=== PATIENT | female | born 1985 | race Caucasian/White ===

== ENCOUNTER 2019-12-05 00:21 | Emergency (ER) | payer SELFPAY ==
[2019-12-05 00:24] VITALS: BP 130/86; PULSE 96; RESP 20; TEMP 36.8; O2SAT 100
--- NOTE | 2019-12-05 00:35 | ED.DENTAL ---
HPI - Dental/Oral General Chief complaint: Dental/Oral Stated complaint: TOOTHACHE Time Seen by Provider: 12/05/19 00:36 Source: patient Mode of arrival: ambulatory Limitations: no limitations History of Present Illness HPI Narrative: The pt is a 34 y/o female who presents to the ED with c/o rt dental pain that began over 5 days ago. The pt was here in the ED 5 days ago for dental pain and was prescribed Augmentin, which she has been taking since, and referred to a dentist. Last night, she noticed rt facial swelling, which worsened to be almost twice in size by morning. The pt was seen at [facility], where providers found that the was septic. The pt left [facility] because she wanted to be admitted somewhere closer to home so she came to [place]. She had a CT done at [facility], which showed that there was no abscess. The pt reports 101F fever, chills, rt facial swelling, and sweats. The pt has a PMHx of pseudotumor cerebri with a SHx of a TAILER OFF shunt placement. MD Complaint: tooth pain (rt) Onset (ago): day(s) (over 5 days ago) Associated symptoms: fever and other (chills, rt facial swelling, sweats. ) Treatment prior to arrival: other (Augmentin, ED visit x2) Related Data Allergies Allergy/AdvReac Type Severity Reaction Status Date / Time cefaclor [From Ceclor] Allergy Swelling Verified 12/05/19 00:23 prochlorperazine Allergy Swelling Verified 12/05/19 00:23 [From Compazine] Sulfa (Sulfonamide Allergy Swelling Verified 12/05/19 00:23 Antibiotics) sulfamethoxazole Allergy Swelling Verified 12/05/19 00:23 [From Bactrim] trimethoprim [From Bactrim] Allergy Swelling Verified 12/05/19 00:23 Review of Systems Review of Systems: All systems reviewed & are unremarkable except as noted in HPI and below Constitutional: Constitutional: Reports chills, Reports fever(s) and Reports other (sweats) ENT: Reports other (rt dental pain) Integumentary/Breasts: Skin/Breast: Reports other (rt facial swelling) PMFSH Past Medical History Medical History (Updated 12/05/19 @ 04:14 by Sin Fairchild MD) History of idiopathic intracranial hypertension Pseudotumor cerebri Surgical History Surgical History (Updated 12/05/19 @ 01:12 by Nieves Soto) Hx of ventricular shunt TAILER OFF shunt Social History Social History Smoking status: Current every day smoker Gender identity (if verbalized by the patient): Female Exam Const: General: healthy appearing and no acute distress Nutritional Appearance: well nourished HENMT: Mouth: Yes lip normal and Yes moist mucous membranes Other: significant tooth decay and gum disease, mild swelling over rt mandible Eyes: Conjunctivae: conjunctivae normal Pupils: Equal, round and reactive pupils present Resp: Effort & Inspection: normal respiratory effort Auscultation: clear to auscultation bilaterally Cardio: Rate: regular rate Rhythm: regular rhythm GI: GI Palp: No abdominal tenderness and Yes Soft to palpation Auscultation: normal bowel sounds Back/Spine/Pelvis: Back: other (full ROM) Skin: General skin exam: normal color, dry skin and other (warm) Neuro: General: patient oriented x3 Speech: normal speech Extrem: General: full ROM Psych: Mental Status: mental status grossly normal Affect: normal affect Course Course Emergency Course: I was called to the room because the patient was requesting pain medication. I ordered toradol and she was upset because she said that she already knew that it would not work. I explained that before giving her a narcotic I would like to give it a chance. She then got upset and stated that I was insulting her intelligence by repeating the same tests that she had done at the other facility before she signed out AMA. I explained that I don't have access to those results, so I needed to repeat the tests. She then began insulting me and saying that I did not know what I was
[2019-12-05 01:49] LABS: Basophils Absolute Auto 0.1 K/mm3 (0.0-0.1); Basophils Percent Auto 0.5 % (0.2-1.2); Eosinophils Absolute Auto 0.8 K/mm3 (0-0.3); Hematocrit 44.8 % (37.0-47.0); Hemoglobin 14.3 g/dL (12.0-15.0); Immature Granulocyte Absolute 0.09 K/mm3 (0.00-0.031); Immature Granulocyte Percent A 0.6 % (0-0.5); Lymphocytes Absolute Auto 2.35 K/mm3 (0.9-3.2); Lymphocytes Percent Auto 15.5 % (18.3-44.2); Mean Corpuscular HGB Conc 31.9 g/dl (32-36); Mean Corpuscular Volume 87.7 fl (80-100); Mean Platelet Volume 10.4 fl (7.4-10.4); Monocytes Absolute Auto 0.9 K/mm3 (0.1-0.6); Monocytes Percent Auto 6.1 % (2.6-8.5); Neutrophils Absolute Auto 10.9 K/mm3 (1.3-6.7); Neutrophils Percent Auto 72.3 % (45.5-73.1); Platelet Count Result 314 k/mm3 (150-375); Red Blood Count 5.11 M/mm3 (4.2-5.4); Red Cell Distribution Width 13.2 % (11.5-14.5); White Blood Count 15.1 K/mm3 (4.5-10.0)
[2019-12-05] MEDS: CLINDAMYCIN 600 MG/NS 50 ML 600 MG/50 ML PIGGYBACK 100 MG IVPB (01:49)
[2019-12-05 02:00] LABS: INR 0.9; Partial Thromboplastin Time 26.1 SECONDS (22.3-36.8); Prothrombin Time 11.9 Seconds (11.1-14.7)
[2019-12-05 02:06] LABS: Alanine Aminotransferase 16 U/L (4-35); Albumin Level 4.5 g/dL (3.5-5.1); Alkaline Phosphatase 72 U/L (38-126); Aspartate Amino Transferase 18 U/L (14-36); Bilirubin,Total 0.5 mg/dL (0.2-1.3); Blood Urea Nitrogen 15 mg/dL (7-17); CRP 2.8 mg/dL (<1.0); Carbon Dioxide 23 mmol/L (22-30); Chloride 102 mmol/L (98-107); Estimated Glomerular Filt Rate > 60; Glucose 85 mg/dL (65-105); Potassium 4.1 mmol/L (3.4-5.0); Sodium 136 mmol/L (137-145)
--- NOTE | 2019-12-05 02:20 | PC.NURSE ---
Patient very tearful, requesting pain medication. States, I should have stayed at that other hospital, at least they gave me pain meds. Dr Fairchild aware, verbal order for Toradol 30mg IVP. Patient also requesting to speak with physician, Dr Fairchild aware.
[2019-12-05] MEDS: KETOROLAC 30 MG/ML VIAL (*BKC) IV PUSH (02:23)
--- NOTE | 2019-12-05 02:44 | PC.NURSE ---
Dr Fairchild in to speak with patient. Patient became tearful and angry with physician. Patient verbalized that she would like to sign out AMA. IV removed, AMA forms signed.
== END 2019-12-05 02:45 | disposition left against medical advice (07) ==
LOC: ANHED 01:05
PROVIDERS: Emergency Provider Emergency Medicine
DX: K04.7 Periapical abscess without sinus (principal); F17.200 Nicotine dependence, unspecified, uncomplicated; G93.2 Benign intracranial hypertension; Z98.2 Presence of cerebrospinal fluid drainage device
CPT/HCPCS: 36415; 80053; 85025; 85610; 85730; 86140; 87040; 96365; 96375; 99284; J1885

== ENCOUNTER 2021-02-13 10:58 | Emergency (ER) | payer OTHER, SELFPAY ==
[2021-02-13] VITALS (26 sets, daily range): BP systolic 112–129; BP diastolic 66–90; PULSE 75–105; RESP 9–23; TEMP 36.3; O2SAT 97–100
--- NOTE | ~2021-02-13 | CT_ITS ---
EXAMINATION: CT brain wo con EXAM DATE: 02/13/2021 13:28 INDICATION: Seizure, posterior head injury. Ventriculoperitoneal shunt revision. Headache. TECHNIQUE: Spiral CT of the head was performed without contrast. Axial, coronal and sagittal images were reviewed. The dose-length product (DLP) for this examination was 605.33 mGy-cm. The exposure w as tailored according to patient size, and iterative reconstruction (ASIR) was used as additional dos e reduction technique. There is no prior study for comparison. FINDINGS: There is no acute intraparenchymal hemorrhage. No evidence of intraparenchymal brain mass lesion. No evidence of acute infarction. There is no mass effect or midline shift. Imaged portion of patient's left-sided ventriculoperitoneal shunt is intact. There is an old tip from a prior shunt which was in the contralateral side with small region of right frontal encephalomalaci a. The ventricles are nearly completely collapsed. There are no extra-axial collections. There are no acute calvarial fractures. The orbits are unremar kable. Soft tissue is unremarkable. The visualized sinuses and mastoid air cells are well aerated. IMPRESSION: 1. Left ventricular peritoneal shunt in position. Lateral ventricles nearly completely collapsed. 2. No acute intracranial findings. Reviewed, dictated and finalized at location A. IMPRESSION: 1. Left ventricular peritoneal shunt in position. Lateral ventricles nearly co mpletely collapsed. 2. No acute intracranial findings.
--- NOTE | ~2021-02-13 | XR_ITS ---
EXAMINATION: XR shunt series EXAM DATE: 02/13/2021 12:21 INDICATION: Seizure, h/o pseudotumor-recent shunt revision. TECHNIQUE: Frontal and lateral projections left head and neck, frontal projection chest, frontal pro jection abdomen and pelvis. There is no prior study for comparison. FINDINGS: There is tip of an old shunt identified probably within a lateral ventricle, may have been in the contralateral side. The current ventriculoperitoneal shunt is entering on the left, tubing steffany ears contiguous and intact to the pelvis. Slightly abrupt alteration of course, slight bending at the mid aspect over the upper abdominal level, but this could also be projectional coming into or out of the plane of the x-ray beam. IMPRESSION: 1. Intact shunt tubing. 2. Slightly abrupt alteration of course, slight bending at shunt mid aspect over the upper abdominal level, but this could also be projectional, coming into or out of the plane of the x-ray beam. No fra nk kinking. Reviewed, dictated and finalized at location A. IMPRESSION: 1. Intact shunt tubing. 2. Slightly abrupt alteration of course, slight bending at shunt mid aspect ove r the upper abdominal level, but this could also be projectional, coming into o r out of the plane of the x-ray beam. No karely kinking.
[2021-02-13] MEDS: ONDANSETRON INJ 4 MG/2 ML VIAL IV PUSH (11:52)
[2021-02-13] MEDS: KETOROLAC 30 MG/ML VIAL (*BKC) IV PUSH (11:53)
[2021-02-13 12:15] LABS: Basophils Absolute Auto 0.1 K/mm3 (0.0-0.1); Basophils Percent Auto 0.7 % (0.2-1.2); Eosinophils Absolute Auto 0.5 K/mm3 (0-0.3); Eosinophils Percent Auto 3.9 % (0-4.4); Hematocrit 47.7 % (37.0-47.0); Hemoglobin 15.4 g/dL (12.0-15.0); Immature Granulocyte Absolute 0.05 K/mm3 (0.00-0.031); Immature Granulocyte Percent A 0.4 % (0-0.5); Lymphocytes Absolute Auto 2.53 K/mm3 (0.9-3.2); Lymphocytes Percent Auto 21.3 % (18.3-44.2); Mean Corpuscular HGB Conc 32.3 g/dl (32-36); Mean Corpuscular Hemoglobin 28.2 pg (26-34); Mean Corpuscular Volume 87.4 fl (80-100); Monocytes Absolute Auto 0.7 K/mm3 (0.1-0.6); Neutrophils Absolute Auto 8.1 K/mm3 (1.3-6.7); Neutrophils Percent Auto 67.7 % (45.5-73.1); Platelet Count Result 257 k/mm3 (150-375); Red Blood Count 5.46 M/mm3 (4.2-5.4); Red Cell Distribution Width 13.3 % (11.5-14.5); White Blood Count 11.9 K/mm3 (4.5-10.0)
[2021-02-13 12:47] LABS: Anion Gap 6 mmol/L (8-16); Blood Urea Nitrogen 11 mg/dL (7-17); Calcium 9.1 mg/dL (8.4-10.2); Carbon Dioxide 23 mmol/L (22-30); Chloride 110 mmol/L (98-107); Estimated CRCL calculation 113 ml/min; Estimated Glomerular Filt Rate > 60; Glucose 93 mg/dL (65-105); Potassium 4.3 mmol/L (3.4-5.0); Sodium 139 mmol/L (137-145)
--- NOTE | 2021-02-13 12:48 | ED.SEIZURE ---
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 Patient reports she had a grand mal seizure last night and then had 3 petit mall seizures today. She moved here from [place] 2 years ago. She has not establish care with a neurologist. Her last shunt revision was over 2 years ago in [place]. She does not take any antiepileptics. Reports increased stress recently due to having to move to another apartment. She denies fevers or chills or sweats. Reports last night she had an aura before her seizure was able to move to the ground before she seized. She reports she has been having some mild headache. She has history of pseudotumor which is why she has the shunt. She has some mild nausea but no vomiting. No numbness or weakness in arm or leg. Patient reports she is having no visual changes which is typically the indicator that she needs a therapeutic tap but she has not required 1 since having her shunt. Seizure History: Yes Related Data Allergies Allergy/AdvReac Type Severity Reaction Status Date / Time cefaclor [From Ceclor] Allergy Swelling Verified 02/13/21 11:28 prochlorperazine Allergy Swelling Verified 02/13/21 11:28 [From Compazine] Sulfa (Sulfonamide Allergy Swelling Verified 02/13/21 11:28 Antibiotics) sulfamethoxazole Allergy Swelling Verified 02/13/21 11:28 [From Bactrim] trimethoprim [From Bactrim] Allergy Swelling Verified 02/13/21 11:28 Review of Systems Review of Systems: All systems reviewed & are unremarkable except as noted in HPI and below Constitutional: Constitutional: Denies chills, Denies fever(s) and Denies weakness Eyes: Eyes: Denies change in vision and Reports photophobia ENT: Denies nasal congestion and Denies sore throat Gastrointestinal: Gastrointestinal: Denies abdominal pain, Reports nausea and Denies vomiting Neurologic: Reports headache(s), Denies focal weakness and Denies numbness Comments: Seizure PMFSH Past Medical History Medical History (Updated 02/13/21 @ 14:47 by Jak Olmstead MD) History of idiopathic intracranial hypertension Pseudotumor cerebri Seizure disorder Surgical History Surgical History (Updated 12/05/19 @ 01:12 by Nieves Soto) Hx of ventricular shunt 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 HEAD: Normocephalic, atraumatic. EYES: PERRL and EOMI. CHEST: Clear to auscultation. No respiratory distress. HEART: Regular rate and rhythm. Normal peripheral pulses. ABDOMEN: Soft, nontender, nondistended. EXTREMITIES: Normal range of motion. No edema. SKIN: Warm, dry, no rash. NEURO: Clear speech. No facial droop. Moves all extremities well. Alert and oriented x3. Course Course Emergency Course: Discussed case with Dr. Ignacio who recommends CT of the brain and for patient be on Keppra 750 mg twice daily and to have an outpatient EEG. CT showed possible over shunting due to collapse of lateral ventricles. Discussed case with Dr. Ramirez with neurosurgery at [facility]. She was able to compare the CT from today with CT imaging that they have been there system which shows unremarkable change. They feel patient can follow-up in 1 to 2 weeks outpatient in the neurosurgical clinic. They will contact the patient as they have her information however we will also give patient clinic phone number. Patient is received Toradol/Tylenol/morphine for pain. She received IV fluid because she appears dry when evaluating her blood work. She is verbalized understanding of the treat
[2021-02-13] MEDS: SODIUM CHLORIDE 0.9% IV 1,000 ML 999 ML IV CONT (13:52)
[2021-02-13] MEDS: levETIRAcetam 1000MG/NACL100ML 1,000 MG/100 ML BAG 400 MG IVPB (14:00)
--- NOTE | 2021-02-13 14:05 | PC.NURSE ---
[id number] Dr. Olmstead aware of pt's continued c/o headache, no further orders received. No seizure activity in ED. Reports GUTIERREZ 8 a little better after Tylenol
[2021-02-13] MEDS: MORPHINE SULFATE (*CRX) 4 MG/ML INJ IV PUSH (14:38)
--- NOTE | 2021-02-13 14:39 | PC.NURSE ---
Dr. Olmstead at bedside for reassessment and update on POC, pt verbalizes to f/u with neurosurg and restart seizure meds No further seizures in ED. Medicated for pain
== END 2021-02-13 15:00 | disposition home or self-care (01) ==
PROVIDERS: Emergency Provider Emergency Medicine; PCP Family Medicine
DX: G40.909 Epilepsy, unspecified, not intractable, without status epilepticus (principal); F17.210 Nicotine dependence, cigarettes, uncomplicated
CPT/HCPCS: 36415; 70250; 70450; 71045; 74018; 80048; 85025; 96361; 96365; 96375; 99284; J0131; J1885; J1953; J2270; J2405; J7030

== ENCOUNTER 2021-05-15 14:56 | Outpatient (CLI) | payer OTHER, SELFPAY ==
--- NOTE | ~2021-05-15 | XR_ITS ---
EXAMINATION: XR lumbar spine min 4V EXAM DATE: 05/15/2021 15:48 INDICATION: Chronic benign low back pain, left-sided sciatica. TECHNIQUE: Lumber spine frontal, lateral, bilateral oblique projections. Coned down frontal and lat eral L5-S1 lumbar projections for interpretation. There is no prior study for comparison. FINDINGS: Mild disc disease L5-S1. Mild mid and lower lumbar facet arthropathy. The vertebral bodies are aligned in the AP dimension. Paraspinal soft tissue is unremarkable. Sacrum, sacroiliac joints, s acral arcuate lines are intact. There is a catheter overlying the abdomen probably a ventriculoperito naga shunt. IMPRESSION: Mild lumbar spondylosis. Reviewed, dictated and finalized at location A. IMPRESSION: Mild lumbar spondylosis.
== END 2021-05-15 14:57 | disposition home or self-care (01) ==
PROVIDERS: PCP Family Medicine
DX: M54.42 Lumbago with sciatica, left side (principal); G89.29 Other chronic pain; M47.816 Spondylosis without myelopathy or radiculopathy, lumbar region
CPT/HCPCS: 72110

== ENCOUNTER 2021-12-31 01:54 | Emergency (ER) | payer OTHER, SELFPAY ==
[2021-12-31] VITALS (9 sets, daily range): BP systolic 123–138; BP diastolic 60–89; PULSE 2–105; RESP 15–21; TEMP 36.8; O2SAT 97–100
--- NOTE | ~2021-12-31 | XR_ITS ---
XR shunt series 12/31/2021 02:36 Indication: Seizure. Evaluate ventriculoperitoneal shunt. Procedure: 6 views of the ventriculoperitoneal shunt Comparison: 02/13/2021 Findings: There is tip from an old shunt identified. The current shunt enters on the left with contig uous tubing extending into the pelvis. No focal kinks are identified. No acute cardiopulmonary diseas e. Nonobstructive bowel gas pattern. Impression: 1: Intact ventriculoperitoneal shunt. Reviewed, dictated and finalized at location A. OYMENT DIRECTOR Impression: 1: Intact ventriculoperitoneal shunt.
--- NOTE | ~2021-12-31 | CT_ITS ---
EXAMINATION: CT BRAIN W/O DATE: 12/31/2021 02:28 INDICATION: Head injury. Seizure. TECHNIQUE: Computed tomography (CT) of the head was performed without intravenous contrast. The dose- length product was 681.00 mGy-cm. COMPARISON: No prior studies for comparison. FINDINGS: Normal brain parenchymal volume for age. Normal huerta-white differentiation. No acute intrac ranial hemorrhage, infarction, mass or mass effect. There is a shunt catheter in the ventricles. The ventricles are decompressed. There is residual tip of a previous right-sided shunt catheter. There is encephalomalacia in the frontal lobes. No ventriculomegaly or midline shift. Midline sagittal images demonstrate a normal corpus callosum, c raniovertebral junction and sella turcica. Basilar cisterns are patent. Paranasal sinuses and mastoids are pneumatized. No depressed skull fractures. IMPRESSION: 1. No acute intracranial abnormality. Reviewed, dictated and finalized at location A. L CHIPPER
--- NOTE | 2021-12-31 02:07 | ECG_ITS ---
Measurements Intervals [place] Rate: 80 P: 38 VA: 139 QRS: 20 QRSD: 84 T: -1 QT: 345 QTc: 398 Interpretive Statements SINUS RHYTHM BORDERLINE ST-T WAVE ABNORMALITY- INFERIOR LEADS BORDERLINE ECG Electronically Signed On 12-31-2021 6:28:17 MULTIMEDIA SPECIALIST by Michael Alford D.O.
--- NOTE | 2021-12-31 02:42 | ED.SEIZURE ---
HPI - Seizure General Chief Complaint: Seizure Stated Complaint: Seizure, head injury Time Seen by Provider: 12/31/21 02:08 Source: patient Mode of arrival: ambulatory Limitations: no limitations History of Present Illness HPI Narrative: This is a 36 year old female with history of idiopathic intracranial hypertension and seizures who presents for evaluation seizures and head injury. Patient states she could tell she was going to have seizure and she hit her head on vanity. She reports she was aware of all events and she ended up on the floor. She states she had a seizures. She reports immediately having nausea and vomiting. She denies any symptoms prior to getting into the shower. She thinks her shunt is not working. She reports compliance with her seizure medication and she takes keppra 1000 mg BID. She reports shunt was first placed 15 years ago and her last shunt revision was 3 years ago in [place]. She does not have a neurologist or neurosurgeon in area. Seizure History: Yes (takes Keppra) Related Data Home Medications Medication Instructions Recorded Confirmed hydrocodone-acetaminophen tablet 12/31/21 Allergies Allergy/AdvReac Type Severity Reaction Status Date / Time cefaclor [From Ceclor] Allergy Swelling Verified 12/31/21 02:06 prochlorperazine Allergy Swelling Verified 12/31/21 02:06 [From Compazine] Sulfa (Sulfonamide Allergy Swelling Verified 12/31/21 02:06 Antibiotics) sulfamethoxazole Allergy Swelling Verified 12/31/21 02:06 [From Bactrim] trimethoprim [From Bactrim] Allergy Swelling Verified 12/31/21 02:06 Review of Systems Review of Systems: All systems reviewed & are unremarkable except as noted in HPI and below PMFSH Past Medical History Medical History (Updated 12/31/21 @ 05:07 by Glenny Salazar MD) History of idiopathic intracranial hypertension Pseudotumor cerebri Seizure disorder Surgical History Surgical History (Updated 12/31/21 @ 05:07 by Glenny Salazar MD) Hx of ventricular shunt 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 Social History Social History Smoking status: Current every day smoker Gender identity (if verbalized by the patient): Female Exam Const: General: alert Orientation/consciousness: patient oriented x3 HENMT: Head: normocephalic and atraumatic Face and sinus: normal facial exam and face symmetric Mouth: Yes Normal oral and palatal mucosa present, Yes lip normal, Yes oropharynx normal and Yes moist mucous membranes Teeth and gingiva: fair dentition Eyes: Pupils: Equal, round and reactive pupils present EOM: EOMs intact bilaterally Chest: Chest palpation & inspection: normal inspection of the chest Resp: Effort & Inspection: normal respiratory effort and no retractions Auscultation: clear to auscultation bilaterally Cardio: Rate: regular rate Rhythm: regular rhythm Heart sounds: no murmurs GI: GI Palp: Yes Soft to palpation, No Tenderness to palpation present (GI) and No Guarding due to palpation present (GI) Auscultation: normal bowel sounds Back/Spine/Pelvis: Cervical Spine: pain with cervical ROM, No Cervical spine tenderness and No step off deformity Skin: General skin exam: normal color Rashes: no rashes Neuro: General: patient oriented x3, moves all extremities and CN's II-XI intact bilaterally Psych: Mental Status: mental status grossly normal Affect: normal affect Course Reevaluation(s) Reevaluation #1: Patient is concerned about her shunt. I spoke with Dr. Casper with [facility] neurosurgery who would like to assess patient in ER. Dr. Hunt accepts patient to ER. Patient is now complaining of pain at base of neck. Will place in collar Date: 12/31/21 Time: 05:02 Reevaluation #2: Patient asked nurse to sign AMA so her can take her to [facility] ER. They discussed risk given concern for seizures, apnea. Date: 12/31/21 Time: 05:40 Vital Signs Vital signs: Vital
[2021-12-31] MEDS: ONDANSETRON INJ 4 MG/2 ML VIAL IV PUSH (02:43)
[2021-12-31] MEDS: SODIUM CHLORIDE 0.9% IV 1,000 ML 999 ML IV CONT ×2 (02:43→03:46)
[2021-12-31 02:48] LABS: Basophils Absolute Auto 0.1 K/mm3 (0.0-0.1); Basophils Percent Auto 0.4 % (0.2-1.2); Eosinophils Absolute Auto 0.5 K/mm3 (0-0.3); Eosinophils Percent Auto 3.7 % (0-4.4); Hematocrit 45.1 % (37.0-47.0); Hemoglobin 14.5 g/dL (12.0-15.0); Immature Granulocyte Absolute 0.06 K/mm3 (0.00-0.031); Immature Granulocyte Percent A 0.4 % (0-0.5); Lymphocytes Absolute Auto 4.13 K/mm3 (0.9-3.2); Lymphocytes Percent Auto 28.6 % (18.3-44.2); Mean Corpuscular HGB Conc 32.2 g/dl (32-36); Mean Corpuscular Hemoglobin 28.5 pg (26-34); Mean Corpuscular Volume 88.8 fl (80-100); Mean Platelet Volume 10.6 fl (7.4-10.4); Monocytes Absolute Auto 0.8 K/mm3 (0.1-0.6); Monocytes Percent Auto 5.8 % (2.6-8.5); Neutrophils Absolute Auto 8.8 K/mm3 (1.3-6.7); Neutrophils Percent Auto 61.1 % (45.5-73.1); Platelet Count Result 303 k/mm3 (150-375); Red Blood Count 5.08 M/mm3 (4.2-5.4); Red Cell Distribution Width 13.2 % (11.5-14.5); White Blood Count 14.5 K/mm3 (4.5-10.0)
[2021-12-31 03:10] LABS: Alanine Aminotransferase 16 U/L (4-35); Albumin Level 4.5 g/dL (3.5-5.1); Alkaline Phosphatase 53 U/L (38-126); Anion Gap 7 mmol/L (8-16); Aspartate Amino Transferase 25 U/L (14-36); Bilirubin,Total 0.5 mg/dL (0.2-1.3); Blood Urea Nitrogen 10 mg/dL (7-17); Carbon Dioxide 19 mmol/L (22-30); Chloride 109 mmol/L (98-107); Estimated Glomerular Filt Rate > 60; Glucose 96 mg/dL (65-110); Magnesium 1.9 mg/dL (1.6-2.3); Potassium 4.6 mmol/L (3.4-5.0); Sodium 135 mmol/L (137-145)
[2021-12-31 03:32] LABS: Add Urine Microscopic? NO; Appearance Urine Clear (Clear); Bilirubin Urine Negative (Negative); Blood Urine Negative (Negative); Color Urine Yellow (Yellow); Glucose Urine UA Negative (Negative); Ketones Urine Negative (Negative); Leukocyte Esterase Ur Negative LEU/UL (Negative); Nitrate Urine Negative (Negative); Protein Urine Negative (Negative); Specific Grav Ur 1.009 (1.001-1.035); Urobilinogen Urine Negative mg/dL (<2.0)
[2021-12-31] MEDS: KETOROLAC 30 MG/ML VIAL (*BKC) IV PUSH (03:45)
[2021-12-31 03:49] LABS: Amphetamine Screen Urine Negative (Negative); Barbiturate Screen Urine Negative (Negative); Benzodiazepines Screen Urine Negative (Negative); Cannabinoid Screen Urine Negative (Negative); Cocaine Screen Urine Negative (Negative); Methadone Screen Urine Negative (Negative); Opiate Screen Urine Positive (Negative); Phencyclidine Screen Urine Negative (Negative)
--- NOTE | 2021-12-31 05:10 | PC.NURSE ---
Pt tearful on stretcher and states she would like to go to [facility] ER via POV w/ . is not at bedside at this time. Pt informed she has IV access and is going ALS for eval. Report given to Megan at [facility]. Pt states she will sign out AMA if she has to, but not wanting to go via EMS. EDP informed. States to let pt know pain meds are ordered and plan is to go via EMS. Pt declines, states It is ridiculous that I cannot get pain medicine if I refuse an ambulance ride. Pt discussing w/ automatic packer operator at this time.
--- NOTE | 2021-12-31 05:23 | PC.NURSE ---
Pt advised by EDP Dr Salazar of risk of sz or further injury by signing out AMA and refusing transport via EMS to [facility] ER. Pt signed AMA paper work and declined EMS transport to [facility] per EDP recommendations. Given packet to take to ER and discussed going directly to ER and to remain NPO. IV removed, transfer packet w/ disc given to pt. Pt ambulated out in no distress w/ steady gait.
== END 2021-12-31 05:28 | disposition left against medical advice (07) ==
PROVIDERS: Emergency Provider General Practice
DX: G40.909 Epilepsy, unspecified, not intractable, without status epilepticus (principal); R51.9 Headache, unspecified; Z98.2 Presence of cerebrospinal fluid drainage device; F17.200 Nicotine dependence, unspecified, uncomplicated
CPT/HCPCS: 36415; 70250; 70450; 71045; 74018; 80053; 80307; 81003; 81025; 83735; 85025; 93005; 96361; 96365; 96375; 99284; J0131; J1885; J2405; J7030

== ENCOUNTER 2023-06-07 11:55 | Emergency (ER) | payer OTHER, SELFPAY ==
[2023-06-07 11:58] VITALS: BP 114/64; PULSE 83; RESP 16; TEMP 36.4; O2SAT 100
--- NOTE | 2023-06-07 12:37 | ED.DENTAL ---
HPI - Dental/Oral General Chief complaint: Dental/Oral Stated complaint: tooth pain Time Seen by Provider: 06/07/23 12:13 Source: patient Mode of arrival: ambulatory Limitations: no limitations History of Present Illness HPI Narrative: Right upper dental pain for the last few days, she denies any fever, chills, headache, difficulty swallowing or breathing. Does not have a dentist. Related Data Home Medications Medication Instructions Recorded Confirmed hydrocodone 10 mg-acetaminophen tablet 12/31/21 325 mg tablet Allergies Allergy/AdvReac Type Severity Reaction Status Date / Time cefaclor [From Ceclor] Allergy Swelling Verified 06/07/23 12:08 prochlorperazine Allergy Swelling Verified 06/07/23 12:08 [From Compazine] Sulfa (Sulfonamide Allergy Swelling Verified 06/07/23 12:08 Antibiotics) sulfamethoxazole Allergy Swelling Verified 06/07/23 12:08 [From Bactrim] trimethoprim [From Bactrim] Allergy Swelling Verified 06/07/23 12:08 Review of Systems Review of Systems: All systems reviewed & are unremarkable except as noted in HPI and below PMFSH Past Medical History Medical History History of idiopathic intracranial hypertension Pseudotumor cerebri Seizure disorder Surgical History Surgical History 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 ventricular shunt 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 Social History Social History Smoking status: Current every day smoker Gender identity (if verbalized by the patient): Female Exam Narrative: General appearance: Well-developed, well-nourished Skin: Normal color Head: Normocephalic, nontraumatic Eyes: Clear conjunctiva ENT: Severe dental decay and fracture of the teeth on the right upper gum with swelling gum, no abscess formation Neck: Supple, nontender Chest and respiratory: Airway patent, no respiratory distress, no accessory muscle use Heart: Regular rate/rhythm Neurologic: Alert and oriented ?3, CUSTOM DECORATING CONSULTANT is normal as tested, no gross motor deficit Course Reevaluation(s) Reevaluation #1: Feeling a little better after ibuprofen and [place] orally. Date: 06/07/23 Time: 12:46 Vital Signs Vital signs: Vital Signs Temperature 36.4 C L 06/07/23 11:58 Pulse Rate 83 06/07/23 11:58 Respiratory Rate 16 06/07/23 11:58 Blood Pressure 114/64 06/07/23 11:58 Pulse Oximetry 100 06/07/23 11:58 Oxygen Delivery Room Air 06/07/23 11:58 Temperature 36.4 C L 06/07/23 11:58 Pulse Rate 83 06/07/23 11:58 Respiratory Rate 16 06/07/23 11:58 Blood Pressure 114/64 06/07/23 11:58 Pulse Oximetry 100 06/07/23 11:58 Oxygen Delivery Room Air 06/07/23 11:58 MDM - Dental/Oral MDM Narrative Medical decision making narrative: Patient presents with dental pain, no abscess formation at this time, Patient received ibuprofen, [place], clindamycin and Flagyl in the ED prior to discharge. Patient was discharged on Flagyl, clindamycin and IV. Differential Diagnosis Differential diagnosis: Likely dental caries, toothache and fracture of tooth Medical Records Attestation: I reviewed the patient's medical records. Critical Care Time Critical Care Time Critical Care Time: Yes Total Critical Care Time: 10 Discharge Plan Discharge Clinical Impression: Dental caries Patient Disposition: Home, Self-Care Condition: Stable Instructions: Antibiotic Form, Toothache (ED) Additional Instructions: Follow-up with a dentist in 5 days. Prescriptions: New clindamycin HCl [Cleocin HCl] 300 mg capsule 300 mg PO Q6H Qty: 40 0RF metr
[2023-06-07] MEDS: metroNIDAZOLE 250 MG TABLET 500 MG PO (12:53)
[2023-06-07] MEDS: HYDROcodone/acetaminophen (*CRX) 5-325 MG TABLET 1 TAB PO (12:54)
[2023-06-07] MEDS: IBUPROFEN SUSPENSION 200 MG/10 ML UDC 800 MG PO (12:55)
[2023-06-07] MEDS: CLINDAMYCIN HCL 150 MG CAP 300 MG PO (13:04)
== END 2023-06-07 13:05 | disposition home or self-care (01) ==
PROVIDERS: Emergency Provider Emergency Medicine
DX: K02.9 Dental caries, unspecified (principal); G40.909 Epilepsy, unspecified, not intractable, without status epilepticus; F17.200 Nicotine dependence, unspecified, uncomplicated; Z98.2 Presence of cerebrospinal fluid drainage device
CPT/HCPCS: 99283; A9270

== ENCOUNTER 2024-05-16 07:40 | Inpatient (IN) | payer SELFPAY ==
[2024-05-16] VITALS (19 sets, daily range): BP systolic 99–132; BP diastolic 53–88; PULSE 51–81; RESP 14–20; TEMP 35.9–36.8; O2SAT 94–100
--- NOTE | ~2024-05-16 | XR_ITS ---
EXAMINATION: XR chest 1V portable DATE: 05/16/2024 09:46 INDICATION: Headache with ventriculoperitoneal shunt. TECHNIQUE: frontal view of the chest was obtained. COMPARISON: Shunt series dated 12/31/2021 FINDINGS: Unchanged mild elevation the left hemidiaphragm. No focal airspace opacities, pulmonary edema, pleura l effusion or pneumothorax. The cardiomediastinal silhouette is normal. Left ventricular peritoneal s noeil catheter can be seen extending from the cephalad and caudal margin of the erspe-xw-auth projecti ng across the left side of the neck, chest and upper abdomen. IMPRESSION: 1. Chronic mild elevation the left hemidiaphragm. No acute cardiopulmonary disease. Reviewed, dictated and finalized at location A. IMPRESSION: 1. Chronic mild elevation the left hemidiaphragm. No acute cardiopulmonary dise ase.
--- NOTE | ~2024-05-16 | CT_ITS ---
EXAMINATION: CT brain wo con DATE: 05/16/2024 09:55 INDICATION: Headache. Shunt disorder. TECHNIQUE: Computed tomography (CT) of the head was performed without intravenous contrast. Sagittal and coronal reconstructions were performed. The mA was adjusted according to patient size. Iterative reconstruction technique was employed. The dose-length product was 681.00 mGy-cm. COMPARISON: head CT dated 12/31/2021 and 02/13/2021 FINDINGS: Again seen is a left frontal ventricular shunt catheter with distal tip extending to the anterior hor n of the left lateral ventricle and with distal tip near the region of the foramen of Monro there is an unchanged shunt fragment which appears to extend from right to left into the anterior horn of the left lateral ventricle. There is small region of decreased attenuation likely related to an gliosis a long the catheter tract in the right frontal lobe immediately underlying an old jerry hole. No acute i ntracranial hemorrhage, acute infarction or abnormal extra axial fluid collection. The ventricles rem ain slitlike which is unchanged since the prior studies. Basal cisterns are patent. No mass/mass effe ct. Mild mucosal thickening the anterior right sphenoid sinus. The orbits and mastoid air cells are n ormal. IMPRESSION: 1. Unchanged position of a left ventriculoperitoneal shunt with no change in nearly completely collap sed slit like lateral and third ventricles. No acute intracranial process. Reviewed, dictated and finalized at location A. IMPRESSION: 1. Unchanged position of a left ventriculoperitoneal shunt with no change in ne darian completely collapsed slit like lateral and third ventricles. No acute intr acranial process.
--- NOTE | ~2024-05-16 | XR_ITS ---
EXAMINATION: XR lumbar puncture therapeutic DATE: 05/18/2024 12:33 INDICATION: Headache and shunt disorder. TECHNIQUE: The procedure including the risks and benefits was discussed with the patient. Risks discu ssed included spinal headache, cerebrospinal fluid leak, bleeding, and infection. The patient underst ood the risks and agreed to proceed. A timeout was performed to verify the patient's name, date of , and procedure to be performed. The skin overlying the L4-L5 level was prepped and draped in usual sterile fashion. Subcutaneous 1% lidocaine was used for local anesthesia. A 22 gauge spinal n eedle was advanced under fluoroscopic guidance. The needle was removed and the entry site was cleaned and dressed. There were no immediate complications. Fluoroscopy exposure time was 0.2 minutes. Tota l DAP was 8.477 Gycm^2 FINDINGS: Real-time fluoroscopy demonstrates the needle at the L4-L5 level. Opening pressure was 40 c m water (Normal range is variably defined as 6-20 cm water and up to 25 cm water in obese patients. P ressure >25 cm water is one of the modified Dandy criteria for idiopathic intracranial hypertension). 13 mL of clear, colorless fluid was collected in 4 tubes. IMPRESSION: 1. Successful fluoro-guided lumbar puncture with elevated opening pressure of 39 cm water. Reviewed, dictated and finalized at location A. IMPRESSION: 1. Successful fluoro-guided lumbar puncture with elevated opening pressure of 3 9 cm water.
--- NOTE | 2024-05-16 08:48 | ED.GENADULT ---
HPI - General Adult General Chief complaint: Unspecified Stated complaint: visual changes, GUTIERREZ, shunt issues? Time Seen by Provider: 05/16/24 08:48 Source: patient Mode of arrival: ambulatory Limitations: no limitations History of Present Illness HPI narrative: 38 years old white female came to the ED by private car complaining of headache, right flank pain, nausea vomiting, left eye blurry vision, double symptoms started 2 days ago, the blurry vision started last night resolved this morning. She denies any fever or chills. 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 Related Data Home Medications Medication Instructions Recorded Confirmed hydrocodone 10 mg-acetaminophen tablet 12/31/21 325 mg tablet Allergies Allergy/AdvReac Type Severity Reaction Status Date / Time cefaclor [From Ceclor] Allergy Swelling Verified 06/07/23 12:08 prochlorperazine Allergy Swelling Verified 06/07/23 12:08 [From Compazine] Sulfa (Sulfonamide Allergy Swelling Verified 06/07/23 12:08 Antibiotics) sulfamethoxazole Allergy Swelling Verified 06/07/23 12:08 [From Bactrim] trimethoprim [From Bactrim] Allergy Swelling Verified 06/07/23 12:08 Review of Systems Review of Systems: All systems reviewed & are unremarkable except as noted in HPI and below PMFSH Past Medical History Medical History History of idiopathic intracranial hypertension Pseudotumor cerebri Seizure disorder Surgical History Surgical History Hx of ventricular shunt FLAME CHANNELER shunt Social History Social History Smoking status: Current every day smoker Gender identity (if verbalized by the patient): Female Exam Narrative: General appearance: Well-developed, well-nourished Skin: Normal color Head: Normocephalic, nontraumatic Eyes: Clear conjunctiva ENT: Oropharynx normal, ears normal, nose normal Neck: Supple, nontender Chest and respiratory: Airway patent, no respiratory distress, no accessory muscle use Heart: Regular rate/rhythm Abdomen: Soft, mild tenderness right flank, no organomegaly, quiet bowel sounds Vascular: Normal peripheral pulses, normal capillary refill. Musculoskeletal: Normal range of motion, nontender back Neurologic: Alert and oriented ?3, IRON BENDER is normal as tested, no gross motor deficit Course Vital Signs Vital signs: Vital Signs Temperature 36.8 C 05/16/24 07:51 Pulse Rate 81 05/16/24 07:51 Respiratory Rate 20 05/16/24 07:51 Blood Pressure 132/88 05/16/24 07:51 Pulse Oximetry 99 05/16/24 07:51 Temperature 36.8 C 05/16/24 07:51 Pulse Rate 81 05/16/24 07:51 Respiratory Rate 20 05/16/24 07:51 Blood Pressure 101/61 05/16/24 10:31 Pulse Oximetry 96 05/16/24 10:50 Medical Decision Making [facility] Narrative Medical decision making narrative: Differential diagnosis include shunt abnormality, migraine headache, anxiety stress related symptoms, urinary tract infection, dehydration, electrolyte imbalance Blood workup today showed insignificant abnormality, urinalysis showed evidence of urinary tract infection, chest x-ray showed no acute abnormalities, CT head without contrast showed no acute abnormalities. Patient is allergic to a lot of antibiotics, started on the back 0.7 50 IV prior to admission. Admit to hospitalist because of vomiting. Differential Diagnosis Differential Diagnosis: As above
--- NOTE | 2024-05-16 08:49 | ECG_ITS ---
Test Date: 2024-05-16 09:05:57 Measurements Intervals Swan Rate: 69 P: 37 PA: 156 QRS: 19 QRSD: 88 T: 12 QT: 397 QTc: 426 Interpretive Statements SINUS RHYTHM LOW QRS VOLTAGE IN PRECORDIAL LEADS BASELINE ARTIFACT- I, III, AVR, AVL BORDERLINE ECG No previous ECG available for comparison Electronically Signed On 05-16-2024 09:15:24 CDT by Michael Alford D.O.
[2024-05-16] MEDS: ONDANSETRON INJ 4 MG/2 ML VIAL IV PUSH ×3 (09:03→19:33)
[2024-05-16] MEDS: HYDROmorphone HCL INJ (*CRX) 1 MG/ML SYR 0.5 MG IV PUSH ×2 (09:06→10:08)
[2024-05-16 09:10] LABS: Appearance Urine Cloudy (Clear); Bacteria Urine 1+ /hpf; Bilirubin Urine Negative (Negative); Blood Urine 3+ (Negative); Color Urine Yellow (Yellow); Glucose Urine UA Negative (Negative); Ketones Urine Negative (Negative); Leukocyte Esterase Ur 2+ LEU/UL (Negative); Nitrate Urine Positive (Negative); Non Pathogenic Casts 0-2; Protein Urine Trace mg/dL (Negative); RBC Urine >100 /hpf (0-2); Specific Grav Ur 1.023 (1.001-1.035); Squamous Epithelial Cell Urine Occasional /hpf (Few); WBC Urine >100 /hpf (0-3)
[2024-05-16 09:11] LABS: Basophils Absolute Auto 0.1 K/mm3 (0.0-0.1); Basophils Percent Auto 0.5 % (0.2-1.2); Eosinophils Absolute Auto 0.7 K/mm3 (0-0.3); Eosinophils Percent Auto 6.7 % (0-4.4); Hematocrit 42.9 % (37.0-47.0); Hemoglobin 13.9 g/dL (12.0-15.0); Immature Granulocyte Absolute 0.04 K/mm3 (0.00-0.031); Immature Granulocyte Percent A 0.4 % (0-0.5); Lymphocytes Absolute Auto 2.41 K/mm3 (0.9-3.2); Lymphocytes Percent Auto 24.8 % (18.3-44.2); Mean Corpuscular HGB Conc 32.4 g/dl (32-36); Mean Corpuscular Hemoglobin 28.4 pg (26-34); Mean Corpuscular Volume 87.6 fl (80-100); Mean Platelet Volume 10.5 fl (7.4-10.4); Monocytes Absolute Auto 0.8 K/mm3 (0.1-0.6); Monocytes Percent Auto 7.8 % (2.6-8.5); Neutrophils Absolute Auto 5.8 K/mm3 (1.3-6.7); Neutrophils Percent Auto 59.8 % (45.5-73.1); Platelet Count Result 258 k/mm3 (150-375); Red Cell Distribution Width 13.2 % (11.5-14.5); White Blood Count 9.7 K/mm3 (4.5-10.0)
[2024-05-16 09:13] LABS: Glucose Point of Care 102 mg/dl (65-105)
[2024-05-16 09:17] LABS: Alanine Aminotransferase 16 U/L (6-35); Albumin Level 4.3 g/dL (3.5-5.1); Alkaline Phosphatase 61 U/L (38-126); Anion Gap 8 mmol/L (4-12); Aspartate Amino Transferase 19 U/L (14-36); Bilirubin,Total 0.3 mg/dL (0.2-1.3); Blood Urea Nitrogen 17 mg/dL (7-17); Calcium 8.4 mg/dL (8.4-10.2); Carbon Dioxide 25 mmol/L (22-30); Chloride 106 mmol/L (98-107); Estimated Glomerular Filt Rate > 60; Glucose 96 mg/dL (65-110); Potassium 4.2 mmol/L (3.4-5.0); Prothrombin Time 13.2 Seconds (11.1-14.7); Sodium 139 mmol/L (137-145)
[2024-05-16 09:18] LABS: Partial Thromboplastin Time 25.8 Seconds (22.3-36.8)
[2024-05-16 09:20] LABS: Add Urine Microscopic? YES
[2024-05-16] MEDS: levoFLOXacin 750 MG/D5W 150 ML 750 MG/150 ML BAG 100 MG IVPB (11:50)
[2024-05-16] MEDS: SODIUM CHLORIDE 0.9% IV 1,000 ML 125 ML IV CONT ×2 (11:50→19:33)
[2024-05-16] MEDS: KETOROLAC 30 MG/ML VIAL (*BKC) IV PUSH (12:12)
--- NOTE | 2024-05-16 12:31 | PM.IMHP ---
H&P: HPI History of Present Illness Date/Time: 05/16/24 12:31 Chief Complaint: Headache nausea vomiting and frequent urination Narrative: 38-year-old female with a history of pseudotumor cerebri was in her usual state of health until 2 days ago. She began having left temporoparietal headache that radiated to the posterior neck. It is worse with movement. Not light sensitive. Associated with some nausea. Increased with bending over. Last evening she began have some blurring of her vision. She did notice increasing urinary frequency over the last couple of days but without burning or change in the urine itself. Also over the last 2 days she noted some gradually increasing [id number] pain in the right CVA region. Because of the worsening symptoms she presented to the emergency department today. There she was found to have an abnormal urinalysis. CT of the head was unremarkable with MOTION PICTURE EQUIPMENT SUPERVISOR shunt in place and 3rd ventricles without distension. White count was normal. Chemistries were unremarkable. Urine was cloudy and showed 2+ leukocytes greater than 100 leukocytes and erythrocytes per high-power field and 1+ bacteria per high-power field. Review of Systems Review of Systems: All systems reviewed & are unremarkable except as noted in HPI and below PMFSH Past Medical History Medical History (Updated 05/16/24 @ 12:50 by Alen Eng MD) History of idiopathic intracranial hypertension Seizure disorder Surgical History Surgical History (Updated 05/16/24 @ 12:46 by Alen Eng MD) History of appendectomy 2009 Hx of ventricular shunt MOTION PICTURE EQUIPMENT SUPERVISOR shunt placed 2001, revised multiple times, last in 2019 Family History Family History (Updated 05/16/24 @ 12:54 by Alen Eng MD) Mother No problems noted. 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 Surrogate decision maker: . Code Status: Full. Smoking status: Current every day smoker Alcohol intake: never Substance use: never Do You Feel Safe in your Home?: Yes Lack of Transportation: No Lack of Food: Never True Current Housing: I Have Housing Education: Bachelor's Degree Difficulty w/ Childcare or Family Care: No Living arrangements: with family Occupation/Education: occupation Gender identity (if verbalized by the patient): Female Meds Home Medications and Allergies Home Medications Medication Instructions Recorded Confirmed Type levetiracetam 750 mg tablet 750 mg PO BID #60 tabs 02/13/21 Rx (Keppra) ondansetron 4 mg disintegrating 4 mg PO Q6H PRN nausea and 02/13/21 Rx tablet vomiting #10 tabs hydrocodone 10 mg-acetaminophen tablet 12/31/21 History 325 mg tablet clindamycin HCl 300 mg capsule 300 mg PO Q6H #40 caps 06/07/23 Rx (Cleocin HCl) ibuprofen 800 mg tablet 800 mg PO TID PRN pain #20 tabs 06/07/23 Rx metronidazole 500 mg tablet 500 mg PO Q6H #40 tabs 06/07/23 Rx Allergies Allergy/AdvReac Type Severity Reaction Status Date / Time cefaclor [From Ceclor] Allergy Swelling Verified 06/07/23 12:08 prochlorperazine Allergy Swelling Verified 06/07/23 12:08 [From Compazine] Sulfa (Sulfonamide Allergy Swelling Verified 06/07/23 12:08 Antibiotics) sulfamethoxazole Allergy Swelling Verified 06/07/23 12:08 [From Bactrim] trimethoprim [From Bactrim] Allergy Swelling Verified 06/07/23 12:08 Vital Signs Vital Signs - 24 hr 05/16/24 07:51 05/16/24 08:16 05/16/24 08:17 Temperature 98.3 F Pulse Rate 81 Respiratory Rate 20 Blood Pressure 132/88 104/61 Pulse Oximetry 99 97 97 05/16/24 08:36 05/16/24 08:58 05/16/24 09:00 Temperature Pulse Rate Respiratory Rate Blood Pressure Pulse Oximetry 98 99 100 05/16/24
--- NOTE | 2024-05-16 13:10 | ADMGEN ---
This patient, Prema Smith, was admitted to 3 [facility] Surg Room 305-01. Patient/family oriented to hospital policies and general routines including ID bracelet, bed and alarms, visiting hours, pain management, procedures, bathroom and other care routines, personal items, smoking policy, room service/diet, and visiting hours. Information on how to activate the Rapid Response Team has been discussed. Patient/Family are encouraged to report perceived risks to care and to ask questions if they do not understand what they are told or what they should do.
[2024-05-16] MEDS: HYDROmorphone HCL INJ (*CRX) 1 MG/ML SYR IV PUSH ×4 (13:38→22:35)
[2024-05-16] MEDS: diphenhydrAMINE HCl INJ 50 MG/ML VIAL 25 MG IV PUSH (18:00)
--- NOTE | 2024-05-16 18:30 | P.PNCROSS_ITS ---
Event Note Event Note Event Note: Patient developed a pruritic rash after her levofloxacin. No Shortness of teresita th. She has multiple allergies. She stated she has taken ciprofloxacin without problem in the past. Will switch levofloxacin to ciprofloxacin she did receive complete levofloxacin dose for her current treatment. Will start ciprofloxacin a.m..
[2024-05-17] MEDS: HYDROmorphone HCL INJ (*CRX) 1 MG/ML SYR IV PUSH ×6 (01:56→19:38)
[2024-05-17] MEDS: ONDANSETRON INJ 4 MG/2 ML VIAL IV PUSH ×6 (01:57→19:36)
[2024-05-17] MEDS: SODIUM CHLORIDE 0.9% IV 1,000 ML 125 ML IV CONT ×2 (02:14→11:30)
[2024-05-17 06:00] VITALS: BP 124/75; PULSE 73; RESP 19; TEMP 36.4; O2SAT 99
[2024-05-17 06:26] LABS: Hematocrit 38.7 % (37.0-47.0); Hemoglobin 12.2 g/dL (12.0-15.0); Mean Corpuscular HGB Conc 31.5 g/dl (32-36); Mean Corpuscular Hemoglobin 28.6 pg (26-34); Mean Corpuscular Volume 90.6 fl (80-100); Mean Platelet Volume 11.1 fl (7.4-10.4); Platelet Count Result 223 k/mm3 (150-375); Red Blood Count 4.27 M/mm3 (4.2-5.4); Red Cell Distribution Width 13.5 % (11.5-14.5); White Blood Count 8.8 K/mm3 (4.5-10.0)
[2024-05-17 06:40] LABS: Anion Gap 9 mmol/L (4-12); Blood Urea Nitrogen 14 mg/dL (7-17); Calcium 7.8 mg/dL (8.4-10.2); Carbon Dioxide 21 mmol/L (22-30); Chloride 110 mmol/L (98-107); Estimated Glomerular Filt Rate > 60; Glucose 92 mg/dL (65-110); Potassium 4.1 mmol/L (3.4-5.0); Sodium 140 mmol/L (137-145)
[2024-05-17 07:57] VITALS: O2SAT 96
[2024-05-17 08:00] VITALS: PULSE 61; RESP 20; O2SAT 97
[2024-05-17] MEDS: CIPROFLOXACIN 400 MG/D5W 200ML 200 ML 200 MG IVPB (12:24)
[2024-05-17 14:00] VITALS: BP 111/65; PULSE 61; RESP 20; TEMP 36.1; O2SAT 97
--- NOTE | 2024-05-17 16:59 | PM.IMPN ---
Progress Note: A&P Assessment and Plan (1) S/P ventriculoperitoneal shunt: Code(s): Z98.2 - Presence of cerebrospinal fluid drainage device Status: Acute (2) Seizure disorder: Code(s): G40.909 - Epilepsy, unspecified, not intractable, without status epilepticus Status: Acute Plan continue dilaudid, pending LP, neurology consultation appreciated. Subjective Date/time seen: 05/17/24 16:59 Interval history: pending LP. pt complains of 8/10 headache Review of Systems Review of Systems: All systems reviewed & are unremarkable except as noted in HPI and below (subjective) Exam Const: General: comfortable and in distress Eyes: Pupils: Equal, round and reactive pupils present Neck: Neck: supple Resp: Effort & Inspection: normal respiratory effort Auscultation: clear to auscultation bilaterally Cardio: Rate: regular rate Rhythm: regular rhythm GI: GI Palp: Yes Soft to palpation and No Tenderness to palpation present (GI) Extrem: General: no edema Objective Data Vital Signs Vital Signs: Vital Signs - 24 hr 05/16/24 18:34 05/16/24 20:04 05/16/24 20:00 Temperature 97.9 F Pulse Rate 51 L Respiratory Rate 16 Blood Pressure 99/58 L Pulse Oximetry 98 Oxygen Delivery Room Air Room Air Fraction of Inspired Oxygen 05/17/24 06:00 05/17/24 07:57 05/17/24 14:00 Temperature 97.6 F 97.0 F L Pulse Rate 73 61 Respiratory Rate 19 20 Blood Pressure 124/75 111/65 Pulse Oximetry 99 96 97 Oxygen Delivery Room Air Fraction of Inspired Oxygen 21 Intake/Output Intake/Output: Intake & Output 05/14/24 05/15/24 05/16/24 05/17/24 23:59 23:59 23:59 23:59 Intake Total 1186.6 2657.4 Output Total 200 400 Balance 986.6 2257.4 Meds/Results Medications: Active Medications Generic Name Dose Route Start Last Admin Trade Name Freq PRN Reason Stop Dose Admin Acetaminophen 650 mg 05/16/24 11:30 Acetaminophen 325 Mg Tablet PO Q4H PRN Mild Pain (1-3) or Fever Hydromorphone HCl 1 mg 05/16/24 12:55 05/17/24 15:45 Hydromorphone Hcl Inj (*Crx) 1 Mg/Ml Syr IV PUSH 1 mg Q3H PRN Administration Pain Rated 7-10 Hydromorphone HCl 0.5 mg 05/16/24 12:56 Hydromorphone Hcl Inj (*Crx) 1 Mg/Ml Syr IV PUSH Q3H PRN Pain Rated 4-6 Sodium Chloride 1,000 mls @ 125 mls/hr 05/16/24 11:30 05/17/24 11:30 Normal Saline Iv IV CONT 125 mls/hr .Q8H LEVI Administration Ciprofloxacin/Dextrose 200 mls @ 200 mls/hr 05/17/24 12:00 05/17/24 12:24 Cipro 400 Mg/D5w 200 Ml IVPB 200 mls/hr Q12H LEVI Administration Ondansetron HCl 4 mg 05/16/24 11:30 05/17/24 16:16 Ondansetron Inj 4 Mg/2 Ml Vial IV PUSH 4 mg Q4H PRN Administration Nausea Radiology Results: ITS Impressions Head CT 05/16/24 09:59 IMPRESSION: 1. Unchanged position of a left ventriculoperitoneal shunt with no change in nearly completely collapsed slit like lateral and third ventricles. No acute intracranial process. Chest X-Ray 05/16/24 10:07 IMPRESSION: 1. Chronic mild elevation the left hemidiaphragm. No acute cardiopulmonary disease. Labs Labs: Laboratory Results - last 24 hr 05/17/24 05:39 WBC 8.8 RBC 4.27 Hgb 12.2 Hct 38.7 MCV 90.6 MCH 28.6 MCHC 31.5 L RDW 13.5 Plt Count 223 MPV 11.1 H Sodium 140 Potassium 4.1 Chloride 110 H Carbon Dioxide 21 L Anion Gap 9 BUN 14 Creatinine 0.80 Estim Creat Clear Calc Not Reportable Estimated GFR > 60 Glucose 92 Calcium 7.8 L
--- NOTE | 2024-05-17 18:18 | WPDNEURCNPN ---
Assessment and Plan Assessment and plan (1) Headache: Code(s): R51.9 - Headache, unspecified Status: Acute (2) S/P ventriculoperitoneal shunt: Code(s): Z98.2 - Presence of cerebrospinal fluid drainage device Status: Acute Plan The patient states that she has had the revision of the shunt which has initial patient the right side. Prior to that she has had a lumbar peritoneal shunt. It appears that today she has not been following with anyone regarding the pseudotumor cerebri for some time. CT scan of brain shows collapsed ventricles and a shunt in place on the left side. Out suggest a spinal tap to check in for the pressure which may also be therapeutic if the pressure is high. In the meanwhile can start on Diamox 250 mg 3 times a day and Periactin 4 mg 3 times a day continue the other and has a 6. Thank you very much for allowing me sees patient patient did indicate that she does not want a bedside spinal tap since he has had multiple spinal taps in the past and that could be fibrosis and hence she would prefer to have something under this guidance. We shall have radiologist to the under the x-ray guidance. Consult date: 05/17/24 HPI: Prema Smith is a 38 year old female with history of pseudotumor cerebri status post shunting about 5 years ago in [place] presents to the hospital with the has significant worsening of the headache. She also has been found to have urinary tract infection for which she is being treated. The headaches are severe and all around the head. She is crying and difficult to even communicate with her due to this. According to the nursing staff he has been on Dilaudid nearly every 3 hours. No nausea vomiting or diplopia or any other symptoms. No history of recent head trauma or febrile illness. Review of Systems Review of Systems: All systems reviewed & are unremarkable except as noted in HPI and below PMFSH Past Medical History Medical History (Updated 05/17/24 @ 18:25 by Sergio Sanchez MD) History of idiopathic intracranial hypertension Pseudotumor cerebri Seizure disorder Surgical History Surgical History (Updated 05/17/24 @ 18:25 by Sergio Sanchez MD) History of appendectomy 2009 Hx of ventricular shunt EDGE BEADER shunt placed 2001, revised multiple times, last in 2019 S/P ventriculoperitoneal shunt S/P EDGE BEADER shunt Family History Family History Mother No problems noted. 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 Surrogate decision maker: . Code Status: Full. Smoking status: Current every day smoker Tobacco type: cigarettes Alcohol intake: never Substance use: never Substance use type: does not use Do You Feel Safe in your Home?: Yes Lack of Transportation: No Lack of Food: Never True Current Housing: I Have Housing Concerned About Future Housing: No Difficulty Paying Gas/Electric Bills: No Difficulty Paying for Meds: No Currently Unemployed: No Education: Don't Know Difficulty w/ Childcare or Family Care: No Living arrangements: with family Occupation/Education: occupation Gender identity (if verbalized by the patient): Female Spiritual care concerns: No Meds Home Medications and Allergies Allergies Allergy/AdvReac Type Severity Reaction Status Date / Time levofloxacin Allergy Intermediate Hives Verified 05/16/24 17:42 cefaclor [From Ceclor] Allergy Swelling Verified 05/16/24 13:11 prochlorperazine Allergy Swelling Verified 05/16/24 13:11 [From Compazine] Sulfa (Sulfonamide Allergy Swelling Verified 05/16/24 13:11 Antibiotics) sulfamethoxazole Allergy Swelling Verified 05/16/24 13:11 [From Bactrim]
[2024-05-17 20:27] VITALS: BP 118/71; PULSE 67; RESP 18; TEMP 36.3; O2SAT 100
[2024-05-17] MEDS: CYPROHEPTADINE HCL 4 MG TABLET PO (20:50)
[2024-05-18] MEDS: ONDANSETRON INJ 4 MG/2 ML VIAL IV PUSH ×4 (00:08→20:37)
[2024-05-18] MEDS: CIPROFLOXACIN 400 MG/D5W 200ML 200 ML 200 MG IVPB ×3 (00:08→23:04)
[2024-05-18] MEDS: HYDROmorphone HCL INJ (*CRX) 1 MG/ML SYR IV PUSH ×9 (00:08→23:05)
[2024-05-18] MEDS: CYPROHEPTADINE HCL 4 MG TABLET PO (04:55)
[2024-05-18 05:48] VITALS: BP 106/65; PULSE 52; RESP 17; TEMP 36.2; O2SAT 99
[2024-05-18 05:58] LABS: Hematocrit 38.1 % (37.0-47.0); Hemoglobin 11.7 g/dL (12.0-15.0); Mean Corpuscular HGB Conc 30.7 g/dl (32-36); Mean Corpuscular Hemoglobin 28.1 pg (26-34); Mean Corpuscular Volume 91.4 fl (80-100); Platelet Count Result 226 k/mm3 (150-375); Red Blood Count 4.17 M/mm3 (4.2-5.4); Red Cell Distribution Width 13.2 % (11.5-14.5); White Blood Count 9.3 K/mm3 (4.5-10.0)
[2024-05-18 06:27] LABS: Anion Gap 7 mmol/L (4-12); Blood Urea Nitrogen 14 mg/dL (7-17); Calcium 7.9 mg/dL (8.4-10.2); Carbon Dioxide 21 mmol/L (22-30); Chloride 107 mmol/L (98-107); Estimated Glomerular Filt Rate > 60; Glucose 105 mg/dL (65-110); Potassium 4.2 mmol/L (3.4-5.0); Sodium 135 mmol/L (137-145)
[2024-05-18 12:28] VITALS: BP 117/79; PULSE 52; O2SAT 100
[2024-05-18 13:03] LABS: Appearance CSF Clear (Clear); CSF source CSF; Color CSF Colorless (Colorless); Red Blood Cell CSF 0 (0-2)
[2024-05-18 13:09] LABS: Glucose CSF 54 mg/dL (40-70); Total Protein CSF 100 mg/dL (12-60)
[2024-05-18 13:11] LABS: Nucleated Cell CSF 1 /uL (0-5)
[2024-05-18 13:17] LABS: Lymphocytes CSF 99 % (40-80); Neutrophils CSF 1 % (0-6)
[2024-05-18 14:00] VITALS: BP 124/67; PULSE 51; RESP 18; TEMP 36.1; O2SAT 97
--- NOTE | 2024-05-18 18:31 | PM.IMPN ---
Progress Note: A&P Assessment and Plan (1) S/P ventriculoperitoneal shunt: Code(s): Z98.2 - Presence of cerebrospinal fluid drainage device Status: Acute (2) Seizure disorder: Code(s): G40.909 - Epilepsy, unspecified, not intractable, without status epilepticus Status: Acute (3) Pyelonephritis: Code(s): N12 - Tubulo-interstitial nephritis, not specified as acute or chronic Status: Acute (4) Vomiting: Code(s): R11.10 - Vomiting, unspecified Status: Acute (5) Headache: Code(s): R51.9 - Headache, unspecified Status: Acute Plan Patient still has persistent headache requiring Dilaudid. LP opening pressure 39 cm. Unable to reach Neurology on multiple attempts. Will continue to attempt. SCDs. Regular diet. Pending LP studies. Continue ciprofloxacin for pyelonephritis. Diamox and Periactin per Neurology. Subjective Date/time seen: 05/18/24 18:31 Interval history: s/p LP, complaining of 6/10 headache Review of Systems Review of Systems: All systems reviewed & are unremarkable except as noted in HPI and below (Subjective) Exam Const: General: comfortable and in distress (Due to headache) Other: A&O x3 Neck: Neck: supple Resp: Effort & Inspection: normal respiratory effort Auscultation: clear to auscultation bilaterally Cardio: Rate: regular rate Rhythm: regular rhythm GI: GI Palp: Yes Soft to palpation Extrem: General: no edema Objective Data Vital Signs Vital Signs: Vital Signs - 24 hr 05/17/24 20:27 05/18/24 05:48 05/18/24 12:28 Temperature 97.3 F L 97.1 F L Pulse Rate 67 52 L 52 L Respiratory Rate 18 17 Blood Pressure 118/71 106/65 117/79 Pulse Oximetry 100 99 100 05/18/24 14:00 Temperature 96.9 F L Pulse Rate 51 L Respiratory Rate 18 Blood Pressure 124/67 Pulse Oximetry 97 Intake/Output Intake/Output: Intake & Output 05/15/24 05/16/24 05/17/24 05/18/24 23:59 23:59 23:59 23:59 Intake Total 1186.6 3412.4 640 Output Total 200 1400 2150 Balance 986.6 2011.2 -1510 Meds/Results Medications: Active Medications Generic Name Dose Route Start Last Admin Trade Name Freq PRN Reason Stop Dose Admin Acetaminophen 650 mg 05/16/24 11:30 Acetaminophen 325 Mg Tablet PO Q4H PRN Mild Pain (1-3) or Fever Acetazolamide 125 mg 05/18/24 09:00 05/18/24 08:00 Acetazolamide Tab 125 Mg Tablet PO 125 mg QAM LEVI Administration Cyproheptadine HCl 4 mg 05/17/24 22:00 05/18/24 13:58 Cyproheptadine Hcl 4 Mg Tablet PO Not Given Q8HR LEVI Hydromorphone HCl 1 mg 05/16/24 12:55 05/18/24 17:00 Hydromorphone Hcl Inj (*Crx) 1 Mg/Ml Syr IV PUSH 1 mg Q3H PRN Administration Pain Rated 7-10 Hydromorphone HCl 0.5 mg 05/16/24 12:56 Hydromorphone Hcl Inj (*Crx) 1 Mg/Ml Syr IV PUSH Q3H PRN Pain Rated 4-6 Ciprofloxacin/Dextrose 200 mls @ 200 mls/hr 05/17/24 12:00 05/18/24 12:00 Cipro 400 Mg/D5w 200 Ml IVPB Infused Q12H LEVI Infusion Ondansetron HCl 4 mg 05/16/24 11:30 05/18/24 08:28 Ondansetron Inj 4 Mg/2 Ml Vial IV PUSH 4 mg Q4H PRN Administration Nausea Radiology Results: ITS Impressions Head CT 05/16/24 09:59 IMPRESSION: 1. Unchanged position of a left ventriculoperitoneal shunt with no change in nearly completely collapsed slit like lateral and third ventricles. No acute intracranial process. Chest X-Ray 05/16/24 10:07 IMPRESSION: 1. Chronic mild elevation the left hemidiaphragm. No acute cardiopulmonary disease. Lumbar Puncture 05/18/24 13:28 IMPRESSION: 1. Successful fluoro-guided lumbar puncture with elevated opening pressure of 39 cm water. Labs Labs: Laboratory Results - last 24 hr 05/18/24 05/18/24 05:20 12:13 WBC 9.3 RBC 4.17 L Hgb 11.7 L Hct 38.1 MCV 91.4 MCH 28.1 MCHC 30.7 L RDW 13.2 Plt Count 226 MPV 11.0 H Sodium 135 L Potassium 4.2 Chloride
[2024-05-18 22:00] VITALS: BP 126/67; PULSE 58; RESP 16; TEMP 36.1; O2SAT 98
[2024-05-19] MEDS: ONDANSETRON INJ 4 MG/2 ML VIAL IV PUSH ×2 (00:37→08:44)
[2024-05-19] MEDS: HYDROmorphone HCL INJ (*CRX) 1 MG/ML SYR IV PUSH ×6 (02:12→22:06)
[2024-05-19] MEDS: HYDROcodone/acetaminophen (*CRX) 5-325 MG TABLET 1 TAB PO (02:13)
[2024-05-19 05:39] LABS: Hematocrit 43.7 % (37.0-47.0); Hemoglobin 13.2 g/dL (12.0-15.0); Mean Corpuscular HGB Conc 30.2 g/dl (32-36); Mean Corpuscular Hemoglobin 28.7 pg (26-34); Mean Platelet Volume 10.8 fl (7.4-10.4); Platelet Count Result 196 k/mm3 (150-375); Red Cell Distribution Width 13.1 % (11.5-14.5); White Blood Count 7.4 K/mm3 (4.5-10.0)
[2024-05-19 05:49] LABS: Anion Gap 10 mmol/L (4-12); Blood Urea Nitrogen 13 mg/dL (7-17); Calcium 8.4 mg/dL (8.4-10.2); Carbon Dioxide 21 mmol/L (22-30); Chloride 108 mmol/L (98-107); Estimated Glomerular Filt Rate > 60; Glucose 92 mg/dL (65-110); Potassium 4.7 mmol/L (3.4-5.0); Sodium 139 mmol/L (137-145)
[2024-05-19 06:00] VITALS: BP 109/60; PULSE 65; RESP 18; TEMP 36.8; O2SAT 100
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
--- NOTE | 2024-05-19 09:03 | PM.DS ---
DS: Admitting Diagnosis Discharge Date May 19, 2024 Admitting Diagnosis Headache DS: Discharge Diagnosis Discharge Diagnosis (1) S/P ventriculoperitoneal shunt: Code(s): Z98.2 - Presence of cerebrospinal fluid drainage device Status: Acute (2) Pseudotumor cerebri: Code(s): G93.2 - Benign intracranial hypertension Status: Acute (3) Seizure disorder: Code(s): G40.909 - Epilepsy, unspecified, not intractable, without status epilepticus Status: Acute (4) Pyelonephritis: Code(s): N12 - Tubulo-interstitial nephritis, not specified as acute or chronic Status: Acute (5) Vomiting: Code(s): R11.10 - Vomiting, unspecified Status: Acute (6) Headache: Code(s): R51.9 - Headache, unspecified Status: Acute DS: Summary Hospital Course Hospital Course: 38-year-old female with a PMH pseudotumor cerebri, seizure disorder, 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 Patient was in her usual state of health until 2 days [employer]GAN T[employer] she developed a severe headache along with nausea and vomiting. The symptoms were worse with movement and bending over. She also complained of blurring of her vision. Notice increasing urinary frequency as well and tenderness in the right flank. Patient reports she had an LP shunt placed 20 years ago when pseudotumor cerebri was diagnosed, stop working so a VIDEOTAPE EDITOR shunt was placed/revised 5 years prior. This was all done in [place] she has not had follow-up while here in [place]. She had a PCP but they retired so she is looking for a new one. CT head without contrast on 05/16/2024 demonstrated unchanged position of left VIDEOTAPE EDITOR shunt with no change nearly completely collapsed slit-like lateral and 3rd ventricles, no acute intracranial process. The patient was admitted on 05/16 for pyelonephritis/UTI and refractory headache. The patient required consistent intervals of Dilaudid. Neurology consultation was completed. Lumbar puncture revealed an opening pressure of 39 cm of water. She was started on acetazolamide and Periactin on 05/18/2024. These therapies mildly improved her headache. Blurry vision did improve as well. She no longer had nausea or vomiting. Dr. Hung neurosurgery resident at [facility] was contacted and transfer not deemed necessary after discussion with his attending neurosurgeon. They report her condition is not time sensitive as she does not have papilledema or change in vision. As well, the patient's headache improved and she was amenable to returning home with 7 pills of tramadol for pain p.r.n.. Stable for discharge on 05/19/2024. She will also be described another 3 doses of ciprofloxacin. Urine culture did not grow specific organism. She will be discharged on acetazolamide 125 mg p.o. q.day. she has been given a list of PCPs to call to establish new care. Neurosurgery clinic with [facility] will reach out to the patient to schedule a visit as well. Patient advised to seek out referral to the online marketing specialist with neurosurgery clinic or new PCP. Adverse effects, risk and benefits of medication discussed to which the patient understood and agreed as well as to the plan above. Patient was full code. Smoking cessation advised. Time Spent with Patient Time attestation: Total time spent providing and/or coordinating discharge services: Exam Const: General: comfortable and no acute distress Eyes: Pupils: Equal, round and reactive pupils present Neck: Neck: supple Resp: Effort & Inspection: normal respiratory effort Auscultation: clear to auscultation bilaterally Cardio: Rate: regular rate Rhythm: regular rhythm GI: GI Palp: Yes Soft to palpation and No Tenderness to palpation present (GI) Neuro: Motor exam (neuro): 5/5 motor strength present throughout Other: No focal deficits. Visual mccann intact Extrem: General: no edema DS: Jordan
[2024-05-19 14:00] VITALS: BP 110/61; PULSE 57; RESP 16; TEMP 36.1; O2SAT 99
[2024-05-19] MEDS: CYPROHEPTADINE HCL 4 MG TABLET PO ×2 (15:39→21:59)
[2024-05-19] MEDS: acetaZOLAMIDE TAB 250 MG TABLET PO (17:48)
[2024-05-19 20:00] VITALS: PULSE 54; RESP 16; O2SAT 98
[2024-05-19 21:06] VITALS: BP 109/60; PULSE 54; RESP 16; TEMP 36.4; O2SAT 98
[2024-05-19] MEDS: CIPROFLOXACIN 500 MG TAB PO (21:59)
[2024-05-19 22:14] LABS: Amphetamine Screen Urine Negative (Negative); Barbiturate Screen Urine Negative (Negative); Benzodiazepines Screen Urine Negative (Negative); Cannabinoid Screen Urine Negative (Negative); Cocaine Screen Urine Negative (Negative); Methadone Screen Urine Negative (Negative); Opiate Screen Urine Positive (Negative); Phencyclidine Screen Urine Negative (Negative)
[2024-05-19] MEDS: polyethylene glycoL 3350 17 GM POWD.PACK PO (22:26)
[2024-05-19] MEDS: DOCUSATE SODIUM 100 MG CAPSULE PO (22:26)
[2024-05-20] MEDS: HYDROmorphone HCL INJ (*CRX) 1 MG/ML SYR IV PUSH ×3 (00:47→06:28)
[2024-05-20 05:45] VITALS: BP 104/55; PULSE 56; RESP 16; TEMP 36.5; O2SAT 99
[2024-05-20] MEDS: CYPROHEPTADINE HCL 4 MG TABLET PO ×2 (06:27→14:10)
[2024-05-20 06:37] LABS: Hematocrit 42.4 % (37.0-47.0); Hemoglobin 13.4 g/dL (12.0-15.0); Mean Corpuscular HGB Conc 31.6 g/dl (32-36); Mean Corpuscular Hemoglobin 28.4 pg (26-34); Mean Corpuscular Volume 89.8 fl (80-100); Mean Platelet Volume 10.9 fl (7.4-10.4); Platelet Count Result 243 k/mm3 (150-375); Red Blood Count 4.72 M/mm3 (4.2-5.4); Red Cell Distribution Width 12.8 % (11.5-14.5); White Blood Count 6.6 K/mm3 (4.5-10.0)
[2024-05-20 06:46] LABS: Anion Gap 8 mmol/L (4-12); Blood Urea Nitrogen 13 mg/dL (7-17); Calcium 8.7 mg/dL (8.4-10.2); Carbon Dioxide 22 mmol/L (22-30); Chloride 106 mmol/L (98-107); Estimated Glomerular Filt Rate > 60; Glucose 104 mg/dL (65-110); Potassium 4.2 mmol/L (3.4-5.0); Sodium 136 mmol/L (137-145)
[2024-05-20] MEDS: CIPROFLOXACIN 500 MG TAB PO (09:30)
[2024-05-20] MEDS: acetaZOLAMIDE TAB 250 MG TABLET PO (09:30)
[2024-05-20] MEDS: HYDROcodone/acetaminophen (*CRX) 5-325 MG TABLET 1 TAB PO ×2 (09:32→14:10)
[2024-05-20] MEDS: SODIUM CHLORIDE 0.9% IV 1,000 ML 500 ML IV CONT (11:40)
[2024-05-20] MEDS: SENNA/DOCUSATE SODIUM TABLET 1 TAB PO (11:41)
[2024-05-20] MEDS: polyethylene glycoL 3350 17 GM POWD.PACK PO (11:41)
--- NOTE | 2024-05-20 11:45 | WPDNEUROPN ---
Progress Note: A&P Assessment and Plan (1) Pseudotumor cerebri: Code(s): G93.2 - Benign intracranial hypertension Status: Acute (2) S/P ventriculoperitoneal shunt: Code(s): Z98.2 - Presence of cerebrospinal fluid drainage device Status: Acute (3) Headache: Code(s): R51.9 - Headache, unspecified Status: Acute Assessment and Plan: possible post lumbar puncture headache Plan the way the patient describes that the pain is significantly worse when she stands up 2 days after she had a spinal tap. Although she has pseudotumor cerebri and her opening pressure was 39 cm sometimes after spinal tap this can happen and hence I would suggest to give her IV fluids and a possible abdominal binder and discontinue Diamox. We can resume Diamox if the pain does not show a greater than 50% difference the symptoms from supine to standing position. We can keep her on the symptomatic treatment along with Periactin 4 mg 3 times a day. Subjective Date/time seen: 05/20/24 11:45 Interval history: Patient continues to complain of headache which is significantly worse when she stands up and better when she lies down. She still wants some pain medications since the IV pain medications have been discontinued in preparation for the discharge. Spinal tap was done the findings of these were noted. The number white cells were normal however the protein was high. It was noted the patient had a ventriculoperitoneal shunt. I discussed this with the hospitalist Dr. Anderson. The possibility of viral meningitis was considered however she has a long history of pseudotumor cerebri and she responded better to after having a spinal tap. Review of Systems Review of Systems: All systems reviewed & are unremarkable except as noted in HPI and below Exam Narrative: Alert and oriented. No aphasia or dysarthria. neurological observation did not reveal any additional findings. No involuntary movements seen. Objective Data Vital Signs Vital Signs: Vital Signs - 24 hr 05/19/24 14:00 05/19/24 21:06 05/19/24 20:00 Temperature 36.1 C L 36.4 C L Pulse Rate 57 L 54 L 54 L Respiratory Rate 16 16 16 Blood Pressure 110/61 109/60 Pulse Oximetry 99 98 98 Oxygen Delivery Room Air Fraction of Inspired Oxygen 05/20/24 05:45 05/20/24 09:32 Temperature 36.5 C Pulse Rate 56 L Respiratory Rate 16 Blood Pressure 104/55 L Pulse Oximetry 99 Oxygen Delivery Room Air Fraction of Inspired Oxygen Intake/Output Intake/Output: Intake & Output 05/17/24 05/18/24 05/19/24 05/20/24 23:59 23:59 23:59 23:59 Intake Total 3412.4 640 1580 770 Output Total 1400 2150 Balance 2012.4 -1510 1580 770 Meds/Results Medications: Active Medications Generic Name Dose Route Start Last Admin Trade Name Freq PRN Reason Stop Dose Admin Acetaminophen 650 mg 05/16/24 11:30 Acetaminophen 325 Mg Tablet PO Q4H PRN Mild Pain (1-3) or Fever Hydrocodone Bitart/Acetaminophen 1 tab 05/19/24 01:57 05/20/24 09:32 Hydrocodone/Acetaminophen (*Crx) 5-325 Mg Tablet PO 1 tab Q6H PRN Administration Pain Rated 4-6 Ciprofloxacin 500 mg 05/19/24 21:00 05/20/24 09:30 Ciprofloxacin 500 Mg Tab PO 05/20/24 21:01 500 mg Q12HR LEVI Administration Cyproheptadine HCl 4 mg 05/17/24 22:00 05/20/24 06:27 Cyproheptadine Hcl 4 Mg Tablet PO 4 mg Q8HR LEVI Administration Docusate Sodium 100 mg 05/19/24 22:18 05/19/24 22:26 Docusate Sodium 100 Mg Capsule PO 100 mg Q12H PRN Administration Constipation Hydromorphone HCl 1 mg 05/16/24 12:55 05/20/24 06:28 Hydromorphone Hcl Inj (*Crx) 1 Mg/Ml Syr IV PUSH 1 mg Q3H PRN Administration Pain Rated 7-10 Sodium Chloride 1,000 mls @ 500 mls/hr 05/20/24 11:03 05/20/24 11:40 Normal Saline Iv IV CONT 05/20/24 13:02 500 mls/hr .Q2H ONE Administration Ondansetron HCl 4 mg 05/16/24 11:30 05/19/24 08:44 Ond
[2024-05-20 14:00] VITALS: BP 105/71; PULSE 52; RESP 16; TEMP 36.3; O2SAT 99
--- NOTE | 2024-05-20 14:24 | PM.IMPN ---
Subjective Date/time seen: 05/20/24 14:24 Interval history: asdasd Objective Data Vital Signs Vital Signs: Vital Signs - 24 hr 05/19/24 21:06 05/19/24 20:00 05/20/24 05:45 Temperature 97.5 F L 97.7 F Pulse Rate 54 L 54 L 56 L Respiratory Rate 16 16 16 Blood Pressure 109/60 104/55 L Pulse Oximetry 98 98 99 Oxygen Delivery Room Air Fraction of Inspired Oxygen 21 05/20/24 09:32 05/20/24 14:00 Temperature 97.4 F L Pulse Rate 52 L Respiratory Rate 16 Blood Pressure 105/71 Pulse Oximetry 99 Oxygen Delivery Room Air Fraction of Inspired Oxygen Intake/Output Intake/Output: Intake & Output 05/17/24 05/18/24 05/19/24 05/20/24 23:59 23:59 23:59 23:59 Intake Total 3412.4 640 1580 770 Output Total 1400 2150 Balance 2012.4 -1510 1580 770 Meds/Results Medications: Active Medications Generic Name Dose Route Start Last Admin Trade Name Freq PRN Reason Stop Dose Admin Acetaminophen 650 mg 05/16/24 11:30 Acetaminophen 325 Mg Tablet PO Q4H PRN Mild Pain (1-3) or Fever Hydrocodone Bitart/Acetaminophen 1 tab 05/19/24 01:57 05/20/24 14:10 Hydrocodone/Acetaminophen (*Crx) 5-325 Mg Tablet PO 1 tab Q6H PRN Administration Pain Rated 4-6 Ciprofloxacin 500 mg 05/19/24 21:00 05/20/24 09:30 Ciprofloxacin 500 Mg Tab PO 05/20/24 21:01 500 mg Q12HR LEVI Administration Cyproheptadine HCl 4 mg 05/17/24 22:00 05/20/24 14:10 Cyproheptadine Hcl 4 Mg Tablet PO 4 mg Q8HR LEVI Administration Docusate Sodium 100 mg 05/19/24 22:18 05/19/24 22:26 Docusate Sodium 100 Mg Capsule PO 100 mg Q12H PRN Administration Constipation Ondansetron HCl 4 mg 05/16/24 11:30 05/19/24 08:44 Ondansetron Inj 4 Mg/2 Ml Vial IV PUSH 4 mg Q4H PRN Administration Nausea Polyethylene Glycol 17 gm 05/20/24 10:59 05/20/24 11:41 Polyethylene Glycol 3350 17 Gm Powd.Pack PO 17 gm QAM PRN Administration Constipation Radiology Results: ITS Impressions Head CT 05/16/24 09:59 IMPRESSION: 1. Unchanged position of a left ventriculoperitoneal shunt with no change in nearly completely collapsed slit like lateral and third ventricles. No acute intracranial process. Chest X-Ray 05/16/24 10:07 IMPRESSION: 1. Chronic mild elevation the left hemidiaphragm. No acute cardiopulmonary disease. Lumbar Puncture 05/18/24 13:28 IMPRESSION: 1. Successful fluoro-guided lumbar puncture with elevated opening pressure of 39 cm water. Labs Labs: Laboratory Results - last 24 hr 05/19/24 05/20/24 21:38 05:56 WBC 6.6 RBC 4.72 Hgb 13.4 Hct 42.4 MCV 89.8 D MCH 28.4 MCHC 31.6 L RDW 12.8 Plt Count 243 MPV 10.9 H Sodium 136 L Potassium 4.2 Chloride 106 Carbon Dioxide 22 Anion Gap 8 BUN 13 Creatinine 1.00 Estim Creat Clear Calc Not Reportable Estimated GFR > 60 Glucose 104 Calcium 8.7 Urine Opiates Screen Positive A Urine Methadone Screen Negative Ur Barbiturates Screen Negative Ur Phencyclidine Scrn Negative Ur Amphetamine Screen Negative U Benzodiazepines Scrn Negative Urine Cocaine Screen Negative U Cannabinoids Screen Negative
--- NOTE | 2024-05-20 16:25 | PC.NURSE ---
This RN contacted hospitalist regarding plan of care. Patient made aware that pain medication regimen has been adjusted. Patient is wanting to leave. Per hospitalist, he will re-assess patient once he has the opportunity to assess for discharge. If patient refuses to wait for reassessment, he is aware she may leave against medical advice. Floor RN made aware.
--- NOTE | 2024-05-20 16:26 | PC.NURSE ---
Pt is A&O 2 female who has participated and contributed in plan of care. Pt has had pain that is uncontrolled per pt report. Pt was seen today by hospitalist and neurologist. Both agreed that pt should be switched to oral pain medication. Pt asked to have one time dose of dilaudid to get pain under control. Provider contacted and denied pt request per neurology recommendation to switch to PO pain medication. Pt requested new provider, charge nurse notified. Charge nurse reached out to other provider who states they are in agreement with the decisions made to keep pt on PO pain medication and that they would take over pt case, but would not be able to see pt until tomorrow. Pt then asked what the new provider would do for her tomorrow to which this nurse replied, they would follow the recommendations of the neurologist and there would likely be no change in the course of action taken. Pt then asked if this nurse could speak to the charge to be able to go outside to make a phone call and smoke a cigarette. This nurse informed the pt she would not be able to go outside per policy. Pt then asked if she could be discharged since we are not doing anything for her to help her out. Provider was notified and asked patient to stay until they were able to come re-evaluate pt. Pt is agreeable to stay at this time.
--- NOTE | 2024-05-20 18:16 | PC.NURSE ---
Patient noted she wanted to go home. She does not feel confident with the plan of neurology or doctor and wants to go home . Hospitalist made aware. Hospitalist spoke with patient. Patient to leave AMA. Patient made aware to follow neurosurgery group with [facility]. Patient noted has a list of providers from care coordination. Work release given to patient to be cleared by Neurosurgery group before return to work per hospitalist.
[2024-05-22 22:48] LABS: Source CEREBROSPINAL FLUID
[2024-05-24 07:16] LABS: Epstein Barr Virus DNA PCR NOT DETECTED
[2024-05-24 13:03] LABS: Herpes Simplex Type 1 DNA PCR NOT DETECTED; Herpes Simplex Type 2 DNA PCR NOT DETECTED
--- NOTE | 2024-06-01 15:00 | PM.DS ---
DS: Admitting Diagnosis Discharge Date 05/20/24 Admitting Diagnosis Headache nausea and vomiting DS: Discharge Diagnosis Discharge Diagnosis (1) S/P ventriculoperitoneal shunt: Code(s): Z98.2 - Presence of cerebrospinal fluid drainage device Status: Acute (2) Seizure disorder: Code(s): G40.909 - Epilepsy, unspecified, not intractable, without status epilepticus Status: Acute (3) Pyelonephritis: Code(s): N12 - Tubulo-interstitial nephritis, not specified as acute or chronic Status: Acute (4) Vomiting: Code(s): R11.10 - Vomiting, unspecified Status: Acute (5) Headache: Code(s): R51.9 - Headache, unspecified Status: Acute (6) Pseudotumor cerebri: Code(s): G93.2 - Benign intracranial hypertension Status: Acute DS: Summary Hospital Course Hospital Course: 38-year-old female with a PMH pseudotumor cerebri, seizure disorder, 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 The symptoms were worse with movement and bending over. She also complained of blurring of her vision. Notice increasing urinary frequency as well and tenderness in the right flank. Patient reports she had an LP shunt placed 20 years ago when pseudotumor cerebri was diagnosed, stop working so a DELIVERY NURSE shunt was placed/revised 5 years prior. This was all done in [place] she has not had follow-up while here in [place]. She had a PCP but they retired so she is looking for a new one. CT head without contrast on 05/16/2024 demonstrated unchanged position of left DELIVERY NURSE shunt with no change nearly completely collapsed slit-like lateral and 3rd ventricles, no acute intracranial process. The patient was admitted on 05/16 for pyelonephritis/UTI and refractory headache. The patient required consistent intervals of Dilaudid. Neurology consultation was completed. Lumbar puncture revealed an opening pressure of 39 cm of water. She was started on acetazolamide and Periactin on 05/18/2024. These therapies mildly improved her headache. Blurry vision did improve as well. She no longer had nausea or vomiting. Dr. Hung neurosurgery resident at [facility] was contacted and transfer not deemed necessary after discussion with his attending neurosurgeon. They report her condition is not time sensitive as she does not have papilledema or change in vision. As well, the patient's headache improved and she was amenable to returning home with 7 pills of tramadol for pain p.r.n.. Stable for discharge on 05/19/2024. She will also be described another 3 doses of ciprofloxacin. Urine culture did not grow specific organism. She will be discharged on acetazolamide 125 mg p.o. q.day. she has been given a list of PCPs to call to establish new care. Neurosurgery clinic with [facility] will reach out to the patient to schedule a visit as well. Patient advised to seek out referral to the pipe racker with neurosurgery clinic or new PCP. Adverse effects, risk and benefits of medication discussed to which the patient understood and agreed as well as to the plan above. Later on 05/19 the patient reported she would not be able to leave without IV pain medications. The next day on 05/20 the patient reported postural headache. At that point neurology he waited the patient again and Diamox was discontinued. IV fluids were started. She then later decided to stop monitoring, further evaluations, treatment. She wanted to leave against medical advice. Multiple discussions were held concerning the risk of leaving and not completing her evaluation here. The patient understood including the risk of deterioration and . Time Spent with Patient Time attestation: Total time spent providing and/or coordinating discharge services: Time spen
[2024-06-08 19:23] LABS: Cryptococcus Antigen NOT DETECTED; Cryptococcus Specimen Source CEREBROSPINAL FLUID; Source Epstein Barr Virus SERUM
[2024-06-10 13:30] LABS: Cryptococcus Additional Testin Not Indicated
== END 2024-05-20 18:25 | disposition left against medical advice (07) | DRG 58 ==
LOC: ANHED 11:39 → ANH3MEDSUR 15:32
PROVIDERS: Psychiatry & Neurology Neurology; Admitting Provider Internal Medicine; Emergency Provider Emergency Medicine; Visit Provider General Practice
DX: G93.2 Benign intracranial hypertension (principal); N12 Tubulo-interstitial nephritis, not specified as acute or chronic; Z98.2 Presence of cerebrospinal fluid drainage device; G40.909 Epilepsy, unspecified, not intractable, without status epilepticus; H54.7 Unspecified visual loss; L27.1 Localized skin eruption due to drugs and medicaments taken internally; T36.8X5A Adverse effect of other systemic antibiotics, initial encounter; G97.1 Other reaction to spinal and lumbar puncture; F17.210 Nicotine dependence, cigarettes, uncomplicated; R51.9 Headache, unspecified; Z90.49 Acquired absence of other specified parts of digestive tract
CPT/HCPCS: 36415; 62329; 70450; 71045; 80048; 80053; 80307; 81001; 82945; 82948; 83605; 84157; 85025; 85027; 85610; 85730; 86403; 86617; 87015; 87070; 87086; 87102; 87116; 87205; 87206; 87529; 87798; 88108; 89051; 93005; 96361; 96365; 96374; 96375; 96376; 99285; A9270; G0378; J0744; J1170; J1200; J1885; J1956; J2405; J7030

== ENCOUNTER 2024-06-17 22:41 | Emergency (ER) | payer SELFPAY ==
[2024-06-17 22:45] VITALS: BP 129/65; PULSE 94; RESP 16; TEMP 36.4; O2SAT 100
--- NOTE | 2024-06-17 23:48 | ED.SKABFB ---
HPI - Skin/Abscess/Foreign Bdy General Chief complaint: Skin/Abscess/Foreign Body Stated complaint: bit by a brown recluse yesterday Time Seen by Provider: 06/17/24 23:33 Source: patient Mode of arrival: ambulatory Limitations: no limitations History of Present Illness HPI narrative: Pt is a 38-year-old female presents to the ER after reports of being bit by a spider that she thinks was a brown recluse. She noticed the bite yesterday, then today she found a spider in her bedsheets. Pt took a picture of the spider and showed it to healthcare provider. She reports she has been bitten by a brown recluse before. Pt endorses significant pain that radiates from the back of her knee down to the base of her calf. She also endorses nausea. Denies shortness of breath, numbness/tingling, or chest pain. Related Data Allergies Allergy/AdvReac Type Severity Reaction Status Date / Time levofloxacin Allergy Intermediate Hives Verified 06/18/24 00:07 cefaclor [From Ceclor] Allergy Swelling Verified 06/18/24 00:07 prochlorperazine Allergy Swelling Verified 06/18/24 00:07 [From Compazine] Sulfa (Sulfonamide Allergy Swelling Verified 06/18/24 00:07 Antibiotics) sulfamethoxazole Allergy Swelling Verified 06/18/24 00:07 [From Bactrim] trimethoprim [From Bactrim] Allergy Swelling Verified 06/18/24 00:07 Review of Systems Review of Systems: All systems reviewed & are unremarkable except as noted in HPI and below PMFSH Past Medical History Medical History History of idiopathic intracranial hypertension Pseudotumor cerebri Seizure disorder Surgical History Surgical History History of appendectomy 2009 Hx of ventricular shunt WEB DESIGNER shunt placed 2001, revised multiple times, last in 2019 S/P ventriculoperitoneal shunt S/P WEB DESIGNER shunt Family History Family History Mother No problems noted. 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 Surrogate decision maker: . Code Status: Full. Smoking status: Current every day smoker Tobacco type: cigarettes Alcohol intake: never Substance use: never Substance use type: does not use Do You Feel Safe in your Home?: Yes Lack of Transportation: No Lack of Food: Never True Current Housing: I Have Housing Concerned About Future Housing: No Difficulty Paying Gas/Electric Bills: No Difficulty Paying for Meds: No Currently Unemployed: No Education: Don't Know Difficulty w/ Childcare or Family Care: No Living arrangements: with family Occupation/Education: occupation Gender identity (if verbalized by the patient): Female Spiritual care concerns: No Exam Narrative: GENERAL: Well-appearing, well-nourished and in no acute distress. she CARDIAC: Regular rate and rhythm without murmurs, rubs or gallops. RESPIRATORY: Clear to auscultation bilaterally. No wheezes, rales or rhonchi. EXTREMITIES: Normal range of motion, no swelling, clubbing or other deformities. NEUROLOGICAL: Cranial nerves II through XII grossly intact, no focal deficits noted. Normal gait, normal speech. SKIN: Warm, dry, normal color. The bite is approximately 1/2 cm in length and brownish in color with no notable cellulitis around the area. There is no pus, warmth, or excessive redness around the bite Course Reevaluation(s) Reevaluation #1: Pt continues to complain of significant RLQ pain. Will prescribe one [place] prior to discharge. Date: 06/18/24 Time: 00:25 Vital Signs Vital signs: Vital Signs Temperature 36.4 C 06/17/24 22:45 Pulse Rate 94 06/17/24 22
[2024-06-18] MEDS: KETOROLAC (*BKC) 60 MG/2 ML VIAL IM (00:07)
[2024-06-18] MEDS: ONDANSETRON HCL ODT 4 MG TABLET PO (00:08)
[2024-06-18] MEDS: DOXYCYCLINE HYCLATE 100 MG TABLET PO (00:08)
[2024-06-18 00:15] VITALS: BP 144/81; PULSE 87; RESP 17; O2SAT 99
[2024-06-18] MEDS: HYDROcodone/acetaminophen (*CRX) 5-325 MG TABLET 1 TAB PO (00:37)
== END 2024-06-18 00:42 | disposition home or self-care (01) ==
PROVIDERS: Emergency Provider Registered Nurse
DX: T63.331A Toxic effect of venom of brown recluse spider, accidental (unintentional), initial encounter (principal); M79.662 Pain in left lower leg; F17.210 Nicotine dependence, cigarettes, uncomplicated; G40.909 Epilepsy, unspecified, not intractable, without status epilepticus
CPT/HCPCS: 96372; 99283; A9270; J1885

== ENCOUNTER 2024-08-03 16:38 | Emergency (ER) | payer SELFPAY ==
[2024-08-03] VITALS (8 sets, daily range): BP systolic 116–142; BP diastolic 61–81; PULSE 75–85; RESP 16; TEMP 36.1–36.7; O2SAT 98–100
[2024-08-03] MEDS: ACETAMINOPHEN 500 MG TABLET 1000 MG PO (23:53)
[2024-08-04 00:01] VITALS: BP 126/63
[2024-08-04] MEDS: LIDOCAINE HCL 1% LOCAL INJ 10 ML VIAL INFILTRATE (00:04)
--- NOTE | 2024-08-04 00:13 | ED.WOUNDLAC ---
HPI - Wound/Laceration General Chief Complaint: Wound/Laceration Stated Complaint: hand lac Time Seen by Provider: 08/03/24 23:25 History of Present Illness HPI narrative: 38-year-old female presents to the emergency department for laceration to her right 2nd digit that occurred earlier this morning. Patient states she accidentally cut her finger on a thin piece of metal. Bleeding controlled. Last Tdap unknown. Related Data Allergies Allergy/AdvReac Type Severity Reaction Status Date / Time levofloxacin Allergy Intermediate Hives Verified 06/18/24 00:07 cefaclor [From Ceclor] Allergy Swelling Verified 06/18/24 00:07 prochlorperazine Allergy Swelling Verified 06/18/24 00:07 [From Compazine] Sulfa (Sulfonamide Allergy Swelling Verified 06/18/24 00:07 Antibiotics) sulfamethoxazole Allergy Swelling Verified 06/18/24 00:07 [From Bactrim] trimethoprim [From Bactrim] Allergy Swelling Verified 06/18/24 00:07 Review of Systems Review of Systems: All systems reviewed & are unremarkable except as noted in HPI and below PMFSH Past Medical History Medical History History of idiopathic intracranial hypertension Pseudotumor cerebri Seizure disorder Surgical History Surgical History History of appendectomy 2009 Hx of ventricular shunt [employer] shunt placed 2001, revised multiple times, last in 2019 S/P ventriculoperitoneal shunt S/P [employer] shunt Family History Family History Mother No problems noted. 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 Surrogate decision maker: . Code Status: Full. Smoking status: Current every day smoker Tobacco type: cigarettes Alcohol intake: never Substance use: never Substance use type: does not use Do You Feel Safe in your Home?: Yes Lack of Transportation: No Lack of Food: Never True Current Housing: I Have Housing Concerned About Future Housing: No Difficulty Paying Gas/Electric Bills: No Difficulty Paying for Meds: No Currently Unemployed: No Education: Don't Know Difficulty w/ Childcare or Family Care: No Living arrangements: with family Occupation/Education: occupation Gender identity (if verbalized by the patient): Female Spiritual care concerns: No Exam Narrative: GENERAL: Well-appearing, well-nourished, and in no acute distress. HEAD: Normocephalic, atraumatic. ENT: Nares clear, no rhinorrhea or epistaxis. Mucous membranes moist. NECK: Supple. CHEST: Clear to auscultation. No respiratory distress. HEART: Regular rate and rhythm. No murmur heard. Normal peripheral pulses. EXTREMITIES: Normal range of motion. No edema. SKIN: Approximately 0.5 cm laceration over the lateral aspect of the right 2nd MCP. Bleeding controlled. No deep structures or foreign bodies visualized. Full active and passive range of motion of finger. Cap refill less than 2. Sensation intact. NEURO: No focal deficits. Alert and oriented x3 Course Vital Signs Vital signs: Vital Signs Temperature 98.0 F 08/03/24 16:44 Pulse Rate 75 08/03/24 16:44 Respiratory Rate 16 08/03/24 16:44 Blood Pressure 116/64 08/03/24 16:44 Pulse Oximetry 100 08/03/24 16:44 Temperature 97.0 F L 08/03/24 20:42 Pulse Rate 83 08/03/24 20:42 Respiratory Rate 16 08/03/24 20:42 Blood Pressure 123/69 08/03/24 20:42 Pulse Oximetry 100 08/03/24 20:42 MDM - Wound/Laceration MDM Narrative Medical decision making narrative: 38-year-old female presents to the emergency department for 0.5 cm laceration over the lateral aspect of t
[2024-08-04 00:17] VITALS: BP 72/60
[2024-08-04] MEDS: TETANUS,DIPHTHERIA,AC PERTUSSIS ADULT (0.5 ML) BOOSTRIX IM (00:50)
== END 2024-08-04 00:55 | disposition home or self-care (01) ==
PROVIDERS: Emergency Provider Physician Assistant
DX: S61.210A Laceration without foreign body of right index finger without damage to nail, initial encounter (principal); Z23 Encounter for immunization; G40.909 Epilepsy, unspecified, not intractable, without status epilepticus; F17.210 Nicotine dependence, cigarettes, uncomplicated; Z98.2 Presence of cerebrospinal fluid drainage device; W26.8XXA Contact with other sharp object(s), not elsewhere classified, initial encounter
CPT/HCPCS: 12001; 90471; 90715; 99282; A9270; J2003

== ENCOUNTER 2024-09-07 17:48 | Emergency (ER) | payer SELFPAY ==
[2024-09-07] VITALS (8 sets, daily range): BP systolic 126; BP diastolic 68–88; PULSE 75–93; RESP 14–20; TEMP 36.7–37.2; O2SAT 97–100
--- NOTE | ~2024-09-07 | XR_ITS ---
CHEST RADIOGRAPH CLINICAL HISTORY: seizure, SOB . COMPARISON: 05/16/2024 TECHNIQUE: Single portable view of the chest. FINDINGS Small bore catheter extends from the thoracic inlet, likely into the abdominal cavity representing a ventriculoperitoneal shunt. The remainder of the cardiomediastinal silhouette is otherwise unremarkable. The lungs are clear. Visualized osseous structures and soft tissues are unremarkable. IMPRESSION: No focal infiltrate or effusion. Reviewed, dictated and finalized at location A. STRIAL TRAINING SPECIALIST
--- NOTE | ~2024-09-07 | CT_ITS ---
History: Fall preceded by seizure PROCEDURE: CT cervical spine without intravenous contrast. COMPARISON: None TECHNIQUE: Multiple contiguous axial images of the cervical spine were performed without the administration of i ntravenous contrast. DLP: 423 mGy-cm FINDINGS: Straightening and slight reversal of the normal curvature of the cervical spine is identified, likely muscular in origin. No acute displaced fractures are present. The bilateral lung apices are unremarkable. No soft tissue abnormality is present. The airway is unremarkable. Impression: Straightening and slight reversal of the normal curvature of the cervical spine, likely muscular in o rigin. No acute fracture. Reviewed, dictated and finalized at location A. N WINDER Impression: Straightening and slight reversal of the normal curvature of the cervical spine , likely muscular in origin. No acute fracture.
--- NOTE | ~2024-09-07 | CT_ITS ---
History: Seizure and fall PROCEDURE: CT thoracic spine without intravenous contrast. COMPARISON: None TECHNIQUE: Multiple contiguous axial images of the thoracic spine were performed without the administration of i ntravenous contrast. DLP: 1169 mGy-cm FINDINGS: Preservation of the normal curvature of the thoracic spine is identified. No acute compression fractures are present. The visualized posterior lung mccann are unremarkable. No soft tissue abnormality is present. Impression: No acute compression fracture, detailed above. Reviewed, dictated and finalized at location A. ING CLEANER Impression: No acute compression fracture, detailed above.
--- NOTE | ~2024-09-07 | CT_ITS ---
History: Seizure with fall PROCEDURE: CT head without contrast. COMPARISON: 05/16/2024 TECHNIQUE: Axial imaging of the head performed from the skull base to the vertex without IV contrast. Sagittal a nd coronal reformations obtained. DLP: 685.3 mGy-cm FINDINGS: Left-sided ventriculoperitoneal shunt is intact along its visualized course. Residual tip from prior shunt remains. The ventricles are nearly completely collapsed, unchanged from prior. There is no mass, mass effect or midline shift. There is no abnormal extra-axial fluid collection or intracranial hemorrhage. Visualized paranasal sinuses are clear. The mastoid air cells are well aerated. There acute displaced fractures within the overlying cranium. Impression: No acute intracranial hemorrhage or suspicious mass effect. Redemonstration of a left-sided ventriculoperitoneal shunt with near complete collapse of the lateral ventricles. Reviewed, dictated and finalized at location A. R INSTALLER Impression: No acute intracranial hemorrhage or suspicious mass effect. Redemonstration of a left-sided ventriculoperitoneal shunt with near complete c ollapse of the lateral ventricles.
--- NOTE | 2024-09-07 17:53 | ECG_ITS ---
Test Date: 2024-09-07 17:58:41 Measurements Intervals Welsh Rate: 82 P: 37 OK: 151 QRS: 25 QRSD: 85 T: 18 QT: 336 QTc: 393 Interpretive Statements SINUS RHYTHM LOW QRS VOLTAGE IN PRECORDIAL LEADS BORDERLINE ST-T WAVE ABNORMALITY- ANT/INF LEADS BASELINE ARTIFACT- I, II, III, AVR, AVL BORDERLINE ECG Compared to ECG 05/16/2024 09:05:57 No significant changes Electronically Signed On 09-07-2024 18:47:22 GRAIN SACKER by Michael Alford D.O.
--- NOTE | 2024-09-07 18:04 | ED.SOB ---
HPI - SOB/Dyspnea General Chief Complaint: Shortness of Breath/Dyspnea Stated Complaint: asthma attack, seizure Time Seen by Provider: 09/07/24 17:53 History of Present Illness HPI Narrative: 38-year-old female with a history of a METALSMITH APPRENTICE shunt (placed 20 years ago, last revised 4 years ago), seizure disorder, pseudotumor cerebri, asthma presents emergency department for a seizure. Patient states she was lying in bed earlier today when she felt an aura, and had a seizure. States she woke up on the floor. She believe she hit her head and is having headache. She is not anticoagulated. She is also reporting neck and midback pain. She is taking Keppra 1000 mg b.i.d. and states she has not missed any doses. She is scheduled to establish with a neurosurgeon at [facility] at her appointment next month. States that she last had her METALSMITH APPRENTICE shunt modified approximately 4 years ago in [place] where she lived prior to moving here. 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 She denies vision changes. She also states that she has had several asthma attacks in the past few days. She has had a productive cough the past week which is increased from her baseline. She reports shortness of breath and tightness in her chest when she takes a deep breath and coughs. She has been using her albuterol inhaler with some improvement but states she has just ran out of her inhaler needs a refill. States he had a fever yesterday of 101. She has been smoking since she was a teenager. Denies prior diagnosis of COPD. Related Data Allergies Allergy/AdvReac Type Severity Reaction Status Date / Time levofloxacin Allergy Intermediate Hives Verified 09/07/24 18:02 cefaclor [From Ceclor] Allergy Swelling Verified 09/07/24 18:02 prochlorperazine Allergy Swelling Verified 09/07/24 18:02 [From Compazine] Sulfa (Sulfonamide Allergy Swelling Verified 09/07/24 18:02 Antibiotics) sulfamethoxazole Allergy Swelling Verified 09/07/24 18:02 [From Bactrim] trimethoprim [From Bactrim] Allergy Swelling Verified 09/07/24 18:02 Review of Systems Review of Systems: All systems reviewed & are unremarkable except as noted in HPI and below PMFSH Past Medical History Medical History History of idiopathic intracranial hypertension Pseudotumor cerebri Seizure disorder Surgical History Surgical History History of appendectomy 2010 Hx of ventricular shunt METALSMITH APPRENTICE shunt placed 2001, revised multiple times, last in 2019 S/P ventriculoperitoneal shunt S/P METALSMITH APPRENTICE shunt Family History Family History Mother No problems noted. 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 Surrogate decision maker: . Code Status: Full. Smoking status: Current every day smoker Tobacco type: cigarettes Alcohol intake: never Substance use: never Substance use type: does not use Do You Feel Safe in your Home?: Yes Lack of Transportation: No Lack of Food: Never True Current Housing: I Have Housing Concerned About Future Housing: No Difficulty Paying Gas/Electric Bills: No Difficulty Paying for Meds: No Currently Unemployed: No Education: Don't Know Difficulty w/ Childcare or Family Care: No Living arrangements: with family Occupation/Education: occupation Gender identity (if verbalized by the patient): Female Spiritual care concerns: No Exam Narrative: GENERAL: Well-appearing, well-nourished, and in no acute distress. HEAD: Normocephalic, atraumatic. EYES: PERRLA and EOMI. ENT: Nares clear, no rhinorrhea or epistaxis. Mucous membranes moist. NECK: Supple. CHEST: Mildly decreased breath sounds throughout all lung mccann with no wheezing, rales or rhonchi. No respiratory distress. Satting 100% on room air in no respiratory distress. Speaking in full sentences. HEART: Regular rate and rhythm. No murmur heard. Normal peripheral pulses. ABDOMEN: Soft, nontender, nondistended, normal active bowel sounds. EXTREMITIES: Normal range of motion. No edema. SKIN: Warm, dry, no rash. NEURO: No focal deficits. Alert and oriented x3. Cranial nerves 2-12 intact. Strength 5/5 in BUE and BLE. Sensation intact throughout. Normal [id number]. No pronator drift. Course Vital Signs Vital signs: Vital Signs Temperature 98.0 F 09/07/24 17:55 Pulse Rate 93 09/07/24 17:55 Respiratory Rate 20 09/07/24 17:55 Blood Pressure 126/88 09/07/24 17:55 Pulse Oximetry 100 09/07/24 17:55 Oxygen Delivery Room Air 09/07/24 17:55 Temperature 99.0 F 09/07/24 18:00 Pulse Rate 86 09/07/24 19:06 Respiratory Rate 15 09/07/24 19:06 Blood Pressure 126/88 09/07/24 18:00 Pulse Oximetry 99 09/07/24 19:06 Oxygen Delivery Room Air 09/07/24 19:05 MDM - SOB/Dyspnea MDM Narrative Medical decision making narrative: 38-year-old female with history of seizure disorders, METALSMITH APPRENTICE shunt, pseudotumor cerebri, asthma an extensive smoking history presents to the emergency department after a seizure earlier today. Also reporting increased work of breathing and productive cough the past few days and believes it is secondary to her asthma. Triage vitals are stable. Exam significant for the above. Patient is neurovascularly intact. No respiratory distress. Lung sounds are clear. CBC with mild leukocytosis of 10.7. Chemistries are unremarkable. Mag is normal. Urinalysis with 510-100 wbc's and 3+ leuk esterase. Patient is reporting dysuria, will start Macrobid. She has several antibiotic allergies. Urine cultures pending. CT brain shows no acute intracranial hemorrhage or suspicious mass effect. There is redemonstration of a left-sided METALSMITH APPRENTICE shunt with near complete collapse of the lateral ventricles. This is unchanged from prior. CT cervical and thoracic spines show no acute findings. EKG shows sinus rhythm, normal TX interval, normal QRS duration, normal QTC, inverted T-waves in the anterior leads in lead 3. No ST elevations or depressions. No changes from prior. Troponin is undetectable. Patient updated on workup. She received a DuoNeb and IV Solu-Medrol with improvement in breathing. Lung sounds are clear. Vitals are stable. Will treat asthma exacerbation/likely undiagnosed COPD with doxycycline, prednisone and refilled albuterol inhaler. I discussed the case with neurologist on-call, Dr. Ignacio, who advises to increase patient's Keppra dose to 1,250mg BID and have her follow-up closely with the neurosurgeon at [facility]. Patient states she has appointment in 2 weeks which I strongly encouraged her to attend. I discussed strict ED return precautions. She is agreeable with the plan verbalized understanding. Discharged in stable condition. Lab Data 09/07/24 18:05 09/07/24 18:05 Labs: Lab Results 09/07/24 09/07/24 09/07/24 Range/Units 18:05 18:05 18:05 WBC 10.7 H (4.5-10.0) K/mm3 RBC 4.86 (4.2-5.4) M/mm3 Hgb 13.8 (12.0-15.0) g/dL Hct 43.4 (37.0-47.0) % MCV 89.3 (80-100) fl MCH 28.4 (26-34) pg MCHC 31.8 L (32-36) g/dl RDW 13.2 (11.5-14.5) % Plt Count 268 (150-375) k/mm3 MPV 10.4 (7.4-10.4) fl Immature Gran % (Auto) 0.5 (0-0.5) % Neut % (Auto) 54.8 (45.5-73.1) % Lymph % (Auto) 32.7 (18.3-44.2) % [place] % (Auto) 4.8 (2.6-8.5) % Eos % (Auto) 6.9 H (0-4.4) % Baso % (Auto) 0.3 (0.2-1.2) % Lymph # (Auto) 3.48 H (0.9-3.2) K/mm3 [place] # (Auto) 0.5 (0.1-0.6) K/mm3 Eos # (Auto) 0.7 H (0-0.3) K/mm3 Baso # (Auto) 0.0 (0.0-0.1) K/mm3 Abs Immat Gran (auto) 0.05 H (0.00-0.031) K/mm3 Absolute Neuts (auto) 5.9 (1.3-6.7) K/mm3 Absolute Nucleated RBC 0.000 (0.0-0.012) K/mm3 Nucleated RBC % 0.0 (0.0-0.2) % PT 13.5 (11.1-14.7) Seconds INR 1.0 APTT 25.8 (22.3-36.8) Seconds Sodium Cancelled 140 Potassium Cancelled 3.9 Chloride Cancelled Carbon Dioxide Anion Gap BUN Creatinine Estim Creat Clear Calc Estimated GFR Glucose POC Capillary Glucose (65-105) mg/dl Calcium Magnesium (1.6-2.3) mg/dL Total Bilirubin AST ALT Alkaline Phosphatase Troponin I (0.000-0.034) ng/mL NT-Pro-B Natriuret Pep (19.9-100) pg/mL Total Protein Albumin Urine Color (Yellow) Urine Appearance (Clear) Urine pH (5.0-9.0) Ur Specific [employer] (1.001-1.035) Urine Protein (Negative) mg/dL Urine Glucose (UA) (Negative) mg/dL Urine Ketones (Negative) mg/dL Ur Blood (Man) (Negative) Urine Nitrate (Negative) Urine Bilirubin (Negative) Urine Urobilinogen (<2.0) mg/dL Leukocyte Esterase Rfl (Negative) JINA/UL Urine RBC (0-2) /hpf Urine WBC (0-3) /hpf Ur Squamous Epith Cells (Few) /hpf Urine Bacteria /hpf Urine Casts 09/07/24 09/07/24 09/07/24 Range/Units 18:05 18:05 18:05 WBC (4.5-10.0) K/mm3 RBC (4.2-5.4) M/mm3 Hgb (12.0-15.0) g/dL Hct (37.0-47.0) % MCV (80-100) fl MCH (26-34) pg MCHC (32-36) g/dl RDW (11.5-14.5) % Plt Count (150-375) k/mm3 MPV (7.4-10.4) fl Immature Gran % (Auto) (0-0.5) % Neut % (Auto) (45.5-73.1) % Lymph % (Auto) (18.3-44.2) % Hutchinson % (Auto) (2.6-8.5) % Eos % (Auto) (0-4.4) % Baso % (Auto) (0.2-1.2) % Lymph # (Auto) (0.9-3.2) K/mm3 [place] # (Auto) (0.1-0.6) K/mm3 Eos # (Auto) (0-0.3) K/mm3 Baso # (Auto) (0.0-0.1) K/mm3 Abs Immat Gran (auto) (0.00-0.031) K/mm3 Absolute Neuts (auto) (1.3-6.7) K/mm3 Absolute Nucleated RBC (0.0-0.012) K/mm3 Nucleated RBC % (0.0-0.2) % PT (11.1-14.7) Seconds INR APTT (22.3-36.8) Seconds Sodium Potassium Chloride 105 Carbon Dioxide Cancelled 25 Anion Gap Cancelled 10 BUN Cancelled Creatinine Estim Creat Clear Calc Estimated GFR Glucose POC Capillary Glucose (65-105) mg/dl Calcium Magnesium (1.6-2.3) mg/dL Total Bilirubin AST ALT Alkaline Phosphatase Troponin I (0.000-0.034) ng/mL NT-Pro-B Natriuret Pep (19.9-100) pg/mL Total Protein Albumin Urine Color (Yellow) Urine Appearance (Clear) Urine pH (5.0-9.0) Ur Specific [employer] (1.001-1.035) Urine Protein (Negative) mg/dL Urine Glucose (UA) (Negative) mg/dL Urine Ketones (Negative) mg/dL Ur Blood (Man) (Negative) Urine Nitrate (Negative) Urine Bilirubin (Negative) Urine Urobilinogen (<2.0) mg/dL Leukocyte Esterase Rfl (Negative) JINA/UL Urine RBC (0-2) /hpf Urine WBC (0-3) /hpf Ur Squamous Epith Cells (Few) /hpf Urine Bacteria /hpf Urine Casts 09/07/24 09/07/24 09/07/24 Range/Units 18:05 18:05 18:05 WBC (4.5-10.0) K/mm3 RBC (4.2-5.4) M/mm3 Hgb (12.0-15.0) g/dL Hct (37.0-47.0) % MCV (80-100) fl MCH (26-34) pg MCHC (32-36) g/dl RDW (11.5-14.5) % Plt Count (150-375) k/mm3 MPV (7.4-10.4) fl Immature Gran % (Auto) (0-0.5) % Neut % (Auto) (45.5-73.1) % Lymph % (Auto) (18.3-44.2) % Hutchinson % (Auto) (2.6-8.5) % Eos % (Auto) (0-4.4) % Baso % (Auto) (0.2-1.2) % Lymph # (Auto) (0.9-3.2) K/mm3 [place] # (Auto) (0.1-0.6) K/mm3 Eos # (Auto) (0-0.3) K/mm3 Baso # (Auto) (0.0-0.1) K/mm3 Abs Immat Gran (auto) (0.00-0.031) K/mm3 Absolute Neuts (auto) (1.3-6.7) K/mm3 Absolute Nucleated RBC (0.0-0.012) K/mm3 Nucleated RBC % (0.0-0.2) % PT (11.1-14.7) Seconds INR APTT (22.3-36.8) Seconds Sodium Potassium Chloride Carbon Dioxide Anion Gap BUN 13 Creatinine Cancelled 0.90 Estim Creat Clear Calc Cancelled 98 Estimated GFR Cancelled Glucose POC Capillary Glucose (65-105) mg/dl Calcium Magnesium (1.6-2.3) mg/dL Total Bilirubin AST ALT Alkaline Phosphatase Troponin I (0.000-0.034) ng/mL NT-Pro-B Natriuret Pep (19.9-100) pg/mL Total Protein Albumin Urine Color (Yellow) Urine Appearance (Clear) Urine pH (5.0-9.0) Ur Specific [employer] (1.001-1.035) Urine Protein (Negative) mg/dL Urine Glucose (UA) (Negative) mg/dL Urine Ketones (Negative) mg/dL Ur Blood (Man) (Negative) Urine Nitrate (Negative) Urine Bilirubin (Negative) Urine Urobilinogen (<2.0) mg/dL Leukocyte Esterase Rfl (Negative) JINA/UL Urine RBC (0-2) /hpf Urine WBC (0-3) /hpf Ur Squamous Epith Cells (Few) /hpf Urine Bacteria /hpf Urine Casts 09/07/24 09/07/24 09/07/24 Range/Units 18:05 18:05 18:05 WBC (4.5-10.0) K/mm3 RBC (4.2-5.4) M/mm3 Hgb (12.0-15.0) g/dL Hct (37.0-47.0) % MCV (80-100) fl MCH (26-34) pg MCHC (32-36) g/dl RDW (11.5-14.5) % Plt Count (150-375) k/mm3 MPV (7.4-10.4) fl Immature Gran % (Auto) (0-0.5) % Neut % (Auto) (45.5-73.1) % Lymph % (Auto) (18.3-44.2) % [place] % (Auto) (2.6-8.5) % Eos % (Auto) (0-4.4) % Baso % (Auto) (0.2-1.2) % Lymph # (Auto) (0.9-3.2) K/mm3 [place] # (Auto) (0.1-0.6) K/mm3 Eos # (Auto) (0-0.3) K/mm3 Baso # (Auto) (0.0-0.1) K/mm3 Abs Immat Gran (auto) (0.00-0.031) K/mm3 Absolute Neuts (auto) (1.3-6.7) K/mm3 Absolute Nucleated RBC (0.0-0.012) K/mm3 Nucleated RBC % (0.0-0.2) % PT (11.1-14.7) Seconds INR APTT (22.3-36.8) Seconds Sodium Potassium Chloride Carbon Dioxide Anion Gap BUN Creatinine Estim Creat Clear Calc Estimated GFR > 60 Glucose Cancelled 102 POC Capillary Glucose (65-105) mg/dl Calcium Cancelled 8.9 Magnesium 1.9 (1.6-2.3) mg/dL Total Bilirubin Cancelled AST ALT Alkaline Phosphatase Troponin I (0.000-0.034) ng/mL NT-Pro-B Natriuret Pep (19.9-100) pg/mL Total Protein Albumin Urine Color (Yellow) Urine Appearance (Clear) Urine pH (5.0-9.0) Ur Specific [employer] (1.001-1.035) Urine Protein (Negative) mg/dL Urine Glucose (UA) (Negative) mg/dL Urine Ketones (Negative) mg/dL Ur Blood (Man) (Negative) Urine Nitrate (Negative) Urine Bilirubin (Negative) Urine Urobilinogen (<2.0) mg/dL Leukocyte Esterase Rfl (Negative) JINA/UL Urine RBC (0-2) /hpf Urine WBC (0-3) /hpf Ur Squamous Epith Cells (Few) /hpf Urine Bacteria /hpf Urine Casts 09/07/24 09/07/24 09/07/24 Range/Units 18:05 18:05 18:05 WBC (4.5-10.0) K/mm3 RBC (4.2-5.4) M/mm3 Hgb (12.0-15.0) g/dL Hct (37.0-47.0) % MCV (80-100) fl MCH (26-34) pg MCHC (32-36) g/dl RDW (11.5-14.5) % Plt Count (150-375) k/mm3 MPV (7.4-10.4) fl Immature Gran % (Auto) (0-0.5) % Neut % (Auto) (45.5-73.1) % Lymph % (Auto) (18.3-44.2) % [place] % (Auto) (2.6-8.5) % Eos % (Auto) (0-4.4) % Baso % (Auto) (0.2-1.2) % Lymph # (Auto) (0.9-3.2) K/mm3 [place] # (Auto) (0.1-0.6) K/mm3 Eos # (Auto) (0-0.3) K/mm3 Baso # (Auto) (0.0-0.1) K/mm3 Abs Immat Gran (auto) (0.00-0.031) K/mm3 Absolute Neuts (auto) (1.3-6.7) K/mm3 Absolute Nucleated RBC (0.0-0.012) K/mm3 Nucleated RBC % (0.0-0.2) % PT (11.1-14.7) Seconds INR APTT (22.3-36.8) Seconds Sodium Potassium Chloride Carbon Dioxide Anion Gap BUN Creatinine Estim Creat Clear Calc Estimated GFR Glucose POC Capillary Glucose (65-105) mg/dl Calcium Magnesium (1.6-2.3) mg/dL Total Bilirubin 0.2 AST Cancelled 20 ALT Cancelled 20 Alkaline Phosphatase Cancelled Troponin I (0.000-0.034) ng/mL NT-Pro-B Natriuret Pep (19.9-100) pg/mL Total Protein Albumin Urine Color (Yellow) Urine Appearance (Clear) Urine pH (5.0-9.0) Ur Specific [employer] (1.001-1.035) Urine Protein (Negative) mg/dL Urine Glucose (UA) (Negative) mg/dL Urine Ketones (Negative) mg/dL Ur Blood (Man) (Negative) Urine Nitrate (Negative) Urine Bilirubin (Negative) Urine Urobilinogen (<2.0) mg/dL Leukocyte Esterase Rfl (Negative) JINA/UL Urine RBC (0-2) /hpf Urine WBC (0-3) /hpf Ur Squamous Epith Cells (Few) /hpf Urine Bacteria /hpf Urine Casts 09/07/24 09/07/24 09/07/24 Range/Units 18:05 18:05 18:05 WBC (4.5-10.0) K/mm3 RBC (4.2-5.4) M/mm3 Hgb (12.0-15.0) g/dL Hct (37.0-47.0) % MCV (80-100) fl MCH (26-34) pg MCHC (32-36) g/dl RDW (11.5-14.5) % Plt Count (150-375) k/mm3 MPV (7.4-10.4) fl Immature Gran % (Auto) (0-0.5) % Neut % (Auto) (45.5-73.1) % Lymph % (Auto) (18.3-44.2) % [place] % (Auto) (2.6-8.5) % Eos % (Auto) (0-4.4) % Baso % (Auto) (0.2-1.2) % Lymph # (Auto) (0.9-3.2) K/mm3 [place] # (Auto) (0.1-0.6) K/mm3 Eos # (Auto) (0-0.3) K/mm3 Baso # (Auto) (0.0-0.1) K/mm3 Abs Immat Gran (auto) (0.00-0.031) K/mm3 Absolute Neuts (auto) (1.3-6.7) K/mm3 Absolute Nucleated RBC (0.0-0.012) K/mm3 Nucleated RBC % (0.0-0.2) % PT (11.1-14.7) Seconds INR APTT (22.3-36.8) Seconds Sodium Potassium Chloride Carbon Dioxide Anion Gap BUN Creatinine Estim Creat Clear Calc Estimated GFR Glucose POC Capillary Glucose (65-105) mg/dl Calcium Magnesium (1.6-2.3) mg/dL Total Bilirubin AST ALT Alkaline Phosphatase 62 Troponin I < 0.012 (0.000-0.034) ng/mL NT-Pro-B Natriuret Pep 193 H (19.9-100) pg/mL Total Protein Cancelled 8.0 Albumin Cancelled 4.2 Urine Color (Yellow) Urine Appearance (Clear) Urine pH (5.0-9.0) Ur Specific [employer] (1.001-1.035) Urine Protein (Negative) mg/dL Urine Glucose (UA) (Negative) mg/dL Urine Ketones (Negative) mg/dL Ur Blood (Man) (Negative) Urine Nitrate (Negative) Urine Bilirubin (Negative) Urine Urobilinogen (<2.0) mg/dL Leukocyte Esterase Rfl (Negative) JINA/UL Urine RBC (0-2) /hpf Urine WBC (0-3) /hpf Ur Squamous Epith Cells (Few) /hpf Urine Bacteria /hpf Urine Casts 09/07/24 09/07/24 Range/Units 18:06 18:54 WBC (4.5-10.0) K/mm3 RBC (4.2-5.4) M/mm3 Hgb (12.0-15.0) g/dL Hct (37.0-47.0) % MCV (80-100) fl MCH (26-34) pg MCHC (32-36) g/dl RDW (11.5-14.5) % Plt Count (150-375) k/mm3 MPV (7.4-10.4) fl Immature Gran % (Auto) (0-0.5) % Neut % (Auto) (45.5-73.1) % Lymph % (Auto) (18.3-44.2) % [place] % (Auto) (2.6-8.5) % Eos % (Auto) (0-4.4) % Baso % (Auto) (0.2-1.2) % Lymph # (Auto) (0.9-3.2) K/mm3 [place] # (Auto) (0.1-0.6) K/mm3 Eos # (Auto) (0-0.3) K/mm3 Baso # (Auto) (0.0-0.1) K/mm3 Abs Immat Gran (auto) (0.00-0.031) K/mm3 Absolute Neuts (auto) (1.3-6.7) K/mm3 Absolute Nucleated RBC (0.0-0.012) K/mm3 Nucleated RBC % (0.0-0.2) % PT (11.1-14.7) Seconds INR APTT (22.3-36.8) Seconds Sodium Potassium Chloride Carbon Dioxide Anion Gap BUN Creatinine Estim Creat Clear Calc Estimated GFR Glucose POC Capillary Glucose 138 H (65-105) mg/dl Calcium Magnesium (1.6-2.3) mg/dL Total Bilirubin AST ALT Alkaline Phosphatase Troponin I (0.000-0.034) ng/mL NT-Pro-B Natriuret Pep (19.9-100) pg/mL Total Protein Albumin Urine Color Yellow (Yellow) Urine Appearance Clear (Clear) Urine pH 5.5 (5.0-9.0) Ur Specific [employer] 1.018 (1.001-1.035) Urine Protein Negative (Negative) mg/dL Urine Glucose (UA) Negative (Negative) mg/dL Urine Ketones Negative (Negative) mg/dL Ur Blood (Man) Negative (Negative) Urine Nitrate Negative (Negative) Urine Bilirubin Negative (Negative) Urine Urobilinogen 0.2 (<2.0) mg/dL Leukocyte Esterase Rfl 3+ H (Negative) JINA/UL Urine RBC 0-2 (0-2) /hpf Urine WBC 51-100 H (0-3) /hpf Ur Squamous Epith Cells Few (Few) /hpf Urine Bacteria None seen /hpf Urine Casts 0-2 Discharge Plan Discharge Clinical Impression: Breakthrough seizure UTI (urinary tract infection) Qualifiers: Urinary tract infection type: acute cystitis Hematuria presence: without hematuria Qualified Code(s): N30.00 - Acute cystitis without hematuria Asthma exacerbation Qualifiers: Asthma severity: unspecified severity Asthma persistence: unspecified Qualified Code(s): J45.901 - Unspecified asthma with (acute) exacerbation Patient Disposition: Home, Self-Care Condition: Stable Instructions: Antibiotic Form, Asthma (DC), Urinary Tract Infection in Women (DC), Epilepsy (DC) Additional Instructions: You were evaluated in the emergency department after a seizure and for asthma. Your workup here shows no acute findings. I prescribed antibiotics for UTI, please take these as directed. I prescribed you antibiotics, steroids and an albuterol inhaler for her asthma, please take these as directed. Please make sure to follow-up closely with the neurosurgeon at your appointment in 2 weeks with [facility]. Return to the emergency department if you develop altered mental status, your unable to tolerate food or fluids, worsening seizure activity, head injury, difficulty breathing or other concerning symptoms. Prescriptions: New doxycycline monohydrate 100 mg capsule 100 mg PO BID Qty: 14 0RF albuterol sulfate 90 mcg/actuation HFA aerosol inhaler 1 inh inhalation QID PRN (Reason: shortness of breath or wheezing) Qty: 6.7 0RF prednisone 20 mg tablet 40 mg PO BID Qty: 10 0RF levetiracetam 250 mg tablet 250 mg PO BID Qty: 30 0RF levetiracetam 1,000 mg tablet 1,000 mg PO BID Qty: 30 0RF nitrofurantoin monohyd/m-cryst 100 mg capsule 100 mg PO Q12H 5 Days Qty: 10 0RF Rx Instructions: must administer with a meal/food No Action acetazolamide 125 mg Tablet 125 mg PO QAM Qty: 30 0RF ciprofloxacin HCl 500 mg tablet 500 mg PO Q12H Qty: 3 0RF doxycycline monohydrate 100 mg capsule 100 mg PO BID 7 Days Qty: 14 0RF Follow-up/Referrals: PHYSICIAN,PROCUREMENT INTERN [Non-Staff] -
[2024-09-07 18:10] LABS: Glucose Point of Care 138 mg/dl (65-105)
[2024-09-07] MEDS: methylPREDNISolone SOD SUCC 125 MG VIAL IV PUSH (18:12)
[2024-09-07] MEDS: ACETAMINOPHEN 500 MG TABLET 1000 MG PO (18:12)
[2024-09-07 18:13] LABS: Basophils Percent Auto 0.3 % (0.2-1.2); Eosinophils Absolute Auto 0.7 K/mm3 (0-0.3); Eosinophils Percent Auto 6.9 % (0-4.4); Hematocrit 43.4 % (37.0-47.0); Hemoglobin 13.8 g/dL (12.0-15.0); Immature Granulocyte Absolute 0.05 K/mm3 (0.00-0.031); Immature Granulocyte Percent A 0.5 % (0-0.5); Lymphocytes Absolute Auto 3.48 K/mm3 (0.9-3.2); Lymphocytes Percent Auto 32.7 % (18.3-44.2); Mean Corpuscular HGB Conc 31.8 g/dl (32-36); Mean Corpuscular Hemoglobin 28.4 pg (26-34); Mean Corpuscular Volume 89.3 fl (80-100); Mean Platelet Volume 10.4 fl (7.4-10.4); Monocytes Absolute Auto 0.5 K/mm3 (0.1-0.6); Monocytes Percent Auto 4.8 % (2.6-8.5); Neutrophils Absolute Auto 5.9 K/mm3 (1.3-6.7); Neutrophils Percent Auto 54.8 % (45.5-73.1); Platelet Count Result 268 k/mm3 (150-375); Red Blood Count 4.86 M/mm3 (4.2-5.4); Red Cell Distribution Width 13.2 % (11.5-14.5); White Blood Count 10.7 K/mm3 (4.5-10.0)
[2024-09-07] MEDS: IPRATROPIUM 0.5 MG/ALBUTEROL SULFATE 2.5 MG AMPUL.NEB 3 ML INHALATION ×3 (18:15→18:30)
[2024-09-07 18:24] LABS: Prothrombin Time 13.5 Seconds (11.1-14.7)
[2024-09-07 18:25] LABS: Partial Thromboplastin Time 25.8 Seconds (22.3-36.8)
[2024-09-07 18:29] LABS: Alanine Aminotransferase 20 U/L (6-35); Albumin Level 4.2 g/dL (3.5-5.1); Alkaline Phosphatase 62 U/L (38-126); Anion Gap 10 mmol/L (4-12); Aspartate Amino Transferase 20 U/L (14-36); Bilirubin,Total 0.2 mg/dL (0.2-1.3); Blood Urea Nitrogen 13 mg/dL (7-17); Calcium 8.9 mg/dL (8.4-10.2); Carbon Dioxide 25 mmol/L (22-30); Chloride 105 mmol/L (98-107); Estimated CRCL calculation 98 ml/min; Estimated Glomerular Filt Rate > 60; Glucose 102 mg/dL (65-110); Magnesium 1.9 mg/dL (1.6-2.3); Potassium 3.9 mmol/L (3.4-5.0); Sodium 140 mmol/L (137-145)
[2024-09-07 18:38] LABS: NT Pro B Type Natriuretic Pept 193 pg/mL (19.9-100); Troponin I < 0.012 ng/mL (0.000-0.034)
[2024-09-07 19:04] LABS: Add Urine Microscopic? YES; Appearance Urine Clear (Clear); Bacteria Urine None Seen /hpf; Bilirubin Urine Negative (Negative); Blood Urine Negative (Negative); Color Urine Yellow (Yellow); Glucose Urine UA Negative (Negative); Ketones Urine Negative (Negative); Leukocyte Esterase Ur 3+ LEU/UL (Negative); Nitrate Urine Negative (Negative); Non Pathogenic Casts 0-2; Protein Urine Negative (Negative); RBC Urine 0-2 /hpf (0-2); Specific Grav Ur 1.018 (1.001-1.035); Squamous Epithelial Cell Urine Few /hpf (Few); Urobilinogen Urine 0.2 mg/dL (<2.0); WBC Urine 51-100 /hpf (0-3); pH Urine 5.5 (5.0-9.0)
[2024-09-07] MEDS: KETOROLAC 15 MG/ML VIAL (*BKC) IV PUSH (22:09)
[2024-09-07] MEDS: diphenhydrAMINE HCl INJ 50 MG/ML VIAL 25 MG IV PUSH (22:09)
[2024-09-07] MEDS: METOCLOPRAMIDE HCL INJ 10 MG/2 ML VIAL IV PUSH (22:10)
--- NOTE | 2024-09-07 22:17 | PC.NURSE ---
pt requesting to speak with PA after medication administration regarding updates on her care. PA aware.
[2024-09-07] MEDS: NITROFURANTOIN MONOHYD MACROCR 100 MG CAP PO (22:36)
[2024-09-07] MEDS: DOXYCYCLINE HYCLATE 100 MG TABLET PO (22:36)
[2024-09-07 22:42] LABS: Pregnancy On Board Control Positive; Urine Pregnancy Test Negative
== END 2024-09-07 22:48 | disposition home or self-care (01) ==
PROVIDERS: Emergency Medicine; Emergency Provider Physician Assistant
DX: G40.909 Epilepsy, unspecified, not intractable, without status epilepticus (principal); N30.00 Acute cystitis without hematuria; J45.901 Unspecified asthma with (acute) exacerbation; H54.61 Unqualified visual loss, right eye, normal vision left eye; F17.210 Nicotine dependence, cigarettes, uncomplicated; Z98.2 Presence of cerebrospinal fluid drainage device; R94.31 Abnormal electrocardiogram [ECG] [EKG]
CPT/HCPCS: 36415; 70450; 71045; 72125; 72128; 80053; 81001; 81025; 82948; 83735; 83880; 84484; 85025; 85610; 85730; 87086; 93005; 94640; 96374; 96375; 99284; A9270; J1200; J1885; J2765; J2919

== ENCOUNTER 2024-11-19 11:09 | Inpatient (IN) | payer OTHER, SELFPAY ==
--- NOTE | ~2024-11-19 | CT_ITS ---
EXAMINATION: CT abdomen pelvis w con DATE: 11/19/2024 12:15 INDICATION: Right flank tenderness, nausea and vomiting TECHNIQUE: Computed tomography (CT) of the abdomen and pelvis was performed with 100 mL Omnipaque-350 intravenous contrast. Automated exposure control and iterative reconstruction technique were employe d. The dose-length product was 833.54 mGy-cm. COMPARISON: None FINDINGS: Lung bases are clear. Heart size is normal. No pericardial or pleural effusion. Small sliding-type hi atal hernia. Indeterminate 3.5 x 3.2 x 1.7 cm lenticular hypodense lesion with well-defined margins a t the periphery of the right hepatic lobe which is greater than simple fluid attenuation. Gallbladder , pancreas, spleen, bilateral adrenal glands and right kidney are normal. 5 mm nonobstructing stone a t the left renal pelvis. No stones in the right kidney or along the ureters. Suture line along the ti p the cecum and a few adjacent surgical clips consistent with prior appendectomy. Bowels are otherwis e unremarkable with no abnormal wall thickening or obstruction. Bladder, anteverted uterus and left a dnexa are unremarkable. 1.8 cm peripherally enhancing right adnexal corpus luteum cyst. Ventriculoper itoneal shunt catheter coiled in the anterior pelvis. Small amount of pelvic ascites which could be p hysiologic, reactive or related to the ventriculoperitoneal shunt. No abscess or free intraperitoneal gas. No pathologically enlarged abdominal or pelvic lymphadenopathy. Chronic mild T11 compression fr acture. IMPRESSION: 1. 5 mm nonobstructing left renal stone. 2. Small sliding-type hiatal hernia. 3.Indeterminate 3.5 x 3.2 x 1.7 cm lenticular well-defined hypodense lesion at the periphery of the r ight hepatic lobe. Differential would include complex subcapsular fluid collection such as hematoma i n setting of trauma or neoplasm including hemangioma. Consider further evaluation with multiphase pre and postcontrast MRI. 4. 1.8 cm right ovarian corpus luteum cyst. 5. Small amount of pelvic ascites which could be physiologic or related to a ventriculoperitoneal gregory nt catheter. Reviewed, dictated and finalized at location B. TS NUTRITIONIST IMPRESSION: 1. 5 mm nonobstructing left renal stone. 2. Small sliding-type hiatal hernia. 3.Indeterminate 3.5 x 3.2 x 1.7 cm lenticular well-defined hypodense lesion at the periphery of the right hepatic lobe. Differential would include complex sub capsular fluid collection such as hematoma in setting of trauma or neoplasm inc luding hemangioma. Consider further evaluation with multiphase pre and postcont rast MRI. 4. 1.8 cm right ovarian corpus luteum cyst. 5. Small amount of pelvic ascites which could be physiologic or related to a ve ntriculoperitoneal shunt catheter.
--- NOTE | ~2024-11-19 | US_ITS ---
EXAMINATION: US abdomen complete DATE: 11/23/2024 14:01 INDICATION: Liver lesion. TECHNIQUE: Multiple grayscale and Doppler ultrasound images of the abdomen were obtained. COMPARISON: CT abdomen and pelvis 11/19/2024 FINDINGS: The visualized portions of the head, body, and tail of the pancreas are normal. The liver i s normal without focal lesion. There is normal flow in main portal vein. The gallbladder is distended , likely secondary to fasting. No gallstones or gallbladder wall thickening. There is no sonographic Berg's sign. The common duct is normal and measures 6 mm. The kidneys are normal in size. The splee n is normal in size. Abdominal aorta is normal in caliber. Inferior vena cava is normal. IMPRESSION: 1. Liver mass not visible. Reviewed, dictated and finalized at location B. MOTIVE TECHNOLOGY INSTRUCTOR IMPRESSION: 1. Liver mass not visible.
[2024-11-19 11:10] VITALS: BP 114/71; PULSE 91; RESP 17; TEMP 36.6; O2SAT 99
--- NOTE | 2024-11-19 11:27 | ED_ITS ---
HPI - Female Genitourinary General Chief complaint: Urogenital-Female Stated complaint: nausea/vomiting, hematuria, R side flank pain Time Seen by Provider: 11/19/24 11:16 Source: patient Mode of arrival: ambulatory Limitations: no limitations History of Present Illness HPI Narrative: This is a 39-year-old female with PMH of pseudotumor cerebri, seizure disorder, s/p ventriculoperitoneal shunt who presents to the ED for chief complaint of N/V and right-sided flank pain that started a couple of days ago and worsened today. Patient reports hematuria and dysuria as well. States that she has had kidney stones in the past and this pain is similar, however she is having some pain on the left flank as well. Endorses fever of 102 last night. Denies diarrhea, chest pain shortness of breath, cough. Related Data Home Medications ?Medication ?Instructions ?Recorded ?Confirmed ?Last Taken ?Type ibuprofen 800 mg tablet 800 mg PO Q8H PRN fever or pain 11/19/24 11/19/24 11/19/24 History Allergies Allergy/AdvReac Type Severity Reaction Status Date / Time levofloxacin Allergy Intermediate Hives Verified 11/19/24 11:13 tetracycline Allergy Intermediate Hives Verified 11/19/24 11:27 cefaclor (From Ceclor) Allergy Swelling Verified 11/19/24 11:13 prochlorperazine (From Allergy Swelling Verified 11/19/24 11:13 Compazine) Sulfa (Sulfonamide Allergy Swelling Verified 11/19/24 11:13 Antibiotics) sulfamethoxazole (From Allergy Swelling Verified 11/19/24 11:13 Bactrim) trimethoprim (From Bactrim) Allergy Swelling Verified 11/19/24 11:13 Review of Systems 2 Review of Systems: All systems as dictated in HPI PENDING SALE TO [facility] Past Medical History Medical History History of idiopathic intracranial hypertension Pseudotumor cerebri Seizure disorder Surgical History Surgical History History of appendectomy 2009 Hx of ventricular shunt PRODUCTION PATTERN MAKER shunt placed 2001, revised multiple times, last in 2019 S/P ventriculoperitoneal shunt S/P PRODUCTION PATTERN MAKER shunt Family History Family History Mother No problems noted. 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 Surrogate decision maker: . Code Status: Full. Smoking status: Current every day smoker Tobacco type: cigarettes Second hand tobacco smoke exposure: No Alcohol intake: never Substance use: current Substance use type: marijuana Other substance usage details: uses for seizure control; medical card - uses edibles Last use: 11/18/24 Do You Feel Safe in your Home?: Yes Lack of Transportation: No Lack of Food: Never True Current Housing: I Have Housing Concerned About Future Housing: No Difficulty Paying Gas/Electric Bills: No Difficulty Paying for Meds: No Currently Unemployed: No Education: Don't Know Difficulty w/ Childcare or Family Care: No Living arrangements: with family Occupation/Education: occupation Gender identity (if verbalized by the patient): Female Spiritual care concerns: No Exam 2 Narrative: GENERAL: Tearful, appears in pain. HEAD: Normocephalic, atraumatic. EYES: PERRLA and EOMI. ENT: Nares clear, no rhinorrhea or epistaxis. Mucous membranes moist. Oropharynx without tonsillar hypertrophy exudate or other lesions. NECK: Supple. No adenopathy or masses. CHEST: No respiratory distress. Clear to auscultation. No wheezes rales or rhonchi HEART: Regular rate and rhythm. No murmur heard. Normal peripheral pulses. ABDOMEN: Exquisite right flank tenderness. Soft, otherwise nontender, nondistended, normal active bowel sounds. MSK: Normal range of motion. No edema. SKIN: Warm, dry, no rash. NEURO: Alert and oriented x4. No focal deficits. PSYCH: Normal mood and affect. Course Vital Signs Vital signs: Vital Signs Temperature 97.9 F 11/19/24 11:10 Pulse Rate 91 11/19/24 11:10 Respiratory Rate 11/19/24 11:10 Blood Pressure 114/71 11/19/24 11:10 Pulse Oximetry 99 11/19/24 11:10 Oxygen Delivery Room Air 11/19/24 11:10 Temperature 98 F 11/19/24 15:35 Pulse Rate 63 11/19/24 15:35 Respiratory Rate 14 11/19/24 15:35 Blood Pressure 133/58 L 11/19/24 15:35 Pulse Oximetry 100 11/19/24 15:35 Oxygen Delivery Room Air 11/19/24 11:10 MDM - Female Genitourinary MDM Narrative Medical decision making narrative: This is a 39-year-old female who presents to the ED for chief complaint of bilateral flank pain worse on the right. Vitals are normal. Exam is remarkable for tenderness on the right flank. Lab work shows mildly elevated white count of 10.6. CMP unremarkable. Urinalysis questionable for infection with 3+ bacteria, 11-[address] abdomen pelvis with IV contrast: IMPRESSION: 1. 5 mm nonobstructing left renal stone. 2. Small sliding-type hiatal hernia. 3.Indeterminate 3.5 x 3.2 x 1.7 cm lenticular well-defined hypodense lesion at the periphery of the right hepatic lobe. Differential would include complex subcapsular fluid collection such as hematoma in setting of trauma or neoplasm including hemangioma. Consider further evaluation with multiphase pre and postcontrast MRI. 4. 1.8 cm right ovarian corpus luteum cyst. 5. Small amount of pelvic ascites which could be physiologic or related to a ventriculoperitoneal shunt catheter. Presentation most likely consistent with pyelonephritis. She was started on antibiotics here. She was requiring multiple rounds of pain medications and nausea medications so she was admitted to the hospitalist for observation. She is understanding and agreeable with this plan. Spoke with hospitalist, FIDELIA Sanders Lab Data 11/19/24 11:32 11/19/24 11:32 Labs: Lab Results 11/19/24 11/19/24 Range/Units 11:32 11:34 WBC 10.6 H (4.5-10.0) K/mm3 RBC 5.22 (4.2-5.4) M/mm3 Hgb 15.2 H (12.0-15.0) g/dL Hct 46.8 (37.0-47.0) % MCV 89.7 (80-100) fl MCH 29.1 (26-34) pg MCHC 32.5 (32-36) g/dl RDW 13.2 (11.5-14.5) % Plt Count 284 (150-375) k/mm3 MPV 10.6 H (7.4-10.4) fl Immature Gran % (Auto) 0.3 (0-0.5) % Neut % (Auto) 56.0 (45.5-73.1) % Lymph % (Auto) 31.8 (18.3-44.2) % [place] % (Auto) 6.1 (2.6-8.5) % Eos % (Auto) 5.2 H (0-4.4) % Baso % (Auto) 0.6 (0.2-1.2) % Lymph # (Auto) 3.36 H (0.9-3.2) K/mm3 [place] # (Auto) 0.6 (0.1-0.6) K/mm3 Eos # (Auto) 0.6 H (0-0.3) K/mm3 Baso # (Auto) 0.1 (0.0-0.1) K/mm3 Abs Immat Gran (auto) 0.03 (0.00-0.031) K/mm3 Absolute Neuts (auto) 5.9 (1.3-6.7) K/mm3 Absolute Nucleated RBC 0.000 (0.0-0.012) K/mm3 Nucleated RBC % 0.0 (0.0-0.2) % Sodium 136 L (137-145) mmol/L Potassium 4.7 (3.4-5.0) mmol/L Chloride 107 (98-107) mmol/L Carbon Dioxide 25 (22-30) mmol/L Anion Gap 4 (4-12) mmol/L BUN 12 (7-17) mg/dL Creatinine 0.70 (0.7-1.0) mg/dL Estim Creat Clear Calc 119 ml/min Estimated GFR > 60 (59 - ) Glucose 93 (65-110) mg/dL Calcium 9.1 (8.4-10.2) mg/dL Total Bilirubin 0.6 (0.2-1.3) mg/dL AST 17 (14-36) U/L ALT 17 (6-35) U/L Alkaline Phosphatase 62 (38-126) U/L Total Protein 7.0 (6.3-8.2) g/dL Albumin 4.3 (3.5-5.1) g/dL Lipase 86 (23-300) U/L Urine Color Yellow (Yellow) Urine Appearance Cloudy H (Clear) Urine pH 6.0 (5.0-9.0) Ur Specific [place] 1.018 (1.001-1.035) Urine Protein Negative (Negative) mg/dL Urine Glucose (UA) Negative (Negative) mg/dL Urine Ketones Negative (Negative) mg/dL Ur Blood (Man) Negative (Negative) Urine Nitrate Negative (Negative) Urine Bilirubin Negative (Negative) Urine Urobilinogen 0.2 (<2.0) mg/dL Add Ur Microanalysis Reviewed Leukocyte Esterase Rfl Negative (Negative) JINA/UL Urine RBC 0-2 (0-2) /hpf Urine WBC 11-20 H (0-3) /hpf Ur Squamous Epith Cells Many H (Few) /hpf Urine Bacteria 3+ H /hpf Urine Casts 0-2 POC Urine HCG, Qual Negative (Negative) Discharge Plan Discharge Clinical Impression: Pyelonephritis, Vomiting Patient Disposition: Still a Patient Condition: Stable
[2024-11-19 11:37] LABS: BEDSIDEPREGUCG Negative (Negative)
[2024-11-19] MEDS: SODIUM CHLORIDE 0.9% IV 1,000 ML 999 ML IV CONT ×2 (11:40→13:27)
[2024-11-19] MEDS: HYDROmorphone HCL INJ (*CRX) 1 MG/ML SYR 0.5 MG IV PUSH ×3 (11:41→17:53)
[2024-11-19] MEDS: ONDANSETRON INJ 4 MG/2 ML VIAL IV PUSH ×2 (11:41→20:21)
[2024-11-19 11:42] LABS: Basophils Absolute Auto 0.1 K/mm3 (0.0-0.1); Basophils Percent Auto 0.6 % (0.2-1.2); Eosinophils Absolute Auto 0.6 K/mm3 (0-0.3); Eosinophils Percent Auto 5.2 % (0-4.4); Hematocrit 46.8 % (37.0-47.0); Hemoglobin 15.2 g/dL (12.0-15.0); Immature Granulocyte Absolute 0.03 K/mm3 (0.00-0.031); Immature Granulocyte Percent A 0.3 % (0-0.5); Lymphocytes Absolute Auto 3.36 K/mm3 (0.9-3.2); Lymphocytes Percent Auto 31.8 % (18.3-44.2); Mean Corpuscular HGB Conc 32.5 g/dl (32-36); Mean Corpuscular Hemoglobin 29.1 pg (26-34); Mean Corpuscular Volume 89.7 fl (80-100); Mean Platelet Volume 10.6 fl (7.4-10.4); Monocytes Absolute Auto 0.6 K/mm3 (0.1-0.6); Monocytes Percent Auto 6.1 % (2.6-8.5); Neutrophils Absolute Auto 5.9 K/mm3 (1.3-6.7); Platelet Count Result 284 k/mm3 (150-375); Red Blood Count 5.22 M/mm3 (4.2-5.4); Red Cell Distribution Width 13.2 % (11.5-14.5); White Blood Count 10.6 K/mm3 (4.5-10.0)
[2024-11-19 11:56] LABS: Alanine Aminotransferase 17 U/L (6-35); Albumin Level 4.3 g/dL (3.5-5.1); Alkaline Phosphatase 62 U/L (38-126); Anion Gap 4 mmol/L (4-12); Aspartate Amino Transferase 17 U/L (14-36); Bilirubin,Total 0.6 mg/dL (0.2-1.3); Blood Urea Nitrogen 12 mg/dL (7-17); Calcium 9.1 mg/dL (8.4-10.2); Carbon Dioxide 25 mmol/L (22-30); Chloride 107 mmol/L (98-107); Estimated CRCL calculation 119 ml/min; Estimated Glomerular Filt Rate > 60; Glucose 93 mg/dL (65-110); Lipase 86 U/L (23-300); Potassium 4.7 mmol/L (3.4-5.0); Sodium 136 mmol/L (137-145)
[2024-11-19 12:16] LABS: Add Urine Microscopic? YES; Appearance Urine Cloudy (Clear); Bacteria Urine 3+ /hpf; Bilirubin Urine Negative (Negative); Blood Urine Negative (Negative); Color Urine Yellow (Yellow); Glucose Urine UA Negative (Negative); Ketones Urine Negative (Negative); Leukocyte Esterase Ur Negative LEU/UL (Negative); Need Manual Microscopic Reviewed; Nitrate Urine Negative (Negative); Non Pathogenic Casts 0-2; Protein Urine Negative (Negative); RBC Urine 0-2 /hpf (0-2); Specific Grav Ur 1.018 (1.001-1.035); Squamous Epithelial Cell Urine Many /hpf (Few); Urobilinogen Urine 0.2 mg/dL (<2.0)
[2024-11-19 13:10] VITALS: BP 112/56; PULSE 61; RESP 17; TEMP 36.7; O2SAT 100
[2024-11-19] MEDS: KETOROLAC 30 MG/ML VIAL (*BKC) IV PUSH ×2 (15:10→22:17)
[2024-11-19] MEDS: SODIUM CHLORIDE 0.9% IV 1,000 ML 125 ML IV CONT (15:10)
[2024-11-19 15:35] VITALS: BP 133/58; PULSE 63; RESP 14; TEMP 36.6; O2SAT 100
[2024-11-19 17:55] VITALS: BMI 31.6
--- NOTE | 2024-11-19 18:02 | P.HP_ITS ---
H&P: HPI History of Present Illness Date/Time: 11/19/24 18:02 Chief Complaint: Nausea, Vomiting, Hematuria, Flank Pain Narrative: 39 y/o F presents here with nausea, vomiting, hematuria, and flank pain with PMH of idiopathic intracranial hypertension, pseudotumor cerebri, PHOTOGRAPHY PROFESSOR shunt placement, kidney stones, and seizure disorder. The patient presents here from home a via personal vehicle for further evaluatio n of nausea, vomiting, hematuria, and flank pain. She reports the symptoms have been ongoing since 11/17. Flank pain is bilateral, worse on the right. Pain is nonradiating and constant. They are accompanied by burning with urination and fever (102F) which was broken Tylenol. She denies fever or body aches. She has a history of kidney stones and abdominal surgeries (, appendectomy). Sh carson does not have a hx of frequent UTIs or pyelonephritis. No recent treatment for UTIs. Initial VS at presentation: 97.9? F, HR 91, RR 17, 114/71, and 99% on RA. ED workup showed: WBC 10.6, hemoglobin 15.2, sodium 136, creatinine 0.7 and normal GFR, no other significant electrolyte abnormalities. UA was cloudy, with 11-20 WBC, many epithelial cells, and 3+ bacteria. CT of the abdomen/pelvis s howed a 5 mm nonobstructing left renal stone, a small sliding type hiatal hernia, indeterminate 3.5 x 3.2 x 1.7 cm lenticular well-defined hypodense lesion of the right hepatic lobe, a 1.8 right ovarian corpus luteum cyst, and a small amount of pelvic ascites which could be physiological or related to a PHOTOGRAPHY PROFESSOR shunt catheter. Review of Systems Review of Systems: All systems reviewed & are unremarkable except as noted in HPI and below PMFSH Past Medical History Medical History Pseudotumor cerebri Seizure disorder History of idiopathic intracranial hypertension Surgical History Surgical History S/P ventriculoperitoneal shunt History of appendectomy 2009 S/P PHOTOGRAPHY PROFESSOR shunt Hx of ventricular shunt PHOTOGRAPHY PROFESSOR shunt placed 2001, revised multiple times, last in 2019 Family History Family History Mother No problems noted. 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 Surrogate decision maker: . Code Status: Full. Smoking status: Current every day smoker Tobacco type: cigarettes Second hand tobacco smoke exposure: No Alcohol intake: never Substance use: current Substance use type: marijuana Other substance usage details: uses for seizure control; medical card - uses edibles Last use: 11/18/24 Do You Feel Safe in your Home?: Yes Lack of Transportation: No Lack of Food: Never True Current Housing: I Have Housing Concerned About Future Housing: No Difficulty Paying Gas/Electric Bills: No Difficulty Paying for Meds: No Currently Unemployed: No Education: Don't Know Difficulty w/ Childcare or Family Care: No Living arrangements: with family Occupation/Education: occupation Gender identity (if verbalized by the patient): Female Spiritual care concerns: No Meds Home Medications and Allergies Home Medications ?Medication ?Instructions ?Recorded ?Confirmed ?Type albuterol sulfate 90 mcg/actuation 1 inh inhalation QID PRN shortness 09/07/24 11/19/24 Rx aerosol inhaler of breath or wheezing #6.7 grams ibuprofen 800 mg tablet 800 mg PO Q8H PRN fever or pain 11/19/24 11/19/24 History Allergies Allergy/AdvReac Type Severity Reaction Status Date / Time levofloxacin Allergy Intermediate Hives Verified 11/19/24 11:13 tetracycline Allergy Intermediate Hives Verified 11/19/24 11:27 cefaclor (From Ceclor) Allergy Swelling Verified 11/19/24 11:13 prochlorperazine (From Allergy Swelling Verified 11/19/24 11:13 Compazine) Sulfa (Sulfonamide Allergy Swelling Verified 11/19/24 11:13 Antibiotics) sulfamethoxazole (From Allergy Swelling Verified 11/19/24 11:13 Bactrim) trimethoprim (From Bactrim) Allergy Swelling Verified 11/19/24 11:13 Vital Signs Vital Signs - 24 hr 11/19/24 11:10 11/19/24 13:10 11/19/24 15:35 Temperature 97.9 F 98.1 F 98 F Pulse Rate 91 61 63 Respiratory Rate 17 17 14 Blood Pressure 114/71 112/56 L 133/58 L Pulse Oximetry 99 100 100 Oxygen Delivery Room Air Exam Const: General: comfortable and no acute distress Other: , female, nontoxic appearance HENMT: Face/Nose/Sinus: Normal nares present Mouth: Yes moist mucous membranes Eyes: General: appearance normal, both eyes and all related structures Sclera: sclerae normal Pupils: Equal, round and reactive pupils present EOM: EOMs intact bilaterally Resp: Effort & Inspection: normal respiratory effort Auscultation: clear to auscultation bilaterally Cardio: Rate: regular rate Rhythm: regular rhythm Other: S1-S2 present without murmur, rub, ectopy GI: Other: Diffuse tenderness in the abdomen. Abdomen soft and nondistended. Normoactive bowel sounds in all quadrants. Skin: General skin exam: normal color and no rashes or lesions noted Wounds: no wounds Neuro: Speech: normal speech Motor exam (neuro): 5/5 motor strength present throughout Sensory Exam: normal sensation Other: A&O x4 Extrem: General: normal to inspection Psych: Mental Status: mental status grossly normal Other: Patient tearful and anxious. Good insight and judgment, pleasant. H&P: Results Labs Labs: Short CBC 11/19/24 Range/Units 11:32 WBC 10.6 H (4.5-10.0) K/mm3 Hgb 15.2 H (12.0-15.0) g/dL Hct 46.8 (37.0-47.0) % Plt Count 284 (150-375) k/mm3 BMP 11/19/24 11:32 Sodium 136 L Potassium 4.7 Chloride 107 Carbon Dioxide 25 BUN 12 Creatinine 0.70 Glucose 93 Calcium 9.1 Liver Function 11/19/24 Range/Units 11:32 Total Bilirubin 0.6 (0.2-1.3) mg/dL AST 17 (14-36) U/L ALT 17 (6-35) U/L Alkaline Phosphatase 62 (38-126) U/L Albumin 4.3 (3.5-5.1) g/dL Urine 11/19/24 Range/Units 11:32 Urine Color Yellow (Yellow) Urine Appearance Cloudy H (Clear) Urine pH 6.0 (5.0-9.0) Ur Specific [place] 1.018 (1.001-1.035) Urine Protein Negative (Negative) mg/dL Urine Glucose (UA) Negative (Negative) mg/dL Assessment and Plan Assessment and plan (1) Pyelonephritis: Code(s): N12 - Tubulo-interstitial nephritis, not specified as acute or chronic Status: Acute Assessment and Plan: - CT abdomen/pelvis: 1. 5 mm nonobstructing left renal stone. 2. Small sliding-type hiatal hernia. 3. Indeterminate 3.5 x 3.2 x 1.7 cm lenticular well-defined hypodense lesion at the periphery of the right hepatic lobe. Differential would include complex subcapsular fluid collection such as hematoma in setting of trauma or neoplasm including hemangioma. Consider further evaluation with multiphase pre and postcontrast MRI. 4. 1.8 cm right ovarian corpus luteum cyst. 5. Small amount of pelvic ascites which could be physiologic or related to a ventriculoperitoneal shunt catheter. - UA: Cloudy, 11-20 WBC, many epithelial cells, 3+ bacteria. - UC pending, obtained on 11/19. Follow. - micro reviewed, no previous resistances - started on Ceftriaxone on 11/19 - analgesics and antipyretics p.r.n. - IV fluids: 2 L bolus, now at 125 mL/hour. DC when appropriate. UA appears contaminated verses infection. However given patient's symptoms and findings on CT, will proceed with treatment for pyelonephritis. Plan Diet: Regular GI Prophylaxis: Not currently indicated DVT Prophylaxis: SCDs Lines: Peripheral Code Status: Full code Quality VTE Prophylaxis VTE prophylaxis: mechanical ordered Hospitalist [facility] Advance Care Plan I have confirmed that the patient's Advanced Care Plan is present, code status is documented, or surrogate decision maker is listed in patient medical record.: Yes Medication Reconciliation I have utilized all available resources to obtain, update and review the patients current medications (includes all prescriptions, OTC, herbals, cannabis, and nutritional supplements).: Yes
--- NOTE | 2024-11-19 18:14 | ADMGEN ---
This patient, Prema Alvarez, was admitted to [facility] Room 306-02. Patient/family oriented to hospital policies and general routines including ID bracelet, bed and alarms, visiting hours, pain management, procedures, bathroom and other care routines, personal items, smoking policy, room service/diet, and visiting hours. Patient arrived to unit with normal saline running at 125ml/hour to right forearm. Pt c/o pain at 9/10 on arrival, and dilaudid 0.5mg given per patient request. Information on how to activate the Rapid Response Team has been discussed. Patient/Family are encouraged to report perceived risks to care and to ask questions if they do not understand what they are told or what they should do.
[2024-11-19 21:16] VITALS: BP 118/67; PULSE 62; RESP 16; TEMP 36.6; O2SAT 98
[2024-11-19] MEDS: HYDROmorphone HCL INJ (*CRX) 1 MG/ML SYR IV PUSH (22:01)
[2024-11-20] MEDS: SODIUM CHLORIDE 0.9% IV 1,000 ML 125 ML IV CONT ×3 (01:05→17:07)
[2024-11-20] MEDS: ONDANSETRON INJ 4 MG/2 ML VIAL IV PUSH ×3 (01:08→22:50)
[2024-11-20] MEDS: HYDROmorphone HCL INJ (*CRX) 1 MG/ML SYR 0.5 MG IV PUSH ×7 (01:08→23:04)
[2024-11-20 05:48] VITALS: BP 107/52; PULSE 69; RESP 16; TEMP 36.4; O2SAT 98
[2024-11-20] MEDS: KETOROLAC 30 MG/ML VIAL (*BKC) IV PUSH ×3 (07:06→22:49)
[2024-11-20 07:46] LABS: Basophils Absolute Auto 0.1 K/mm3 (0.0-0.1); Basophils Percent Auto 0.5 % (0.2-1.2); Eosinophils Absolute Auto 0.6 K/mm3 (0-0.3); Eosinophils Percent Auto 6.3 % (0-4.4); Hematocrit 41.2 % (37.0-47.0); Immature Granulocyte Absolute 0.03 K/mm3 (0.00-0.031); Immature Granulocyte Percent A 0.3 % (0-0.5); Lymphocytes Absolute Auto 3.37 K/mm3 (0.9-3.2); Lymphocytes Percent Auto 35.5 % (18.3-44.2); Mean Corpuscular HGB Conc 31.6 g/dl (32-36); Mean Corpuscular Hemoglobin 28.7 pg (26-34); Mean Corpuscular Volume 90.9 fl (80-100); Mean Platelet Volume 11.1 fl (7.4-10.4); Monocytes Absolute Auto 0.7 K/mm3 (0.1-0.6); Monocytes Percent Auto 7.5 % (2.6-8.5); Neutrophils Absolute Auto 4.7 K/mm3 (1.3-6.7); Neutrophils Percent Auto 49.9 % (45.5-73.1); Platelet Count Result 233 k/mm3 (150-375); Red Blood Count 4.53 M/mm3 (4.2-5.4); Red Cell Distribution Width 13.4 % (11.5-14.5); White Blood Count 9.5 K/mm3 (4.5-10.0)
[2024-11-20 08:01] LABS: Anion Gap 3 mmol/L (4-12); Blood Urea Nitrogen 12 mg/dL (7-17); Calcium 8.2 mg/dL (8.4-10.2); Carbon Dioxide 24 mmol/L (22-30); Chloride 111 mmol/L (98-107); Estimated CRCL calculation 134 ml/min; Estimated Glomerular Filt Rate > 60; Glucose 78 mg/dL (65-110); Potassium 4.3 mmol/L (3.4-5.0); Sodium 138 mmol/L (137-145)
--- NOTE | 2024-11-20 09:50 | P.PNIM_ITS ---
Progress Note: A&P Assessment and Plan (1) Pyelonephritis: Code(s): N12 - Tubulo-interstitial nephritis, not specified as acute or chronic Status: Acute Assessment and Plan: - CT abdomen/pelvis: 1. 5 mm nonobstructing left renal stone. 2. Small sliding-type hiatal hernia. 3. Indeterminate 3.5 x 3.2 x 1.7 cm lenticular well-defined hypodense lesion at the periphery of the right hepatic lobe. Differential would include complex subcapsular fluid collection such as hematoma in setting of trauma or neoplasm including hemangioma. Consider further evaluation with multiphase pre and po stcontrast MRI. 4. 1.8 cm right ovarian corpus luteum cyst. 5. Small amount of pelvic ascites which could be physiologic or related to a ventriculoperitoneal shunt catheter. - UA: Cloudy, 11-20 WBC, many epithelial cells, 3+ bacteria. - UC pending, obtained on 11/19. Follow. - micro reviewed, no previous resistances - started on Ceftriaxone on 11/19 - analgesics and antipyretics p.r.n. - IV fluids: 2 L bolus, now at 125 mL/hour. DC when appropriate. UA appears contaminated verses infection. However given patient's symptoms and findings on CT, will proceed with treatment for pyelonephritis. WBC today is better- 10/7->10.6->9.5 (11/20) Plan Diet: Regular GI Prophylaxis: Not currently indicated DVT Prophylaxis: SCDs Lines: Peripheral Code Status: Full code Time Spent With Patient Time with patient: 25 - 35 minutes Subjective Date/time seen: 11/20/24 09:50 Interval history: 39 y/o F presents here with nausea, vomiting, hematuria, and flank pain with PMH of idiopathic intracranial hypertension, pseudotumor cerebri, CLINICAL ACCOUNT LIAISON shunt placement, kidney stones, and seizure disorder. The patient presents here from home a via personal vehicle for further evaluation of nausea, vomiting, hematuria, and flank pain. She reports the symptoms have been ongoing since 11/17. Flank pain is bilateral, worse on the right. Pain is nonradiating and constant. They are accompanied by burning with urination and fever (102F) which was broken Tylenol. She denies fever or body aches. She has a history of kidney stones and abdominal surgeries (, appendectomy). She does not have a hx of frequent UTIs or pyelonephritis. No recent treatment for UTIs. Initial VS at presentation: 97.9? F, HR 91, RR 17, 114/71, and 99% on RA. ED workup showed: WBC 10.6, hemoglobin 15.2, sodium 136, creatinine 0.7 and normal GFR, no other significant electrolyte abnormalities. UA was cloudy, with 11-20 WBC, many epithelial cells, and 3+ bacteria. CT of the abdomen/pelvis showed a 5 mm nonobstructing left renal stone, a small sliding type hiatal hernia, indeterminate 3.5 x 3.2 x 1.7 cm lenticular well-defined hypodense lesion of the right hepatic lobe, a 1.8 right ovarian corpus luteum cyst, and a small amount of pelvic ascites which could be physiological or related to a CLINICAL ACCOUNT LIAISON shunt catheter. 11/20 pt is seen and examined. she is comfortable, pain free. NO leg swelling Review of Systems Review of Systems: All systems reviewed & are unremarkable except as noted in HPI and below Exam Narrative: tearful, heart and lungs fine. Const: General: comfortable and no acute distress Other: , female, nontoxic appearance HENMT: Face/Nose/Sinus: Normal nares present Mouth: Yes moist mucous membranes Eyes: General: appearance normal, both eyes and all related structures Sclera: sclerae normal Pupils: Equal, round and reactive pupils present EOM: EOMs intact bilaterally Resp: Effort & Inspection: normal respiratory effort Auscultation: clear to auscultation bilaterally Cardio: Rate: regular rate Rhythm: regular rhythm Other: S1-S2 present without murmur, rub, ectopy GI: Other: Diffuse tenderness in the abdomen. Abdomen soft and nondistended. Normoactive bowel sounds in all quadrants. Skin: General skin exam: normal color and no rashes or lesions noted Wounds: no wounds Neuro: Cranial nerves: Yes Equal, round and reactive pupils present Speech: normal speech Motor exam (neuro): 5/5 motor strength present throughout Sensory Exam: normal sensation Other: A&O x4 Extrem: General: normal to inspection Psych: Mental Status: mental status grossly normal Other: Patient tearful and anxious. Good insight and judgment, pleasant. Objective Data Vital Signs Vital Signs: Vital Signs - 24 hr 11/19/24 11:10 11/19/24 13:10 11/19/24 15:35 Temperature 97.9 F 98.1 F 98 F Pulse Rate 91 61 63 Respiratory Rate 17 17 14 Blood Pressure 114/71 112/56 L 133/58 L Pulse Oximetry 99 100 100 Oxygen Delivery Room Air 11/19/24 20:00 11/19/24 21:16 11/20/24 05:48 Temperature 97.9 F 97.6 F Pulse Rate 62 69 Respiratory Rate 16 16 Blood Pressure 118/67 107/52 L Pulse Oximetry 98 98 Oxygen Delivery Room Air Intake/Output Intake/Output: Intake & Output 11/17/24 11/18/24 11/19/24 11/20/24 23:59 23:59 23:59 23:59 Intake Total 2049 2407.1 Balance 20497.1 Meds/Results Medications: Active Medications Generic Name Dose Route Start Last Admin Trade Name Freq PRN Reason Stop Dose Admin Acetaminophen 650 mg 11/19/24 14:41 Acetaminophen 325 Mg Tablet PO Q4H PRN Mild Pain (1-3) or Fever Albuterol 1 puff 11/19/24 21:20 Albuterol Sulfate (*Sp) Aerosol 1 Puff INHALATION QIDRT PRN shortness of breath or wheezin Hydromorphone HCl 0.5 mg 11/19/24 21:21 11/20/24 08:27 Hydromorphone Hcl Inj (*Crx) 1 Mg/Ml Syr IV PUSH 0.5 mg Q3H PRN Administration Pain Rated 7-10 Sodium Chloride 1,000 mls @ 125 mls/hr 11/19/24 14:45 11/20/24 08:30 Normal Saline Iv IV CONT 125 mls/hr .Q8H LEVI Administration Ceftriaxone Sodium 1 gm in 50 mls @ 100 mls/hr 11/20/24 12:00 Rocephin 1 Gm/Ns 50 Ml IVPB Q24H LEVI Ketorolac Tromethamine 30 mg 11/19/24 14:41 11/20/24 07:06 Ketorolac 30 Mg/Ml Vial (*Bkc) IV PUSH 11/24/24 14:40 30 mg Q6H PRN Administration Pain Rated 4-6 Ondansetron HCl 4 mg 11/19/24 14:41 11/20/24 01:08 Ondansetron Inj 4 Mg/2 Ml Vial IV PUSH 4 mg Q4H PRN Administration Nausea Radiology Results: ITS Impressions Abdomen/Pelvis CT 11/19/24 12:16 IMPRESSION: 1. 5 mm nonobstructing left renal stone. 2. Small sliding-type hiatal hernia. 3.Indeterminate 3.5 x 3.2 x 1.7 cm lenticular well-defined hypodense lesion at the periphery of the right hepatic lobe. Differential would include complex subcapsular fluid collection such as hematoma in setting of trauma or neoplasm including hemangioma. Consider further evaluation with multiphase pre and postcontrast MRI. 4. 1.8 cm right ovarian corpus luteum cyst. 5. Small amount of pelvic ascites which could be physiologic or related to a ventriculoperitoneal shunt catheter. Labs Labs: Laboratory Results - last 24 hr 11/19/24 11/19/24 11/20/24 11:32 11:34 06:52 WBC 10.6 H 9.5 RBC 5.22 4.53 Hgb 15.2 H 13.0 Hct 46.8 41.2 MCV 89.7 90.9 MCH 29.1 28.7 MCHC 32.5 31.6 L RDW 13.2 13.4 Plt Count 284 233 MPV 10.6 H 11.1 H Immature Gran % (Auto) 0.3 0.3 Neut % (Auto) 56.0 49.9 Lymph % (Auto) 31.8 35.5 [place] % (Auto) 6.1 7.5 Eos % (Auto) 5.2 H 6.3 H Baso % (Auto) 0.6 0.5 Lymph # (Auto) 3.36 H 3.37 H [place] # (Auto) 0.6 0.7 H Eos # (Auto) 0.6 H 0.6 H Baso # (Auto) 0.1 0.1 Abs Immat Gran (auto) 0.03 0.03 Absolute Neuts (auto) 5.9 4.7 Absolute Nucleated RBC 0.000 0.000 Nucleated RBC % 0.0 0.0 Sodium 136 L 138 Potassium 4.7 4.3 Chloride 107 111 H Carbon Dioxide 25 24 Anion Gap 4 3 L BUN 12 12 Creatinine 0.70 0.62 L Estim Creat Clear Calc 119 134 Estimated GFR > 60 > 60 Glucose 93 78 Calcium 9.1 8.2 L Total Bilirubin 0.6 AST 17 ALT 17 Alkaline Phosphatase 62 Total Protein 7.0 Albumin 4.3 Lipase 86 Urine Color Yellow Urine Appearance Cloudy H Urine pH 6.0 Ur Specific [place] 1.018 Urine Protein Negative Urine Glucose (UA) Negative Urine Ketones Negative Ur Blood (Man) Negative Urine Nitrate Negative Urine Bilirubin Negative Urine Urobilinogen 0.2 Add Ur Microanalysis Reviewed Leukocyte Esterase Rfl Negative Urine RBC 0-2 Urine WBC 11-20 H Ur Squamous Epith Cells Many H Urine Bacteria 3+ H Urine Casts 0-2 POC Urine HCG, Qual Negative Quality VTE Prophylaxis VTE prophylaxis: mechanical ordered
[2024-11-20 14:00] VITALS: BP 107/63; PULSE 67; RESP 18; TEMP 36.7; O2SAT 99
[2024-11-20] MEDS: METOCLOPRAMIDE HCL INJ 10 MG/2 ML VIAL 5 MG IV PUSH (17:12)
[2024-11-20] MEDS: NICOTINE (*PBKC) 21 MG PATCH 1 PATCH TRANSDERM (18:49)
[2024-11-20 21:32] VITALS: BP 124/72; PULSE 66; RESP 16; TEMP 36.6; O2SAT 99
[2024-11-21] MEDS: HYDROmorphone HCL INJ (*CRX) 1 MG/ML SYR 0.5 MG IV PUSH ×6 (02:17→23:11)
[2024-11-21] MEDS: METOCLOPRAMIDE HCL INJ 10 MG/2 ML VIAL 5 MG IV PUSH ×2 (02:21→12:34)
--- NOTE | 2024-11-21 04:47 | PC.NURSE ---
patient states tylenol and toradol do nothing for her pain and she doesn't want to fill her body with it for no reason. patient only requesting dilaudid q3h. patient states her urine is getting bloody again. hat placed in toilet
[2024-11-21] MEDS: SODIUM CHLORIDE 0.9% IV 1,000 ML 125 ML IV CONT ×3 (05:09→23:11)
[2024-11-21 06:00] VITALS: BP 133/76; PULSE 58; RESP 18; TEMP 36.2; O2SAT 98
[2024-11-21] MEDS: KETOROLAC 30 MG/ML VIAL (*BKC) IV PUSH ×2 (08:41→15:55)
[2024-11-21] MEDS: ONDANSETRON INJ 4 MG/2 ML VIAL IV PUSH ×2 (08:42→15:56)
[2024-11-21] MEDS: NICOTINE (*PBKC) 21 MG PATCH 1 PATCH TRANSDERM (08:48)
--- NOTE | 2024-11-21 08:51 | P.PNIM_ITS ---
Progress Note: A&P Assessment and Plan (1) Pyelonephritis: Code(s): N12 - Tubulo-interstitial nephritis, not specified as acute or chronic Status: Acute Assessment and Plan: - CT abdomen/pelvis: 1. 5 mm nonobstructing left renal stone. 2. Small sliding-type hiatal hernia. 3. Indeterminate 3.5 x 3.2 x 1.7 cm lenticular well-defined hypodense lesion at the periphery of the right hepatic lobe. Differential would include complex subcapsular fluid collection such as hematoma in setting of trauma or neoplasm including hemangioma. Consider further evaluation with multiphase pre and po stcontrast MRI. 4. 1.8 cm right ovarian corpus luteum cyst. 5. Small amount of pelvic ascites which could be physiologic or related to a ventriculoperitoneal shunt catheter. - UA: Cloudy, 11-20 WBC, many epithelial cells, 3+ bacteria. - UC pending, obtained on 11/19. Follow. - micro reviewed, no previous resistances - started on Ceftriaxone on 11/19 - analgesics and antipyretics p.r.n. - IV fluids: 2 L bolus, now at 125 mL/hour. DC when appropriate. UA appears contaminated verses infection. However given patient's symptoms and findings on CT, will proceed with treatment for pyelonephritis. 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 The patient presents here from home a via personal vehicle for further evaluation of nausea, vomiting, hematuria, and flank pain. She reports the symptoms have been ongoing since 11/17. Flank pain is bilateral, worse on the right. Pain is nonradiating and constant. They are accompanied by burning with urination and fever (102F) which was broken Tylenol. She denies fever or body aches. She has a history of kidney stones and abdominal surgeries (, appendectomy). She does not have a hx of frequent UTIs or pyelonephritis. No recent treatment for UTIs. Initial VS at presentation: 97.9? F, HR 91, RR 17, 114/71, and 99% on RA. ED workup showed: WBC 10.6, hemoglobin 15.2, sodium 136, creatinine 0.7 and normal GFR, no other significant electrolyte abnormalities. UA was cloudy, with 11-20 WBC, many epithelial cells, and 3+ bacteria. CT of the abdomen/pelvis showed a 5 mm nonobstructing left renal stone, a small sliding type hiatal hernia, indeterminate 3.5 x 3.2 x 1.7 cm lenticular well-defined hypodense lesion of the right hepatic lobe, a 1.8 right ovarian corpus luteum cyst, and a small amount of pelvic ascites which could be physiological or related to a CAPACITY PLANNING MANAGER shunt catheter. 11/20 pt is seen and examined.she c/o pain. has toradol and dilaudid prn. reports nausea and vomiting- unsure how many times though 11/21 pt seen and examined. Labs ordered. REports urine cleared last night but then bloody urine returned. She is requiring IV dilaudid still pretty much around the clock. Still nausea but somewhat better Review of Systems Review of Systems: All systems reviewed & are unremarkable except as noted in HPI and below Exam Const: General: comfortable and no acute distress Other: , female, nontoxic appearance HENMT: Face/Nose/Sinus: Normal nares present Mouth: Yes moist mucous membranes Eyes: General: appearance normal, both eyes and all related structures Sclera: sclerae normal Pupils: Equal, round and reactive pupils present EOM: EOMs intact bilaterally Resp: Effort & Inspection: normal respiratory effort Auscultation: clear to auscultation bilaterally Cardio: Rate: regular rate Rhythm: regular rhythm Other: S1-S2 present without murmur, rub, ectopy GI: Other: Diffuse tenderness in the abdomen. Abdomen soft and nondistended. Normoactive bowel sounds in all quadrants. Skin: General skin exam: normal color and no rashes or lesions noted Wounds: no wounds Neuro: Cranial nerves: Yes Equal, round and reactive pupils present Speech: normal speech Motor exam (neuro): 5/5 motor strength present throughout Sensory Exam: normal sensation Other: A&O x4 Extrem: General: normal to inspection Psych: Mental Status: mental status grossly normal Other: Patient tearful and anxious. Good insight and judgment, pleasant. Objective Data Vital Signs Vital Signs: Vital Signs - 24 hr 11/20/24 14:00 11/20/24 20:00 11/20/24 21:32 Temperature 98.0 F 97.8 F Pulse Rate 67 66 Respiratory Rate 18 16 Blood Pressure 107/63 124/72 Pulse Oximetry 99 99 Oxygen Delivery Room Air 11/21/24 06:00 Temperature 97.1 F L Pulse Rate 58 L Respiratory Rate 18 Blood Pressure 133/76 Pulse Oximetry 98 Oxygen Delivery Intake/Output Intake/Output: Intake & Output 11/18/24 11/19/24 11/20/24 11/21/24 23:59 23:59 23:59 23:59 Intake Total 2049 3767.1 1750 Balance 2049 3767.1 1750 Meds/Results Medications: Active Medications Generic Name Dose Route Start Last Admin Trade Name Freq PRN Reason Stop Dose Admin Acetaminophen 650 mg 11/19/24 14:41 Acetaminophen 325 Mg Tablet PO Q4H PRN Mild Pain (1-3) or Fever Albuterol 1 puff 11/19/24 21:20 Albuterol Sulfate (*Sp) Aerosol 1 Puff INHALATION QIDRT PRN shortness of breath or wheezin Hydromorphone HCl 0.5 mg 11/19/24 21:21 11/21/24 08:44 Hydromorphone Hcl Inj (*Crx) 1 Mg/Ml Syr IV PUSH 0.5 mg Q3H PRN Administration Pain Rated 7-10 Sodium Chloride 1,000 mls @ 125 mls/hr 11/19/24 14:45 11/21/24 05:09 Normal Saline Iv IV CONT 125 mls/hr .Q8H LEVI Administration Ceftriaxone Sodium 1 gm in 50 mls @ 100 mls/hr 11/20/24 12:00 11/20/24 11:53 Rocephin 1 Gm/Ns 50 Ml IVPB 100 mls/hr Q24H LEVI Administration Ketorolac Tromethamine 30 mg 11/19/24 14:41 11/21/24 08:41 Ketorolac 30 Mg/Ml Vial (*Bkc) IV PUSH 11/24/24 14:40 30 mg Q6H PRN Administration Pain Rated 4-6 Metoclopramide HCl 5 mg 11/20/24 22:30 11/21/24 02:21 Metoclopramide Hcl Inj 10 Mg/2 Ml Vial IV PUSH 5 mg Q6HR PRN Administration nausea Nicotine 1 patch 11/20/24 18:20 11/21/24 08:48 Nicotine (*Pbkc) 21 Mg Patch TRANSDERM 1 patch DAILY LEVI Administration Ondansetron HCl 4 mg 11/19/24 14:41 11/21/24 08:42 Ondansetron Inj 4 Mg/2 Ml Vial IV PUSH 4 mg Q4H PRN Administration Nausea Radiology Results: ITS Impressions Abdomen/Pelvis CT 11/19/24 12:16 IMPRESSION: 1. 5 mm nonobstructing left renal stone. 2. Small sliding-type hiatal hernia. 3.Indeterminate 3.5 x 3.2 x 1.7 cm lenticular well-defined hypodense lesion at the periphery of the right hepatic lobe. Differential would include complex subcapsular fluid collection such as hematoma in setting of trauma or neoplasm including hemangioma. Consider further evaluation with multiphase pre and postcontrast MRI. 4. 1.8 cm right ovarian corpus luteum cyst. 5. Small amount of pelvic ascites which could be physiologic or related to a ventriculoperitoneal shunt catheter. Quality VTE Prophylaxis VTE prophylaxis: mechanical ordered
[2024-11-21 09:40] LABS: Hematocrit 38.7 % (37.0-47.0); Hemoglobin 12.2 g/dL (12.0-15.0); Mean Corpuscular HGB Conc 31.5 g/dl (32-36); Mean Corpuscular Hemoglobin 28.4 pg (26-34); Mean Corpuscular Volume 90.2 fl (80-100); Mean Platelet Volume 10.5 fl (7.4-10.4); Platelet Count Result 200 k/mm3 (150-375); Red Blood Count 4.29 M/mm3 (4.2-5.4); White Blood Count 7.5 K/mm3 (4.5-10.0)
[2024-11-21 10:00] LABS: Anion Gap 5 mmol/L (4-12); Blood Urea Nitrogen 11 mg/dL (7-17); Calcium 7.4 mg/dL (8.4-10.2); Carbon Dioxide 21 mmol/L (22-30); Chloride 110 mmol/L (98-107); Estimated CRCL calculation 132 ml/min; Estimated Glomerular Filt Rate > 60; Glucose 115 mg/dL (65-110); Potassium 4.1 mmol/L (3.4-5.0); Sodium 136 mmol/L (137-145)
[2024-11-21 14:00] VITALS: BP 105/68; PULSE 58; RESP 16; TEMP 36.4; O2SAT 98
[2024-11-21 19:43] VITALS: BP 119/70; PULSE 67; RESP 18; TEMP 36.1; O2SAT 100
[2024-11-22] MEDS: HYDROmorphone HCL INJ (*CRX) 1 MG/ML SYR 0.5 MG IV PUSH ×6 (02:29→18:05)
[2024-11-22] MEDS: ONDANSETRON INJ 4 MG/2 ML VIAL IV PUSH ×3 (05:28→20:54)
[2024-11-22 05:46] VITALS: BP 111/66; PULSE 69; RESP 18; TEMP 36.5; O2SAT 100
[2024-11-22] MEDS: SODIUM CHLORIDE 0.9% IV 1,000 ML 125 ML IV CONT ×3 (07:32→23:10)
[2024-11-22 07:47] LABS: Hematocrit 41.1 % (37.0-47.0); Mean Corpuscular HGB Conc 31.6 g/dl (32-36); Mean Corpuscular Hemoglobin 28.6 pg (26-34); Mean Corpuscular Volume 90.3 fl (80-100); Mean Platelet Volume 10.6 fl (7.4-10.4); Platelet Count Result 199 k/mm3 (150-375); Red Blood Count 4.55 M/mm3 (4.2-5.4); Red Cell Distribution Width 12.7 % (11.5-14.5); White Blood Count 10.2 K/mm3 (4.5-10.0)
[2024-11-22 08:09] LABS: Anion Gap 3 mmol/L (4-12); Blood Urea Nitrogen 10 mg/dL (7-17); Calcium 7.9 mg/dL (8.4-10.2); Carbon Dioxide 23 mmol/L (22-30); Chloride 110 mmol/L (98-107); Estimated CRCL calculation 127 ml/min; Estimated Glomerular Filt Rate > 60; Glucose 86 mg/dL (65-110); Potassium 4.2 mmol/L (3.4-5.0); Sodium 136 mmol/L (137-145)
[2024-11-22] MEDS: NICOTINE (*PBKC) 21 MG PATCH 1 PATCH TRANSDERM (08:40)
--- NOTE | 2024-11-22 09:52 | P.PNIM_ITS ---
Progress Note: A&P Assessment and Plan (1) Pyelonephritis: Code(s): N12 - Tubulo-interstitial nephritis, not specified as acute or chronic Status: Acute Assessment and Plan: - CT abdomen/pelvis: 1. 5 mm nonobstructing left renal stone. 2. Small sliding-type hiatal hernia. 3. Indeterminate 3.5 x 3.2 x 1.7 cm lenticular well-defined hypodense lesion at the periphery of the right hepatic lobe. Differential would include complex subcapsular fluid collection such as hematoma in setting of trauma or neoplasm including hemangioma. Consider further evaluation with multiphase pre and po stcontrast MRI. 4. 1.8 cm right ovarian corpus luteum cyst. 5. Small amount of pelvic ascites which could be physiologic or related to a ventriculoperitoneal shunt catheter. - UA: Cloudy, 11-20 WBC, many epithelial cells, 3+ bacteria. - UC pending, obtained on 11/19. Follow. - micro reviewed, no previous resistances - started on Ceftriaxone on 11/19 - analgesics and antipyretics p.r.n. - IV fluids: 2 L bolus, now at 125 mL/hour. DC when appropriate. UA appears contaminated verses infection. However given patient's symptoms and findings on CT, will proceed with treatment for pyelonephritis. WBC today is better- 10/7->10.6->9.5 (11/20) - labs are ordered hematuria as back and pain is still somewhat uncontrolled will consult urology for recommendations -11/22-discussed with pharmacy ID-will increase rocephin dose to 2gm and add linezolid to broaden coverage Plan Diet: Regular GI Prophylaxis: Not currently indicated DVT Prophylaxis: SCDs Lines: Peripheral Code Status: Full code Time Spent With Patient Time with patient: 25 - 35 minutes Subjective Date/time seen: 11/22/24 09:52 Interval history: 39 y/o F presents here with nausea, vomiting, hematuria, and flank pain with PMH of idiopathic intracranial hypertension, pseudotumor cerebri, 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 The patient presents here from home a via personal vehicle for further evaluation of nausea, vomiting, hematuria, and flank pain. She reports the symptoms have been ongoing since 11/17. Flank pain is bilateral, worse on the right. Pain is nonradiating and constant. They are accompanied by burning with urination and fever (102F) which was broken Tylenol. She denies fever or body aches. She has a history of kidney stones and abdominal surgeries (, appendectomy). She does not have a hx of frequent UTIs or pyelonephritis. No recent treatment for UTIs. Initial VS at presentation: 97.9? F, HR 91, RR 17, 114/71, and 99% on RA. ED workup showed: WBC 10.6, hemoglobin 15.2, sodium 136, creatinine 0.7 and normal GFR, no other significant electrolyte abnormalities. UA was cloudy, with 11-20 WBC, many epithelial cells, and 3+ bacteria. CT of the abdomen/pelvis showed a 5 mm nonobstructing left renal stone, a small sliding type hiatal hernia, indeterminate 3.5 x 3.2 x 1.7 cm lenticular well-defined hypodense lesion of the right hepatic lobe, a 1.8 right ovarian corpus luteum cyst, and a small amount of pelvic ascites which could be physiological or related to a APPLICATIONS PROGRAMMER ANALYST shunt catheter. 11/20 pt is seen and examined.she c/o pain. has toradol and dilaudid prn. reports nausea and vomiting- unsure how many times though 11/21 pt seen and examined. Labs ordered. Reports urine cleared last night but then bloody urine returned. She is requiring IV dilaudid still pretty much around the clock. Still nausea but somewhat better 11/22 urology was consulted as still hematuria and pain. Pt is still using nausea/pain med IV around the clock. Review of Systems Review of Systems: All systems reviewed & are unremarkable except as noted in HPI and below Exam Narrative: resting with eyes closed, appears comfortable Const: General: comfortable and no acute distress Other: resting with eyes closed HENMT: Face/Nose/Sinus: Normal nares present Mouth: Yes moist mucous membranes Eyes: General: appearance normal, both eyes and all related structures Sclera: sclerae normal Pupils: Equal, round and reactive pupils present EOM: EOMs intact bilaterally Resp: Effort & Inspection: normal respiratory effort Auscultation: clear to auscultation bilaterally Cardio: Rate: regular rate Rhythm: regular rhythm Other: S1-S2 present without murmur, rub, ectopy GI: Other: Diffuse tenderness in the abdomen. Abdomen soft and nondistended. Normoactive bowel sounds in all quadrants. Skin: General skin exam: normal color and no rashes or lesions noted Wounds: no wounds Neuro: Cranial nerves: Yes Equal, round and reactive pupils present Speech: normal speech Motor exam (neuro): 5/5 motor strength present throughout Sensory Exam: normal sensation Other: A&O x4 Extrem: General: normal to inspection Psych: Mental Status: mental status grossly normal Other: Patient tearful and anxious. Good insight and judgment, pleasant. Objective Data Vital Signs Vital Signs: Vital Signs - 24 hr 11/21/24 14:00 11/21/24 19:43 11/21/24 20:00 Temperature 97.5 F L 96.9 F L Pulse Rate 58 L 67 Respiratory Rate 16 18 Blood Pressure 105/68 119/70 Pulse Oximetry 98 100 Oxygen Delivery Room Air 11/22/24 05:46 Temperature 97.7 F Pulse Rate 69 Respiratory Rate 18 Blood Pressure 111/66 Pulse Oximetry 100 Oxygen Delivery Intake/Output Intake/Output: Intake & Output 11/19/24 11/20/24 11/21/24 11/22/24 23:59 23:59 23:59 23:59 Intake Total 2049 3817.1 4504.6 1100 Balance 2049 3817.1 4504.6 1100 Meds/Results Medications: Active Medications Generic Name Dose Route Start Last Admin Trade Name Freq PRN Reason Stop Dose Admin Acetaminophen 650 mg 11/19/24 14:41 Acetaminophen 325 Mg Tablet PO Q4H PRN Mild Pain (1-3) or Fever Albuterol 1 puff 11/19/24 21:20 Albuterol Sulfate (*Sp) Aerosol 1 Puff INHALATION QIDRT PRN shortness of breath or wheezin Diphenhydramine HCl 25 mg 11/21/24 23:52 Diphenhydramine Hcl Cap 25 Mg Capsule PO HS PRN Itching Hydromorphone HCl 0.5 mg 11/19/24 21:21 11/22/24 08:37 Hydromorphone Hcl Inj (*Crx) 1 Mg/Ml Syr IV PUSH 0.5 mg Q3H PRN Administration Pain Rated 7-10 Sodium Chloride 1,000 mls @ 125 mls/hr 11/19/24 14:45 11/22/24 07:32 Normal Saline Iv IV CONT 125 mls/hr .Q8H LEVI Administration Ceftriaxone Sodium 1 gm in 50 mls @ 100 mls/hr 11/20/24 12:00 11/21/24 12:55 Rocephin 1 Gm/Ns 50 Ml IVPB 100 mls/hr Q24H LEVI Administration Ketorolac Tromethamine 30 mg 11/19/24 14:41 11/21/24 15:55 Ketorolac 30 Mg/Ml Vial (*Bkc) IV PUSH 11/24/24 14:40 30 mg Q6H PRN Administration Pain Rated 4-6 Metoclopramide HCl 5 mg 11/20/24 22:30 11/21/24 12:34 Metoclopramide Hcl Inj 10 Mg/2 Ml Vial IV PUSH 5 mg Q6HR PRN Administration nausea Nicotine 1 patch 11/20/24 18:20 11/22/24 08:40 Nicotine (*Pbkc) 21 Mg Patch TRANSDERM 1 patch DAILY LEVI Administration Ondansetron HCl 4 mg 11/19/24 14:41 11/22/24 05:28 Ondansetron Inj 4 Mg/2 Ml Vial IV PUSH 4 mg Q4H PRN Administration Nausea Radiology Results: ITS Impressions Abdomen/Pelvis CT 11/19/24 12:16 IMPRESSION: 1. 5 mm nonobstructing left renal stone. 2. Small sliding-type hiatal hernia. 3.Indeterminate 3.5 x 3.2 x 1.7 cm lenticular well-defined hypodense lesion at the periphery of the right hepatic lobe. Differential would include complex subcapsular fluid collection such as hematoma in setting of trauma or neoplasm including hemangioma. Consider further evaluation with multiphase pre and postcontrast MRI. 4. 1.8 cm right ovarian corpus luteum cyst. 5. Small amount of pelvic ascites which could be physiologic or related to a ventriculoperitoneal shunt catheter. Labs Labs: Laboratory Results - last 24 hr 11/21/24 11/22/24 09:36 07:31 WBC 10.2 H RBC 4.55 Hgb 13.0 Hct 41.1 MCV 90.3 MCH 28.6 MCHC 31.6 L RDW 12.7 Plt Count 199 MPV 10.6 H Sodium 136 L 136 L Potassium 4.1 4.2 Chloride 110 H 110 H Carbon Dioxide 21 L 23 Anion Gap 5 3 L BUN 11 10 Creatinine 0.63 L 0.66 L Estim Creat Clear Calc 132 127 Estimated GFR > 60 > 60 Glucose 115 H 86 Calcium 7.4 L 7.9 L Quality VTE Prophylaxis VTE prophylaxis: mechanical ordered
[2024-11-22] MEDS: KETOROLAC 30 MG/ML VIAL (*BKC) IV PUSH ×2 (10:28→16:47)
[2024-11-22 14:00] VITALS: BP 128/81; PULSE 82; RESP 16; TEMP 36.9; O2SAT 98
[2024-11-22] MEDS: LINEZOLID 600 MG TABLET PO ×2 (14:30→20:46)
--- NOTE | 2024-11-22 16:06 | WPDURCON ---
Assessment and Plan Assessment and plan (1) Flank pain: Code(s): R10.9 - Unspecified abdominal pain Status: Acute (2) Right renal stone: Code(s): N20.0 - Calculus of kidney Status: Acute Plan she has right flank pain. This does not appear to be of urologic origin. She has a right-sided kidney stone but it is not obstructive. She has no hydronephrosis. She has no inflammation around the kidney. She has a negative urine culture which would signify the absence of pyelonephritis. evaluate for other etiologies of flank pain. Consideration can be given to the liver abnormality noted on CT scan. outpatient follow-up for nonobstructive kidney stone she reports the possibility of blood in the urine, urinalysis in the hospital is negative for red blood cells Urology Consult Note HPI Date Seen: 11/22/24 Requesting Physician: Liam Mancera MD Primary Care Provider: UNKNOWN,DOCTOR Consult Narrative Narrative: Prema Alvarez is a 39 year old female seen at the request of hospitalist for flank pain. She has been in the hospital for a few days. She had acute onset of right-sided flank and lower back pain. This is associated with nausea vomiting. She states she had blood in the urine, but this is not substantiated on urinalysis done in the hospital which shows no red blood cells. She had a CT scan performed which shows a nonobstructive 5 mm stone in her right kidney. There is no hydronephrosis. There was no ureteral stones. She has had history of kidney stones in the past and it passed spontaneously without intervention. Other findings on the CT scan is that ill-defined lesion of the right lobe of the liver consistent with possible posttraumatic hematoma. she has been placed on antibiotics and treated for suspected pyelonephritis. I have reviewed her CT scan myself. There has no inflammation around the kidney to suggest pyelonephritis. 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 Surrogate decision maker: . Code Status: Full. Smoking status: Current every day smoker Tobacco type: cigarettes Second hand tobacco smoke exposure: No Alcohol intake: never Substance use: current Substance use type: marijuana Other substance usage details: uses for seizure control; medical card - uses edibles Last use: 11/18/24 Do You Feel Safe in your Home?: Yes Lack of Transportation: No Lack of Food: Never True Current Housing: I Have Housing Concerned About Future Housing: No Difficulty Paying Gas/Electric Bills: No Difficulty Paying for Meds: No Currently Unemployed: No Education: Don't Know Difficulty w/ Childcare or Family Care: No Living arrangements: with family Occupation/Education: occupation Gender identity (if verbalized by the patient): Female Spiritual care concerns: No Meds Home Medications and Allergies Home Medications ?Medication ?Instructions ?Recorded ?Confirmed ?Type albuterol sulfate 90 mcg/actuation 1 inh inhalation QID PRN shortness 09/07/24 11/19/24 Rx aerosol inhaler of breath or wheezing #6.7 grams ibuprofen 800 mg tablet 800 mg PO Q8H PRN fever or pain 11/19/24 11/19/24 History Allergies Allergy/AdvReac Type Severity Reaction Status Date / Time levofloxacin Allergy Intermediate Hives Verified 11/19/24 11:13 tetracycline Allergy Intermediate Hives Verified 11/19/24 11:27 cefaclor (From Ceclor) Allergy Swelling Verified 11/22/24 13:55 prochlorperazine (From Allergy Swelling Verified 11/19/24 11:13 Compazine) Sulfa (Sulfonamide Allergy Swelling Verified 11/19/24 11:13 Antibiotics) sulfamethoxazole (From Allergy Swelling Verified 11/19/24 11:13 Bactrim) trimethoprim (From Bactrim) Allergy Swelling Verified 11/19/24 11:13 Vital Signs Vital Signs - 24 hr 11/21/24 19:43 11/21/24 20:00 11/22/24 05:46 Temperature 96.9 F L 97.7 F Pulse Rate 67 69 Respiratory Rate 18 18 Blood Pressure 119/70 111/66 Pulse Oximetry 100 100 Oxygen Delivery Room Air 11/22/24 08:00 11/22/24 14:00 Temperature 98.4 F Pulse Rate 82 Respiratory Rate 16 Blood Pressure 128/81 Pulse Oximetry 98 Oxygen Delivery Room Air Exam Const: General: cooperative, healthy appearing, well developed, alert, awake, Physically active and obese; No comfortable Nutritional Appearance: well nourished and obese Orientation/consciousness: patient oriented x3 and No confusion Limitations: no limitations HENMT: Head: normal to inspection Eyes: General: appearance normal, both eyes and all related structures Neck: Neck: normal visual inspection and full ROM Resp: Effort & Inspection: normal respiratory effort GI: Inspection: normal to inspection : General: Yes CVA tenderness Back/Spine/Pelvis: Back: CVA tenderness Skin: General skin exam: normal color and no rashes or lesions noted Neuro: General: patient oriented x3 and moves all extremities Extrem: General: normal to inspection and full ROM Psych: Appearance: grossly normal Results Labs 11/22/24 07:31 11/22/24 07:31 Labs: Short CBC 11/22/24 Range/Units 07:31 WBC 10.2 H (4.5-10.0) K/mm3 Hgb 13.0 (12.0-15.0) g/dL Hct 41.1 (37.0-47.0) % Plt Count 199 (150-375) k/mm3 [facility] 11/22/24 07:31 Sodium 136 L Potassium 4.2 Chloride 110 H Carbon Dioxide 23 BUN 10 Creatinine 0.66 L Glucose 86 Calcium 7.9 L Imaging My impression: I reviewed her CT scan. She has a nonobstructive right kidney stone. There has no hydronephrosis. There was no ureteral stones. There has no inflammation around the kidney
[2024-11-22] MEDS: diphenhydrAMINE HCl INJ 50 MG/ML VIAL 25 MG IV PUSH (20:47)
[2024-11-22 21:51] VITALS: BP 129/64; PULSE 74; RESP 20; TEMP 37.1; O2SAT 100
[2024-11-23] MEDS: HYDROmorphone HCL INJ (*CRX) 1 MG/ML SYR 0.5 MG IV PUSH ×4 (02:14→11:57)
[2024-11-23 05:58] VITALS: BP 100/69; PULSE 69; RESP 18; TEMP 36.4; O2SAT 95
[2024-11-23 06:47] LABS: Hematocrit 35.5 % (37.0-47.0); Hemoglobin 11.2 g/dL (12.0-15.0); Mean Corpuscular HGB Conc 31.5 g/dl (32-36); Mean Corpuscular Volume 88.8 fl (80-100); Mean Platelet Volume 10.9 fl (7.4-10.4); Platelet Count Result 182 k/mm3 (150-375); Red Cell Distribution Width 12.3 % (11.5-14.5); White Blood Count 5.1 K/mm3 (4.5-10.0)
[2024-11-23 07:01] LABS: Anion Gap 5 mmol/L (4-12); Blood Urea Nitrogen 8 mg/dL (7-17); Calcium 7.4 mg/dL (8.4-10.2); Carbon Dioxide 23 mmol/L (22-30); Chloride 108 mmol/L (98-107); Estimated CRCL calculation 125 ml/min; Estimated Glomerular Filt Rate > 60; Glucose 89 mg/dL (65-110); Potassium 3.8 mmol/L (3.4-5.0); Sodium 136 mmol/L (137-145)
[2024-11-23] MEDS: cefTRIAXone 2 GM/NS 100 ML 2 GM/100 ML BAG IVPB (08:25)
[2024-11-23] MEDS: LINEZOLID 600 MG TABLET PO (08:25)
[2024-11-23] MEDS: NICOTINE (*PBKC) 21 MG PATCH 1 PATCH TRANSDERM (08:28)
[2024-11-23] MEDS: ONDANSETRON INJ 4 MG/2 ML VIAL IV PUSH ×2 (08:29→15:19)
--- NOTE | 2024-11-23 09:35 | P.PNIM_ITS ---
Progress Note: A&P Assessment and Plan (1) Pyelonephritis: Code(s): N12 - Tubulo-interstitial nephritis, not specified as acute or chronic Status: Acute Assessment and Plan: - CT abdomen/pelvis: 1. 5 mm nonobstructing left renal stone. 2. Small sliding-type hiatal hernia. 3. Indeterminate 3.5 x 3.2 x 1.7 cm lenticular well-defined hypodense lesion at the periphery of the right hepatic lobe. Differential would include complex subcapsular fluid collection such as hematoma in setting of trauma or neoplasm including hemangioma. Consider further evaluation with multiphase pre and po stcontrast MRI. 4. 1.8 cm right ovarian corpus luteum cyst. 5. Small amount of pelvic ascites which could be physiologic or related to a ventriculoperitoneal shunt catheter. - UA: Cloudy, 11-20 WBC, many epithelial cells, 3+ bacteria. - UC pending, obtained on 11/19. Follow. - micro reviewed, no previous resistances - started on Ceftriaxone on 11/19 - analgesics and antipyretics p.r.n. - IV fluids: 2 L bolus, now at 125 mL/hour. DC when appropriate. UA appears contaminated verses infection. However given patient's symptoms and findings on CT, will proceed with treatment for pyelonephritis. WBC today is better- 10/7->10.6->9.5 (11/20) - labs are ordered hematuria as back and pain is still somewhat uncontrolled will consult urology for recommendations -11/22-discussed with pharmacy ID-will increase rocephin dose to 2gm and add linezolid to broaden coverage 11/23- urology saw pt- low possibility for pyonephritis as urine is ok, no cultu re refluxed. (2) Nausea: Code(s): R11.0 - Nausea Status: Acute Assessment and Plan: will continue with supportive measures check for H pylori and add protonix iv (3) Flank pain: Code(s): R10.9 - Unspecified abdominal pain Status: Acute Assessment and Plan: low possibility for pyelonephritis per urology kidney stone is small and non obstructing will order MrI for eval of spine to r/o any spinal abscess -low probability as no neuropathy or neurological deficit though no h/o trauma or injury, so hematoma to liver is unlikely pain could be muscular skeletal in nature, will try flexeril when done with mri unable to do MRI- as we are not sure if her ventriculoperitoneal shunt catheter is competitive with mri or not -1.8 cm rt ovarian corpus cyst- could be causing pain -discussed with pt- she would need a f/u with OBGYN Plan Diet: Regular GI Prophylaxis: Not currently indicated DVT Prophylaxis: SCDs Lines: Peripheral Code Status: Full code Time Spent With Patient Time with patient: 25 - 35 minutes Subjective Date/time seen: 11/23/24 09:35 Interval history: 39 y/o F presents here with nausea, vomiting, hematuria, and flank pain with PMH of idiopathic intracranial hypertension, pseudotumor cerebri, [employer]ING [employer]IST shunt placemen t, kidney stones, and seizure disorder. The patient presents here from home a via personal vehicle for further evaluation of nausea, vomiting, hematuria, and flank pain. She reports the symptoms have been ongoing since 11/17. Flank pain is bilateral, worse on the right. Pain is nonradiating and constant. They are accompanied by burning with urination and fever (102F) which was broken Tylenol. She denies fever or body aches. She has a history of kidney stones and abdominal surgeries (, appendectomy). She does not have a hx of frequent UTIs or pyelonephritis. No recent treatment for UTIs. Initial VS at presentation: 97.9? F, HR 91, RR 17, 114/71, and 99% on RA. ED workup showed: WBC 10.6, hemoglobin 15.2, sodium 136, creatinine 0.7 and normal GFR, no other significant electrolyte abnormalities. UA was cloudy, with 11-20 WBC, many epithelial cells, and 3+ bacteria. CT of the abdomen/pelvis showed a 5 mm nonobstructing left renal stone, a small sliding type hiatal herni a, indeterminate 3.5 x 3.2 x 1.7 cm lenticular well-defined hypodense lesion of the right hepatic lobe, a 1.8 right ovarian corpus luteum cyst, and a small amount of pelvic ascites which could be physiological or related to a [employer]IST shunt catheter. 11/20 pt is seen and examined.she c/o pain. has toradol and dilaudid prn. reports nausea and vomiting- unsure how many times though 11/21 pt seen and examined. Labs ordered. Reports urine cleared last night but then bloody urine returned. She is requiring IV dilaudid still pretty much around the clock. Still nausea but somewhat better 11/22 urology was consulted as still hematuria and pain. Pt is still using nausea/pain med IV around the clock. Review of Systems Review of Systems: All systems reviewed & are unremarkable except as noted in HPI and below Exam Narrative: resting with eyes closed, appears comfortable Const: General: comfortable and no acute distress Other: resting with eyes closed HENMT: Face/Nose/Sinus: Normal nares present Mouth: Yes moist mucous membranes Eyes: General: appearance normal, both eyes and all related structures Sclera: sclerae normal Pupils: Equal, round and reactive pupils present EOM: EOMs intact bilaterally Resp: Effort & Inspection: normal respiratory effort Auscultation: clear to auscultation bilaterally Cardio: Rate: regular rate Rhythm: regular rhythm Other: S1-S2 present without murmur, rub, ectopy GI: Other: Diffuse tenderness in the abdomen. Abdomen soft and nondistended. Normoactive bowel sounds in all quadrants. Skin: General skin exam: normal color and no rashes or lesions noted Wounds: no wounds Neuro: Cranial nerves: Yes Equal, round and reactive pupils present Speech: normal speech Motor exam (neuro): 5/5 motor strength present throughout Sensory Exam: normal sensation Other: A&O x4 Extrem: General: normal to inspection Psych: Mental Status: mental status grossly normal Other: Patient tearful and anxious. Good insight and judgment, pleasant. Objective Data Vital Signs Vital Signs: Vital Signs - 24 hr 11/22/24 14:00 11/22/24 21:51 11/23/24 05:58 Temperature 98.4 F 98.7 F 97.6 F Pulse Rate 82 74 69 Respiratory Rate 16 20 18 Blood Pressure 128/81 129/64 100/69 Pulse Oximetry 98 100 95 Intake/Output Intake/Output: Intake & Output 11/20/24 11/21/24 11/22/24 11/23/24 23:59 23:59 23:59 23:59 Intake Total 3817.1 4554.6 4243.8 2049 Balance 3817.1 4554.6 4243.8 2049 Meds/Results Medications: Active Medications Generic Name Dose Route Start Last Admin Trade Name Freq PRN Reason Stop Dose Admin Acetaminophen 650 mg 11/19/24 14:41 Acetaminophen 325 Mg Tablet PO Q4H PRN Mild Pain (1-3) or Fever Albuterol 1 puff 11/19/24 21:20 Albuterol Sulfate (*Sp) Aerosol 1 Puff INHALATION QIDRT PRN shortness of breath or wheezin Diphenhydramine HCl 25 mg 11/21/24 23:52 Diphenhydramine Hcl Cap 25 Mg Capsule PO HS PRN Itching Hydromorphone HCl 0.5 mg 11/19/24 21:21 11/23/24 08:25 Hydromorphone Hcl Inj (*Crx) 1 Mg/Ml Syr IV PUSH 0.5 mg Q3H PRN Administration Pain Rated 7-10 Sodium Chloride 1,000 mls @ 125 mls/hr 11/19/24 14:45 11/22/24 23:10 Normal Saline Iv IV CONT 125 mls/hr .Q8H LEVI Administration Ceftriaxone Sodium 2 gm in 100 mls @ 200 mls/hr 11/23/24 09:00 11/23/24 08:25 Rocephin 2 Gm/Ns 100 Ml IVPB 200 mls/hr Q24H LEVI Administration Ketorolac Tromethamine 30 mg 11/19/24 14:41 11/22/24 16:47 Ketorolac 30 Mg/Ml Vial (*Bkc) IV PUSH 11/24/24 14:40 30 mg Q6H PRN Administration Pain Rated 4-6 Linezolid 600 mg 11/22/24 13:30 11/23/24 08:25 Linezolid 600 Mg Tablet PO 11/28/24 21:01 600 mg Q12HR LEVI Administration Nicotine 1 patch 11/20/24 18:20 11/23/24 08:28 Nicotine (*Pbkc) 21 Mg Patch TRANSDERM 1 patch DAILY LEVI Administration Ondansetron HCl 4 mg 11/19/24 14:41 11/23/24 08:29 Ondansetron Inj 4 Mg/2 Ml Vial IV PUSH 4 mg Q4H PRN Administration Nausea Trimethobenzamide HCl 200 mg 11/22/24 13:12 Trimethobenzamide Hcl 200 Mg/2 Ml Vial IM Q6H PRN Nausea And Vomiting Radiology Results: ITS Impressions Abdomen/Pelvis CT 11/19/24 12:16 IMPRESSION: 1. 5 mm nonobstructing left renal stone. 2. Small sliding-type hiatal hernia. 3.Indeterminate 3.5 x 3.2 x 1.7 cm lenticular well-defined hypodense lesion at the periphery of the right hepatic lobe. Differential would include complex subcapsular fluid collection such as hematoma in setting of trauma or neoplasm including hemangioma. Consider further evaluation with multiphase pre and postcontrast MRI. 4. 1.8 cm right ovarian corpus luteum cyst. 5. Small amount of pelvic ascites which could be physiologic or related to a ventriculoperitoneal shunt catheter. Labs Labs: Laboratory Results - last 24 hr 11/23/24 06:09 WBC 5.1 RBC 4.00 L Hgb 11.2 L Hct 35.5 L MCV 88.8 MCH 28.0 MCHC 31.5 L RDW 12.3 Plt Count 182 MPV 10.9 H Sodium 136 L Potassium 3.8 Chloride 108 H Carbon Dioxide 23 Anion Gap 5 BUN 8 Creatinine 0.67 L Estim Creat Clear Calc 125 Estimated GFR > 60 Glucose 89 Calcium 7.4 L Quality VTE Prophylaxis VTE prophylaxis: mechanical ordered
[2024-11-23] MEDS: PANTOPRAZOLE SODIUM IV 40 MG VIAL IV PUSH (11:57)
[2024-11-23 14:00] VITALS: BP 127/84; PULSE 65; RESP 16; TEMP 36.4; O2SAT 99
--- NOTE | 2024-11-23 14:27 | P.DS_ITS ---
DS: Admitting Diagnosis Discharge Date 11/23 Admitting Diagnosis flank pain DS: Discharge Diagnosis Discharge Diagnosis (1) Pyelonephritis: Code(s): N12 - Tubulo-interstitial nephritis, not specified as acute or chronic Status: Acute (2) Nausea: Code(s): R11.0 - Nausea Status: Acute Assessment and Plan: will continue with supportive measures check for H pylori and add protonix iv (3) Flank pain: Code(s): R10.9 - Unspecified abdominal pain Status: Acute Assessment and Plan: low possibility for pyelonephritis per urology kidney stone is small and non obstructing will order MrI for eval of spine to r/o any spinal abscess -low probability as no neuropathy or neurological deficit though no h/o trauma or injury, so hematoma to liver is unlikely pain could be muscular skeletal in nature, will try flexeril when done with mri unable to do MRI- as we are not sure if her ventriculoperitoneal shunt catheter is competitive with mri or not -1.8 cm rt ovarian corpus cyst- could be causing pain -discussed with pt- she would need a f/u with OBGYN Plan Diet: Regular GI Prophylaxis: Not currently indicated DVT Prophylaxis: SCDs Lines: Peripheral Code Status: Full code DS: Summary Hospital Course Hospital Course: # pyelonephritis - CT abdomen/pelvis: 1. 5 mm nonobstructing left renal stone. 2. Small sliding-type hiatal hernia. 3. Indeterminate 3.5 x 3.2 x 1.7 cm lenticular well-defined hypodense lesion at the periphery of the right hepatic lobe. Differential would include complex subcapsular fluid collection such as hematoma in setting of trauma or neoplasm including hemangioma. Consider further evaluation with multiphase pre and postcontrast MRI. 4. 1.8 cm right ovarian corpus luteum cyst. 5. Small amount of pelvic ascites which could be physiologic or related to a ventriculoperitoneal shunt catheter. - UA: Cloudy, 11-20 WBC, many epithelial cells, 3+ bacteria. - UC pending, obtained on 11/19. Follow. - micro reviewed, no previous resistances - started on Ceftriaxone on 11/19 - analgesics and antipyretics p.r.n. - IV fluids: 2 L bolus, now at 125 mL/hour. UA appears contaminated verses infection. However given patient's symptoms and findings on CT, will proceed with treatment for pyelonephritis. hematuria as back and pain is still somewhat uncontrolled will consult urology for recommendations -11/22-discussed with pharmacy ID-will increase rocephin dose to 2gm and add linezolid to broaden coverage 11/23- urology saw pt- low possibility for pyonephritis as urine is ok, no culture refluxed. She will have to f/u with urology for kidney stone as an outpt # other flank pain could be muscular skeletal in nature- will try flexeril could be due to liver lesion but not likely. tried to do MRI- but unable as pt has ventriculoperitoneal shunt catheter that we are not sure if MRI compatible. Ovarian cyst could be a reason as well- she will have to follow up with obgyn Antibiotics could be contributing to her nausea, since we stopped antibiotics- she is going to eat and hopefully her nausea will be resolved. Time Spent with Patient Time attestation: Total time spent providing and/or coordinating discharge services: Exam Narrative: resting with eyes closed, appears comfortable Const: General: comfortable and no acute distress Other: resting with eyes closed HENMT: Face/Nose/Sinus: Normal nares present Mouth: Yes moist mucous membranes Eyes: General: appearance normal, both eyes and all related structures Sclera: sclerae normal Pupils: Equal, round and reactive pupils present EOM: EOMs intact bilaterally Resp: Effort & Inspection: normal respiratory effort Auscultation: clear to auscultation bilaterally Cardio: Rate: regular rate Rhythm: regular rhythm Other: S1-S2 present without murmur, rub, ectopy GI: Other: Diffuse tenderness in the abdomen. Abdomen soft and nondistended. Normoactive bowel sounds in all quadrants. Skin: General skin exam: normal color and no rashes or lesions noted Wounds: no wounds Neuro: Cranial nerves: Yes Equal, round and reactive pupils present Speech: normal speech Motor exam (neuro): 5/5 motor strength present throughout Sensory Exam: normal sensation Other: A&O x4 Extrem: General: normal to inspection Psych: Mental Status: mental status grossly normal Other: Patient tearful and anxious. Good insight and judgment, pleasant. DS: Data Data Completed and Pending Labs on day of discharge: Labs from last 24 hours 11/23/24 06:09 WBC 5.1 RBC 4.00 L Hgb 11.2 L Hct 35.5 L MCV 88.8 MCH 28.0 MCHC 31.5 L RDW 12.3 Plt Count 182 MPV 10.9 H Sodium 136 L Potassium 3.8 Chloride 108 H Carbon Dioxide 23 Anion Gap 5 BUN 8 Creatinine 0.67 L Estim Creat Clear Calc 125 Estimated GFR > 60 Glucose 89 Calcium 7.4 L Discharge Plan Discharge Attending physician on discharge: Shashi Strickland Consulting providers: Sharif Alvarez Discharging Clinician: Lizette Umanzor Anticipated Discharge Date/Time: 11/23/24 14:34 Patient Disposition: Home, Self-Care Activity: may shower Diet: as tolerated and regular Discharge Instructions: You were admitted for flant pain. CT showed 5 mm nonobstructing left renal stone.You will need to follow up with urology as an outpt. CT also showed - Small sliding-type hiatal hernia. Typically nothing needs to be done about that until you start having issues with bowels. Please make sure you emntion this to your PCP once you establish with a new one. CT also showed: Indeterminate 3.5 x 3.2 x 1.7 cm lenticular well-defined hypodense lesion at the periphery of the right hepatic lobe. Differential would include complex subcapsular fluid collection such as hematoma in setting of trauma or neoplasm including hemangioma. Consider further evaluation with multiphase pre and postcontrast MRI. WE could not do MRI as you shunt might not be MRI compatible. Once you establish with a new PCP, they could direct you to places that might be able to do MRI. WE did an abdominal ultrasound on 11/23. we will call you if anything got worse as we discussed. CT also showed 1.8 cm right ovarian corpus luteum cyst. PLease follow up with OBGYN for further monitoring. Initially we treated you for pyelonephritis- you completed antibiotic treatment (Antibiotics could cause nausea- so hopefully since we stopped antibiotics, your nausea will be gone). You were seen by urology- they didnot think the cause of your discomfort was due to kidney stone or infection. As we discussed, other causes of pain could be due to: could be muscular skeletal in nature- will try flexeril could be due to liver lesion but not likely. tried to do MRI- but unable as pt has ventriculoperitoneal shunt catheter that we are not sure if MRI compatible. Ovarian cyst could be a reason as well- she will have to follow up with obgyn I will send you home with pain meds, muscle relaxant to try and nausea medicine. Please donot take pain med and muscle relaxant together as it could make you too drowsy. Do not drink alcohol or drive when taking pain meds. If anything changes- increased pain, and/or any new symptoms- please return to ED> Patient Instructions: Antibiotic Form Patient Language: Indonesian Stand Alone Forms: General Discharge Information Follow-up/Referrals: Jason Roberts MD [Physician] - 2 Weeks Tiago Webb MD [Physician] - 4 Weeks UNKNOWN,DOCTOR [Primary Care Provider] - 2 Weeks Discharge Medications: New hydrocodone-acetaminophen 5-325 mg Tablet 1 tablet PO Q4H PRN (Reason: Pain Rated 4-6) Qty: 20 0RF cyclobenzaprine 5 mg tablet 5 mg PO BID PRN (Reason: muscle spasm) Qty: 14 0RF omeprazole 10 mg capsule,delayed release(DR/EC) 10 mg PO DAILY Qty: 20 0RF ondansetron 4 mg tablet,disintegrating 4 mg PO Q8H PRN (Reason: nausea and vomiting) Qty: 14 0RF Continued albuterol sulfate 90 mcg/actuation HFA aerosol inhaler 1 inh inhalation QID PRN (Reason: shortness of breath or wheezing) Qty: 6.7 0RF ibuprofen 800 mg tablet 800 mg PO Q8H PRN (Reason: fever or pain) Date of admission: 11/20/24 14:59 Primary Care Provider: UNKNOWN,DOCTOR Admitting Provider: Liam Mancera Attending physician on admission: Liam Mancera Condition: Stable Quality VTE Prophylaxis VTE prophylaxis: mechanical ordered Hospitalist MIPS Heart Failure (Exclusion) Patient has history of Heart Transplant or Left Ventricular Assistive Device?: No IF YES, STOP HERE Heart Failure (Qualifier) Patient has current or prior documentation of LVEF less than or equal to 40%, or mod/servere depressed LVSF?: No IF NO, STOP HERE
[2024-11-23] MEDS: HYDROcodone/acetaminophen (*CRX) 5-325 MG TABLET 1 TAB PO (14:37)
== END 2024-11-23 15:35 | disposition home or self-care (01) | DRG 690 ==
LOC: ANHED 14:42 → ANH3MEDSUR 17:32
PROVIDERS: Student in an Organized Health Care Education/Training Program; Admitting Provider General Practice; Emergency Provider Physician Assistant; Visit Provider Nurse Practitioner
DX: N10 Acute pyelonephritis (principal); N20.0 Calculus of kidney; N83.11 Corpus luteum cyst of right ovary; G40.909 Epilepsy, unspecified, not intractable, without status epilepticus; F17.210 Nicotine dependence, cigarettes, uncomplicated; Z90.49 Acquired absence of other specified parts of digestive tract; Z87.442 Personal history of urinary calculi
CPT/HCPCS: 36415; 74177; 76700; 80048; 80053; 81001; 81025; 83690; 85025; 85027; 87086; 96361; 96365; 96375; 96376; 99285; A9270; G0378; J0696; J1171; J1200; J1885; J2405; J2470; J2765; J3250; J7030; Q9967

== ENCOUNTER 2024-12-02 18:26 | Emergency (ER) | payer OTHER, SELFPAY ==
--- NOTE | ~2024-12-02 | CT_ITS ---
EXAMINATION: CT abdomen pelvis w con DATE: 12/03/2024 00:25 INDICATION: Perianal abscess. TECHNIQUE: Computed tomography (CT) of the abdomen and pelvis was performed with 100 cc Omnipaque 350 intravenous contrast. The dose-length product was 1047.55 mGy-cm. Automated exposure control and ite rative reconstruction technique were employed. COMPARISON: CT dated 11/19/2024 FINDINGS: Lung bases are unremarkable. Heart size normal. No significant pleural or pericardial effus ion. No significant change to lentiform hypodense mass along the periphery of the right hepatic lobe measuring 3 x 1.4 cm. The spleen, pancreas, adrenal glands and kidneys are unremarkable. Gallbladder is present. There is a nonobstructing left renal stone measuring 5 mm. There is a ventriculoperitonea l shunt. Small amount of free fluid in the pelvis. No evidence for perirectal abscess. Lung bases are unremarkable. Mild wedge-shaped appearance to T11 appears chronic. No significant vascular abnormali ty. No lymphadenopathy. No abnormal pelvic masses. No free air. IMPRESSION: 1. No evidence for perirectal abscess. 2: Stable lentiform hypodense lesion periphery of the right hepatic lobe. Differential diagnosis inc ludes sequela of prior trauma such as hematoma versus neoplasm. 3: Nonobstructing left nephrolithiasis. Reviewed, dictated and finalized at location A. REL PATTERNMAKER IMPRESSION: 1. No evidence for perirectal abscess. 2: Stable lentiform hypodense lesion periphery of the right hepatic lobe. Diff erential diagnosis includes sequela of prior trauma such as hematoma versus kiki plasm. 3: Nonobstructing left nephrolithiasis.
[2024-12-02 18:43] VITALS: BP 112/65; PULSE 98; RESP 14; TEMP 36.8; O2SAT 98
--- NOTE | 2024-12-02 23:01 | ED_ITS ---
HPI - Skin/Abscess/Foreign Bdy General Chief complaint: Skin/Abscess/Foreign Body Stated complaint: perianal abscess Time Seen by Provider: 12/02/24 22:19 Source: patient Mode of arrival: ambulatory Limitations: no limitations History of Present Illness HPI narrative: Patient presents with concern for a perianal abscess since last night. Having significant pain at her rectum. LBM earlier and without diarrhea, constipation or bloody stool. She notes a little abdominal pain. Has been using OTC meds but not helping. No prior colonoscopy. Started vomiting since 2am yesterday. She has never had this before but her did recently including requiring surgery for it. It did prove to have MRSA. History of MRSA before but this was several years ago. Had a fever with temp 102. Also chills. Not on anticoagulation. DEBI earlier today at 6pm. Having nausea. Related Data Home Medications ?Medication ?Instructions ?Recorded ?Confirmed ?Last Taken ?Type ibuprofen 800 mg tablet 800 mg PO Q8H PRN fever or pain 11/19/24 11/19/24 11/19/24 History Allergies Allergy/AdvReac Type Severity Reaction Status Date / Time levofloxacin Allergy Intermediate Hives Verified 11/19/24 11:13 tetracycline Allergy Intermediate Hives Verified 11/19/24 11:27 cefaclor (From Ceclor) Allergy Swelling Verified 11/22/24 13:55 prochlorperazine (From Allergy Swelling Verified 11/19/24 11:13 Compazine) Sulfa (Sulfonamide Allergy Swelling Verified 11/19/24 11:13 Antibiotics) sulfamethoxazole (From Allergy Swelling Verified 11/19/24 11:13 Bactrim) trimethoprim (From Bactrim) Allergy Swelling Verified 11/19/24 11:13 [facility] Past Medical History Medical History History of MRSA infection Pseudotumor cerebri Seizure disorder History of idiopathic intracranial hypertension Surgical History Surgical History S/P ventriculoperitoneal shunt History of appendectomy 2009 S/P [employer] SCIENTIST shunt Hx of ventricular 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 Surrogate decision maker: . Code Status: Full. Smoking status: Current every day smoker Tobacco type: cigarettes Second hand tobacco smoke exposure: No Alcohol intake: never Substance use: current Substance use type: marijuana Other substance usage details: uses for seizure control; medical card - uses edibles Last use: 11/18/24 Do You Feel Safe in your Home?: Yes Lack of Transportation: No Lack of Food: Never True Current Housing: I Have Housing Concerned About Future Housing: No Difficulty Paying Gas/Electric Bills: No Difficulty Paying for Meds: No Currently Unemployed: No Education: Don't Know Difficulty w/ Childcare or Family Care: No Living arrangements: with family Occupation/Education: occupation Gender identity (if verbalized by the patient): Female Spiritual care concerns: No Exam 2 Narrative: GENERAL: Well-appearing, well-nourished, and in no acute distress. HEAD: Normocephalic, atraumatic. EYES: Non injected, non icteric ENT: Nares clear, no rhinorrhea or epistaxis. NECK: Supple. CHEST: Speaking in full sentences. No respiratory distress. HEART: Regular rate and rhythm. . ABDOMEN: Soft, nondistended. Mild TTP in RLQ. No rigidity/guarding. Not peritoneal. Rectal: Several non thrombosed External hemorrhoids. Patient also has a perianal abscess located between the 1 o'clock and 3 o'clock position that is large and very painful, tender to touch. EXTREMITIES: Normal range of motion. No lower extremity edema. SKIN: Warm, dry, no rash. NEURO: No focal deficits. Alert and oriented x3. PSYCH: Normal mood and affect. Course Vital Signs Vital signs: Vital Signs Temperature 98.3 F 12/02/24 18:43 Pulse Rate 98 12/02/24 18:43 Respiratory Rate 14 12/02/24 18:43 Blood Pressure 112/65 12/02/24 18:43 Pulse Oximetry 98 12/02/24 18:43 Oxygen Delivery Room Air 12/02/24 18:43 Temperature 98.3 F 12/02/24 18:43 Pulse Rate 69 12/03/24 02:30 Respiratory Rate 17 12/03/24 02:30 Blood Pressure 112/60 12/03/24 02:30 Pulse Oximetry 94 12/03/24 02:30 Oxygen Delivery Room Air 12/02/24 18:43 Procedures Abscess I/D perianal: Date of Incision: 12/03/24 Time of Incision: 03:50 Side (if applicable): right Sedation/analgesia: none Local Anesthetic: lidocaine 1% Amount of anesthesia used (mL): 4 Technique: incised with #11 blade Amount of fluid expressed (mL): 2 Irrigation: No Packing used?: none I&D Results: Blood Abcess I&D Additional Comments: mild pain; MDM - Skin/Abscess/Foreign Bdy MDM Narrative Medical decision making narrative: Patient presents with concern for a perianal abscess. Has had nausea and vomtiing as well as reported fever (temp 102 reportedly) and chills. No prior personal history of this but her had this recently which required surgical drainage and was positive for MRSA. She also has a personal history of MRSA though several years ago. In the emergency department they are afebrile with vital signs within normal limits. Patient given Tylenol for reported fevers and chills although she is afebrile here, ondansetron for nausea, and Dilaudid for pain. Lactic acid normal although she does have a leukocytosis. Patient has bacteria in her urine although also with many squamous cells, possibly contaminated. Negative test. Given additional analgesia and antiemetic after she reports returned symptoms while awaiting imaging results. CT w/o evidence of abscess or extension but there is an abscess on physical exam. Incision and drainage performed at bedside as above with resultant bloody discharge expressed. Wound not large enough or amenable to packing. Wound culture obtained. Given patient's allergies, will give a dose of cephalexin (has received this as well as ceftriaxone before) in addition to metronidazole. A written prescription is also provided for Sitz baths. At the time of discharge, patient did request additional stronger pain medication as a prescription given that she is unable to sit. [place] prescription monitoring program database is reviewed and does show that on 11/23/2024 patient had 20 tablets of [place] filled as well as cyclobenzaprine. Is reasonable to presume that she is out of these but I&D has already been performed and I do anticipate the patient's pain will start to improve so a short course of additional opiate medication (oxy 5mg) is prescribed electronically. Advised follow up with PCP and given ED return precautions. Differential Diagnosis Differential diagnosis: Likely abscess of skin or subcutaneous tissue and other (external hemorrhoid including thrombosed) Lab Data Attestation: I reviewed the patient's lab results. 12/02/24 23:26 12/02/24 23:26 Labs: Lab Results 12/02/24 12/03/24 Range/Units 23:26 00:27 WBC 13.0 H (4.5-10.0) K/mm3 RBC 5.27 (4.2-5.4) M/mm3 Hgb 14.6 D (12.0-15.0) g/dL Hct 46.4 (37.0-47.0) % MCV 88.0 (80-100) fl MCH 27.7 (26-34) pg MCHC 31.5 L (32-36) g/dl RDW 13.0 (11.5-14.5) % Plt Count 334 D (150-375) k/mm3 MPV 10.7 H (7.4-10.4) fl Immature Gran % (Auto) 0.8 H (0-0.5) % Neut % (Auto) 56.0 (45.5-73.1) % Lymph % (Auto) 31.3 (18.3-44.2) % [place] % (Auto) 6.6 (2.6-8.5) % Eos % (Auto) 4.6 H (0-4.4) % Baso % (Auto) 0.7 (0.2-1.2) % Lymph # (Auto) 4.05 H (0.9-3.2) K/mm3 [place] # (Auto) 0.9 H (0.1-0.6) K/mm3 Eos # (Auto) 0.6 H (0-0.3) K/mm3 Baso # (Auto) 0.1 (0.0-0.1) K/mm3 Abs Immat Gran (auto) 0.10 H (0.00-0.031) K/mm3 Absolute Neuts (auto) 7.3 H (1.3-6.7) K/mm3 Absolute Nucleated RBC 0.000 (0.0-0.012) K/mm3 Nucleated RBC % 0.0 (0.0-0.2) % ESR 5 (0-20) mm/hr Sodium 138 (137-145) mmol/L Potassium 4.3 (3.4-5.0) mmol/L Chloride 105 (98-107) mmol/L Carbon Dioxide 21 L (22-30) mmol/L Anion Gap 12 (4-12) mmol/L BUN 15 D (7-17) mg/dL Creatinine 0.71 (0.7-1.0) mg/dL Estim Creat Clear Calc 118 ml/min Estimated GFR > 60 (59 - ) Glucose 102 (65-110) mg/dL Lactic Acid 1.9 (0.7-2.0) mmol/L Calcium 9.3 (8.4-10.2) mg/dL Total Bilirubin 0.3 (0.2-1.3) mg/dL AST 21 (14-36) U/L ALT 29 (6-35) U/L Alkaline Phosphatase 66 (38-126) U/L C-Reactive Protein 0.7 (<1.0) mg/dL Total Protein 7.0 (6.3-8.2) g/dL Albumin 4.2 (3.5-5.1) g/dL Urine Color Yellow (Yellow) Urine Appearance Cloudy H (Clear) Urine pH 5.0 (5.0-9.0) Ur Specific [place] 1.024 (1.001-1.035) Urine Protein Negative (Negative) mg/dL Urine Glucose (UA) Negative (Negative) mg/dL Urine Ketones Negative (Negative) mg/dL Ur Blood (Man) Negative (Negative) Urine Nitrate Negative (Negative) Urine Bilirubin Negative (Negative) Urine Urobilinogen 0.2 (<2.0) mg/dL Leukocyte Esterase Rfl Negative (Negative) JINA/UL Urine RBC 0-2 (0-2) /hpf Urine WBC 6-10 H (0-3) /hpf Ur Squamous Epith Cells Many H (Few) /hpf Urine Bacteria 1+ H /hpf Urine Casts 0-2 POC Urine HCG, Qual Negative (Negative) Imaging Data Radiologist's impression: CT Abd/Pelvis with contrast (STAT RAD): Intact [employer] PROCESSING SCIENTIST shunt tubing as seen. No abscess. No perirectal or perianal abnormality seen. Small intermediate attenuation pelvic ascites potentially include dental (?) versus contrast staining or hemorrhagic. Correlate with hcg, if not this is likely ovulatory in etiology and if this could represent ectopic . Otherwise no acute findings. Discharge Plan Discharge Clinical Impression: Leukocytosis, Bacteriuria, Abscess, perianal Patient Disposition: Home, Self-Care Condition: Stable Instructions: Antibiotic Form, Leukocytosis (ED), Rectal Abscess (ED), Abscess Incision and Drainage (DC) Additional Instructions: As we discussed, this will likely continue to drain likely bloody discharge over the next day or so. Acetaminophen/Tylenol (maximum 4000 mg per day) is safe to take with NSAIDs (ibuprofen/Motrin) for pain relief. You received the 1st dose of your antibiotic regimen (x2) while in the emergency department and the rest of the course has been prescribed. Take it in its entirety. Do not consume alcohol while on metronidazole/Flagyl as this can cause a reaction that makes you feel very sick. Keep the area clean/warm/dry. Frequent Sitz Baths. Follow-up with your primary care physician. If you do not have a doctor the name of 1 is provided below. Return to the emergency department with any new/worsening/unmanaged symptoms particularly if you have a fever >100.4F not responding to the pain/fever reducers. Patient Language: Irish Prescriptions: New ibuprofen 600 mg tablet 600 mg PO TID PRN (Reason: pain) Qty: 30 0RF acetaminophen 500 mg capsule 1,000 mg PO Q6H PRN (Reason: pain) Qty: 30 0RF cephalexin 500 mg capsule 500 mg PO Q12H 5 Days Qty: 9 0RF Rx Instructions: already received first dose in ED 12/03 AM metronidazole 500 mg tablet 500 mg PO Q12H 5 Days Qty: 9 0RF Rx Instructions: Already received 1st dose in the ER 12/03 AM oxycodone 5 mg capsule 5 mg PO Q8H PRN (Reason: pain) Qty: 5 0RF No Action albuterol sulfate 90 mcg/actuation HFA aerosol inhaler 1 inh inhalation QID PRN (Reason: shortness of breath or wheezing) Qty: 6.7 0RF ibuprofen 800 mg tablet 800 mg PO Q8H PRN (Reason: fever or pain) hydrocodone-acetaminophen 5-325 mg Tablet 1 tablet PO Q4H PRN (Reason: Pain Rated 4-6) Qty: 20 0RF cyclobenzaprine 5 mg tablet 5 mg PO BID PRN (Reason: muscle spasm) Qty: 14 0RF omeprazole 10 mg capsule,delayed release(DR/EC) 10 mg PO DAILY Qty: 20 0RF ondansetron 4 mg tablet,disintegrating 4 mg PO Q8H PRN (Reason: nausea and vomiting) Qty: 14 0RF Follow-up/Referrals: Eugene Sloan MD [Physician] - (Family practice) UNKNOWN,DOCTOR [Primary Care Provider] - Stand Alone Forms: Work/School Release IP Time of Disposition: 04:11
[2024-12-02] MEDS: ONDANSETRON INJ 4 MG/2 ML VIAL IV PUSH (23:37)
[2024-12-02] MEDS: ACETAMINOPHEN 500 MG TABLET 1000 MG PO (23:37)
[2024-12-02] MEDS: HYDROmorphone HCL INJ (*CRX) 1 MG/ML SYR 0.5 MG IV PUSH (23:37)
[2024-12-02 23:46] LABS: Lactic Acid Reflex 1.9 mmol/L (0.7-2.0)
[2024-12-02 23:53] LABS: Alanine Aminotransferase 29 U/L (6-35); Albumin Level 4.2 g/dL (3.5-5.1); Alkaline Phosphatase 66 U/L (38-126); Anion Gap 12 mmol/L (4-12); Aspartate Amino Transferase 21 U/L (14-36); Bilirubin,Total 0.3 mg/dL (0.2-1.3); Blood Urea Nitrogen 15 mg/dL (7-17); Calcium 9.3 mg/dL (8.4-10.2); Carbon Dioxide 21 mmol/L (22-30); Chloride 105 mmol/L (98-107); Estimated CRCL calculation 118 ml/min; Estimated Glomerular Filt Rate > 60; Glucose 102 mg/dL (65-110); Potassium 4.3 mmol/L (3.4-5.0); Sodium 138 mmol/L (137-145)
[2024-12-03] LABS: CRP 0.7 mg/dL (<1.0)
[2024-12-03 00:07] LABS: Basophils Absolute Auto 0.1 K/mm3 (0.0-0.1); Basophils Percent Auto 0.7 % (0.2-1.2); Eosinophils Absolute Auto 0.6 K/mm3 (0-0.3); Eosinophils Percent Auto 4.6 % (0-4.4); Hematocrit 46.4 % (37.0-47.0); Hemoglobin 14.6 g/dL (12.0-15.0); Immature Granulocyte Percent A 0.8 % (0-0.5); Lymphocytes Absolute Auto 4.05 K/mm3 (0.9-3.2); Lymphocytes Percent Auto 31.3 % (18.3-44.2); Mean Corpuscular HGB Conc 31.5 g/dl (32-36); Mean Corpuscular Hemoglobin 27.7 pg (26-34); Mean Platelet Volume 10.7 fl (7.4-10.4); Monocytes Absolute Auto 0.9 K/mm3 (0.1-0.6); Monocytes Percent Auto 6.6 % (2.6-8.5); Neutrophils Absolute Auto 7.3 K/mm3 (1.3-6.7); Platelet Count Result 334 k/mm3 (150-375); Red Blood Count 5.27 M/mm3 (4.2-5.4)
[2024-12-03 00:24] LABS: Add Urine Microscopic? YES; Appearance Urine Cloudy (Clear); Bacteria Urine 1+ /hpf; Bilirubin Urine Negative (Negative); Blood Urine Negative (Negative); Color Urine Yellow (Yellow); Glucose Urine UA Negative (Negative); Ketones Urine Negative (Negative); Leukocyte Esterase Ur Negative LEU/UL (Negative); Nitrate Urine Negative (Negative); Non Pathogenic Casts 0-2; Protein Urine Negative (Negative); RBC Urine 0-2 /hpf (0-2); Specific Grav Ur 1.024 (1.001-1.035); Squamous Epithelial Cell Urine Many /hpf (Few); Urobilinogen Urine 0.2 mg/dL (<2.0)
[2024-12-03 00:50] LABS: Erythrocyte Sedimentation Rate 5 mm/hr (0-20)
[2024-12-03 01:44] LABS: BEDSIDEPREGUCG Negative (Negative)
[2024-12-03] MEDS: METOCLOPRAMIDE HCL INJ 10 MG/2 ML VIAL 5 MG IV PUSH (01:47)
[2024-12-03] MEDS: HYDROmorphone HCL INJ (*CRX) 1 MG/ML SYR IV PUSH (01:48)
[2024-12-03 01:54] VITALS: PULSE 77; RESP 15; O2SAT 96
[2024-12-03 02:00] VITALS: BP 118/73; PULSE 68; RESP 15; O2SAT 96
[2024-12-03 02:26] VITALS: BP 131/69; PULSE 68; RESP 17; O2SAT 94
[2024-12-03 02:30] VITALS: BP 112/60; PULSE 69; RESP 17; O2SAT 94
[2024-12-03] MEDS: HYDROcodone/acetaminophen (*CRX) 5-325 MG TABLET 1 TAB PO (03:54)
[2024-12-03] MEDS: CEPHALEXIN 500 MG CAPSULE PO (04:05)
[2024-12-03] MEDS: metroNIDAZOLE 500 MG TABLET PO (04:06)
== END 2024-12-03 04:50 | disposition home or self-care (01) ==
PROVIDERS: Emergency Provider Student in an Organized Health Care Education/Training Program
DX: K61.0 Anal abscess (principal); D72.829 Elevated white blood cell count, unspecified; R82.71 Bacteriuria; G40.909 Epilepsy, unspecified, not intractable, without status epilepticus; F17.210 Nicotine dependence, cigarettes, uncomplicated; Z98.2 Presence of cerebrospinal fluid drainage device; Z86.14 Personal history of Methicillin resistant Staphylococcus aureus infection; N20.0 Calculus of kidney
CPT/HCPCS: 36415; 46050; 74177; 80053; 81001; 81025; 83605; 85025; 85652; 86140; 87040; 87070; 87075; 87205; 96374; 96375; 99284; A9270; J1171; J2405; J2765; Q9967

== ENCOUNTER 2025-02-11 08:42 | Emergency (ER) | payer SELFPAY ==
--- NOTE | ~2025-02-11 | CT_ITS ---
EXAMINATION: CT brain wo con, CT orbit BI w con DATE: 02/11/2025 10:33 INDICATION: Concern for shunt malfunction. Swollen left eyelid. TECHNIQUE: 1. Computed tomography (CT) of the head was performed without intravenous contrast. Sagittal and gadiel nal reconstructions were performed. The mA was adjusted according to patient size. Iterative reconstr uction technique was employed. The dose-length product was 605.33 mGy-cm. 2. CT of the bilateral orbits was performed with a 25 mL Omnipaque-350 and venous contrast. Sagittal and coronal reconstructions were performed. The mA was adjusted according to patient size. Iterative reconstruction technique was employed. The dose-length product was 197.52 mGy-cm. COMPARISON: head CT dated 09/07/2024 FINDINGS: Head CT: Again seen is a left frontal ventricular shunt catheter with distal tip extending through the anterio r horn of the left lateral ventricle and with distal tip at the midline near the region of the forame n of [place]. There is an unchanged shunt fragment which appears to extend from right to left into the anterior horn of the left lateral ventricle with low-attenuation likely clearances extending along th e catheter tract in the right frontal lobe immediately underlying an old jerry hole. No acute intracra nial hemorrhage, acute infarction or abnormal extra axial fluid collection. The left and right latera l and third ventricles remain slitlike which is unchanged since the prior studies. Basal cisterns are patent. No mass/mass effect. Orbit CT: Mild mucosal thickening in the right maxillary and anterior right sphenoid sinus. No preseptal soft t issue swelling at the left orbit as well as mild soft tissue swelling with minimal stranding surround ing a tiny lucency and 4 mm subcutaneous nodule superior to the left supraorbital rim. This appears w ell from the extracalvarial portion of the left frontal ventricular drainage catheter the v isualized portions of which appear unremarkable and without surrounding inflammatory stranding. Bilat eral orbits appear otherwise normal with no post septal inflammatory stranding. Bilateral mastoid air cells and middle ear cavities are clear. IMPRESSION: 1. Unchanged position of a left ventriculoperitoneal shunt with no change in nearly completely collap sed slit like lateral and third ventricles. No acute intracranial process. 2. Mild left orbital preseptal soft tissue swelling and mild subcutaneous edema surrounding a tiny peck bcutaneous nodule superior to the left supraorbital rim. Orbits otherwise normal with no post septal inflammatory stranding. Reviewed, dictated and finalized at location B. IMPRESSION: 1. Unchanged position of a left ventriculoperitoneal shunt with no change in ne darian completely collapsed slit like lateral and third ventricles. No acute intr acranial process. 2. Mild left orbital preseptal soft tissue swelling and mild subcutaneous edema surrounding a tiny subcutaneous nodule superior to the left supraorbital rim. Orbits otherwise normal with no post septal inflammatory stranding.
[2025-02-11 08:46] VITALS: BP 123/80; PULSE 85; RESP 16; TEMP 36.5; O2SAT 98
--- NOTE | 2025-02-11 09:22 | ECG_ITS ---
Test Date: 2025-02-11 10:36:55 Measurements Intervals [place] Rate: 67 P: 28 VT: 156 QRS: 8 QRSD: 85 T: 5 QT: 400 QTc: 423 Interpretive Statements SINUS RHYTHM CONSIDER INFERIOR INFARCT, AGE INDETERMINATE LOW QRS VOLTAGE IN PRECORDIAL LEADS BORDERLINE ST-T WAVE ABNORMALITY- ANTERIOR LEADS ABNORMAL ECG No previous ECG available for comparison Electronically Signed On 02-11-2025 15:03:36 CDT by Michael Alford D.O.
--- NOTE | 2025-02-11 09:26 | ED_ITS ---
HPI - Eye Problem General Chief complaint: Eye Problems Stated complaint: LEFT EYE CYST Time Seen by Provider: 02/11/25 08:55 History of Present Illness HPI Narrative: Patient is a 39-year-old female who presents to the ER with complaints of left eye swelling that started last night. 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 Patient reports she noticed mild swelling around her left eye last night but this morning she woke up and there was significant edema above and below the left eye. She also endorses a firm mass above her left eyebrow area. Patient denies any recent fevers, injury to the site, neck stiffness, or just tend. She reports she was in her garden yesterday and has a history of seasonal allergies. Patient endorses a history of meningitis and shunt revisions. Related Data Home Medications ?Medication ?Instructions ?Recorded ?Confirmed ?Last Taken ?Type ibuprofen 800 mg tablet 800 mg PO Q8H PRN fever or pain 11/19/24 11/19/24 11/19/24 History Allergies Allergy/AdvReac Type Severity Reaction Status Date / Time levofloxacin Allergy Intermediate Hives Verified 02/11/25 08:52 tetracycline Allergy Intermediate Hives Verified 02/11/25 08:52 cefaclor (From Ceclor) Allergy Swelling Verified 02/11/25 08:52 prochlorperazine (From Allergy Swelling Verified 02/11/25 08:52 Compazine) Sulfa (Sulfonamide Allergy Swelling Verified 02/11/25 08:52 Antibiotics) sulfamethoxazole (From Allergy Swelling Verified 02/11/25 08:52 Bactrim) trimethoprim (From Bactrim) Allergy Swelling Verified 02/11/25 08:52 Review of Systems 2 Review of Systems: All systems reviewed & are unremarkable except as noted in HPI and below PMFSH Past Medical History Medical History History of MRSA infection Pseudotumor cerebri Seizure disorder History of idiopathic intracranial hypertension Surgical History Surgical History S/P ventriculoperitoneal shunt History of appendectomy 2009 S/P SCOREBOARD OPERATOR shunt Hx of ventricular shunt SCOREBOARD OPERATOR shunt placed 2001, revised multiple times, last in 2019 Family History Family History Mother No problems noted. 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 Surrogate decision maker: . Code Status: Full. Smoking status: Current every day smoker Tobacco type: cigarettes Second hand tobacco smoke exposure: No Alcohol intake: never Substance use: current Substance use type: marijuana Other substance usage details: uses for seizure control; medical card - uses edibles Last use: 11/18/24 Do You Feel Safe in your Home?: Yes Lack of Transportation: No Lack of Food: Never True Current Housing: I Have Housing Concerned About Future Housing: No Difficulty Paying Gas/Electric Bills: No Difficulty Paying for Meds: No Currently Unemployed: No Education: Don't Know Difficulty w/ Childcare or Family Care: No Living arrangements: with family Occupation/Education: occupation Gender identity (if verbalized by the patient): Female Spiritual care concerns: No Exam 2 Narrative: GENERAL: Well appearing, well-nourished, non-toxic, in no acute distress. HEAD: Normocephalic, R periorbital edema, tender to the touch, no warmth but redness identified, no visual changes but sensitive to light NECK: Supple. No adenopathy, no masses. RESPIRATORY: Airway patent, respirations nonlabored. Clear to auscultation bilaterally, no rales, rhonchi, wheezing. CARDIOVASCULAR: Regular rate and rhythm without murmurs, rubs, or gallops. Peripheral pulses 2+ and equal bilaterally. ABDOMINAL: Soft, nontender, nondistended, no hepatosplenomegaly. Normoactive BS. MUSCULOSKELETAL: Moves all extremities. Strength/ROM intact without gross deformities. SKIN: Warm, dry, normal color. No rashes. NEURO: A&O X3. Speech clear. Cranial nerves II-XII intact. No ataxic movements. PSYCHIATRIC: Appropriate mood and affect. Normal interaction. Course Vital Signs Vital signs: Vital Signs Temperature 36.5 C 02/11/25 08:46 Pulse Rate 85 02/11/25 08:46 Respiratory Rate 16 02/11/25 08:46 Blood Pressure 123/80 02/11/25 08:46 Pulse Oximetry 98 02/11/25 08:46 Oxygen Delivery Room Air 02/11/25 08:46 Temperature 36.5 C 02/11/25 08:46 Pulse Rate 71 02/11/25 12:03 Respiratory Rate 16 02/11/25 12:03 Blood Pressure 126/59 L 02/11/25 12:03 Pulse Oximetry 98 02/11/25 12:03 Oxygen Delivery Room Air 02/11/25 08:46 MDM - Eye Problem MDM Narrative Medical decision making narrative: Patient is a 39-year-old female who presents to the ER with complaints of left eye swelling that started last night. 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 Patient reports she noticed mild swelling around her left eye last night but this morning she woke up and there was significant edema above and below the left eye. She also endorses a firm mass above her left eyebrow area. Patient denies any recent fevers, injury to the site, neck stiffness, or just tend. She reports she was in her garden yesterday and has a history of seasonal allergies. Patient endorses a history of meningitis and shunt revisions. Labs Ordered: CBC, CMP, UA, troponin, PTT, INR, lactic acid, CRP Imaging Ordered: CT brain, CT orbits Medications Ordered: 1 L normal saline IV bolus, Dilaudid IV, Zofran IV, Decadron IV, Toradol IV Results: Pt's CT scan indicates 1. Unchanged position of a left ventriculoperitoneal shunt with no change in nearly completely collapsed slit like lateral and third ventricles. No acute intracranial process. 2. Mild left orbital preseptal soft tissue swelling and mild subcutaneous edema surrounding a tiny subcutaneous nodule superior to the left supraorbital rim. Orbits otherwise normal with no post septal inflammatory stranding. Diagnosis: periorbital cellulitis Pt ambulated to the bathroom and put pressure on the site above her L eyelid. She reports some pus came out of her L forehead. Patient Education/Shared MDM: Results of CT scan shared with patient. She endorses improvement following medication administration. Patient strongly advised to maintain hydration status upon discharge and follow-up with her PCP as soon as possible. She will be discharged home with a prescription for Augmentin, [place] and Mupirocin. Strict return precautions provided. Patient verbalized understanding is in agreement with plan. Vital signs stable at time of discharge. All questions answered. Differential Diagnosis Differential diagnosis: Likely corneal abrasion, conjunctivitis, acute iritis and periorbital cellulitis Lab Data Attestation: I reviewed the patient's lab results. 02/11/25 09:45 02/11/25 09:45 Labs: Lab Results 02/11/25 02/11/25 Range/Units 09:45 09:58 WBC 10.2 H (4.5-10.0) K/mm3 RBC 4.84 (4.2-5.4) M/mm3 Hgb 13.6 (12.0-15.0) g/dL Hct 42.7 (37.0-47.0) % MCV 88.2 (80-100) fl MCH 28.1 (26-34) pg MCHC 31.9 L (32-36) g/dl RDW 14.5 (11.5-14.5) % Plt Count 289 (150-375) k/mm3 MPV 10.4 (7.4-10.4) fl Immature Gran % (Auto) 0.6 H (0-0.5) % Neut % (Auto) 58.2 (45.5-73.1) % Lymph % (Auto) 28.8 (18.3-44.2) % [place] % (Auto) 6.9 (2.6-8.5) % Eos % (Auto) 5.0 H (0-4.4) % Baso % (Auto) 0.5 (0.2-1.2) % Lymph # (Auto) 2.93 (0.9-3.2) K/mm3 [place] # (Auto) 0.7 H (0.1-0.6) K/mm3 Eos # (Auto) 0.5 H (0-0.3) K/mm3 Baso # (Auto) 0.1 (0.0-0.1) K/mm3 Abs Immat Gran (auto) 0.06 H (0.00-0.031) K/mm3 Absolute Neuts (auto) 5.9 (1.3-6.7) K/mm3 Absolute Nucleated RBC 0.000 (0.0-0.012) K/mm3 Nucleated RBC % 0.0 (0.0-0.2) % PT 13.2 (11.1-14.7) Seconds INR 1.0 APTT 26.1 (22.3-36.8) Seconds Sodium 140 (137-145) mmol/L Potassium 4.7 (3.4-5.0) mmol/L Chloride 108 H (98-107) mmol/L Carbon Dioxide 23 (22-30) mmol/L Anion Gap 9 (4-12) mmol/L BUN 11 (7-17) mg/dL Creatinine 0.66 L (0.7-1.0) mg/dL Estim Creat Clear Calc 129 ml/min Estimated GFR > 60 (59 - ) Glucose 82 (65-110) mg/dL Lactic Acid 1.2 (0.7-2.0) mmol/L Calcium 8.8 (8.4-10.2) mg/dL Total Bilirubin 0.3 (0.2-1.3) mg/dL AST 22 (14-36) U/L ALT 22 (6-35) U/L Alkaline Phosphatase 69 (38-126) U/L Troponin I < 0.012 (0.000-0.034) ng/mL C-Reactive Protein 0.8 (<1.0) mg/dL Total Protein 7.0 (6.3-8.2) g/dL Albumin 4.3 (3.5-5.1) g/dL Urine Color Yellow (Yellow) Urine Appearance Cloudy H (Clear) Urine pH 7.5 (5.0-9.0) Ur Specific [place] 1.014 (1.001-1.035) Urine Protein Negative (Negative) mg/dL Urine Glucose (UA) Negative (Negative) mg/dL Urine Ketones Negative (Negative) mg/dL Ur Blood (Man) Negative (Negative) Urine Nitrate Negative (Negative) Urine Bilirubin Negative (Negative) Urine Urobilinogen 0.2 (<2.0) mg/dL Leukocyte Esterase Rfl Negative (Negative) JINA/UL Urine RBC 0-2 (0-2) /hpf Urine WBC 0-5 (0-3) /hpf Ur Squamous Epith Cells Moderate (Few) /hpf Urine Bacteria 1+ H /hpf Urine Casts 0-2 Imaging Data Attestation: I personally reviewed and interpreted this imaging study as follows: Discharge Plan Discharge Clinical Impression: Periorbital cellulitis of left eye, Periorbital edema Patient Disposition: Home Condition: Guarded Prognosis Instructions: Antibiotic Form, Periorbital Cellulitis (ED) Additional Instructions: Please return to the ER with any worsening symptoms. Follow-up with primary care provider as soon as possible. Take all medications as prescribed, including regularly scheduled medications. Complete your full dose of antibiotics. May apply mupirocin to the open lesion on your face. Patient Language: Honduran Prescriptions: New amoxicillin-pot clavulanate 875-125 mg tablet 1 tablet PO Q12H Qty: 20 0RF hydrocodone-acetaminophen 5-325 mg tablet 1 tablet PO Q8H PRN (Reason: pain) Qty: 6 0RF mupirocin [Centany] 2 % ointment 1 applic topical TID Qty: 22 0RF No Action ibuprofen 600 mg tablet 600 mg PO TID PRN (Reason: pain) Qty: 30 0RF acetaminophen 500 mg capsule 1,000 mg PO Q6H PRN (Reason: pain) Qty: 30 0RF cephalexin 500 mg capsule 500 mg PO Q12H 5 Days Qty: 9 0RF Rx Instructions: already received first dose in ED 12/03 AM metronidazole 500 mg tablet 500 mg PO Q12H 5 Days Qty: 9 0RF Rx Instructions: Already received 1st dose in the ER 12/03 AM oxycodone 5 mg capsule 5 mg PO Q8H PRN (Reason: pain) Qty: 5 0RF albuterol sulfate 90 mcg/actuation HFA aerosol inhaler 1 inh inhalation QID PRN (Reason: shortness of breath or wheezing) Qty: 6.7 0RF ibuprofen 800 mg tablet 800 mg PO Q8H PRN (Reason: fever or pain) hydrocodone-acetaminophen 5-325 mg Tablet 1 tablet PO Q4H PRN (Reason: Pain Rated 4-6) Qty: 20 0RF cyclobenzaprine 5 mg tablet 5 mg PO BID PRN (Reason: muscle spasm) Qty: 14 0RF omeprazole 10 mg capsule,delayed release(DR/EC) 10 mg PO DAILY Qty: 20 0RF ondansetron 4 mg tablet,disintegrating 4 mg PO Q8H PRN (Reason: nausea and vomiting) Qty: 14 0RF Follow-up/Referrals: UNKNOWN,DOCTOR [Primary Care Provider] - Stand Alone Forms: Work/School Release IP Time of Disposition: 13:54
[2025-02-11] MEDS: HYDROmorphone HCL INJ (*CRX) 1 MG/ML SYR 0.5 MG IV PUSH ×2 (09:53→13:19)
[2025-02-11] MEDS: ONDANSETRON INJ 4 MG/2 ML VIAL IV PUSH (09:54)
[2025-02-11] MEDS: SODIUM CHLORIDE 0.9% IV 1,000 ML 999 ML IV CONT (09:54)
[2025-02-11 09:55] LABS: Basophils Absolute Auto 0.1 K/mm3 (0.0-0.1); Basophils Percent Auto 0.5 % (0.2-1.2); Eosinophils Absolute Auto 0.5 K/mm3 (0-0.3); Hematocrit 42.7 % (37.0-47.0); Hemoglobin 13.6 g/dL (12.0-15.0); Immature Granulocyte Absolute 0.06 K/mm3 (0.00-0.031); Immature Granulocyte Percent A 0.6 % (0-0.5); Lymphocytes Absolute Auto 2.93 K/mm3 (0.9-3.2); Lymphocytes Percent Auto 28.8 % (18.3-44.2); Mean Corpuscular HGB Conc 31.9 g/dl (32-36); Mean Corpuscular Hemoglobin 28.1 pg (26-34); Mean Corpuscular Volume 88.2 fl (80-100); Mean Platelet Volume 10.4 fl (7.4-10.4); Monocytes Absolute Auto 0.7 K/mm3 (0.1-0.6); Monocytes Percent Auto 6.9 % (2.6-8.5); Neutrophils Absolute Auto 5.9 K/mm3 (1.3-6.7); Neutrophils Percent Auto 58.2 % (45.5-73.1); Platelet Count Result 289 k/mm3 (150-375); Red Blood Count 4.84 M/mm3 (4.2-5.4); Red Cell Distribution Width 14.5 % (11.5-14.5); White Blood Count 10.2 K/mm3 (4.5-10.0)
[2025-02-11 10:04] LABS: Lactic Acid Reflex 1.2 mmol/L (0.7-2.0)
[2025-02-11 10:05] LABS: Partial Thromboplastin Time 26.1 Seconds (22.3-36.8); Prothrombin Time 13.2 Seconds (11.1-14.7)
[2025-02-11 10:07] LABS: Alanine Aminotransferase 22 U/L (6-35); Albumin Level 4.3 g/dL (3.5-5.1); Alkaline Phosphatase 69 U/L (38-126); Anion Gap 9 mmol/L (4-12); Aspartate Amino Transferase 22 U/L (14-36); Bilirubin,Total 0.3 mg/dL (0.2-1.3); Blood Urea Nitrogen 11 mg/dL (7-17); Calcium 8.8 mg/dL (8.4-10.2); Carbon Dioxide 23 mmol/L (22-30); Chloride 108 mmol/L (98-107); Estimated CRCL calculation 129 ml/min; Estimated Glomerular Filt Rate > 60; Glucose 82 mg/dL (65-110); Potassium 4.7 mmol/L (3.4-5.0); Sodium 140 mmol/L (137-145)
[2025-02-11 10:08] LABS: Add Urine Microscopic? YES; Appearance Urine Cloudy (Clear); Bacteria Urine 1+ /hpf; Bilirubin Urine Negative (Negative); Blood Urine Negative (Negative); Color Urine Yellow (Yellow); Glucose Urine UA Negative (Negative); Ketones Urine Negative (Negative); Leukocyte Esterase Ur Negative LEU/UL (Negative); Nitrate Urine Negative (Negative); Non Pathogenic Casts 0-2; Protein Urine Negative (Negative); RBC Urine 0-2 /hpf (0-2); Specific Grav Ur 1.014 (1.001-1.035); Squamous Epithelial Cell Urine Moderate /hpf (Few); Urobilinogen Urine 0.2 mg/dL (<2.0); WBC Urine 0-5 /hpf (0-3); pH Urine 7.5 (5.0-9.0)
[2025-02-11 10:16] LABS: Troponin I < 0.012 ng/mL (0.000-0.034)
--- NOTE | 2025-02-11 10:20 | PC.NURSE ---
pt to CT
[2025-02-11 10:24] LABS: CRP 0.8 mg/dL (<1.0)
--- NOTE | 2025-02-11 10:40 | PC.NURSE ---
pt states eye swelling feels like it is getting worse and the pain is returning, EDP aware.
--- NOTE | 2025-02-11 11:54 | PC.NURSE ---
pt refused MRSA swab, EDP aware
[2025-02-11] MEDS: KETOROLAC 15 MG/ML VIAL (*BKC) IV PUSH (11:58)
[2025-02-11] MEDS: dexAMETHasone SOD PHOS INJ 10 MG/ML 1 ML VIAL IV PUSH (11:59)
[2025-02-11 12:03] VITALS: BP 126/59; PULSE 71; RESP 16; O2SAT 98
[2025-02-11] MEDS: VANCOMYCIN 1,250 MG/NS 250 ML 1,250 MG/250 ML BAG 166.67 MG IVPB ×2 (12:16→14:07)
[2025-02-11 14:08] VITALS: BP 117/68; PULSE 70; RESP 18; O2SAT 96
--- NOTE | 2025-02-11 14:29 | PC.NURSE ---
pt's IV tender, pt requesting IV be removed and does not want to finish getting abx. EDP aware.
[2025-02-11] MEDS: AMOXICILLIN/CLAVULANATE K 875-125 MG TAB 1 TABLET PO (14:36)
== END 2025-02-11 14:42 | disposition home or self-care (01) ==
PROVIDERS: Emergency Provider Registered Nurse
DX: L03.213 Periorbital cellulitis (principal); Z86.14 Personal history of Methicillin resistant Staphylococcus aureus infection; G40.909 Epilepsy, unspecified, not intractable, without status epilepticus; F17.210 Nicotine dependence, cigarettes, uncomplicated; Z98.2 Presence of cerebrospinal fluid drainage device; R94.31 Abnormal electrocardiogram [ECG] [EKG]
CPT/HCPCS: 36415; 70450; 70481; 80053; 81001; 83605; 84484; 85025; 85610; 85730; 86140; 87040; 93005; 96361; 96365; 96366; 96375; 99284; A9270; J1100; J1171; J1885; J2405; J3370; J7030; Q9967

== ENCOUNTER 2025-02-14 06:14 | Emergency (ER) | payer SELFPAY ==
[2025-02-14 06:22] VITALS: BP 131/88; PULSE 79; RESP 16; O2SAT 100
[2025-02-14] MEDS: oxyCODONE HCL (*CRX) 5 MG TAB IR PO (07:34)
--- NOTE | 2025-02-14 07:34 | ED_ITS ---
HPI - General Adult General Chief complaint: Wound/Laceration Stated complaint: cyst in eye brow Time Seen by Provider: 02/14/25 06:57 History of Present Illness HPI narrative: This is a 39-year-old female presenting ED with chief complaint of cyst on her left eyebrow. She was seen 2 days ago diagnosed with facial cellulitis. That time she squeezes systems a small amount pus came out this is likely a small abscess. She was placed on antibiotics of cleared some redness but she still has a painful central lump. Pain is making it difficult for sleep. She denies systemic signs of illness such as F/C/N/V/D. No pain on extraocular eye movements. No visual changes. Related Data Home Medications ?Medication ?Instructions ?Recorded ?Confirmed ?Last Taken ?Type ibuprofen 800 mg tablet 800 mg PO Q8H PRN fever or pain 11/19/24 11/19/24 11/19/24 History Allergies Allergy/AdvReac Type Severity Reaction Status Date / Time levofloxacin Allergy Intermediate Hives Verified 02/11/25 08:52 tetracycline Allergy Intermediate Hives Verified 02/11/25 08:52 cefaclor (From Ceclor) Allergy Swelling Verified 02/11/25 08:52 prochlorperazine (From Allergy Swelling Verified 02/11/25 08:52 Compazine) Sulfa (Sulfonamide Allergy Swelling Verified 02/11/25 08:52 Antibiotics) sulfamethoxazole (From Allergy Swelling Verified 02/11/25 08:52 Bactrim) trimethoprim (From Bactrim) Allergy Swelling Verified 02/11/25 08:52 PMFSH Past Medical History Medical History History of MRSA infection Pseudotumor cerebri Seizure disorder History of idiopathic intracranial hypertension Surgical History Surgical History S/P ventriculoperitoneal shunt History of appendectomy 2009 S/P VOCAL MUSIC INSTRUCTOR shunt Hx of ventricular shunt VOCAL MUSIC INSTRUCTOR shunt placed 2001, revised multiple times, last in 2019 Family History Family History Mother No problems noted. 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 Surrogate decision maker: . Code Status: Full. Smoking status: Current every day smoker Tobacco type: cigarettes Second hand tobacco smoke exposure: No Alcohol intake: never Substance use: current Substance use type: marijuana Other substance usage details: uses for seizure control; medical card - uses edibles Last use: 11/18/24 Do You Feel Safe in your Home?: Yes Lack of Transportation: No Lack of Food: Never True Current Housing: I Have Housing Concerned About Future Housing: No Difficulty Paying Gas/Electric Bills: No Difficulty Paying for Meds: No Currently Unemployed: No Education: Don't Know Difficulty w/ Childcare or Family Care: No Living arrangements: with family Occupation/Education: occupation Gender identity (if verbalized by the patient): Female Spiritual care concerns: No Exam Narrative: APPEARANCE: No apparent distress. Head: Painful firm lump along the left superior orbital rim, no cellulitic changes: Point of care ultrasound showed a punctate lesion but no drainable fluid collection EYES: EOMI, NOSE: Atraumatic NECK: Trachea midline RESPIRATORY: No increased rate of breathing CARDIOVASCULAR: RRR, ABDOMINAL: Non-distended MUSCULOSKELETAl: No obvious deformities NEURO: Alert. Moving 4/4 extremities SKIN:: Warm, dry. Normal color PSYCHIATRIC: Normal affect Course Vital Signs Vital signs: Vital Signs Pulse Rate 79 02/14/25 06:22 Respiratory Rate 16 02/14/25 06:22 Blood Pressure 131/88 02/14/25 06:22 Pulse Oximetry 100 02/14/25 06:22 Pulse Rate 79 02/14/25 06:22 Respiratory Rate 16 02/14/25 06:22 Blood Pressure 131/88 02/14/25 06:22 Pulse Oximetry 100 02/14/25 06:22 Medical Decision Making MDM Narrative Medical decision making narrative: -Course: 39-year-old female presenting with a painful rash over eye. I suspect this is small abscess and/or phlegmon. Ultrasound the mass is not large enough fluid collection for me to drain I would not be comfortable doing an I and D is close patient's eyeball. Case was discussed with Dr. Roque (plastics) He recommended antibiotics, warm compresses and he will see her in clinic. Patient was provided pain control. Antibiotics expanded to include MRSA coverage. Discharged. Return precautions -DDX includes but is not limited to: Cyst, abscess, phlegmon -Co-morbidities complicating care: Multiple antibiotic allergies -Discussion of Management/Consultants:Jude -Shared decision making / Disposition:discharged Vital Signs Vital Signs: Vital Signs Pulse Rate 79 02/14/25 06:22 Respiratory Rate 16 02/14/25 06:22 Blood Pressure 131/88 02/14/25 06:22 Pulse Oximetry 100 02/14/25 06:22 Pulse Rate 79 02/14/25 06:22 Respiratory Rate 16 02/14/25 06:22 Blood Pressure 131/88 02/14/25 06:22 Pulse Oximetry 100 02/14/25 06:22 Discharge Plan Discharge Clinical Impression: Abscess of face Patient Disposition: Home Condition: Stable Instructions: Antibiotic Form, Abscess (ED) Additional Instructions: Please take the antibiotics as instructed. I have added clindamycin to cover MRSA. Use Motrin and Tylenol for pain and use oxycodone for breakthrough pain. Please call Dr. Roque at his clinic as soon as you leave the ER to arrange close follow-up. Return if your symptoms are getting worse or you have eye involvement. Patient Language: Pashto Prescriptions: New clindamycin HCl [Cleocin HCl] 300 mg capsule 300 mg PO Q6H Qty: 28 0RF ibuprofen 800 mg tablet 800 mg PO TID PRN (Reason: pain) 7 Days Qty: 21 0RF acetaminophen 500 mg tablet 1,000 mg PO TID PRN (Reason: daron) 7 Days Qty: 42 0RF oxycodone 5 mg tablet 5 mg PO Q4H PRN (Reason: pain) Qty: 14 0RF No Action ibuprofen 600 mg tablet 600 mg PO TID PRN (Reason: pain) Qty: 30 0RF acetaminophen 500 mg capsule 1,000 mg PO Q6H PRN (Reason: pain) Qty: 30 0RF cephalexin 500 mg capsule 500 mg PO Q12H 5 Days Qty: 9 0RF Rx Instructions: already received first dose in ED 12/03 AM metronidazole 500 mg tablet 500 mg PO Q12H 5 Days Qty: 9 0RF Rx Instructions: Already received 1st dose in the ER 12/03 AM oxycodone 5 mg capsule 5 mg PO Q8H PRN (Reason: pain) Qty: 5 0RF albuterol sulfate 90 mcg/actuation HFA aerosol inhaler 1 inh inhalation QID PRN (Reason: shortness of breath or wheezing) Qty: 6.7 0RF ibuprofen 800 mg tablet 800 mg PO Q8H PRN (Reason: fever or pain) hydrocodone-acetaminophen 5-325 mg Tablet 1 tablet PO Q4H PRN (Reason: Pain Rated 4-6) Qty: 20 0RF cyclobenzaprine 5 mg tablet 5 mg PO BID PRN (Reason: muscle spasm) Qty: 14 0RF omeprazole 10 mg capsule,delayed release(DR/EC) 10 mg PO DAILY Qty: 20 0RF ondansetron 4 mg tablet,disintegrating 4 mg PO Q8H PRN (Reason: nausea and vomiting) Qty: 14 0RF amoxicillin-pot clavulanate 875-125 mg tablet 1 tablet PO Q12H Qty: 20 0RF hydrocodone-acetaminophen 5-325 mg tablet 1 tablet PO Q8H PRN (Reason: pain) Qty: 6 0RF mupirocin [Centany] 2 % ointment 1 applic topical TID Qty: 22 0RF Follow-up/Referrals: Zaki Roque MD [Physician] - 1 Day (Facial abscess ) PHYSICIAN,FOOD PRODUCTS SALES REPRESENTATIVE [Primary Care Provider] -
== END 2025-02-14 07:53 | disposition home or self-care (01) ==
PROVIDERS: Emergency Provider Emergency Medicine
DX: L02.01 Cutaneous abscess of face (principal); G40.909 Epilepsy, unspecified, not intractable, without status epilepticus; G93.2 Benign intracranial hypertension; F17.210 Nicotine dependence, cigarettes, uncomplicated; Z98.2 Presence of cerebrospinal fluid drainage device; Z86.14 Personal history of Methicillin resistant Staphylococcus aureus infection
CPT/HCPCS: 99283; A9270

== ENCOUNTER 2025-02-22 21:23 | Emergency (ER) | payer SELFPAY ==
[2025-02-22 21:26] VITALS: BP 143/75; PULSE 90; RESP 15; TEMP 36.2; O2SAT 100
--- NOTE | 2025-02-22 22:11 | ED_ITS ---
HPI - Dental/Oral General Chief complaint: Dental/Oral Stated complaint: abscess tooth Time Seen by Provider: 02/22/25 21:32 Source: patient Mode of arrival: ambulatory Limitations: no limitations History of Present Illness HPI Narrative: This is a 39-year-old female who presents to the ED for chief complaint of right-sided dental pain ongoing for the past couple of days. Patient reports she may have an abscess to the right upper teeth. She does note that she has cracked tooth in that area. States that she had leftover antibiotics and has been taking Augmentin and clindamycin at home. Denies fevers, chills, nausea, vomiting, trismus, drooling. Related Data Home Medications ?Medication ?Instructions ?Recorded ?Confirmed ?Last Taken ?Type ibuprofen 800 mg tablet 800 mg PO Q8H PRN fever or pain 11/19/24 11/19/24 11/19/24 History Allergies Allergy/AdvReac Type Severity Reaction Status Date / Time levofloxacin Allergy Intermediate Hives Verified 02/22/25 21:26 tetracycline Allergy Intermediate Hives Verified 02/22/25 21:26 cefaclor (From Ceclor) Allergy Swelling Verified 02/22/25 21:26 prochlorperazine (From Allergy Swelling Verified 02/22/25 21:26 Compazine) Sulfa (Sulfonamide Allergy Swelling Verified 02/22/25 21:26 Antibiotics) sulfamethoxazole (From Allergy Swelling Verified 02/22/25 21:26 Bactrim) trimethoprim (From Bactrim) Allergy Swelling Verified 02/22/25 21:26 Review of Systems Review of Systems: All systems as dictated in HPI [facility] Past Medical History Medical History History of MRSA infection Pseudotumor cerebri Seizure disorder History of idiopathic intracranial hypertension Surgical History Surgical History S/P ventriculoperitoneal shunt History of appendectomy 2009 S/P COMMUNITY RELATIONS REP shunt Hx of ventricular shunt COMMUNITY RELATIONS REP shunt placed 2001, revised multiple times, last in 2019 Family History Family History Mother No problems noted. 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 Surrogate decision maker: . Code Status: Full. Smoking status: Current every day smoker Tobacco type: cigarettes Second hand tobacco smoke exposure: No Alcohol intake: never Substance use: current Substance use type: marijuana Other substance usage details: uses for seizure control; medical card - uses edibles Last use: 11/18/24 Do You Feel Safe in your Home?: Yes Lack of Transportation: No Lack of Food: Never True Current Housing: I Have Housing Concerned About Future Housing: No Difficulty Paying Gas/Electric Bills: No Difficulty Paying for Meds: No Currently Unemployed: No Education: Don't Know Difficulty w/ Childcare or Family Care: No Living arrangements: with family Occupation/Education: occupation Gender identity (if verbalized by the patient): Female Spiritual care concerns: No Exam Narrative: GENERAL: Well-appearing, well-nourished, and in no acute distress. HEAD: Normocephalic, atraumatic. EYES: PERRLA and EOMI. ENT: Poor dentition throughout. No focal fluctuance or abscess palpable. Floor of the mouth intact. Nares clear, no rhinorrhea or epistaxis. Mucous membranes moist. Oropharynx without tonsillar hypertrophy exudate or other lesions. NECK: Supple. No adenopathy or masses. CHEST: No respiratory distress. Clear to auscultation. No wheezes rales or rhonchi HEART: Regular rate and rhythm. No murmur heard. Normal peripheral pulses. ABDOMEN: Soft, nontender, nondistended, normal active bowel sounds. MSK: Normal range of motion. No edema. SKIN: Warm, dry, no rash. NEURO: Alert and oriented x4. No focal deficits. PSYCH: Normal mood and affect. Course Vital Signs Vital signs: Vital Signs Temperature 97.1 F L 02/22/25 21: Pulse Rate 90 02/22/25 21: Respiratory Rate 15 02/22/25 21: Blood Pressure 143/75 H 02/22/25 21:26 Pulse Oximetry 100 02/22/25 21:26 Oxygen Delivery Room Air 02/22/25 21:26 Temperature 97.1 F L 02/22/25 21:26 Pulse Rate 90 02/22/25 21:26 Respiratory Rate 15 02/22/25 21:26 Blood Pressure 143/75 H 02/22/25 21:26 Pulse Oximetry 100 02/22/25 21:26 Oxygen Delivery Room Air 02/22/25 21:26 MDM - Dental/Oral MDM Narrative Medical decision making narrative: This is a 39-year-old female who presents to the ED for chief complaint of right-sided dental infection. Vitals are normal. Exam remarkable for the above. No focal fluctuance or abscess to be drained today. No evidence of deep space infection on exam. Patient has leftover antibiotics, however will prescribe additional Augmentin for antibiotic control. Advise that she see dentist for definitive management of this pain. She will be given short course of [place] for breakthrough pain. Do have some concern over the patient receiving 2 different opioid prescriptions recently, however it does seem to be for a separate of facial infection and abscess. Pt will be discharged in stable condition. Return precautions given and supportive measures discussed. Pt is understanding and agreeable with plan for discharge and follow-up with dentist. Discharge Plan Discharge Clinical Impression: Dental caries Patient Disposition: Home Condition: Stable Instructions: Antibiotic Form Additional Instructions: Please continue taking your antibiotics for the next 7 days. Additional Augmentin prescribed in case you run out. Short course of [place] given for breakthrough pain control. Use Tylenol and ibuprofen as needed for pain. If you have any new or worsening symptoms please return to the ER for further evaluation. Patient Language: Tuvaluan Prescriptions: New hydrocodone-acetaminophen 5-325 mg tablet 1 tablet PO Q8H PRN (Reason: pain) Qty: 14 0RF amoxicillin-pot clavulanate 875-125 mg tablet 1 tablet PO Q12H Qty: 10 0RF No Action ibuprofen 600 mg tablet 600 mg PO TID PRN (Reason: pain) Qty: 30 0RF acetaminophen 500 mg capsule 1,000 mg PO Q6H PRN (Reason: pain) Qty: 30 0RF cephalexin 500 mg capsule 500 mg PO Q12H 5 Days Qty: 9 0RF Rx Instructions: already received first dose in ED 12/03 AM metronidazole 500 mg tablet 500 mg PO Q12H 5 Days Qty: 9 0RF Rx Instructions: Already received 1st dose in the ER 12/03 AM oxycodone 5 mg capsule 5 mg PO Q8H PRN (Reason: pain) Qty: 5 0RF albuterol sulfate 90 mcg/actuation HFA aerosol inhaler 1 inh inhalation QID PRN (Reason: shortness of breath or wheezing) Qty: 6.7 0RF ibuprofen 800 mg tablet 800 mg PO Q8H PRN (Reason: fever or pain) hydrocodone-acetaminophen 5-325 mg Tablet 1 tablet PO Q4H PRN (Reason: Pain Rated 4-6) Qty: 20 0RF cyclobenzaprine 5 mg tablet 5 mg PO BID PRN (Reason: muscle spasm) Qty: 14 0RF omeprazole 10 mg capsule,delayed release(DR/EC) 10 mg PO DAILY Qty: 20 0RF ondansetron 4 mg tablet,disintegrating 4 mg PO Q8H PRN (Reason: nausea and vomiting) Qty: 14 0RF amoxicillin-pot clavulanate 875-125 mg tablet 1 tablet PO Q12H Qty: 20 0RF hydrocodone-acetaminophen 5-325 mg tablet 1 tablet PO Q8H PRN (Reason: pain) Qty: 6 0RF mupirocin [Centany] 2 % ointment 1 applic topical TID Qty: 22 0RF clindamycin HCl [Cleocin HCl] 300 mg capsule 300 mg PO Q6H Qty: 28 0RF ibuprofen 800 mg tablet 800 mg PO TID PRN (Reason: pain) 7 Days Qty: 21 0RF acetaminophen 500 mg tablet 1,000 mg PO TID PRN (Reason: daron) 7 Days Qty: 42 0RF oxycodone 5 mg tablet 5 mg PO Q4H PRN (Reason: pain) Qty: 14 0RF Follow-up/Referrals: PHYSICIAN,[employer] [Primary Care Provider] - Stand Alone Forms: Work/School Release IP Time of Disposition: 22:27
[2025-02-22] MEDS: HYDROcodone/acetaminophen (*CRX) 5-325 MG TABLET 1 TAB PO (22:33)
== END 2025-02-22 22:59 | disposition home or self-care (01) ==
PROVIDERS: Emergency Provider Physician Assistant
DX: K02.9 Dental caries, unspecified (principal); F17.210 Nicotine dependence, cigarettes, uncomplicated; G40.909 Epilepsy, unspecified, not intractable, without status epilepticus
CPT/HCPCS: 99283; A9270

== ENCOUNTER 2025-04-08 20:05 | Emergency (ER) | payer SELFPAY ==
--- NOTE | ~2025-04-08 | XR_ITS ---
EXAM: XR forearm RT 2V DATE: 04/08/2025 20:31 HISTORY: cat bites . COMPARISON: None available. FINDINGS: Normal mineralization. No fracture or dislocation. No lytic or blastic lesion. Joint space s are maintained. No erosion or periosteal change. Soft tissue swelling over the distal and anterior forearm. No subcutaneous emphysema or foreign body. IMPRESSION: No acute osseous finding in the right forearm. Reviewed, dictated and finalized at location K.
[2025-04-08 20:14] VITALS: BP 145/78; PULSE 94; RESP 16; TEMP 36.6; O2SAT 99
--- NOTE | 2025-04-08 20:18 | PC.NURSE ---
pt will sign papers for xray - has tubes tied
--- NOTE | 2025-04-08 23:12 | ED.ANIMALBIT ---
HPI - Animal Bite General Chief Complaint: Animal Bite Stated Complaint: cat bite Time Seen by Provider: 04/08/25 22:31 History of Present Illness HPI narrative: 39-year-old female presenting to the emergency department after getting bit by her to masticate house cat several times in the right upper extremity while trying to help it get untangled from the blinds. This occurred earlier this afternoon prior to arrival. Patient states the cat is up-to-date on immunizations including rabies. Patient herself has up-to-date shots including tetanus. She is complaining of significant pain and swelling in the dorsum of the right hand. She has had multiple puncture barrera that were bleeding but now controlled. Endorses swelling to the point she is having difficulty ranging her wrist. Overlying redness but denies any fever. No systemic symptoms. She was otherwise in her normal state of health. No other trauma besides minor scratches to the left forearm without any deep punctures or bites. Related Data Home Medications ?Medication ?Instructions ?Recorded ?Confirmed ?Last Taken ?Type ibuprofen 800 mg tablet 800 mg PO Q8H PRN fever or pain 11/19/24 11/19/24 11/19/24 History Allergies Allergy/AdvReac Type Severity Reaction Status Date / Time levofloxacin Allergy Intermediate Hives Verified 02/22/25 21:26 tetracycline Allergy Intermediate Hives Verified 02/22/25 21:26 cefaclor (From Ceclor) Allergy Swelling Verified 02/22/25 21:26 prochlorperazine (From Allergy Swelling Verified 02/22/25 21:26 Compazine) Sulfa (Sulfonamide Allergy Swelling Verified 02/22/25 21:26 Antibiotics) sulfamethoxazole (From Allergy Swelling Verified 02/22/25 21:26 Bactrim) trimethoprim (From Bactrim) Allergy Swelling Verified 02/22/25 21:26 Review of Systems Review of Systems: As reviewed above in HPI [facility] Past Medical History Medical History History of MRSA infection Pseudotumor cerebri Seizure disorder History of idiopathic intracranial hypertension Surgical History Surgical History S/P ventriculoperitoneal shunt History of appendectomy 2009 S/P USER SUPPORT ANALYST shunt Hx of ventricular shunt USER SUPPORT ANALYST shunt placed 2001, revised multiple times, last in 2019 Family History Family History Mother No problems noted. 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 Surrogate decision maker: . Code Status: Full. Smoking status: Current every day smoker Tobacco type: cigarettes Second hand tobacco smoke exposure: No Alcohol intake: never Substance use: current Substance use type: marijuana Other substance usage details: uses for seizure control; medical card - uses edibles Last use: 11/18/24 Do You Feel Safe in your Home?: Yes Lack of Transportation: No Lack of Food: Never True Current Housing: I Have Housing Concerned About Future Housing: No Difficulty Paying Gas/Electric Bills: No Difficulty Paying for Meds: No Currently Unemployed: No Education: Don't Know Difficulty w/ Childcare or Family Care: No Living arrangements: with family Occupation/Education: occupation Gender identity (if verbalized by the patient): Female Spiritual care concerns: No Exam Narrative: GENERAL: [Well-appearing, well-nourished, and in no acute distress.] HEAD: [Normocephalic, atraumatic.] EYES: [PERRLA and EOMI.] ENT: Nares clear, no rhinorrhea or epistaxis. Mucous membranes moist. NECK: Supple. CHEST: [Clear to auscultation. No respiratory distress.] HEART: [Regular rate and rhythm]. No murmur heard. [Normal peripheral pulses.] ABDOMEN: [Soft, nondistended], [nontender], [No rigidity or guarding] EXTREMITIES: Puncture barrera at the dorsal lateral aspect of the right wrist with obvious swelling with some overlying redness but no fluctuance or palpable masses. Pain with ranging of the wrist and supination and pronation. Good cap refill distally, able to make a fist and oppose each digit. SKIN: Superficial scratch the left forearm as well as the right forearm puncture barrera and swelling as described above NEURO: [No focal deficits]. Alert and oriented [x3.] PSYCH: [Normal mood and affect.] Course Vital Signs Vital signs: Vital Signs Temperature 36.6 C 04/08/25 20:14 Pulse Rate 94 04/08/25 20:14 Respiratory Rate 16 04/08/25 20:14 Blood Pressure 145/78 H 04/08/25 20:14 Pulse Oximetry 99 04/08/25 20:14 Oxygen Delivery Room Air 04/08/25 20:14 Temperature 36.6 C 04/08/25 20:14 Pulse Rate 94 04/08/25 20:14 Respiratory Rate 16 04/08/25 20:14 Blood Pressure 145/78 H 04/08/25 20:14 Pulse Oximetry 99 04/08/25 20:14 Oxygen Delivery Room Air 04/08/25 20:14 MDM - Animal Bite MDM Narrative Medical decision making narrative: 39-year-old female presenting after a cat bit her several times while trying to help that. Patient's house cat is up-to-date on shots and patient is up-to-date on tetanus. She has obvious swelling and redness on the dorsal lateral aspect of the right forearm near the wrist. Several puncture barrera that were previously bleeding but now controlled. Superficial scratches to left forearm but no other bites. She has limited range of motion secondary to pain and swelling but good distal neuro vasculature with palpable pulses and intact capillary refill with good range of the distal extremity. Patient will need antibiotics to cover for mammalian cat bite to prevent any deep space infections and we went over what to watch out for in this setting and to outline the area of redness to make sure that it is decreasing in size and not spreading. She was given return precautions on decreased range of motion at the joints, increased swelling or pain, purulent drainage, fevers, any other concerns. Patient was given intramuscular Dilaudid and Toradol for analgesia, ice pack applied to the area. Patient will be discharged home with a short course of tramadol and Augmentin and return precautions. Discharge Plan Discharge Clinical Impression: Cat bite involving extremity Patient Disposition: Home Condition: Stable Instructions: Antibiotic Form, Animal Bite (ED) Additional Instructions: Outline the area of redness to make sure that is decreasing in size and not rapidly swelling or spreading. Apply ice to the area up to 20 minutes at a time for the 1st 2 days and do not use any heating products at this time. Anti-inflammatory such as Tylenol, ibuprofen, meloxicam, Naprosyn. We will prescribe a short course of tramadol for breakthrough pain and Augmentin to combat the infectious process. If you notice any purulent drainage, worsening pain, worsening swelling, numbness of the hand or inability to range the distal extremity, fevers, any other symptoms of concern please return to the emergency department otherwise follow-up with regular outpatient primary care provider. Patient Language: Urdu Prescriptions: New acetaminophen [Tylenol Extra Strength] 500 mg tablet 1,000 mg PO TID PRN (Reason: pain) Qty: 30 0RF ketorolac 10 mg tablet 10 mg PO Q8H PRN (Reason: pain) 5 Days Qty: 20 0RF Rx Instructions: maximum total duration of 5 days from all oral, intranasal, or parenteral formulations amoxicillin-pot clavulanate 875-125 mg tablet 1 tablet PO Q12H 7 Days Qty: 14 0RF tramadol 50 mg tablet 50 mg PO Q6H PRN (Reason: pain) Qty: 10 0RF No Action ibuprofen 600 mg tablet 600 mg PO TID PRN (Reason: pain) Qty: 30 0RF acetaminophen 500 mg capsule 1,000 mg PO Q6H PRN (Reason: pain) Qty: 30 0RF cephalexin 500 mg capsule 500 mg PO Q12H 5 Days Qty: 9 0RF Rx Instructions: already received first dose in ED 12/03 AM metronidazole 500 mg tablet 500 mg PO Q12H 5 Days Qty: 9 0RF Rx Instructions: Already received 1st dose in the ER 31 AM oxycodone 5 mg capsule 5 mg PO Q8H PRN (Reason: pain) Qty: 5 0RF hydrocodone-acetaminophen 5-325 mg tablet 1 tablet PO Q8H PRN (Reason: pain) Qty: 14 0RF amoxicillin-pot clavulanate 875-125 mg tablet 1 tablet PO Q12H Qty: 10 0RF albuterol sulfate 90 mcg/actuation HFA aerosol inhaler 1 inh inhalation QID PRN (Reason: shortness of breath or wheezing) Qty: 6.7 0RF ibuprofen 800 mg tablet 800 mg PO Q8H PRN (Reason: fever or pain) hydrocodone-acetaminophen 5-325 mg Tablet 1 tablet PO Q4H PRN (Reason: Pain Rated 4-6) Qty: 20 0RF cyclobenzaprine 5 mg tablet 5 mg PO BID PRN (Reason: muscle spasm) Qty: 14 0RF omeprazole 10 mg capsule,delayed release(DR/EC) 10 mg PO DAILY Qty: 20 0RF ondansetron 4 mg tablet,disintegrating 4 mg PO Q8H PRN (Reason: nausea and vomiting) Qty: 14 0RF amoxicillin-pot clavulanate 875-125 mg tablet 1 tablet PO Q12H Qty: 20 0RF hydrocodone-acetaminophen 5-325 mg tablet 1 tablet PO Q8H PRN (Reason: pain) Qty: 6 0RF mupirocin [Centany] 2 % ointment 1 applic topical TID Qty: 22 0RF clindamycin HCl [Cleocin HCl] 300 mg capsule 300 mg PO Q6H Qty: 28 0RF ibuprofen 800 mg tablet 800 mg PO TID PRN (Reason: pain) 7 Days Qty: 21 0RF acetaminophen 500 mg tablet 1,000 mg PO TID PRN (Reason: daron) 7 Days Qty: 42 0RF oxycodone 5 mg tablet 5 mg PO Q4H PRN (Reason: pain) Qty: 14 0RF Follow-up/Referrals: PHYSICIAN,TR[employer]ATION AGENT [Primary Care Provider] - Time of Disposition: 23:20
[2025-04-08] MEDS: HYDROmorphone HCL INJ (*CRX) 2 MG/ML VIAL 0.5 MG IM (23:28)
[2025-04-08] MEDS: KETOROLAC 30 MG/ML VIAL (*BKC) IM (23:29)
[2025-04-08] MEDS: AMOXICILLIN/CLAVULANATE K 875-125 MG TAB 1 TABLET PO (23:29)
== END 2025-04-08 23:43 | disposition home or self-care (01) ==
PROVIDERS: Emergency Provider Student in an Organized Health Care Education/Training Program
DX: S51.851A Open bite of right forearm, initial encounter (principal); L08.9 Local infection of the skin and subcutaneous tissue, unspecified; G40.909 Epilepsy, unspecified, not intractable, without status epilepticus; F17.210 Nicotine dependence, cigarettes, uncomplicated; Z98.2 Presence of cerebrospinal fluid drainage device; Z86.14 Personal history of Methicillin resistant Staphylococcus aureus infection; W55.01XA Bitten by cat, initial encounter
CPT/HCPCS: 73090; 96372; 99284; A9270; J1171; J1885

== ENCOUNTER 2025-04-11 13:44 | Observation (INO) | payer SELFPAY ==
--- NOTE | ~2025-04-11 | XR_ITS ---
XR forearm RT 2V Ordering provider: Glenny Salazar MD History: . swellilng, cat bite . Comparison: April 08, 2025 FINDINGS: BONES: No acute fracture or dislocation. JOINT SPACES: Normal. SOFT TISSUES: Normal. IMPRESSION: No acute osseous abnormality right forearm. Reviewed, dictated and finalized at location A.
[2025-04-11 13:54] VITALS: BP 116/92; PULSE 61; RESP 16; TEMP 36.4; O2SAT 99
--- NOTE | 2025-04-11 14:35 | ED_ITS ---
HPI - Wound/Laceration General Chief Complaint: Wound/Laceration Stated Complaint: infection in R hand Time Seen by Provider: 04/11/25 13:59 Source: patient, RN notes reviewed and old records reviewed Mode of arrival: ambulatory Limitations: no limitations History of Present Illness HPI narrative: This is a 39 year old female who presents for evaluation of right forearm infected cat bite. She states she was bitten by her cat 3 days ago on right forearm. She came to ER 3 days agao and she was started on Augmentin. Despite taking augmentin for 3 days she developed right fore arm pain, nausea, vomiting, weakness. She also reports swelling and drainage from right forearm wound. Related Data Allergies Allergy/AdvReac Type Severity Reaction Status Date / Time levofloxacin Allergy Intermediate Hives Verified 04/11/25 13:45 tetracycline Allergy Intermediate Hives Verified 04/11/25 13:45 cefaclor (From Ceclor) Allergy Swelling Verified 04/11/25 13:45 prochlorperazine (From Allergy Swelling Verified 04/11/25 13:45 Compazine) Sulfa (Sulfonamide Allergy Swelling Verified 04/11/25 13:45 Antibiotics) sulfamethoxazole (From Allergy Swelling Verified 04/11/25 13:45 Bactrim) trimethoprim (From Bactrim) Allergy Swelling Verified 04/11/25 13:45 PMFSH Past Medical History Medical History History of MRSA infection Pseudotumor cerebri Seizure disorder History of idiopathic intracranial hypertension Surgical History Surgical History S/P ventriculoperitoneal shunt History of appendectomy 2009 S/P TON CONTAINER FILLER shunt Hx of ventricular shunt TON CONTAINER FILLER shunt placed 2001, revised multiple times, last in 2019 Family History Family History Mother No problems noted. 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 Surrogate decision maker: . Code Status: Full. Smoking packs per day: 0.25 Smoking cigarettes per day: 5.0 Smoking status: Current every day smoker Second hand tobacco smoke exposure: No Alcohol intake: never Substance use: current Substance use type: marijuana Other substance usage details: uses for seizure control; medical card - uses edibles Last use: 11/18/24 Do You Feel Safe in your Home?: Yes Lack of Transportation: No Lack of Food: Never True Current Housing: I Have Housing Concerned About Future Housing: No Difficulty Paying Gas/Electric Bills: No Difficulty Paying for Meds: No Currently Unemployed: No Education: Don't Know Difficulty w/ Childcare or Family Care: No Living arrangements: with family Occupation/Education: occupation Gender identity (if verbalized by the patient): Female Spiritual care concerns: No Exam 2 Const: General: no acute distress and alert Nutritional Appearance: well nourished Orientation/consciousness: patient oriented x3 HENMT: Head: normal to inspection Eyes: EOM: EOMs intact bilaterally Resp: Effort & Inspection: normal respiratory effort Cardio: Rate: regular rate Rhythm: regular rhythm Skin: Wounds: wounds noted (right forearm with 2 puncture wounds with serous drainage) Other: there is surrounding TTP to forearm and there is induration with right hand swelling and erythema, radial pulse intact Neuro: General: patient oriented x3 and moves all extremities Cranial nerves: Yes Nystagmus not present Extrem: Other: right hand swelling with wound to right forearm Psych: Mental Status: mental status grossly normal Affect: normal affect Attitude: cooperative Course Reevaluation(s) Reevaluation #1: I discussed with patient that labs stable. She has mild leukocytosis with 10.1. She was given toradol 15 mg IV for pain. she reports pain is still severe. She was given dilaudid for pain. Since she developed infection while on antibiotics and having pain will obs for IV antibiotics. No drainable abscess at this time. [facility] accepts patient to hospitalist. Date: 04/11/25 Time: 17:40 Vital Signs Vital signs: Vital Signs Temperature 97.6 F 04/11/25 13:54 Pulse Rate 61 04/11/25 13:54 Respiratory Rate 16 04/11/25 13:54 Blood Pressure 116/92 H 04/11/25 13:54 Pulse Oximetry 99 04/11/25 13:54 Temperature 98.1 F 04/11/25 16:30 Pulse Rate 66 04/11/25 20:10 Respiratory Rate 20 04/11/25 20:10 Blood Pressure 117/79 04/11/25 16:30 Pulse Oximetry 98 04/11/25 20:10 Oxygen Delivery Room Air 04/11/25 20:10 Fraction of Inspired Oxygen 21 04/11/25 20:10 MDM - Wound/Laceration Lab Data 04/11/25 16:10 04/11/25 14:45 Labs: Lab Results 04/11/25 Range/Units 14:45 Sodium 136 L (137-145) mmol/L Potassium 4.2 (3.4-5.0) mmol/L Chloride 106 (98-107) mmol/L Carbon Dioxide 22 (22-30) mmol/L Anion Gap 8 (4-12) mmol/L BUN 9 (7-17) mg/dL Creatinine 0.75 (0.7-1.0) mg/dL Estim Creat Clear Calc 118 ml/min Estimated GFR > 60 (59 - ) Glucose 96 (65-110) mg/dL Calcium 9.0 (8.4-10.2) mg/dL Total Bilirubin 0.2 (0.2-1.3) mg/dL AST 26 (14-36) U/L ALT 21 (6-35) U/L Alkaline Phosphatase 67 (38-126) U/L C-Reactive Protein 1.2 H (<1.0) mg/dL Total Protein 7.4 (6.3-8.2) g/dL Albumin 4.3 (3.5-5.1) g/dL Discharge Plan Discharge Clinical Impression: Animal bite of right upper arm, Infected cat bite Patient Disposition: Still a Patient Condition: Stable
[2025-04-11] MEDS: KETOROLAC 15 MG/ML VIAL (*BKC) IV PUSH (14:47)
[2025-04-11] MEDS: ONDANSETRON INJ 4 MG/2 ML VIAL IV PUSH ×3 (14:47→21:24)
[2025-04-11] MEDS: AMPICILLIN SULB 3 GM/NS 100 ML 3 GM/100 ML VIAL IVPB ×2 (14:48→20:50)
[2025-04-11 15:15] LABS: Alanine Aminotransferase 21 U/L (6-35); Albumin Level 4.3 g/dL (3.5-5.1); Alkaline Phosphatase 67 U/L (38-126); Anion Gap 8 mmol/L (4-12); Aspartate Amino Transferase 26 U/L (14-36); Bilirubin,Total 0.2 mg/dL (0.2-1.3); Blood Urea Nitrogen 9 mg/dL (7-17); CRP 1.2 mg/dL (<1.0); Carbon Dioxide 22 mmol/L (22-30); Chloride 106 mmol/L (98-107); Estimated CRCL calculation 118 ml/min; Estimated Glomerular Filt Rate > 60; Glucose 96 mg/dL (65-110); Potassium 4.2 mmol/L (3.4-5.0); Sodium 136 mmol/L (137-145); Total Protein 7.4 g/dL (6.3-8.2)
[2025-04-11] MEDS: HYDROmorphone HCL INJ (*CRX) 2 MG/ML VIAL 0.5 MG IV PUSH ×2 (16:12→20:44)
[2025-04-11 16:13] VITALS: BP 116/79; PULSE 70; RESP 16; TEMP 36.4; O2SAT 98
[2025-04-11 16:30] VITALS: BP 117/79; PULSE 70; RESP 16; TEMP 36.7; O2SAT 98
[2025-04-11 16:30] LABS: Basophils Absolute Auto 0.1 K/mm3 (0.0-0.1); Basophils Percent Auto 0.7 % (0.2-1.2); Eosinophils Absolute Auto 0.6 K/mm3 (0-0.3); Eosinophils Percent Auto 6.1 % (0-4.4); Hemoglobin 14.2 g/dL (12.0-15.0); Immature Granulocyte Absolute 0.07 K/mm3 (0.00-0.031); Immature Granulocyte Percent A 0.7 % (0-0.5); Lymphocytes Absolute Auto 2.88 K/mm3 (0.9-3.2); Lymphocytes Percent Auto 28.6 % (18.3-44.2); Mean Corpuscular HGB Conc 31.6 g/dl (32-36); Mean Corpuscular Hemoglobin 28.1 pg (26-34); Mean Corpuscular Volume 89.1 fl (80-100); Mean Platelet Volume 10.1 fl (7.4-10.4); Monocytes Absolute Auto 0.7 K/mm3 (0.1-0.6); Monocytes Percent Auto 7.1 % (2.6-8.5); Neutrophils Absolute Auto 5.7 K/mm3 (1.3-6.7); Neutrophils Percent Auto 56.8 % (45.5-73.1); Platelet Count Result 328 k/mm3 (150-375); Red Blood Count 5.05 M/mm3 (4.2-5.4); Red Cell Distribution Width 13.1 % (11.5-14.5); White Blood Count 10.1 K/mm3 (4.5-10.0)
[2025-04-11 17:30] VITALS: BMI 34.4
[2025-04-11] MEDS: HYDROcodone/acetaminophen (*CRX) 5-325 MG TABLET 1 TAB PO ×2 (17:45→21:30)
[2025-04-11 20:10] VITALS: PULSE 66; RESP 20; O2SAT 98
[2025-04-11 21:07] VITALS: BP 121/67; PULSE 73; RESP 14; TEMP 36.2; O2SAT 99
--- NOTE | 2025-04-11 22:15 | P.HP_ITS ---
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 Patient initially presented to the ER on 04/08/2025 after being bit several times by her CT while she was trying to get it on tangled from the blinds. She was discharged home on Augmentin and tramadol. She came back into the ER due to increasing right forearm pain, increased swelling and drainage despite taking antibiotics as directed. She also had accompanying vomiting and weakness. She was afebrile on presentation to the ER. She did have mild leukocytosis in a mildly elevated CRP but a normal x-ray of the forearm. Review of Systems 2 Review of Systems: 12 systems were reviewed with pertinent positives and negatives per HPI. Except as documented in the HPI, all other systems were reviewed and are negative. [facility] Past Medical History Medical History (Updated 04/11/25 @ 22:29 by Iveth Mccoy DO) Tobacco dependence due to cigarettes History of MRSA infection Pseudotumor cerebri Seizure disorder History of idiopathic intracranial hypertension Surgical History Surgical History S/P ventriculoperitoneal shunt History of appendectomy 2009 S/P RETORT FURNACE OPERATOR shunt Hx of ventricular shunt RETORT FURNACE OPERATOR shunt placed 2001, revised multiple times, last in 2019 Family History Family History Mother No problems noted. 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 Surrogate decision maker: . Code Status: Full. Smoking packs per day: 0.25 Smoking cigarettes per day: 5.0 Smoking status: Current every day smoker Second hand tobacco smoke exposure: No Alcohol intake: never Substance use: current Substance use type: marijuana Other substance usage details: uses for seizure control; medical card - uses edibles Last use: 1/16/25 Do You Feel Safe in your Home?: Yes Lack of Transportation: No Lack of Food: Never True Current Housing: I Have Housing Concerned About Future Housing: No Difficulty Paying Gas/Electric Bills: No Difficulty Paying for Meds: No Currently Unemployed: No Education: Don't Know Difficulty w/ Childcare or Family Care: No Living arrangements: with family Occupation/Education: occupation Gender identity (if verbalized by the patient): Female Spiritual care concerns: No Meds Home Medications and Allergies Home Medications ?Medication ?Instructions ?Recorded ?Confirmed ?Type albuterol sulfate 90 mcg/actuation 1 inh inhalation QID PRN shortness 09/07/24 04/11/25 Rx aerosol inhaler of breath or wheezing #6.7 grams amoxicillin 875 mg-potassium 1 tablet PO Q12H #20 tabs 02/11/25 04/11/25 Rx clavulanate 125 mg tablet acetaminophen 500 mg tablet 1,000 mg (2 x 500 mg) PO TID PRN 02/14/25 04/11/25 Rx daron 7 days #42 tabs Allergies Allergy/AdvReac Type Severity Reaction Status Date / Time levofloxacin Allergy Intermediate Hives Verified 04/11/25 13:45 tetracycline Allergy Intermediate Hives Verified 04/11/25 13:45 cefaclor (From Ceclor) Allergy Swelling Verified 04/11/25 13:45 prochlorperazine (From Allergy Swelling Verified 04/11/25 13:45 Compazine) Sulfa (Sulfonamide Allergy Swelling Verified 04/11/25 13:45 Antibiotics) sulfamethoxazole (From Allergy Swelling Verified 04/11/25 13:45 Bactrim) trimethoprim (From Bactrim) Allergy Swelling Verified 04/11/25 13:45 Vital Signs Vital Signs - 24 hr 04/11/25 13:54 04/11/25 16:13 04/11/25 16:30 Temperature 97.6 F 97.6 F 98.1 F Pulse Rate 61 70 70 Respiratory Rate 16 16 16 Blood Pressure 116/92 H 116/79 117/79 Pulse Oximetry 99 98 98 Oxygen Delivery Fraction of Inspired Oxygen 04/11/25 18:07 04/11/25 20:10 04/11/25 21:07 Temperature 97.2 F L Pulse Rate 66 73 Respiratory Rate 20 14 Blood Pressure 121/67 Pulse Oximetry 98 99 Oxygen Delivery Room Air Room Air Fraction of Inspired Oxygen 21 Exam 2 Narrative: Weight 111.9 kg BMI 34.4 H&P: Results Labs Labs: Laboratory Tests 04/11/25 16:10 04/11/25 14:45 04/11/25 04/11/25 14:45 16:10 WBC 10.1 H RBC 5.05 Hgb 14.2 Hct 45.0 MCV 89.1 MCH 28.1 MCHC 31.6 L RDW 13.1 Plt Count 328 MPV 10.1 Immature Gran % (Auto) 0.7 H Neut % (Auto) 56.8 Lymph % (Auto) 28.6 [place] % (Auto) 7.1 Eos % (Auto) 6.1 H Baso % (Auto) 0.7 Lymph # (Auto) 2.88 [place] # (Auto) 0.7 H Eos # (Auto) 0.6 H Baso # (Auto) 0.1 Abs Immat Gran (auto) 0.07 H Absolute Neuts (auto) 5.7 Absolute Nucleated RBC 0.000 Nucleated RBC % 0.0 Sodium 136 L Potassium 4.2 Chloride 106 Carbon Dioxide 22 Anion Gap 8 BUN 9 Creatinine 0.75 Estim Creat Clear Calc 118 Estimated GFR > 60 Glucose 96 Calcium 9.0 Total Bilirubin 0.2 AST 26 ALT 21 Alkaline Phosphatase 67 C-Reactive Protein 1.2 H Total Protein 7.4 Albumin 4.3 Impressions Forearm X-Ray 04/11/25 15:08 IMPRESSION: No acute osseous abnormality right forearm. Assessment and Plan Assessment and plan (1) Infected cat bite: Qualifiers: Encounter type: initial encounter Qualified Code(s): W55.01XA - Bitten by cat, initial encounter Code(s): W55.01XA - Bitten by cat, initial encounter Status: Acute (2) Tobacco dependence due to cigarettes: Code(s): F17.210 - Nicotine dependence, cigarettes, uncomplicated Status: Acute Plan Patient has worsening pain in cellulitis of the right forearm falling cap by despite appropriate outpatient antibiotic therapy. She has subsequently been admitted for IV antibiotic therapy and pain management. Patient's labs are stable and she is afebrile. Will repeat CBC in a.m.. Patient request nicotine patch. She smokes half a pack of cigarettes per day. She is not interested in quitting smoking at this time. Tobacco cessation education was provided. Patient has been admitted as observation status. Quality VTE Prophylaxis VTE prophylaxis: pharmacologic ordered (Lovenox 40 mg subQ daily.) Hospitalist [facility] Advance Care Plan I have confirmed that the patient's Advanced Care Plan is present, code status is documented, or surrogate decision maker is listed in patient medical record.: Yes Medication Reconciliation I have utilized all available resources to obtain, update and review the patients current medications (includes all prescriptions, OTC, herbals, cannabis, and nutritional supplements).: Yes
[2025-04-12] MEDS: NICOTINE (*PBKC) 14 MG PATCH 1 PATCH TRANSDERM (00:36)
[2025-04-12] MEDS: HYDROmorphone HCL INJ (*CRX) 2 MG/ML VIAL 0.5 MG IV PUSH ×2 (00:37→04:54)
[2025-04-12] MEDS: HYDROcodone/acetaminophen (*CRX) 5-325 MG TABLET 1 TAB PO ×2 (01:33→04:53)
[2025-04-12] MEDS: AMPICILLIN SULB 3 GM/NS 100 ML 3 GM/100 ML VIAL IVPB (02:50)
[2025-04-12] MEDS: LIDOCAINE 1% BUFFERED WITH 8.4% SODIUM BICARB 1 ML SYRINGE 10 ML INFILTRATE (04:58)
[2025-04-12 05:08] VITALS: BP 114/82; PULSE 71; RESP 14; TEMP 36.6; O2SAT 98
--- NOTE | 2025-04-12 05:12 | PM.SD2 ---
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 who presented to the ER with worsening infection from a cat bite despite taking Augmentin.? Patient initially presented to the ER on 04/08/2025 after being bit several times by her Cat while she was trying to get it on tangled from the blinds.? She was discharged home on Augmentin and tramadol.? She came back into the ER due to increasing right forearm pain, increased swelling and drainage despite taking antibiotics as directed.? She also had accompanying vomiting and weakness.? She reports that she was able to express some yellow to greenish material from the wound prior to coming to the ER. She was afebrile on presentation to the ER.? She did have mild leukocytosis in a mildly elevated CRP but a normal x-ray of the forearm. I evaluated the patient and she had a small area of induration on her radial aspect of her dorsal forearm is markedly tender to palpation. Bedside ultrasound was utilized and identified a small area of abscess. Area was prepped with chlorhexidine and incised with an 11 blade with a small amount of purulent discharge. The abscess cavity was probed with a curved Krystal utilized to break up loculations. The wound was flushed with sterile saline. The abscess cavity was small and did not require packing. Patient had improvement in symptoms and opted to be discharged home. 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 . Lives with and 60-year-old daughter. She has smoked as much as a half a pack of cigarettes per day his started smoking at age 16. She drinks alcohol about once a month in moderation. Surrogate decision maker: . Code Status: Full. Smoking packs per day: 0.25 Smoking cigarettes per day: 5.0 Years smoked: 23 Smoking pack-years: 5.75 Smoking status: Current every day smoker Second hand tobacco smoke exposure: No Alcohol intake: never Substance use: current Substance use type: marijuana Other substance usage details: uses for seizure control; medical card - uses edibles Last use: 11/18/24 Do You Feel Safe in your Home?: Yes Lack of Transportation: No Lack of Food: Never True Current Housing: I Have Housing Concerned About Future Housing: No Difficulty Paying Gas/Electric Bills: No Difficulty Paying for Meds: No Currently Unemployed: No Education: Don't Know Difficulty w/ Childcare or Family Care: No Living arrangements: with family Occupation/Education: occupation Gender identity (if verbalized by the patient): Female Spiritual care concerns: No Same Day Admit/Disch: Med Pre-admit Medications Home Medications ?Medication ?Instructions ?Recorded ?Confirmed ?Type albuterol sulfate 90 mcg/actuation 1 inh inhalation QID PRN shortness 09/07/24 04/11/25 Rx aerosol inhaler of breath or wheezing #6.7 grams amoxicillin 875 mg-potassium 1 tablet PO Q12H #20 tabs 02/11/25 04/11/25 Rx clavulanate 125 mg tablet acetaminophen 500 mg tablet 1,000 mg (2 x 500 mg) PO TID PRN 02/14/25 04/11/25 Rx daron 7 days #42 tabs Review of Systems Review of Systems Patient denies fever, chills, she did have recent infected cyst on her left brow Exam Narrative: Weight 111.9 kg BMI 34.4 Const: Other: Overweight, no acute distress, appears stated age HENMT: Other: Mucous membranes are tacky, no oral pharyngeal erythema, ASA class 2 Eyes: Other: Pupils are equal and reactive, no scleral icterus, no conjunctival pallor Neck: Other: No JVD, no lymphadenopathy Resp: Other: Clear to auscultation bilaterally, no increased work of breathing Cardio: Other: Regular rate, regular rhythm, 2+ bilateral radial pedal pulses GI: Other: Soft, nondistended Skin: Other: Tattoos from the left shoulder extending down the arm and circumferential in nature, small immitis injury did area of skin about the size of a nickel on the dorsal surface radial side of the arm with surrounding scratches with a central puncture point area was evaluated with bedside ultrasound in demonstrated small superficial abscess which was incised with 11 blade as discussed above, postprocedure area was flat less erythematous small amount of purulent material expressed Neuro: Other: Alert oriented, speech is clear, no facial asymmetry Extrem: Other: No clubbing, cyanosis or edema, mild decreased range of motion with extension of the right wrist with no associated joint deformity or swelling Psych: Other: Anxious otherwise pleasant and cooperative, good judgment and insight DS: Data Data Completed and Pending Labs on day of discharge: Labs from last 24 hours 04/11/25 04/11/25 16:10 14:45 WBC 10.1 H RBC 5.05 Hgb 14.2 Hct 45.0 MCV 89.1 MCH 28.1 MCHC 31.6 L RDW 13.1 Plt Count 328 MPV 10.1 Immature Gran % (Auto) 0.7 H Neut % (Auto) 56.8 Lymph % (Auto) 28.6 [place] % (Auto) 7.1 Eos % (Auto) 6.1 H Baso % (Auto) 0.7 Lymph # (Auto) 2.88 [place] # (Auto) 0.7 H Eos # (Auto) 0.6 H Baso # (Auto) 0.1 Abs Immat Gran (auto) 0.07 H Absolute Neuts (auto) 5.7 Absolute Nucleated RBC 0.000 Nucleated RBC % 0.0 Sodium 136 L Potassium 4.2 Chloride 106 Carbon Dioxide 22 Anion Gap 8 BUN 9 Creatinine 0.75 Estim Creat Clear Calc 118 Estimated GFR > 60 Glucose 96 Calcium 9.0 Total Bilirubin 0.2 AST 26 ALT 21 Alkaline Phosphatase 67 C-Reactive Protein 1.2 H Total Protein 7.4 Albumin 4.3 Impressions Forearm X-Ray 04/11/25 15:08 IMPRESSION: No acute osseous abnormality right forearm. DS: Summary Hospital Course Reason for hospitalization: Right forearm cellulitis due to cat bite failed outpatient treatment Hospital Course: Patient was admitted for cellulitis due to cat bite that had not improved with oral antibiotics. At the time my evaluation bedside ultrasound was utilized which demonstrated a small superficial abscess. Abscess was incised and drained with the wound being flushed. Patient reports improvement in symptoms. The patient is aware of symptoms to that would necessitate returning to the hospital. She did receive 2 doses of Unasyn. She still has 4 and half days of Augmentin left that had been prescribed during prior visit. Wound was covered with a 4 x 4 and Tegaderm. Patient request pain medications. A hand written script was provided for mokono #6 with no refills. Patient was given instructions to elevate the arm and utilize ice packs. Time spent discussing smoking cessation with patient: 3 to 10 minutes Status at Discharge Cognitive/behavioral status at discharge: Normal at baseline Functional status at discharge: independent ambulation Overall status at discharge: patient is progressing back to baseline Time Spent with Patient Time attestation: Total time spent providing and/or coordinating discharge services: 35 Time spent: Greater than 30 minutes Specific discharge activities: Prescriptions, discharge instructions, wound care instruction, H&P an I&D DS: Admitting Diagnosis Discharge Date 04/12/2025 Admitting Diagnosis Infected cat bite right forearm DS: Discharge Diagnosis Discharge Diagnosis (1) Infected cat bite: Qualifiers: Encounter type: initial encounter Qualified Code(s): W55.01XA - Bitten by cat, initial encounter Code(s): W55.01XA - Bitten by cat, initial encounter Status: Acute (2) Abscess of forearm, right: Code(s): L02.413 - Cutaneous abscess of right upper limb Status: Acute Plan The patient had I&D of superficial abscess on the dorsal aspect of the right forearm on the radial side. The patient received 2 doses of Unasyn. With drainage of the abscess patient infection should clear with oral antibiotics. Patient will be discharged back home to complete her prior prescription of Augmentin which should have 4 and half days worth a dosing. A script for mokono 03/05/2025 #6 with no refills. Patient could otherwise utilize ibuprofen 600 mg p.o. q.6 hours as needed for pain and inflammation and ice packs as well as elevation of the extremity. Wound culture was obtained did but the wrong culture swab was provided and lab was unable to process this wound culture. Continue empiric antibiotic therapy with Augmentin. Patient is to follow-up with primary care physician in 1 week. Discharge Plan Discharge Attending physician on discharge: Iveth Mccoy Consulting providers: Rafi Owens Discharging Clinician: Iveth Mccoy Anticipated Discharge Date/Time: 04/12/25 05:41 Patient Disposition: Home Activity: as tolerated Diet: regular Wound Care Instructions: other - see discharge instructions Discharge Instructions: May remove dressing in 24 hours. Cleanse area with soap and water daily. Urine abscess that was drained. Complete Augmentin that was previously prescribed. You have been discharged with 6 tablets of [place]. There will be no refills provided. If difficulty feeling narcotic prescription year pain could be managed with ibuprofen 600 mg q.6 hours. I would also recommend elevating your extremity above the level of your heart while at rest and applying ice packs at 15-20 minute intervals. Return to the hospital or seek other medical care if worsening erythema, temperature greater than 101 that persist for more than 24 hours or otherwise concerned. Follow-up with primary care physician in 1 week if wounds not healed or otherwise concerned. Patient Instructions: Antibiotic Form Patient Language: Citizen Of [place] Stand Alone Forms: General Discharge Information Follow-up/Referrals: Rafi Owens MD [Physician] - Call for Appointment Discharge Medications: Continued albuterol sulfate 90 mcg/actuation HFA aerosol inhaler 1 inh inhalation QID PRN (Reason: shortness of breath or wheezing) Qty: 6.7 0RF amoxicillin-pot clavulanate 875-125 mg tablet 1 tablet PO Q12H Qty: 20 0RF acetaminophen 500 mg tablet 1,000 mg PO TID PRN (Reason: daron) 7 Days Qty: 42 0RF Date of admission: 04/11/25 16:04 Primary Care Provider: PHYSICIAN,OCEANOGRAPHIC METEOROLOGIST Admitting Provider: Gumaro Rivera Attending physician on admission: Gumaro Rivera Condition: Stable Quality VTE Prophylaxis VTE prophylaxis: pharmacologic ordered (lovenox) Hospitalist [facility] Advance Care Plan I have confirmed that the patient's Advanced Care Plan is present, code status is documented, or surrogate decision maker is listed in patient medical record.: Yes Medication Reconciliation I have utilized all available resources to obtain, update and review the patients current medications (includes all prescriptions, OTC, herbals, cannabis, and nutritional supplements).: Yes Heart Failure (Exclusion) Patient has history of Heart Transplant or Left Ventricular Assistive Device?: No IF YES, STOP HERE Heart Failure (Qualifier) Patient has current or prior documentation of LVEF less than or equal to 40%, or mod/servere depressed LVSF?: No IF NO, STOP HERE
--- NOTE | 2025-04-12 06:26 | WPDPROCEDUR ---
Procedures Abscess I/D Site: upper extremity Side (if applicable): right Sedation/analgesia: none Anesthetic used: with bicarb Technique: incised with #11 blade Amount of fluid (mL): 5 Irrigation: Yes Packing used?: none Comments: Patient abscess was incised and probed with a curved Krystal to ensure there were no loculations. The anterior diameter of abscess was half an inch in diameter. The S the abscess cavity was flushed with sterile saline. No packing utilized. Wound is covered with gauze and Tegaderm less than 5 mL of blood loss. Small amount of purulent material expressed.
--- NOTE | 2025-04-12 06:29 | PC.NURSE ---
Pt received bedside I&D performed by Dr Mccoy. Once I&D was completed and bandaged up pt asked Dr Mccoy if she would be able to discharge. Dr Mccoy was able to get all prescriptions and discharge paper work completed. [place] 5-325 paper/ written Rx was given to the patient. Discharge instructions were printed and given to patient. I myself and the pt signed all the discharge paper work. Pt insisted that was going to come pick her up but then said that had already go to work this morning. Pt stated that she would like to take the bus instead. I walked patient down to the bus station. Educated pt on removing nicotine patch before smoking a cigarette. Pt thankful for the care provided.
== END 2025-04-12 06:25 | disposition home or self-care (01) ==
LOC: ANHED 17:00 → ANH3MEDSUR 04-12 05:43
PROVIDERS: Admitting Provider Family Medicine; Emergency Provider General Practice; Visit Provider Internal Medicine
DX: L02.413 Cutaneous abscess of right upper limb (principal); S51.851A Open bite of right forearm, initial encounter; L03.113 Cellulitis of right upper limb; W55.01XA Bitten by cat, initial encounter; F17.210 Nicotine dependence, cigarettes, uncomplicated; G40.909 Epilepsy, unspecified, not intractable, without status epilepticus; G93.2 Benign intracranial hypertension; Z98.2 Presence of cerebrospinal fluid drainage device; Z86.14 Personal history of Methicillin resistant Staphylococcus aureus infection
CPT/HCPCS: 10060; 36415; 73090; 80053; 85025; 86140; 96365; 96367; 96372; 96375; 96376; 99285; A9270; G0378; G0379; J0295; J1171; J1885; J2405

== ENCOUNTER 2025-06-23 19:01 | Observation (INO) | payer SELFPAY ==
--- NOTE | ~2025-06-23 | XR_ITS ---
EXAMINATION: XR retrograde pyelo w/stent LT DATE: 06/24/2025 14:47 INDICATION: Left internal ureteral stent placement TECHNIQUE: Fluoroscopic images from a left internal ureteral stent placement are submitted for review. 43 seconds of fluoroscopy time. FINDINGS: There is a left double-J internal ureteral stent projecting in expected position, with proximal [place] loop at the level of the renal pelvis and distal loop in the pelvis within the bladder lumen. IMPRESSION: 1. Left internal ureteral stent placement. Please refer to real-time procedural findings for details. Reviewed, dictated and finalized at location O. IMPRESSION: 1. Left internal ureteral stent placement. Please refer to real-time procedur al findings for details.
--- NOTE | ~2025-06-23 | CT_ITS ---
EXAMINATION: CT abdomen pelvis wo con DATE: 06/23/2025 19:34 INDICATION: Left flank pain TECHNIQUE: Computed tomography (CT) of the abdomen and pelvis was performed without intravenous contrast. The dose-length product was 620.16 mGy-cm. Automated exposure control and iterative reconstruction technique were employed. COMPARISON: CT dated 12/03/2024 FINDINGS: Lung bases unremarkable. No significant pleural or pericardial effusion. Heart size normal. There is a 6 mm left UPJ stone with mild hydronephrosis. There is a catheter entering the upper abdomen, likely ventriculoperitoneal shunt. There is mild abnormal thickening of the ascending and transverse colons, suspicious for colitis. Trace free fluid in the pelvis. Nonobstructive bowel gas pattern. Elliptical hypodense lesion right hepatic lobe not as well visualized without contrast, likely stable. No acute osseous abnormality. Stable wedge-shaped appearance to T11. No acute osseous abnormality . No significant vascular abnormality. No lymphadenopathy. IMPRESSION: 1. Left UPJ stone measuring 6 mm with mild hydronephrosis. Reviewed, dictated and finalized at location O.
[2025-06-23 19:02] VITALS: BP 157/98; PULSE 87; RESP 16; TEMP 36.6; O2SAT 100
[2025-06-23 19:24] LABS: BEDSIDEPREGUCG Negative (Negative)
[2025-06-23 19:30] LABS: Add Urine Microscopic? YES; Appearance Urine Cloudy (Clear); Glucose Urine UA Negative (Negative); Leukocyte Esterase Ur 1+ LEU/UL (Negative); Nitrate Urine Negative (Negative); Non Pathogenic Casts 0-2; Specific Grav Ur 1.016 (1.001-1.035)
--- NOTE | 2025-06-23 19:33 | ED_ITS ---
HPI - Female Genitourinary General Chief complaint: Urogenital-Female <Sailaja Grace PA-C - Last Filed: 06/23/25 21:23> Stated complaint: I think I have akidney stone left flank pain <Sailaja Grace PA-C - Last Filed: 06/23/25 21:23> Time Seen by Provider: 06/23/25 19:09 <Sailaja Grace PA-C - Last Filed: 06/23/25 21:23> History of Present Illness HPI Narrative: 39-year-old female with reported history of kidney stones presents emergency department for left flank pain for the past 2 days. Patient states it feels like her prior kidney stones. She states it waxes and wanes it is sharp in nature. She reports associated nausea and vomiting. States her pain significantly worsened today which prompted her to come to the ED. She is endorsing urinary frequency, urgency and dysuria. States states she noticed a small amount of blood in her urine earlier today. She denies abdominal pain or known fevers. <Sailaja Grace PA-C - Last Filed: 06/23/25 21:23> Related Data Home medications: Home Medications ?Medication ?Instructions ?Recorded ?Confirmed ?Last Taken ?Type No Home Medications 06/23/25 06/23/25 U nknown History <Sailaja Grace PA-C - Last Filed: 06/23/25 21:23> Allergies/Adverse reactions: Allergies Allergy/AdvReac Type Severity Reaction Status Date / Time levofloxacin Allergy Intermediate Hives Verified 06/23/25 22:24 tetracycline Allergy Intermediate Hives Verified 06/23/25 22:24 cefaclor (From Ceclor) Allergy Swelling Verified 06/23/25 22:24 prochlorperazine (From Allergy Swelling Verified 06/23/25 22:24 Compazine) Sulfa (Sulfonamide Allergy Swelling Verified 06/23/25 22:24 Antibiotics) sulfamethoxazole (From Allergy Swelling Verified 06/23/25 22:24 Bactrim) trimethoprim (From Bactrim) Allergy Swelling Verified 06/23/25 22:24 <JYOTI Saul Last Filed: 06/23/25 21:23> Review of Systems 2 Review of Systems: All systems reviewed & are unremarkable except as noted in HPI and below <Sailaja Grace PA-C - Last Filed: 06/23/25 21:23> FORMERLY [facility], [facility] Past Medical History Medical History: Medical History Tobacco dependence due to cigarettes History of MRSA infection Pseudotumor cerebri Seizure disorder History of idiopathic intracranial hypertension <Sailaja Grace PA-C - Last Filed: 06/23/25 21:23> Surgical History Surgical History: Surgical History S/P ventriculoperitoneal shunt History of appendectomy 2009 S/P SKI LIFT OPERATOR shunt Hx of ventricular shunt SKI LIFT OPERATOR shunt placed 2001, revised multiple times, last in 2019 <Sailaja Grace PA-C - Last Filed: 06/23/25 21:23> Family History Family History: Family History Mother No problems noted. 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 . Lives with and 60-year-old daughter. She has smoked as much as a half a pack of cigarettes per day his started smoking at age 16. She drinks alcohol about once a month in moderation. Surrogate decision maker: . Code Status: Full. Smoking packs per day: 0.5 Smoking cigarettes per day: 10.0 Years smoked: 23 Smoking pack-years: 11.50 Smoking status: Current every day smoker Second hand tobacco smoke exposure: No Alcohol intake: current Drinks per week: 1 Substance use: never Substance use type: marijuana Other substance usage details: uses for seizure control; medical card - uses edibles Last use: 11/18/24 Do You Feel Safe in your Home?: Yes Lack of Transportation: No Lack of Food: Never True Current Housing: I Have Housing Concerned About Future Housing: No Difficulty Paying Gas/Electric Bills: No Difficulty Paying for Meds: No Currently Unemployed: No Education: Master's Degree or Higher Difficulty w/ Childcare or Family Care: No Living arrangements: with family Occupation/Education: occupation Gender identity (if verbalized by the patient): Female Spiritual care concerns: No <Sailaja Grace PA-C - Last Filed: 06/23/25 21:23> Exam 2 Narrative: GENERAL: Tearful, appears uncomfortable HEAD: Normocephalic, atraumatic. EYES:EOMI. ENT: Nares clear, no rhinorrhea or epistaxis. Mucous membranes moist. NECK: Supple. CHEST: Clear to auscultation. No respiratory distress. HEART: Regular rate and rhythm. No murmur heard. Normal peripheral pulses. ABDOMEN: Soft, nontender, nondistended, normal active bowel sounds. Left CVA tenderness EXTREMITIES: Normal range of motion. No edema. SKIN: Warm, dry, no rash. NEURO: No focal deficits. Alert and oriented x3 <Sailaja Grace PA-C - Last Filed: 06/23/25 21:23> Course MINE SUPERVISOR/PA Physician Supervision This visit was performed by both a physician and an APC. For this patient encounter, I reviewed the MINE SUPERVISOR or PA documentation, treatment plan, and medical decision making and had [id number] time with this patient. I performed all aspects of the MDM as documented. <Génesis Mora MD - Last Filed: 06/24/25 01:50> Vital Signs Vital signs: Vital Signs Temperature 97.8 F 06/23/25 19:02 Pulse Rate 87 06/23/25 19:02 Respiratory Rate 16 06/23/25 19:02 Blood Pressure 157/98 H 06/23/25 19:02 Pulse Oximetry 100 06/23/25 19:02 Oxygen Delivery Room Air 06/23/25 19:02 Temperature 96.7 F L 06/23/25 21:36 Pulse Rate 57 L 06/23/25 21:36 Respiratory Rate 18 06/23/25 21:36 Blood Pressure 121/69 06/23/25 21:36 Pulse Oximetry 97 06/23/25 21:36 Oxygen Delivery Room Air 06/23/25 19:02 <Sailaja Grace PA-C - Last Filed: 06/23/25 21:23> Vital Signs Temperature 97.8 F 06/23/25 19:02 Pulse Rate 87 06/23/25 19:02 Respiratory Rate 16 06/23/25 19:02 Blood Pressure 157/98 H 06/23/25 19:02 Pulse Oximetry 100 06/23/25 19:02 Oxygen Delivery Room Air 06/23/25 19:02 Temperature 96.7 F L 06/23/25 21:36 Pulse Rate 57 L 06/23/25 21:36 Respiratory Rate 18 06/23/25 21:36 Blood Pressure 121/69 06/23/25 21:36 Pulse Oximetry 97 06/23/25 21:36 Oxygen Delivery Room Air 06/23/25 19:02 <Génesis Mora MD - Last Filed: 06/24/25 01:50> MDM - Female Genitourinary MDM Narrative Medical decision making narrative: 39-year-old female with history of kidney stones presents emergency department for 2 days of left flank pain. Triage vitals with hypertension of 157/98, otherwise unremarkable. Patient is afebrile and nontoxic appearing. Exam significant for the above. CBC shows leukocytosis of 12.2. Chemistries with mild hyperchloremia of 110, normal creatinine and BUN. UA with 1+ leuk esterase, 6-10 rbc's and 6-10 white blood cells. Few squamous cells present. Urine culture ordered and pending. is negative. CT abdomen pelvis shows a left UPJ stone measuring 6 mm with mild hydronephrosis. Patient updated on results. She received IV fluids, Zofran and has required several rounds of pain medications. Feel patient would benefit from admission. Additionally given her urinary complaints and her borderline urine, feel she would benefit from antibiotics. Discussed case with Urology on-call, Dr. Domingo who agrees to consult on admission. Advises IV antibiotics, pain medications p.r.n., Flomax, strain all urine, and to keep the patient NPO at midnight. Patient does have several antibiotic allergies including cefaclor and Levaquin. Per chart review she has tolerated ceftriaxone in the past without reported issues. She does note that several of her medication allergies were reported from her mother when she was a child and is uncertain if she has a true allergy to cephalosporins. Will start Rocephin given she has tolerated therapy in the past. <Sailaja Grace PA-C - Last Filed: 06/23/25 21:23> Lab Data Result diagrams: 06/23/25 19:28 06/23/25 19:28 <Sailaja Grace PA-C - Last Filed: 06/23/25 21:23> Labs: Lab Results 06/23/25 06/23/25 06/23/25 Range/Units 19:19 19:21 19:28 WBC 12.2 H (4.5-10.0) K/mm3 RBC 4.35 (4.2-5.4) M/mm3 Hgb 12.3 (12.0-15.0) g/dL Hct 38.6 (37.0-47.0) % MCV 88.7 (80-100) fl MCH 28.3 (26-34) pg MCHC 31.9 L (32-36) g/dl RDW 12.9 (11.5-14.5) % Plt Count 305 (150-375) k/mm3 MPV 10.0 (7.4-10.4) fl Immature Gran % (Auto) 0.3 (0-0.5) % Neut % (Auto) 52.3 (45.5-73.1) % Lymph % (Auto) 33.9 (18.3-44.2) % [place] % (Auto) 7.0 (2.6-8.5) % Eos % (Auto) 6.0 H (0-4.4) % Baso % (Auto) 0.5 (0.2-1.2) % Lymph # (Auto) 4.12 H (0.9-3.2) K/mm3 [place] # (Auto) 0.9 H (0.1-0.6) K/mm3 Eos # (Auto) 0.7 H (0-0.3) K/mm3 Baso # (Auto) 0.1 (0.0-0.1) K/mm3 Abs Immat Gran (auto) 0.04 H (0.00-0.031) K/mm3 Absolute Neuts (auto) 6.4 (1.3-6.7) K/mm3 Absolute Nucleated RBC 0.000 (0.0-0.012) K/mm3 Band Neutrophils % Not Reportable Nucleated RBC % 0.0 (0.0-0.2) % Atypical Lymphocytes Present Platelet Estimate Adequate (Adequate) Anisocytosis 1+ Ovalocytes Occasional Schistocytes None seen Sodium 139 (137-145) mmol/L Potassium 4.0 (3.4-5.0) mmol/L Chloride 110 H (98-107) mmol/L Carbon Dioxide 24 (22-30) mmol/L Anion Gap 5 (4-12) mmol/L BUN 17 (7-17) mg/dL Creatinine 0.97 (0.7-1.0) mg/dL Estim Creat Clear Calc Not Reportable Estimated GFR > 60 (59 - ) Glucose 93 (65-110) mg/dL Calcium 8.9 (8.4-10.2) mg/dL Total Bilirubin 0.2 (0.2-1.3) mg/dL AST 21 (14-36) U/L ALT 18 (6-35) U/L Alkaline Phosphatase 77 (38-126) U/L Total Protein 7.0 (6.3-8.2) g/dL Albumin 4.0 (3.5-5.1) g/dL Urine Color Yellow (Yellow) Urine Appearance Cloudy H (Clear) Urine pH 6.0 (5.0-9.0) Ur Specific [place] 1.016 (1.001-1.035) Urine Protein Negative (Negative) mg/dL Urine Glucose (UA) Negative (Negative) mg/dL Urine Ketones Negative (Negative) mg/dL Ur Blood (Man) 1+ H (Negative) Urine Nitrate Negative (Negative) Urine Bilirubin Negative (Negative) Urine Urobilinogen 0.2 (<2.0) mg/dL Leukocyte Esterase Rfl 1+ H (Negative) JINA/UL Urine RBC 6-10 H (0-2) /hpf Urine WBC 6-10 H (0-3) /hpf Ur Squamous Epith Cells Few (Few) /hpf Urine Bacteria None seen /hpf Urine Casts 0-2 POC Urine HCG, Qual Negative (Negative) <Sailaja Grace PA-C - Last Filed: 06/23/25 21:23> Lab Results 06/23/25 06/23/25 06/23/25 Range/Units 19:19 19:21 19:28 WBC 12.2 H (4.5-10.0) K/mm3 RBC 4.35 (4.2-5.4) M/mm3 Hgb 12.3 (12.0-15.0) g/dL Hct 38.6 (37.0-47.0) % MCV 88.7 (80-100) fl MCH 28.3 (26-34) pg MCHC 31.9 L (32-36) g/dl RDW 12.9 (11.5-14.5) % Plt Count 305 (150-375) k/mm3 MPV 10.0 (7.4-10.4) fl Immature Gran % (Auto) 0.3 (0-0.5) % Neut % (Auto) 52.3 (45.5-73.1) % Lymph % (Auto) 33.9 (18.3-44.2) % [place] % (Auto) 7.0 (2.6-8.5) % Eos % (Auto) 6.0 H (0-4.4) % Baso % (Auto) 0.5 (0.2-1.2) % Lymph # (Auto) 4.12 H (0.9-3.2) K/mm3 [place] # (Auto) 0.9 H (0.1-0.6) K/mm3 Eos # (Auto) 0.7 H (0-0.3) K/mm3 Baso # (Auto) 0.1 (0.0-0.1) K/mm3 Abs Immat Gran (auto) 0.04 H (0.00-0.031) K/mm3 Absolute Neuts (auto) 6.4 (1.3-6.7) K/mm3 Absolute Nucleated RBC 0.000 (0.0-0.012) K/mm3 Band Neutrophils % Not Reportable Nucleated RBC % 0.0 (0.0-0.2) % Atypical Lymphocytes Present Platelet Estimate Adequate (Adequate) Anisocytosis 1+ Ovalocytes Occasional Schistocytes None seen Sodium 139 (137-145) mmol/L Potassium 4.0 (3.4-5.0) mmol/L Chloride 110 H (98-107) mmol/L Carbon Dioxide 24 (22-30) mmol/L Anion Gap 5 (4-12) mmol/L BUN 17 (7-17) mg/dL Creatinine 0.97 (0.7-1.0) mg/dL Estim Creat Clear Calc Not Reportable Estimated GFR > 60 (59 - ) Glucose 93 (65-110) mg/dL Calcium 8.9 (8.4-10.2) mg/dL Total Bilirubin 0.2 (0.2-1.3) mg/dL AST 21 (14-36) U/L ALT 18 (6-35) U/L Alkaline Phosphatase 77 (38-126) U/L Total Protein 7.0 (6.3-8.2) g/dL Albumin 4.0 (3.5-5.1) g/dL Urine Color Yellow (Yellow) Urine Appearance Cloudy H (Clear) Urine pH 6.0 (5.0-9.0) Ur Specific [place] 1.016 (1.001-1.035) Urine Protein Negative (Negative) mg/dL Urine Glucose (UA) Negative (Negative) mg/dL Urine Ketones Negative (Negative) mg/dL Ur Blood (Man) 1+ H (Negative) Urine Nitrate Negative (Negative) Urine Bilirubin Negative (Negative) Urine Urobilinogen 0.2 (<2.0) mg/dL Leukocyte Esterase Rfl 1+ H (Negative) JINA/UL Urine RBC 6-10 H (0-2) /hpf Urine WBC 6-10 H (0-3) /hpf Ur Squamous Epith Cells Few (Few) /hpf Urine Bacteria None seen /hpf Urine Casts 0-2 POC Urine HCG, Qual Negative (Negative) <Génesis Mora MD - Last Filed: 06/24/25 01:50> Discharge Plan Discharge Clinical Impression: Left ureteral stone, Abnormal urinalysis <Sailaja Grace PA-C - Last Filed: 06/23/25 21:23> Patient Disposition: Still a Patient <Sailaja Grace PA-C - Last Filed: 06/23/25 21:23> Condition: Stable <Sailaja Grace PA-C - Last Filed: 06/23/25 21:23>
[2025-06-23 19:35] LABS: Hematocrit 38.6 % (37.0-47.0); Hemoglobin 12.3 g/dL (12.0-15.0); Immature Granulocyte Percent A 0.3 % (0-0.5); Lymphocytes Absolute Auto 4.12 K/mm3 (0.9-3.2); Mean Corpuscular HGB Conc 31.9 g/dl (32-36); Mean Corpuscular Hemoglobin 28.3 pg (26-34); Mean Corpuscular Volume 88.7 fl (80-100); Nucleated Red Blood Cells Absolute Auto 0.000 K/mm3 (0.0-0.012); Nucleated Red Blood Cells Perc 0.0 % (0.0-0.2); Platelet Count Result 305 k/mm3 (150-375); Red Blood Count 4.35 M/mm3 (4.2-5.4); White Blood Count 12.2 K/mm3 (4.5-10.0)
[2025-06-23] MEDS: SODIUM CHLORIDE 0.9% IV 1,000 ML 999 ML IV CONT (19:37)
[2025-06-23] MEDS: ONDANSETRON INJ 4 MG/2 ML VIAL IV PUSH (19:37)
[2025-06-23] MEDS: MORPHINE SULFATE (*CRX) 4 MG/ML INJ IV PUSH ×2 (19:38→22:13)
[2025-06-23 19:45] LABS: Anisocytosis 1+; Ovalocytes Occasional
[2025-06-23 19:46] LABS: Schistocytes None Seen
[2025-06-23 19:54] LABS: Alanine Aminotransferase 18 U/L (6-35); Albumin Level 4.0 g/dL (3.5-5.1); Alkaline Phosphatase 77 U/L (38-126); Anion Gap 5 mmol/L (4-12); Aspartate Amino Transferase 21 U/L (14-36); Bilirubin,Total 0.2 mg/dL (0.2-1.3); Blood Urea Nitrogen 17 mg/dL (7-17); Calcium 8.9 mg/dL (8.4-10.2); Carbon Dioxide 24 mmol/L (22-30); Chloride 110 mmol/L (98-107); Estimated Glomerular Filt Rate > 60; Glucose 93 mg/dL (65-110); Potassium 4.0 mmol/L (3.4-5.0); Sodium 139 mmol/L (137-145); Total Protein 7.0 g/dL (6.3-8.2)
[2025-06-23] MEDS: HYDROmorphone HCL INJ (*CRX) 1 MG/ML SYR 0.5 MG IV PUSH ×2 (20:06→20:59)
--- NOTE | 2025-06-23 21:23 | P.HP_ITS ---
H&P: HPI History of Present Illness Date/Time: 06/23/25 21:23 Chief Complaint: Left flank pain Narrative: This is a very pleasant 39-year-old female patient with past medical history of previous kidney stones, tobacco dependence, pseudotumor cerebri, seizure disorder, idiopathic intracranial hypertension who is status post appendectomy and PASTRYCOOK'S ASSISTANT shunt who presented to the emergency room this evening with complaints of having 2 days of left flank pain. Patient states the pain is sharp, constant a varying degree and today became severe. She has noticed trace blood in her urine and states that it felt like she felt previously with kidney stone pain. She denies any fevers. She denies any dysuria or urinary frequency. She has not had to previously have any procedures to alleviate her kidney stone pain, no r has she ever passed any. No CP, dyspnea, but she has had some associated N/V. In the emergency room workup was performed that was significant for leukocytosis at 12.2, unremarkable metabolic panel and CBC otherwise unremarkable. Urinalysis showing 1+ blood, 1+ leuk esterase with 6-10 rbc's and 6 wbc's. Vital signs were normal. CT abdomen pelvis showing a left UPJ stone measuring 6 mm with hydronephrosis. In the emergency room patient received morphine and Dilaudid for pain, Zofran for nausea and was started on Rocephin and IV fluids. She is being admitted in the current setting for admission, pain management and expert urological evaluation in the morning. Review of Systems Review of Systems: All systems reviewed & are unremarkable except as noted in HPI and below PMFSH Past Medical History Medical History Tobacco dependence due to cigarettes History of MRSA infection Pseudotumor cerebri Seizure disorder History of idiopathic intracranial hypertension Surgical History Surgical History S/P ventriculoperitoneal shunt History of appendectomy 2009 S/P PASTRYCOOK'S ASSISTANT shunt Hx of ventricular shunt PASTRYCOOK'S ASSISTANT shunt placed 2001, revised multiple times, last in 2019 Family History Family History Mother No problems noted. 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 . Lives with and 60-year-old daughter. She has smoked as much as a half a pack of cigarettes per day his started smoking at age 16. She drinks alcohol about once a month in moderation. Surrogate decision maker: . Code Status: Full. Smoking packs per day: 0.25 Smoking cigarettes per day: 5.0 Years smoked: 23 Smoking pack-years: 5.75 Smoking status: Current every day smoker Second hand tobacco smoke exposure: No Alcohol intake: never Substance use: current Substance use type: marijuana Other substance usage details: uses for seizure control; medical card - uses edibles Last use: 11/18/24 Do You Feel Safe in your Home?: Yes Lack of Transportation: No Lack of Food: Never True Current Housing: I Have Housing Concerned About Future Housing: No Difficulty Paying Gas/Electric Bills: No Difficulty Paying for Meds: No Currently Unemployed: No Education: Don't Know Difficulty w/ Childcare or Family Care: No Living arrangements: with family Occupation/Education: occupation Gender identity (if verbalized by the patient): Female Spiritual care concerns: No Meds Home Medications and Allergies Home Medications ?Medication ?Instructions ?Recorded ?Confirmed ?Type albuterol sulfate 90 mcg/actuation 1 inh inhalation QI D PRN shortness 09/07/24 04/11/25 Rx aerosol inhaler of breath or wheezing #6.7 g kalpesh amoxicillin 875 mg-potassium 1 tablet PO Q12H #20 tabs 02/11/25 04/11/25 Rx clavulanate 125 mg tablet acetaminophen 500 mg tablet 1,000 mg (2 x 500 mg) PO T ID PRN 02/14/25 04/11/25 Rx daron 7 days #42 tabs Allergies Allergy/AdvReac Type Severity Reaction Status Date / Time levofloxacin Allergy Intermediate Hives Verified 04/11/25 13:45 tetracycline Allergy Intermediate Hives Verified 04/11/25 13:45 cefaclor (From Ceclor) Allergy Swelling Verified 04/11/25 13:45 prochlorperazine (From Allergy Swelling Verified 04/11/25 13:45 Compazine) Sulfa (Sulfonamide Allergy Swelling Verified 04/11/25 13:45 Antibiotics) sulfamethoxazole (From Allergy Swelling Verified 04/11/25 13:45 Bactrim) trimethoprim (From Bactrim) Allergy Swelling Verified 04/11/25 13:45 Vital Signs Vital Signs - 24 hr 06/23/25 19:02 Temperature 97.8 F Pulse Rate 87 Respiratory Rate 16 Blood Pressure 157/98 H Pulse Oximetry 100 Oxygen Delivery Room Air Exam Const: General: uncomfortable Other: Obese female patient on stretcher at this time in will appears to be pain distress. HENMT: Face/Nose/Sinus: Normal nares present Mouth: Yes moist mucous membranes Eyes: General: appearance normal, both eyes and all related structures Sclera: sclerae normal Pupils: Equal, round and reactive pupils present EOM: EOMs intact bilaterally Neck: Neck: supple and no JVD Lymphatic: lymphadenopathy not noted Resp: Effort & Inspection: normal respiratory effort Auscultation: clear to auscultation bilaterally Cardio: Rate: regular rate Rhythm: regular rhythm Heart sounds: no gallops, no murmurs and no rubs GI: GI Palp: Yes Soft to palpation and Yes Tenderness to palpation present (GI) (Left flank) Auscultation: normal bowel sounds Skin: General skin exam: normal color, no rashes or lesions noted and no erythema Wounds: no wounds Neuro: Speech: normal speech Motor exam (neuro): 5/5 motor strength present throughout and Normal motor muscle tone present throughout Sensory Exam: normal sensation Extrem: Other: Completely and equally moves all extremities well without deficit Psych: Mental Status: mental status grossly normal Affect: normal affect H&P: Results Labs Labs: Short CBC 06/23/25 Range/Units 19:28 WBC 12.2 H (4.5-10.0) K/mm3 Hgb 12.3 (12.0-15.0) g/dL Hct 38.6 (37.0-47.0) % Plt Count 305 (150-375) k/mm3 BMP 06/23/25 19:28 Sodium 139 Potassium 4.0 Chloride 110 H Carbon Dioxide 24 BUN 17 Creatinine 0.97 Glucose 93 Calcium 8.9 Liver Function 06/23/25 Range/Units 19:28 Total Bilirubin 0.2 (0.2-1.3) mg/dL AST 21 (14-36) U/L ALT 18 (6-35) U/L Alkaline Phosphatase 77 (38-126) U/L Albumin 4.0 (3.5-5.1) g/dL Urine 06/23/25 Range/Units 19:19 Urine Color Yellow (Yellow) Urine Appearance Cloudy H (Clear) Urine pH 6.0 (5.0-9.0) Ur Specific [place] 1.016 (1.001-1.035) Urine Protein Negative (Negative) mg/dL Urine Glucose (UA) Negative (Negative) mg/dL Assessment and Plan Assessment and plan (1) Left ureteral stone: Code(s): N20.1 - Calculus of ureter Status: Acute Assessment and Plan: * As evidenced by CT scan abdomen pelvis independently viewed by this provider. * Consult urology * Pain control with Dilaudid 1 mg IV push q.3 hours p.r.n. pain * Antiemetics of Zofran 4 mg q.4 hours p.r.n. nausea/vomiting * Continue IV fluids of normal saline at 125 mL/hour * NPO at midnight for potential ureteroscopy in the morning. (2) Abnormal urinalysis: Code(s): R82.90 - Unspecified abnormal findings in urine Status: Acute Assessment and Plan: * Urinalysis with findings of 1+ blood, 1+ leuk esterase, 6-10 rbc's and 6-10 wbc's. Given the fact that patient has noted leukocytosis on her CBC of 12.2 and an obstructive stone will cover with antibiotics of Rocephin 1 g Q 24 hours for concern of a developing infected stone. * Urine culture pending * Blood cultures pending (3) Pseudotumor cerebri: Code(s): G93.2 - Benign intracranial hypertension Status: Chronic Assessment and Plan: * History PASTRYCOOK'S ASSISTANT shunt noted. (4) Seizure disorder: Code(s): G40.909 - Epilepsy, unspecified, not intractable, without status epilepticus Status: Chronic Assessment and Plan: * Most likely secondary to patient's pseudotumor cerebri and benign intracranial hypertension. * If patient is covered by any current anti epileptic medications will reorder once they are confirmed verified * No seizure activity noted at this point. (5) Tobacco dependence due to cigarettes: Code(s): F17.210 - Nicotine dependence, cigarettes, uncomplicated Status: Chronic Assessment and Plan: * Nicotine patch ordered. * Advised necessity of smoking cessation. Plan Full code NPO at midnight Potential ureteroscopy in a.m. SCDs Quality VTE Prophylaxis VTE prophylaxis: mechanical ordered Hospitalist [facility] Advance Care Plan I have confirmed that the patient's Advanced Care Plan is present, code status is documented, or surrogate decision maker is listed in patient medical record.: Yes Medication Reconciliation I have utilized all available resources to obtain, update and review the patients current medications (includes all prescriptions, OTC, herbals, cannabis, and nutritional supplements).: Yes
[2025-06-23] MEDS: cefTRIAXone 1 GM in SODIUM CHLORIDE 0.9% IV 50 ML 100 ML IVPB (21:30)
[2025-06-23 21:36] VITALS: BP 121/69; PULSE 57; RESP 18; TEMP 35.9; O2SAT 97
--- NOTE | 2025-06-23 22:10 | ADMGEN ---
This patient, Prema Alvarez, was admitted to 3 [facility] Surg Room 300-01. Patient/family oriented to hospital policies and general routines including ID bracelet, bed and alarms, visiting hours, pain management, procedures, bathroom and other care routines, personal items, smoking policy, room service/diet, and visiting hours. Information on how to activate the Rapid Response Team has been discussed. Patient/Family are encouraged to report perceived risks to care and to ask questions if they do not understand what they are told or what they should do.
[2025-06-23] MEDS: TAMSULOSIN HCL 0.4 MG CAPSULE PO (22:12)
[2025-06-23] MEDS: SODIUM CHLORIDE 0.9% IV 1,000 ML 125 ML IV CONT (22:12)
[2025-06-23 22:22] VITALS: BMI 35.5
[2025-06-23] MEDS: NICOTINE (*PBKC) 21 MG PATCH 1 PATCH TRANSDERM (22:38)
[2025-06-23] MEDS: HYDROmorphone HCL INJ (*CRX) 1 MG/ML SYR IV PUSH (23:27)
[2025-06-24] VITALS (14 sets, daily range): BP systolic 105–130; BP diastolic 62–88; PULSE 52–65; RESP 12–20; TEMP 35.7–36.6; O2SAT 94–100
[2025-06-24] MEDS: HYDROmorphone HCL INJ (*CRX) 1 MG/ML SYR IV PUSH ×7 (02:33→23:21)
[2025-06-24] MEDS: ONDANSETRON INJ 4 MG/2 ML VIAL IV PUSH ×5 (02:33→23:27)
[2025-06-24] MEDS: SODIUM CHLORIDE 0.9% IV 1,000 ML 125 ML IV CONT ×2 (05:39→16:46)
--- NOTE | 2025-06-24 08:54 | P.PNIM_ITS ---
Progress Note: A&P Assessment and Plan (1) Left ureteral stone: Code(s): N20.1 - Calculus of ureter Status: Acute Assessment and Plan: * As evidenced by CT scan abdomen pelvis independently viewed by this provider. * Consult urology * Pain control with Dilaudid 1 mg IV push q.3 hours p.r.n. pain * Antiemetics of Zofran 4 mg q.4 hours p.r.n. nausea/vomiting * Continue IV fluids of normal saline at 125 mL/hour * NPO at midnight for potential ureteroscopy in the morning. * * added reglan x 1 as vomitting despite zofran administration (QTC 423) (2) Abnormal urinalysis: Code(s): R82.90 - Unspecified abnormal findings in urine Status: Acute Assessment and Plan: * Urinalysis with findings of 1+ blood, 1+ leuk esterase, 6-10 rbc's and 6-10 wbc's. Given the fact that patient has noted leukocytosis on her CBC of 12.2 and an obstructive stone will cover with antibiotics of Rocephin 1 g Q 24 hours for concern of a developing infected stone. * Urine culture pending * Blood cultures pending (3) Pseudotumor cerebri: Code(s): G93.2 - Benign intracranial hypertension Status: Chronic Assessment and Plan: * History SURVEY COMPILER shunt noted. (4) Seizure disorder: Code(s): G40.909 - Epilepsy, unspecified, not intractable, without status epilepticus Status: Chronic Assessment and Plan: * Most likely secondary to patient's pseudotumor cerebri and benign intracranial hypertension. * If patient is covered by any current anti epileptic medications will reorder once they are confirmed verified * No seizure activity noted at this point. (5) Tobacco dependence due to cigarettes: Code(s): F17.210 - Nicotine dependence, cigarettes, uncomplicated Status: Chronic Assessment and Plan: * Nicotine patch ordered. * Advised necessity of smoking cessation. Plan Full code NPO at midnight Potential ureteroscopy today-pending urology consult SCDs Time Spent With Patient Time with patient: 25 - 35 minutes Subjective Date/time seen: 06/24/25 08:54 Interval history: This is a very pleasant 39-year-old female patient with past medical history of previous kidney stones, tobacco dependence, pseudotumor cerebri, seizure disorder, idiopathic intracranial hypertension who is status post appendectomy and SURVEY COMPILER shunt who presented to the emergency room this evening with complaints of having 2 days of left flank pain. Patient states the pain is sharp, constant a varying degree and today became severe. She has noticed trace blood in her urine and states that it felt like she felt previously with kidney stone pain. She denies any fevers. She denies any dysuria or urinary frequency. She has not had to previously have any procedures to alleviate her kidney stone pain, nor has she ever passed any. No CP, dyspnea, but she has had some associated N/V. In the emergency room workup was performed that was significant for leukocytosis at 12.2, unremarkable metabolic panel and CBC otherwise unremarkable. Urinalysis showing 1+ blood, 1+ leuk esterase with 6-10 rbc's and 6 wbc's. Vital signs were normal. CT abdomen pelvis showing a left UPJ stone measuring 6 mm with hydronephrosis. In the emergency room patient received morphine and Dilaudid for pain, Zofran for nausea and was started on Rocephin and IV fluids. She is being admitted in the current setting for admission, pain management and expert urological evaluation in the morning 06/24 pt is seen and examined. She is in pain and vomiting. Urology consulted- awaiting to be seen. Review of Systems Review of Systems: All systems reviewed & are unremarkable except as noted in HPI and below Exam Const: General: uncomfortable Other: Obese female patient on stretcher at this time in will appears to be pain distress. HENMT: Face/Nose/Sinus: Normal nares present Mouth: Yes moist mucous membranes Eyes: General: appearance normal, both eyes and all related structures Sclera: sclerae normal Pupils: Equal, round and reactive pupils present EOM: EOMs intact bilaterally Neck: Neck: supple and no JVD Lymphatic: lymphadenopathy not noted Resp: Effort & Inspection: normal respiratory effort Auscultation: clear to auscultation bilaterally Cardio: Rate: regular rate Rhythm: regular rhythm Heart sounds: no gallops, no murmurs and no rubs GI: Auscultation: normal bowel sounds Skin: General skin exam: normal color, no rashes or lesions noted and no erythema Wounds: no wounds Neuro: Cranial nerves: Yes Equal, round and reactive pupils present Speech: normal speech Motor exam (neuro): 5/5 motor strength present throughout and Normal motor muscle tone present throughout Sensory Exam: normal sensation Extrem: Other: Completely and equally moves all extremities well without deficit Psych: Mental Status: mental status grossly normal Affect: normal affect Objective Data Vital Signs Vital Signs: Vital Signs - 24 hr 06/23/25 19:02 06/23/25 21:36 06/24/25 05:33 Temperature 97.8 F 96.7 F L 97.0 F L Pulse Rate 87 57 L 56 L Respiratory Rate 16 18 20 Blood Pressure 157/98 H 121/69 128/66 Pulse Oximetry 100 97 97 Oxygen Delivery Room Air 06/24/25 05:35 06/24/25 08:29 Temperature 97.0 F L Pulse Rate 56 L Respiratory Rate 20 Blood Pressure 128/66 Pulse Oximetry 97 Oxygen Delivery Room Air Intake/Output Intake/Output: Intake & Output 06/21/25 06/22/25 06/23/25 06/24/25 23:59 23:59 23:59 23:59 Intake Total 1050 1585.3 Output Total 600 Balance 1050 985.3 Meds/Results Medications: Active Medications Generic Name Dose Route Start Last Admin Trade Name Freq PRN Reason Stop Dose Admin Hydromorphone HCl 1 mg 06/23/25 23:17 06/24/25 08:24 Hydromorphone Hcl Inj (*Crx) 1 Mg/Ml Syr IV PUSH 1 mg Q3H PRN Administration Pain Rated 7-10 Ceftriaxone Sodium 1 gm/ 50 mls @ 100 mls/hr 06/24/25 22:00 Sodium Chloride IVPB Q24H LEVI Sodium Chloride 1,000 mls @ 125 mls/hr 06/23/25 21:25 06/24/25 05:39 Normal Saline Iv IV CONT 125 mls/hr .Q8H LEVI Administration Nicotine 1 patch 06/23/25 22:35 06/23/25 22:38 Nicotine (*Pbkc) 21 Mg Patch TRANSDERM 1 patch DAILY LEVI Administration Ondansetron HCl 4 mg 06/23/25 21:21 06/24/25 06:06 Ondansetron Inj 4 Mg/2 Ml Vial IV PUSH 4 mg Q4H PRN Administration Nausea Radiology Results: ITS Impressions Abdomen/Pelvis CT 06/23/25 19:37 IMPRESSION: 1. Left UPJ stone measuring 6 mm with mild hydronephrosis. Labs Labs: Laboratory Results - last 24 hr 06/23/25 06/23/25 06/23/25 19:19 19:21 19:28 WBC 12.2 H RBC 4.35 Hgb 12.3 Hct 38.6 MCV 88.7 MCH 28.3 MCHC 31.9 L RDW 12.9 Plt Count 305 MPV 10.0 Immature Gran % (Auto) 0.3 Neut % (Auto) 52.3 Lymph % (Auto) 33.9 [place] % (Auto) 7.0 Eos % (Auto) 6.0 H Baso % (Auto) 0.5 Lymph # (Auto) 4.12 H [place] # (Auto) 0.9 H Eos # (Auto) 0.7 H Baso # (Auto) 0.1 Abs Immat Gran (auto) 0.04 H Absolute Neuts (auto) 6.4 Absolute Nucleated RBC 0.000 Band Neutrophils % Not Reportable Nucleated RBC % 0.0 Atypical Lymphocytes Present Platelet Estimate Adequate Anisocytosis 1+ Ovalocytes Occasional Schistocytes None seen Sodium 139 Potassium 4.0 Chloride 110 H Carbon Dioxide 24 Anion Gap 5 BUN 17 Creatinine 0.97 Estim Creat Clear Calc Not Reportable Estimated GFR > 60 Glucose 93 Calcium 8.9 Total Bilirubin 0.2 AST 21 ALT 18 Alkaline Phosphatase 77 Total Protein 7.0 Albumin 4.0 Urine Color Yellow Urine Appearance Cloudy H Urine pH 6.0 Ur Specific [place] 1.016 Urine Protein Negative Urine Glucose (UA) Negative Urine Ketones Negative Ur Blood (Man) 1+ H Urine Nitrate Negative Urine Bilirubin Negative Urine Urobilinogen 0.2 Leukocyte Esterase Rfl 1+ H Urine RBC 6-10 H Urine WBC 6-10 H Ur Squamous Epith Cells Few Urine Bacteria None seen Urine Casts 0-2 POC Urine HCG, Qual Negative Quality VTE Prophylaxis VTE prophylaxis: mechanical ordered
[2025-06-24] MEDS: METOCLOPRAMIDE HCL INJ 10 MG/2 ML VIAL IV PUSH (09:01)
--- NOTE | 2025-06-24 09:53 | P.CONUR_ITS ---
Assessment and Plan Assessment and plan (1) Left ureteral stone: Code(s): N20.1 - Calculus of ureter Status: Acute (2) UTI (urinary tract infection): Code(s): N39.0 - Urinary tract infection, site not specified Status: Acute (3) Hydronephrosis: Code(s): N13.30 - Unspecified hydronephrosis Status: Acute Plan 39y old female with left ureteral stone -CT AP reveals Left UPJ stone measuring 6 mm with mild hydronephrosis. -UA is suspicious for UTI. Cultures pending. culture driven antibiotic therapy per primary service. -WBC is 12.2 today and trending up -kidney function wnl. -Patient has been NPO since midnight. keep NPO -Plan for cysto, Left ureteral stent today -Discussed risks of surgery including infection, bleeding, damage to surrounding structures, or . discussed course of treatment with Left ureteral stent placement, follow up in 1-2 weeks after infection resolution for definitive stone management (likely ESWL), and will keep stent for another week after stone resolution. She will come to office as outpatient for stent removal. She voiced understanding and is agreeable to proceed with surgery today. -she is tenatively on schedule for today at [address] Rosario. Urology Consult Note HPI Date Seen: 06/24/25 Requesting Physician: Gumaro Rivera MD Primary Care Provider: [facility] [employer] [facility] PHYSICIAN Consult Narrative Narrative: Prema Alvarez is a 39 year old female with past medical history of previous kidney stones, tobacco dependence, pseudotumor cerebri, seizure disorder, idiopathic intracranial hypertension who is status post appendectomy and DIRECTOR OF ACCOUNTS PAYABLE shunt who presented to the emergency room this evening with complaints of having 2 days of left flank pain. Patient states the pain is sharp, constant a varying degree and today became severe. She has noticed trace blood in her urine and states that it felt like she felt previously with kidney stone pain. She denies any fevers. She denies any dysuria or urinary frequency. She has not had to previously have any procedures to alleviate her kidney stone pain, nor has she ever passed any. No CP, dyspnea, but she has had some associated N/V. Review of Systems 2 Review of Systems: All systems reviewed & are unremarkable except as noted in HPI and below PMFSH Past Medical History Medical History Tobacco dependence due to cigarettes History of MRSA infection Pseudotumor cerebri Seizure disorder History of idiopathic intracranial hypertension Surgical History Surgical History S/P ventriculoperitoneal shunt History of appendectomy 2009 S/P DIRECTOR OF ACCOUNTS PAYABLE shunt Hx of ventricular shunt DIRECTOR OF ACCOUNTS PAYABLE shunt placed 2001, revised multiple times, last in 2019 Family History Family History Mother No problems noted. 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 . Lives with and 60-year-old daughter. She has smoked as much as a half a pack of cigarettes per day his started smoking at age 16. She drinks alcohol about once a month in moderation. Surrogate decision maker: . Code Status: Full. Smoking packs per day: 0.5 Smoking cigarettes per day: 10.0 Years smoked: 23 Smoking pack-years: 11.50 Smoking status: Current every day smoker Second hand tobacco smoke exposure: No Alcohol intake: current Drinks per week: 1 Substance use: never Substance use type: marijuana Other substance usage details: uses for seizure control; medical card - uses edibles Last use: 11/18/24 Do You Feel Safe in your Home?: Yes Lack of Transportation: No Lack of Food: Never True Current Housing: I Have Housing Concerned About Future Housing: No Difficulty Paying Gas/Electric Bills: No Difficulty Paying for Meds: No Currently Unemployed: No Education: Master's Degree or Higher Difficulty w/ Childcare or Family Care: No Living arrangements: with family Occupation/Education: occupation Gender identity (if verbalized by the patient): Female Spiritual care concerns: No Meds Home Medications and Allergies Home Medications ?Medication ?Instructions ?Recorded ?Confirmed ?Type No Home Medications 06/23/25 06/23/25 H istory Allergies Allergy/AdvReac Type Severity Reaction Status Date / Time levofloxacin Allergy Intermediate Hives Verified 06/23/25 22:24 tetracycline Allergy Intermediate Hives Verified 06/23/25 22:24 cefaclor (From Ceclor) Allergy Swelling Verified 06/23/25 22:24 prochlorperazine (From Allergy Swelling Verified 06/23/25 22:24 Compazine) Sulfa (Sulfonamide Allergy Swelling Verified 06/23/25 22:24 Antibiotics) sulfamethoxazole (From Allergy Swelling Verified 06/23/25 22:24 Bactrim) trimethoprim (From Bactrim) Allergy Swelling Verified 06/23/25 22:24 Vital Signs Vital Signs - 24 hr 06/23/25 19:02 06/23/25 21:36 06/24/25 05:33 Temperature 97.8 F 96.7 F L 97.0 F L Pulse Rate 87 57 L 56 L Respiratory Rate 16 18 20 Blood Pressure 157/98 H 121/69 128/66 Pulse Oximetry 100 97 97 Oxygen Delivery Room Air 06/24/25 05:35 06/24/25 08:29 Temperature 97.0 F L Pulse Rate 56 L Respiratory Rate 20 Blood Pressure 128/66 Pulse Oximetry 97 Oxygen Delivery Room Air Exam 2 Const: General: in distress and uncomfortable Other: left flank pain with nausea and vomiting. HENMT: Mouth: Yes moist mucous membranes abnormal Eyes: General: appearance normal, both eyes and all related structures Neck: Neck: supple and no JVD Resp: Effort & Inspection: normal respiratory effort Skin: General skin exam: normal color Neuro: Speech: normal speech Psych: Speech and movement: Normal speech and movement present Results Labs 06/23/25 19:28 06/23/25 19:28 Labs: Short CBC 06/23/25 Range/Units 19:28 WBC 12.2 H (4.5-10.0) K/mm3 Hgb 12.3 (12.0-15.0) g/dL Hct 38.6 (37.0-47.0) % Plt Count 305 (150-375) k/mm3 BMP 06/23/25 19:28 Sodium 139 Potassium 4.0 Chloride 110 H Carbon Dioxide 24 BUN 17 Creatinine 0.97 Glucose 93 Calcium 8.9 Liver Function 06/23/25 Range/Units 19:28 Total Bilirubin 0.2 (0.2-1.3) mg/dL AST 21 (14-36) U/L ALT 18 (6-35) U/L Alkaline Phosphatase 77 (38-126) U/L Albumin 4.0 (3.5-5.1) g/dL Urine 06/23/25 Range/Units 19:19 Urine Color Yellow (Yellow) Urine Appearance Cloudy H (Clear) Urine pH 6.0 (5.0-9.0) Ur Specific [place] 1.016 (1.001-1.035) Urine Protein Negative (Negative) mg/dL Urine Glucose (UA) Negative (Negative) mg/dL
--- NOTE | 2025-06-24 12:30 | PC.NURSE ---
Patient transported to surgery dept by wheelchair at 1230.
[2025-06-24] MEDS: LACTATED RINGERS 1,000 ML 30 ML IV CONT (13:00)
--- NOTE | 2025-06-24 13:26 | WPDANESEPPF ---
Anes - Initial Pre Proc Eval Procedure: Operation Date: 06/24/25 13:15 Proposed Procedures p Cystoscopy, Left Stent Placement - Kermit Rosario MD Date/Time: 06/24/25 13:26 Surgeon: Gumaro Rivera MD Pre Op Diagnosis: Ureterolithiasis Patient Data Age: 39 Gender: F Height: 1.8 m Weight: 115.5 kg Last Vital Signs Temp 36.1 C L 06/24/25 05:35 Pulse 56 L 06/24/25 05:35 Resp 20 06/24/25 05:35 BP 128/66 06/24/25 05:35 Pulse Ox 97 06/24/25 05:35 O2 Del Method Room Air 06/24/25 08:29 Allergies Allergy/AdvReac Type Severity Reaction Status Date / Time levofloxacin Allergy Intermediate Hives Verified 06/23/25 22:24 tetracycline Allergy Intermediate Hives Verified 06/23/25 22:24 cefaclor (From Ceclor) Allergy Swelling Verified 06/23/25 22:24 prochlorperazine (From Allergy Swelling Verified 06/23/25 22:24 Compazine) Sulfa (Sulfonamide Allergy Swelling Verified 06/23/25 22:24 Antibiotics) sulfamethoxazole (From Allergy Swelling Verified 06/23/25 22:24 Bactrim) trimethoprim (From Bactrim) Allergy Swelling Verified 06/23/25 22:24 Home Medications ?Medication ?Instructions ?Recorded ?Confirmed ?Type No Home Medications 06/23/25 06/23/25 History Laboratory Tests 06/23/25 06/23/25 06/23/25 19:19 19:21 19:28 WBC 12.2 H K/mm3 (4.5-10.0) RBC 4.35 M/mm3 (4.2-5.4) Hgb 12.3 g/dL (12.0-15.0) Hct 38.6 % (37.0-47.0) MCV 88.7 fl (80-100) MCH 28.3 pg (26-34) MCHC 31.9 L g/dl (32-36) RDW 12.9 % (11.5-14.5) Plt Count 305 k/mm3 (150-375) MPV 10.0 fl (7.4-10.4) Immature Gran % (Auto) 0.3 % (0-0.5) Neut % (Auto) 52.3 % (45.5-73.1) Lymph % (Auto) 33.9 % (18.3-44.2) [place] % (Auto) 7.0 % (2.6-8.5) Eos % (Auto) 6.0 H % (0-4.4) Baso % (Auto) 0.5 % (0.2-1.2) Lymph # (Auto) 4.12 H K/mm3 (0.9-3.2) [place] # (Auto) 0.9 H K/mm3 (0.1-0.6) Eos # (Auto) 0.7 H K/mm3 (0-0.3) Baso # (Auto) 0.1 K/mm3 (0.0-0.1) Abs Immat Gran (auto) 0.04 H K/mm3 (0.00-0.031) Absolute Neuts (auto) 6.4 K/mm3 (1.3-6.7) Absolute Nucleated RBC 0.000 K/mm3 (0.0-0.012) Band Neutrophils % Not Reportable Nucleated RBC % 0.0 % (0.0-0.2) Atypical Lymphocytes Present Platelet Estimate Adequate (Adequate) Anisocytosis 1+ Ovalocytes Occasional Schistocytes None seen Sodium 139 mmol/L (137-145) Potassium 4.0 mmol/L (3.4-5.0) Chloride 110 H mmol/L (98-107) Carbon Dioxide 24 mmol/L (22-30) Anion Gap 5 mmol/L (4-12) BUN 17 mg/dL (7-17) Creatinine 0.97 mg/dL (0.7-1.0) Estim Creat Clear Calc Not Reportable Estimated GFR > 60 (59 - ) Glucose 93 mg/dL (65-110) Calcium 8.9 mg/dL (8.4-10.2) Total Bilirubin 0.2 mg/dL (0.2-1.3) AST 21 U/L (14-36) ALT 18 U/L (6-35) Alkaline Phosphatase 77 U/L (38-126) Total Protein 7.0 g/dL (6.3-8.2) Albumin 4.0 g/dL (3.5-5.1) Urine Color Yellow (Yellow) Urine Appearance Cloudy H (Clear) Urine pH 6.0 (5.0-9.0) Ur Specific [place] 1.016 (1.001-1.035) Urine Protein Negative mg/dL (Negative) Urine Glucose (UA) Negative mg/dL (Negative) Urine Ketones Negative mg/dL (Negative) Ur Blood (Man) 1+ H (Negative) Urine Nitrate Negative (Negative) Urine Bilirubin Negative (Negative) Urine Urobilinogen 0.2 mg/dL (<2.0) Leukocyte Esterase Rfl 1+ H JINA/UL (Negative) Urine RBC 6-10 H /hpf (0-2) Urine WBC 6-10 H /hpf (0-3) Ur Squamous Epith Cells Few /hpf (Few) Urine Bacteria None seen /hpf Urine Casts 0-2 POC Urine HCG, Qual Negative (Negative) Patient hx anesthesia problems: none Family hx anesthesia problems: none Results Review: All pre-operative results and documents have been reviewed as part of the pre-operative evaluation. [facility] Past Medical History Medical History Tobacco dependence due to cigarettes History of MRSA infection Pseudotumor cerebri Seizure disorder History of idiopathic intracranial hypertension Surgical History Surgical History S/P ventriculoperitoneal shunt History of appendectomy 2009 S/P EMERGENCY ROOM TECH shunt Hx of ventricular shunt EMERGENCY ROOM TECH shunt placed 2001, revised multiple times, last in 2019 Family History Family History Mother No problems noted. 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 . Lives with and 60-year-old daughter. She has smoked as much as a half a pack of cigarettes per day his started smoking at age 16. She drinks alcohol about once a month in moderation. Surrogate decision maker: . Code Status: Full. Smoking packs per day: 0.5 Smoking cigarettes per day: 10.0 Years smoked: 23 Smoking pack-years: 11.50 Smoking status: Current every day smoker Second hand tobacco smoke exposure: No Alcohol intake: current Drinks per week: 1 Substance use: never Substance use type: marijuana Other substance usage details: uses for seizure control; medical card - uses edibles Last use: 11/18/24 Do You Feel Safe in your Home?: Yes Lack of Transportation: No Lack of Food: Never True Current Housing: I Have Housing Concerned About Future Housing: No Difficulty Paying Gas/Electric Bills: No Difficulty Paying for Meds: No Currently Unemployed: No Education: Master's Degree or Higher Difficulty w/ Childcare or Family Care: No Living arrangements: with family Occupation/Education: occupation Gender identity (if verbalized by the patient): Female Spiritual care concerns: No Anes - Eval Final PreProcedure Day of Procedure 06/24/25 13:26 Patient weight: obese Heart: regular rate and rhythm Lungs: clear to auscultation Airway: Mallampati scale class II Neurological: alert and oriented Last oral intake: >/= 8 hours ASA classification: III Emergent: no Anesthetic plan: proceed Anesthesia type and monitoring: general GIVS and standard monitoring Results Review: All pre-operative results and documents have been reviewed as part of the pre-operative evaluation. Informed Consent: The patient's anesthetic plan and its attendant risks and benefits were discussed with the patient/family/POA. Questions were solicited and answers provided to the satisfaction of the patient/family/POA.
[2025-06-24] MEDS: fentaNYL CITRATE INJ (*CRX) 100 MCG/2 ML VIAL 50 MCG IV PUSH (13:40)
--- NOTE | 2025-06-24 13:54 | WPDHPUPDATE1 ---
History and Physical Update Update Date/Time: 06/24/25 13:54 History and Physical has been reviewed, including an updated exam of the patient. There are NO changes in the patient's condition. Risks, benefits, and alternatives have been discussed and questions answered. Patient agrees to proceed with procedure.
--- NOTE | 2025-06-24 14:44 | W.PM.PROC2 ---
Procedure Note - Detailed Date of Procedure 06/24/25 Pre-op Diagnosis Left ureteral stone Post-op Diagnosis Same Procedure Performed Cystoscopy, left retrograde pyelography, left ureteral stent placement Surgeon Kermit Rosario MD Anesthesia General Description of Procedure Patient is brought to the operative suite was prepped draped in routine sterile fashion while in dorsal lithotomy position. 2% xylocaine jelly was introduced intraurethrally and systemic sedation is administered per the anesthesia department. Cystoscopy was undertaken with a 19 F rigid cystoscope. Bladder neck and urethra endoscopically normal. Bladder mucosa shows diffuse hyperemia consistent with a bacterial cystitis. She has a single orthotopic ureteral orifice bilaterally. I 0.035 in glidewire was advanced into the left renal pelvis and a retrograde pyelogram was obtained with a [place] catheter. This shows the filling defect at the site of her stone but no other identifiable filling defects, points of obstruction or other I did collecting system/ureteral pathology. A 4.8 F variable length stent was positioned with the proximal coil in renal pelvis and distal coil in the bladder. Scopes and wires removed she was taken recovery room good condition Urine Output 500 Drains Yes Packing No Pathology None sent Complications No immediate complications
[2025-06-24] MEDS: fentaNYL CITRATE INJ (*CRX) 100 MCG/2 ML VIAL 25 MCG IV PUSH ×4 (15:05→15:56)
--- NOTE | 2025-06-24 16:30 | PC.NURSE ---
Patient returned to the floor from surgery via stretcher at 1630.
[2025-06-24] MEDS: NICOTINE (*PBKC) 21 MG PATCH 1 PATCH TRANSDERM (17:25)
[2025-06-24] MEDS: cefTRIAXone 1 GM in SODIUM CHLORIDE 0.9% IV 50 ML 100 ML IVPB (21:01)
[2025-06-25] MEDS: SODIUM CHLORIDE 0.9% IV 1,000 ML 125 ML IV CONT (01:35)
[2025-06-25] MEDS: HYDROmorphone HCL INJ (*CRX) 1 MG/ML SYR IV PUSH ×7 (02:31→22:33)
[2025-06-25 05:15] VITALS: BP 135/71; PULSE 68; RESP 18; TEMP 35.7; O2SAT 98
[2025-06-25 06:28] LABS: Hematocrit 36.3 % (37.0-47.0); Hemoglobin 11.0 g/dL (12.0-15.0); Mean Corpuscular HGB Conc 30.3 g/dl (32-36); Mean Corpuscular Hemoglobin 27.9 pg (26-34); Mean Corpuscular Volume 92.1 fl (80-100); Platelet Count Result 257 k/mm3 (150-375); Red Blood Count 3.94 M/mm3 (4.2-5.4); White Blood Count 8.2 K/mm3 (4.5-10.0)
[2025-06-25 06:55] LABS: Anion Gap 2 mmol/L (4-12); Blood Urea Nitrogen 11 mg/dL (7-17); Calcium 8.0 mg/dL (8.4-10.2); Carbon Dioxide 26 mmol/L (22-30); Chloride 107 mmol/L (98-107); Estimated CRCL calculation 117 ml/min; Estimated Glomerular Filt Rate > 60; Glucose 96 mg/dL (65-110); Potassium 3.9 mmol/L (3.4-5.0); Sodium 135 mmol/L (137-145)
[2025-06-25 08:00] VITALS: BP 122/80; PULSE 55; RESP 20; TEMP 36.4; O2SAT 96
--- NOTE | 2025-06-25 08:21 | WPDUROPN2 ---
Progress Note: A&P Assessment and Plan (1) Hydronephrosis: Code(s): N13.30 - Unspecified hydronephrosis Status: Acute (2) UTI (urinary tract infection): Code(s): N39.0 - Urinary tract infection, site not specified Status: Acute (3) Left ureteral stone: Code(s): N20.1 - Calculus of ureter Status: Acute Plan 1. agree with antibiotics, tailor to C&S. 2. Patient will require definitive stone mgmt in upcoming weeks with Dr. Rosario. 3. I explained that my preference is to wait for cultures to result prior to DC, however will defer decision to hospitalist. Subjective Subjective Date/Time Seen: 06/25/25 08:21 Interval history: ALLIE, reports feeling better, she very badly wants to discharge. Review of Systems Review of Systems: All systems reviewed & are unremarkable except as noted in HPI and below Exam Const: General: comfortable and no acute distress Eyes: General: appearance normal, both eyes and all related structures Resp: Effort & Inspection: normal respiratory effort Cardio: Rate: regular rate GI: Inspection: non-distended Neuro: Speech: normal speech Extrem: General: normal to inspection Psych: Mental Status: mental status grossly normal Affect: normal affect Objective Data Vital Signs Vital Signs: Vital Signs - 24 hr 06/24/25 08:29 06/24/25 13:00 06/24/25 14:55 Temperature 97.5 F L 97.8 F Pulse Rate 57 L 65 Respiratory Rate 20 12 Blood Pressure 128/66 118/81 Pulse Oximetry 98 98 Oxygen Delivery Room Air Room Air Room Air Oxygen Flow Rate 06/24/25 15:10 06/24/25 15:25 06/24/25 15:40 Temperature Pulse Rate 55 L 55 L 55 L Respiratory Rate 14 14 14 Blood Pressure 120/67 113/70 116/79 Pulse Oximetry 94 98 96 Oxygen Delivery Room Air Room Air Room Air Oxygen Flow Rate 06/24/25 15:55 06/24/25 17:15 06/24/25 18:15 Temperature 97.4 F L 97.3 F L Pulse Rate 55 L 57 L 52 L Respiratory Rate 18 18 18 Blood Pressure 111/75 127/75 105/88 Pulse Oximetry 99 100 100 Oxygen Delivery Oxygen Flow Rate 14 06/24/25 22:34 06/24/25 23:55 06/25/25 05:15 Temperature 96.2 F L 97.1 F L 96.3 F L Pulse Rate 62 57 L 68 Respiratory Rate 18 18 18 Blood Pressure 129/64 120/64 135/71 Pulse Oximetry 98 99 98 Oxygen Delivery Oxygen Flow Rate Intake/Output Intake/Output: Intake & Output 06/22/25 06/23/25 06/24/25 06/25/25 23:59 23:59 23:59 23:59 Intake Total 1050 3185.3 1744 Output Total 2000 650 Balance 1050 1185.3 1094 Meds/Results Medications: Active Medications Generic Name Dose Route Start Last Admin Trade Name Freq PRN Reason Stop Dose Admin Fentanyl Citrate 25 mcg 06/24/25 13:32 06/24/25 15:56 Fentanyl Citrate Inj (*Crx) 100 Mcg/2 Ml Vial IV PUSH 25 mcg Q2M PRN Administration Pain Hydromorphone HCl 1 mg 06/23/25 23:17 06/25/25 06:34 Hydromorphone Hcl Inj (*Crx) 1 Mg/Ml Syr IV PUSH 1 mg Q3H PRN Administration Pain Rated 7-10 Ceftriaxone Sodium 1 gm/ 50 mls @ 100 mls/hr 06/24/25 22:00 06/24/25 21:01 Sodium Chloride IVPB 100 mls/hr Q24H LEVI Administration Sodium Chloride 1,000 mls @ 125 mls/hr 06/23/25 21:25 06/25/25 01:35 Normal Saline Iv IV CONT 125 mls/hr .Q8H LEVI Administration Lactated Ringer's 1,000 mls @ 30 mls/hr 06/24/25 13:35 06/24/25 13:00 Lr - Lactated Ringers Iv IV CONT 30 mls/hr .Q24H LEVI Administration Lactated Ringer's 1,000 mls @ 30 mls/hr 06/24/25 13:35 06/24/25 20:50 Lr - Lactated Ringers Iv IV CONT Not Given .Q24H LEVI Nicotine 1 patch 06/23/25 22:35 06/24/25 17:25 Nicotine (*Pbkc) 21 Mg Patch TRANSDERM 1 patch DAILY LEVI Administration Ondansetron HCl 4 mg 06/23/25 21:21 06/24/25 23:27 Ondansetron Inj 4 Mg/2 Ml Vial IV PUSH 4 mg Q4H PRN Administration Nausea Ondansetron HCl 4 mg 06/24/25 13:32 Ondansetron Inj 4 Mg/2 Ml Vial IV PUSH ONCE PRN Nausea Radiology Results: ITS Impressions Abdomen/Pelvis CT 06/23/25 19:37 IMPRESSION: 1. Left UPJ stone measuring 6 mm with mild hydronephrosis. Retrograde Pyelogram 06/24/25 14:57 IMPRESSION: 1. Left internal ureteral stent placement. Please refer to real-time procedural findings for details. Labs Labs: Laboratory Results - last 24 hr 06/25/25 05:14 WBC 8.2 RBC 3.94 L Hgb 11.0 L Hct 36.3 L MCV 92.1 MCH 27.9 MCHC 30.3 L RDW 13.2 Plt Count 257 MPV 10.7 H Sodium 135 L Potassium 3.9 Chloride 107 Carbon Dioxide 26 Anion Gap 2 L BUN 11 D Creatinine 0.77 Estim Creat Clear Calc 117 Estimated GFR > 60 Glucose 96 Calcium 8.0 L
[2025-06-25] MEDS: NICOTINE (*PBKC) 21 MG PATCH 1 PATCH TRANSDERM (08:30)
[2025-06-25] MEDS: ONDANSETRON INJ 4 MG/2 ML VIAL IV PUSH ×3 (09:30→19:58)
--- NOTE | 2025-06-25 11:31 | P.PNIM_ITS ---
Progress Note: A&P Assessment and Plan (1) Left ureteral stone: Code(s): N20.1 - Calculus of ureter Status: Acute Assessment and Plan: Presented with left flank pain On admission CT scan abdomen and pelvis shows left UPJ stone measuring 6 mm with mild hydronephrosis Status post cystoscopy, left retrograde pyelography, left ureteral stent placement on 06/25/2025 Pain control with 1 mg IV push q.3 hours p.r.n., antiemetics with Zofran Reduce IV fluid to 100 cc/hour as she has good oral intake She still endorsed abdominal tenderness/suprapubic pressure associated with Nausea, and chills but no fever or vomiting Daily cbc unless she feels better and cleared for discharge home with Abx (2) Abnormal urinalysis: Code(s): R82.90 - Unspecified abnormal findings in urine Status: Acute Assessment and Plan: UA reveals 6-10 WBC and 1+ leukocyte esterase in the setting of ureteral stone with hydronephrosis and flank pain Continue ceftriaxone Follow blood/ urine culture (3) Pseudotumor cerebri: Code(s): G93.2 - Benign intracranial hypertension Status: Chronic Assessment and Plan: History [employer] shunt noted. (4) Seizure disorder: Code(s): G40.909 - Epilepsy, unspecified, not intractable, without status epilepticus Status: Chronic Assessment and Plan: No seizure activity this admission, hemodynamically stable Continue to monitor (5) Tobacco dependence due to cigarettes: Code(s): F17.210 - Nicotine dependence, cigarettes, uncomplicated Status: Chronic Assessment and Plan: Patient is a current smoker Smoking cessation counseling given Continue nicotine patch Plan Full code SCDs Subjective Date/time seen: 06/25/25 11:31 Interval history: No acute event overnight but she still has nausea and chills. Also reports lower abdominal/suprapubic pressure/Pain. Feels better with urination. No fever or vomiting. No diarrhea Exam Const: Other: Obese, in tears while i was talking to her because she has pain Chest: Chest palpation & inspection: normal inspection of the chest Resp: Effort & Inspection: normal respiratory effort Auscultation: clear to auscultation bilaterally Cardio: Jugular venous distension: no JVD Rate: Yes regular rate Rhythm: regular rhythm Peripheral pulses: Peripheral pulses 2+ throughout GI: Other: lower abdomen tenderness with deep palpation, no guarding or peritonitis Musc: Digits and nails: grossly unremarkable Other: moves all extremities spontanousely Psych: Mood: anxious mood Objective Data Vital Signs Vital Signs: Vital Signs - 24 hr 06/24/25 13:00 06/24/25 14:55 06/24/25 15:10 Temperature 36.4 C L 36.6 C Pulse Rate 57 L 65 55 L Respiratory Rate 20 12 14 Blood Pressure 128/66 118/81 120/67 Pulse Oximetry 98 98 94 Oxygen Delivery Room Air Room Air Room Air Oxygen Flow Rate 06/24/25 15:25 06/24/25 15:40 06/24/25 15:55 Temperature Pulse Rate 55 L 55 L 55 L Respiratory Rate 14 14 18 Blood Pressure 113/70 116/79 111/75 Pulse Oximetry 98 96 99 Oxygen Delivery Room Air Room Air Oxygen Flow Rate 14 06/24/25 17:15 06/24/25 18:15 06/24/25 22:34 Temperature 36.3 C L 36.3 C L 35.7 C L Pulse Rate 57 L 52 L 62 Respiratory Rate 18 18 18 Blood Pressure 127/75 105/88 129/64 Pulse Oximetry 100 100 98 Oxygen Delivery Oxygen Flow Rate 06/24/25 23:55 06/25/25 05:15 06/25/25 08:00 Temperature 36.2 C L 35.7 C L 36.4 C L Pulse Rate 57 L 68 55 L Respiratory Rate 18 18 20 Blood Pressure 120/64 135/71 122/80 Pulse Oximetry 99 98 96 Oxygen Delivery Oxygen Flow Rate 06/25/25 08:00 Temperature Pulse Rate Respiratory Rate Blood Pressure Pulse Oximetry Oxygen Delivery Room Air Oxygen Flow Rate Intake/Output Intake/Output: Intake & Output 06/22/25 06/23/25 06/24/25 06/25/25 23:59 23:59 23:59 23:59 Intake Total 1050 3185.3 1864 Output Total 1999 650 Balance 1050 1185.3 1214 Meds/Results Medications: Active Medications Generic Name Dose Route Start Last Admin Trade Name Freq PRN Reason Stop Dose Admin Fentanyl Citrate 25 mcg 06/24/25 13:32 06/24/25 15:56 Fentanyl Citrate Inj (*Crx) 100 Mcg/2 Ml Vial IV PUSH 25 mcg Q2M PRN Administration Pain Hydromorphone HCl 1 mg 06/23/25 23:17 06/25/25 09:30 Hydromorphone Hcl Inj (*Crx) 1 Mg/Ml Syr IV PUSH 1 mg Q3H PRN Administration Pain Rated 7-10 Ceftriaxone Sodium 1 gm/ 50 mls @ 100 mls/hr 06/24/25 22:00 06/24/25 21:01 Sodium Chloride IVPB 100 mls/hr Q24H LEVI Administration Sodium Chloride 1,000 mls @ 125 mls/hr 06/23/25 21:25 06/25/25 01:35 Normal Saline Iv IV CONT 125 mls/hr .Q8H LEVI Administration Nicotine 1 patch 06/23/25 22:35 06/25/25 08:30 Nicotine (*Pbkc) 21 Mg Patch TRANSDERM 1 patch DAILY LEVI Administration Ondansetron HCl 4 mg 06/23/25 21:21 06/25/25 09:30 Ondansetron Inj 4 Mg/2 Ml Vial IV PUSH 4 mg Q4H PRN Administration Nausea Ondansetron HCl 4 mg 06/24/25 13:32 Ondansetron Inj 4 Mg/2 Ml Vial IV PUSH ONCE PRN Nausea Polyethylene Glycol 17 gm 06/25/25 11:30 Polyethylene Glycol 3350 17 Gm Powd.Pack PO QAM PRN Constipation Radiology Results: ITS Impressions Abdomen/Pelvis CT 06/23/25 19:37 IMPRESSION: 1. Left UPJ stone measuring 6 mm with mild hydronephrosis. Retrograde Pyelogram 06/24/25 14:57 IMPRESSION: 1. Left internal ureteral stent placement. Please refer to real-time procedural findings for details. Labs Labs: Laboratory Results - last 24 hr 06/25/25 05:14 WBC 8.2 RBC 3.94 L Hgb 11.0 L Hct 36.3 L MCV 92.1 MCH 27.9 MCHC 30.3 L RDW 13.2 Plt Count 257 MPV 10.7 H Sodium 135 L Potassium 3.9 Chloride 107 Carbon Dioxide 26 Anion Gap 2 L BUN 11 D Creatinine 0.77 Estim Creat Clear Calc 117 Estimated GFR > 60 Glucose 96 Calcium 8.0 L
[2025-06-25 12:00] VITALS: BP 116/73; PULSE 68; RESP 16; TEMP 36.6; O2SAT 97
[2025-06-25 16:00] VITALS: BP 126/90; PULSE 73; RESP 14; TEMP 36.6; O2SAT 99
[2025-06-25 20:00] VITALS: BP 132/92; PULSE 87; RESP 18; TEMP 36.3; O2SAT 100
[2025-06-25] MEDS: cefTRIAXone 1 GM in SODIUM CHLORIDE 0.9% IV 50 ML 100 ML IVPB (21:27)
[2025-06-25 21:56] VITALS: PULSE 60; RESP 20; O2SAT 93
[2025-06-26] VITALS: BP 129/90; PULSE 62; RESP 18; TEMP 36.2; O2SAT 98
[2025-06-26] MEDS: HYDROmorphone HCL INJ (*CRX) 1 MG/ML SYR IV PUSH ×4 (01:05→09:45)
[2025-06-26] MEDS: ONDANSETRON INJ 4 MG/2 ML VIAL IV PUSH ×2 (03:32→07:16)
[2025-06-26 04:00] VITALS: BP 136/95; PULSE 82; RESP 18; TEMP 36.6; O2SAT 99
[2025-06-26] MEDS: HYDROcodone/acetaminophen (*CRX) 5-325 MG TABLET 1 TAB PO (05:02)
[2025-06-26 05:58] LABS: Hematocrit 36.4 % (37.0-47.0); Hemoglobin 11.2 g/dL (12.0-15.0); Immature Granulocyte Percent A 0.3 % (0-0.5); Lymphocytes Absolute Auto 2.99 K/mm3 (0.9-3.2); Mean Corpuscular HGB Conc 30.8 g/dl (32-36); Mean Corpuscular Hemoglobin 28.1 pg (26-34); Mean Corpuscular Volume 91.5 fl (80-100); Nucleated Red Blood Cells Absolute Auto 0.000 K/mm3 (0.0-0.012); Nucleated Red Blood Cells Perc 0.0 % (0.0-0.2); Platelet Count Result 252 k/mm3 (150-375); Red Blood Count 3.98 M/mm3 (4.2-5.4); White Blood Count 8.9 K/mm3 (4.5-10.0)
[2025-06-26 06:18] LABS: Alanine Aminotransferase 17 U/L (6-35); Albumin Level 3.4 g/dL (3.5-5.1); Alkaline Phosphatase 64 U/L (38-126); Anion Gap 6 mmol/L (4-12); Aspartate Amino Transferase 25 U/L (14-36); Bilirubin,Total 0.1 mg/dL (0.2-1.3); Blood Urea Nitrogen 10 mg/dL (7-17); Calcium 8.0 mg/dL (8.4-10.2); Carbon Dioxide 24 mmol/L (22-30); Chloride 107 mmol/L (98-107); Estimated CRCL calculation 113 ml/min; Estimated Glomerular Filt Rate > 60; Glucose 95 mg/dL (65-110); Potassium 3.8 mmol/L (3.4-5.0); Sodium 137 mmol/L (137-145); Total Protein 6.0 g/dL (6.3-8.2)
[2025-06-26 08:00] VITALS: BP 133/75; PULSE 53; RESP 14; TEMP 36.3; O2SAT 98
[2025-06-26] MEDS: NICOTINE (*PBKC) 21 MG PATCH 1 PATCH TRANSDERM (09:46)
--- NOTE | 2025-06-26 10:55 | P.DS_ITS ---
DS: Admitting Diagnosis Discharge Date 06/26/2025 Admitting Diagnosis Flank pain in the setting of known prior kidney stones, found to have 6 mm left kidney stone DS: Summary Hospital Course Reason for hospitalization: Kidney stone Hospital Course: Althea hicks is a 39-year-old female with prior history of kidney stone, tobacco dependence, seizure disorder, idiopathic intracranial hypertension who is here for left flank pain for 2 days. The pain was associated with sharp, and constant in nature. In emergency room, at the the leukocytosis 12.2 and urinalysis 1+ blood, 1+ leukocyte esterase with 6-10 red blood cells and 6 WBCs, other labs were unremarkable. CT abdomen and pelvis was obtained which showed left UPJ stone measuring 6 mm with mild hydronephrosis. Urology was consulted consulted, underwent cystoscopy, stent placed. Treated with ceftriaxone for 3 days. Blood culture and urine culture came back negative. Patient remained hemodynamically stable, afebrile however patient complains left flank pain, suprapubic pressure which could be postprocedural pain. Discussed with her urologist, pain after stent placement is common. Patient was discharged with [place], and tamsulosin. Her lab results and cultures unremarkable and all discussed with , it will be safe to discontinued antibiotics. Urology follow-up was arranged. Prior to discharge, patient was seen and evaluated-clear to be discharged home. Time Spent with Patient Time attestation: Total time spent providing and/or coordinating discharge services: Exam Const: General: anxious Resp: Effort/Inspection: normal respiratory effort Auscultation: clear to auscultation bilaterally Percussion: percussion normal Cardio: Rate: Yes regular rate Rhythm: regular rhythm Heart Sounds: Yes normal heart sounds Peripheral Pulses: Peripheral pulses 2+ throughout GI: Palpation/Percussion: Yes Tenderness to palpation present (GI) Other: Left flank pain with deep palpation : Other: Pain with urination Suprapubic tenderness with deep palpation Neuro: General: Yes oriented to person, Yes oriented to place, Yes oriented to time and Yes normal cognition Psych: Mood: anxious mood, labile mood and irritable mood DS: Data Data Completed and Pending Labs on day of discharge: Labs from last 24 hours 06/26/25 04:49 WBC 8.9 RBC 3.98 L Hgb 11.2 L Hct 36.4 L MCV 91.5 MCH 28.1 MCHC 30.8 L RDW 12.8 Plt Count 252 MPV 11.0 H Immature Gran % (Auto) 0.3 Neut % (Auto) 52.7 Lymph % (Auto) 33.5 [place] % (Auto) 6.3 Eos % (Auto) 6.8 H Baso % (Auto) 0.4 Lymph # (Auto) 2.99 [place] # (Auto) 0.6 Eos # (Auto) 0.6 H Baso # (Auto) 0.0 Abs Immat Gran (auto) 0.03 Absolute Neuts (auto) 4.7 Absolute Nucleated RBC 0.000 Nucleated RBC % 0.0 Sodium 137 Potassium 3.8 Chloride 107 Carbon Dioxide 24 Anion Gap 6 BUN 10 Creatinine 0.80 Estim Creat Clear Calc 113 Estimated GFR > 60 Glucose 95 Calcium 8.0 L Total Bilirubin 0.1 L AST 25 ALT 17 Alkaline Phosphatase 64 Total Protein 6.0 L Albumin 3.4 L Discharge Plan Discharge Attending physician on discharge: Mimi Phillip Consulting providers: Eugene Sloan; Se Domingo Discharging Clinician: Mimi Phillip Patient Disposition: Home Activity: unlimited Diet: as tolerated Patient Instructions: Antibiotic Form Patient Language: Nepali Stand Alone Forms: General Discharge Information, Work/School Release IP Follow-up/Referrals: Kermit Rosario MD [Physician, Urology] Referral Note: stent removal and stone managment Problems: Left ureteral stone; Hydronephrosis Discharge Medications: New hydrocodone-acetaminophen 5-325 mg Tablet 1 tablet PO Q6H PRN (Reason: Pain Rated 4-6) Qty: 10 0RF tamsulosin 0.4 mg capsule 0.4 mg PO DAILY Qty: 3 0RF Date of admission: 06/23/25 21:22 Primary Care Provider: PHYSICIAN,EXPORT TRAFFIC DEPARTMENT MANAGER Admitting Provider: Gumaro Rivera Attending physician on admission: Gumaro Rivera Condition: Stable
== END 2025-06-26 11:15 | disposition home or self-care (01) ==
LOC: ANHED 21:21 → ANH3MEDSUR 06-24 09:25
PROVIDERS: Nurse Practitioner; Urology; Admitting Provider Family Medicine; Emergency Provider Physician Assistant; Visit Provider Student in an Organized Health Care Education/Training Program
PROC: (CPT 52352; principal; 2025-06-24 13:15)
DX: N13.2 Hydronephrosis with renal and ureteral calculous obstruction (principal); R82.90 Unspecified abnormal findings in urine; Z86.14 Personal history of Methicillin resistant Staphylococcus aureus infection; G40.909 Epilepsy, unspecified, not intractable, without status epilepticus; F17.210 Nicotine dependence, cigarettes, uncomplicated; G93.2 Benign intracranial hypertension; Z87.442 Personal history of urinary calculi; Z82.49 Family history of ischemic heart disease and other diseases of the circulatory system; Z80.3 Family history of malignant neoplasm of breast
CPT/HCPCS: 52332; 36415; 74176; 74420; 80048; 80053; 81001; 81025; 85025; 85027; 87040; 87086; 96361; 96365; 96375; 96376; 99285; A9270; C1758; C1769; C2617; G0378; J0696; J1171; J2003; J2250; J2270; J2405; J2704; J2765; J3010; J7030; J7120; Q9966

== ENCOUNTER 2025-08-12 15:59 | Emergency (ER) | payer OTHER, SELFPAY ==
[2025-08-12 16:06] VITALS: BP 129/82; PULSE 82; RESP 18; TEMP 36.4; O2SAT 99
--- NOTE | 2025-08-12 16:34 | ED_ITS ---
HPI - Wound/Laceration General Chief Complaint: Wound/Laceration Stated Complaint: laceration to left index finger with knife Time Seen by Provider: 08/12/25 16:13 Source: patient Mode of arrival: ambulatory Limitations: no limitations History of Present Illness HPI narrative: This is a 39-year-old female patient with past medical history of tobacco dependence, pseudotumor cerebri, idiopathic intracranial hypertension is this were comes to the emergency with complaints of having laceration. Patient was washing dishes and was cut on the left index finger by a knife. Patient's vaccinations are up-to-date including tetanus. Bleeding currently controlled. Related Data Allergies Allergy/AdvReac Type Severity Reaction Status Date / Time levofloxacin Allergy Intermediate Hives Verified 06/24/25 13:42 tetracycline Allergy Intermediate Hives Verified 06/24/25 13:42 cefaclor (From Ceclor) Allergy Swelling Verified 06/24/25 13:42 prochlorperazine (From Allergy Swelling Verified 06/24/25 13:42 Compazine) Sulfa (Sulfonamide Allergy Swelling Verified 06/24/25 13:42 Antibiotics) sulfamethoxazole (From Allergy Swelling Verified 06/24/25 13:42 Bactrim) trimethoprim (From Bactrim) Allergy Swelling Verified 06/24/25 13:42 Review of Systems Review of Systems: All systems reviewed & are unremarkable except as noted in HPI and below PMFSH Past Medical History Medical History Tobacco dependence due to cigarettes History of MRSA infection Pseudotumor cerebri Seizure disorder History of idiopathic intracranial hypertension Surgical History Surgical History S/P ventriculoperitoneal shunt History of appendectomy 2009 S/P [employer] shunt Hx of ventricular shunt L[employer] shunt placed 2001, revised multiple times, last in 2019 Family History Family History Mother No problems noted. 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 . Lives with and 60-year-old daughter. She has smoked as much as a half a pack of cigarettes per day his started smoking at age 16. She drinks alcohol about once a month in moderation. Surrogate decision maker: . Code Status: Full. Smoking packs per day: 0.5 Smoking cigarettes per day: 10.0 Years smoked: 23 Smoking pack-years: 11.50 Smoking status: Current every day smoker Second hand tobacco smoke exposure: No Alcohol intake: current Drinks per week: 1 Substance use: never Substance use type: marijuana Other substance usage details: uses for seizure control; medical card - uses edibles Last use: 11/18/24 Do You Feel Safe in your Home?: Yes Lack of Transportation: No Lack of Food: Never True Current Housing: I Have Housing Concerned About Future Housing: No Difficulty Paying Gas/Electric Bills: No Difficulty Paying for Meds: No Currently Unemployed: No Education: Master's Degree or Higher Difficulty w/ Childcare or Family Care: No Living arrangements: with family Occupation/Education: occupation Gender identity (if verbalized by the patient): Female Spiritual care concerns: No Exam Const: General: healthy appearing, no acute distress and alert Nutritional Appearance: well nourished Orientation/consciousness: patient oriented x3 Limitations: no limitations HENMT: Head: normal to inspection Eyes: Conjunctivae: conjunctivae normal Neck: Other: Freely and equally moves all extremities well without deficit. Resp: Effort & Inspection: normal respiratory effort Auscultation: clear to auscultation bilaterally Cardio: Rate: regular rate Rhythm: regular rhythm Heart sounds: no murmurs GI: GI Palp: Yes Soft to palpation, No Tenderness to palpation present (GI), No Guarding due to palpation present (GI), No Rigid due to palpation, No Hernia present, No Palpable mass present and No Rebound tenderness present Auscultation: normal bowel sounds Skin: General skin exam: normal color, no jaundice and no pallor Rashes: no rashes Wounds: wounds noted (Laceration left index finger) Laceration left index finger size (1.5 cm) Other: Laceration is over the PIP joint. Neuro: General: patient oriented x3, moves all extremities and no focal motor deficits Extrem: General: normal to inspection, no clubbing, cyanosis or edema and no pedal edema Other: Left index finger with full active flexion and extension. Distal neurovascular status is intact. Sensation is intact and capillary refill is less 2 seconds. Psych: Mental Status: mental status grossly normal Course Course Emergency Course: See procedure note for laceration repair. Pt's tetanus shot is up to date. Lacerations placed without difficulty. Pt medicated for pain and tolerated procedure well. Bleeding controlled and wound edges well approximated. Pain meds ordered for home. Sutures to be removed in one week and advised to keep clean and dry. Tetanus is up to date. Pt discharged at this time in stable condition. Vital Signs Vital signs: Vital Signs Temperature 97.6 F 08/12/25 16:06 Pulse Rate 82 08/12/25 16:06 Respiratory Rate 18 08/12/25 16:06 Blood Pressure 129/82 08/12/25 16:06 Pulse Oximetry 99 08/12/25 16:06 Temperature 97.6 F 08/12/25 16:06 Pulse Rate 82 08/12/25 16:06 Respiratory Rate 18 08/12/25 16:06 Blood Pressure 129/82 08/12/25 16:06 Pulse Oximetry 99 08/12/25 16:06 Procedures Laceration Laceration 1: Date: 08/12/25 Time: 17:03 Site: hand (Left index finger) Side (If applicable): left Size (cm): 1.5 Description: flap Depth: simple, single layer Local Anesthetic: lidocaine 1% Amount of anesthesia used (mL): 2 Pre-repair: wound explored and irrigated ====== Skin Level ====== Skin layer closed with: nylon Size (cm): 5-0 Number of sutures: 3 Technique: simple, interrupted ====== Subcutaneous Layer ====== ====== Muscle Layer ====== ====== Tendon Layer ====== MDM - Wound/Laceration MDM Narrative Medical decision making narrative: See ED Course Discharge Plan Discharge Clinical Impression: Laceration Patient Disposition: Home Condition: Stable Instructions: Antibiotic Form, Care For Your Stitches (ED), Laceration (ED) Additional Instructions: The loudest evaluated in the emergency room. Your sutures should be removed in 1 piece time. Please keep clean and dry. Followup as needed. Patient Language: Malawian Prescriptions: New hydrocodone-acetaminophen 5-325 mg tablet 1 tablet PO Q4H PRN (Reason: pain) 2 Days Qty: 10 0RF Continued tamsulosin 0.4 mg capsule 0.4 mg PO DAILY Qty: 3 0RF Discontinued hydrocodone-acetaminophen 5-325 mg Tablet 1 tablet PO Q6H PRN (Reason: Pain Rated 4-6) Qty: 10 0RF cefdinir 300 mg capsule 300 mg PO Q12H Qty: 14 0RF Rx Instructions: IV Ceftriaxone last week without incident Follow-up/Referrals: Skinny Yuan MD [Physician, Family Practice] PHYSICIAN,[employer] EXTRACTOR [Primary Care Provider, Internal Medicine] Time of Disposition: 17:15
[2025-08-12] MEDS: HYDROcodone/acetaminophen (*CRX) 5-325 MG TABLET 1 TAB PO (17:23)
== END 2025-08-12 17:28 | disposition home or self-care (01) ==
PROVIDERS: Emergency Provider Nurse Practitioner Adult Health
DX: S61.211A Laceration without foreign body of left index finger without damage to nail, initial encounter (principal); G40.909 Epilepsy, unspecified, not intractable, without status epilepticus; G93.2 Benign intracranial hypertension; F17.210 Nicotine dependence, cigarettes, uncomplicated; Z98.2 Presence of cerebrospinal fluid drainage device; Z86.14 Personal history of Methicillin resistant Staphylococcus aureus infection; Y93.G1 Activity, food preparation and clean up; W26.0XXA Contact with knife, initial encounter
CPT/HCPCS: 12001; 99283; A9270

== ENCOUNTER 2025-08-21 15:22 | Emergency (ER) | payer SELFPAY ==
--- NOTE | ~2025-08-21 | CT_ITS ---
Prema Alvarez EXAMINATION: CT abdomen pelvis w con COMPARISON: None HISTORY: abd pain, flank pain, UTI TECHNIQUE: Axial images were obtained through the abdomen, pelvis post administration of IV contrast. Oral contrast was also administered. Coronal reconstruction images were obtained from the axial views. CT scan performed using dose optimization techniques including the following automated exposure control; adjustment of mA and/or kV; use of iterative reconstruction technique. Automatic exposure control was used to reduce radiation dose. Permanent radiation dose record is archived to PACS. FINDINGS: CT abdomen: LUNG BASES: The lung bases are clear. The visualized portions of the heart and pericardium are unremarkable. LIVER: Mild hepatic steatosis. Probable simple cyst right lobe liver posteriorly 2.2 x 1.2 cm. The portal vein is patent. No intrahepatic biliary duct dilatation. SPLEEN: Unremarkable. KIDNEYS: Right Kidney: Unremarkable. No calculi. No hydronephrosis. Left Kidney: Left kidney there is a slightly diminished nephrogram with minimal hydronephrosis with a left-sided stent terminating distally within the bladder, there is a calculus in the proximal ureter adjacent to the stent measuring 4 x 4 mm. ADRENAL GLANDS: Unremarkable. PANCREAS: Unremarkable. GALLBLADDER/BILIARY: Unremarkable. No biliary dilatation. STOMACH AND ESOPHAGUS: Visualized stomach and esophagus within normal limits. BOWEL/MESENTERY: Moderate fecal content. No colitis or diverticulitis. Post appendectomy. Mesentery normal. No thickened or dilated loops of small bowel. ADENOPATHY/RETROPERITONEUM: No lymphadenopathy. AORTA/VASCULATURE: Normal caliber aorta. FREE FLUID OR FREE AIR: Small amount of free fluid.. CT pelvis: SOLID ORGANS/REPRODUCTIVE: Unremarkable. BLADDER: Within normal limits. OSSEOUS STRUCTURES: No acute osseous abnormality.No suspicious lesions. OVERLYING SOFT TISSUES: Number soft tissues there is a left-sided COTTON WRINGER shunt terminating within the pelvis. IMPRESSION: 1. No acute intra-abdominal process. Incidental findings detailed above Reviewed, dictated and finalized at location P.
[2025-08-21 15:42] VITALS: BP 125/77; PULSE 95; RESP 17; TEMP 36.4; O2SAT 100
[2025-08-21 16:25] LABS: Add Urine Microscopic? YES; Appearance Urine Cloudy (Clear); Glucose Urine UA Negative (Negative); Leukocyte Esterase Ur 1+ LEU/UL (Negative); Nitrate Urine Negative (Negative); Non Pathogenic Casts 0-2; Specific Grav Ur 1.026 (1.001-1.035)
[2025-08-21 16:45] LABS: Alanine Aminotransferase 21 U/L (6-35); Albumin Level 4.4 g/dL (3.5-5.1); Alkaline Phosphatase 74 U/L (38-126); Anion Gap 9 mmol/L (4-12); Aspartate Amino Transferase 26 U/L (14-36); Bilirubin,Total 0.4 mg/dL (0.2-1.3); Blood Urea Nitrogen 15 mg/dL (7-17); Calcium 8.8 mg/dL (8.4-10.2); Carbon Dioxide 21 mmol/L (22-30); Chloride 107 mmol/L (98-107); Estimated CRCL calculation 100 ml/min; Estimated Glomerular Filt Rate > 60; Glucose 91 mg/dL (65-110); Lipase 126 U/L (23-300); Potassium 3.9 mmol/L (3.4-5.0); Sodium 137 mmol/L (137-145); Total Protein 7.9 g/dL (6.3-8.2)
[2025-08-21 17:09] LABS: Pregnancy On Board Control Positive
--- NOTE | 2025-08-21 17:13 | ED.ABDPAIN ---
HPI - Abdominal Pain General Chief Complaint: Recheck/Abnormal Lab/Rx Stated Complaint: kidney stone Time Seen by Provider: 08/21/25 15:46 Source: patient Mode of arrival: ambulatory Limitations: no limitations History of Present Illness HPI narrative: This is a 39 year old female that presents to the ER for left flank pain. Reports she had a ureteral stent placed 2 months ago. She has not had this removed yet. Reports left flank pain which started this afternoon. Reports she believes she may have passed a kidney stone today. Denies fevers. Related Data Allergies Allergy/AdvReac Type Severity Reaction Status Date / Time levofloxacin Allergy Intermediate Hives Verified 08/21/25 15:25 tetracycline Allergy Intermediate Hives Verified 08/21/25 15:25 cefaclor (From Ceclor) Allergy Swelling Verified 08/21/25 15:25 prochlorperazine (From Allergy Swelling Verified 08/21/25 15:25 Compazine) Sulfa (Sulfonamide Allergy Swelling Verified 08/21/25 15:25 Antibiotics) sulfamethoxazole (From Allergy Swelling Verified 08/21/25 15:25 Bactrim) trimethoprim (From Bactrim) Allergy Swelling Verified 08/21/25 15:25 Review of Systems Review of Systems: All systems reviewed & are unremarkable except as noted in HPI and below PMFSH Past Medical History Medical History Tobacco dependence due to cigarettes History of MRSA infection Pseudotumor cerebri Seizure disorder History of idiopathic intracranial hypertension Surgical History Surgical History S/P ventriculoperitoneal shunt History of appendectomy 2009 S/P QUICK PRINT OPERATOR shunt Hx of ventricular shunt QUICK PRINT OPERATOR shunt placed 2001, revised multiple times, last in 2019 Family History Family History Mother No problems noted. 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 . Lives with and 60-year-old daughter. She has smoked as much as a half a pack of cigarettes per day his started smoking at age 16. She drinks alcohol about once a month in moderation. Surrogate decision maker: . Code Status: Full. Smoking packs per day: 0.5 Smoking cigarettes per day: 10.0 Years smoked: 23 Smoking pack-years: 11.50 Smoking status: Current every day smoker Second hand tobacco smoke exposure: No Alcohol intake: current Drinks per week: 1 Substance use: never Substance use type: marijuana Other substance usage details: uses for seizure control; medical card - uses edibles Last use: 11/18/24 Do You Feel Safe in your Home?: Yes Lack of Transportation: No Lack of Food: Never True Current Housing: I Have Housing Concerned About Future Housing: No Difficulty Paying Gas/Electric Bills: No Difficulty Paying for Meds: No Currently Unemployed: No Education: Master's Degree or Higher Difficulty w/ Childcare or Family Care: No Living arrangements: with family Occupation/Education: occupation Gender identity (if verbalized by the patient): Female Spiritual care concerns: No Exam Narrative: GENERAL: Uncomfortable, well-nourished, and in no acute distress. HEAD: Normocephalic, atraumatic. EYES: EOMI. CHEST: Clear to auscultation. No respiratory distress. No wheezes rales or rhonchi HEART: Regular rate and rhythm. No murmur heard. Normal peripheral pulses. ABDOMEN: Soft, nontender, nondistended, normal active bowel sounds. EXTREMITIES: Normal range of motion. No edema. SKIN: Warm, dry, no rash. NEURO: No focal deficits. Alert and oriented x3. PSYCH: Normal mood and affect Course Consultations Consultation #1: Spoke with Dr. Alan. Agrees with antibiotics, follow up in clinic Date: 08/21/25 Vital Signs Vital signs: Vital Signs Temperature 97.6 F 08/21/25 15:42 Pulse Rate 95 08/21/25 15:42 Respiratory Rate 17 08/21/25 15:42 Blood Pressure 125/77 08/21/25 15:42 Pulse Oximetry 100 08/21/25 15:42 Temperature 97.6 F 08/21/25 15:42 Pulse Rate 95 08/21/25 15:42 Respiratory Rate 17 08/21/25 15:42 Blood Pressure 125/77 08/21/25 15:42 Pulse Oximetry 100 08/21/25 15:42 MDM - Abdominal Pain MDM Narrative Medical decision making narrative: Patient presents to the emergency department for flank pain, abdominal pain. She is afebrile and nontoxic appearing. Her vitals are stable. CBC with mild leukocytosis to 13.1. Metabolic panel without concerning findings. Urine with evidence of infection. This for culture. test negative. CT abdomen and pelvis showing ureteral stent in place with a 4 mm proximal ureteral stone. Spoke with Dr. Alan. Agrees with antibiotics, follow up in clinic. She was given warnings to return to the ER Differential Diagnosis Differential diagnosis: Likely calculus of kidney and other (UTI) Lab Data Attestation: I reviewed the patient's lab results. 08/21/25 17:38 08/21/25 16:03 Labs: Lab Results 08/21/25 08/21/25 08/21/25 Range/Units 16:03 17:38 17:39 WBC 13.1 H (4.5-10.0) K/mm3 RBC 5.32 (4.2-5.4) M/mm3 Hgb 14.8 D (12.0-15.0) g/dL Hct 45.6 (37.0-47.0) % MCV 85.7 (80-100) fl MCH 27.8 (26-34) pg MCHC 32.5 (32-36) g/dl RDW 13.4 (11.5-14.5) % Plt Count 324 (150-375) k/mm3 MPV 10.6 H (7.4-10.4) fl Immature Gran % (Auto) 0.5 (0-0.5) % Neut % (Auto) 61.6 (45.5-73.1) % Lymph % (Auto) 26.7 (18.3-44.2) % [place] % (Auto) 5.7 (2.6-8.5) % Eos % (Auto) 5.0 H (0-4.4) % Baso % (Auto) 0.5 (0.2-1.2) % Lymph # (Auto) 3.49 H (0.9-3.2) K/mm3 [place] # (Auto) 0.7 H (0.1-0.6) K/mm3 Eos # (Auto) 0.7 H (0-0.3) K/mm3 Baso # (Auto) 0.1 (0.0-0.1) K/mm3 Abs Immat Gran (auto) 0.07 H (0.00-0.031) K/mm3 Absolute Neuts (auto) 8.1 H (1.3-6.7) K/mm3 Absolute Nucleated RBC 0.000 (0.0-0.012) K/mm3 Nucleated RBC % 0.0 (0.0-0.2) % Sodium 137 (137-145) mmol/L Potassium 3.9 (3.4-5.0) mmol/L Chloride 107 (98-107) mmol/L Carbon Dioxide 21 L (22-30) mmol/L Anion Gap 9 (4-12) mmol/L BUN 15 D (7-17) mg/dL Creatinine 0.84 (0.7-1.0) mg/dL Estim Creat Clear Calc 100 ml/min Estimated GFR > 60 (59 - ) Glucose 91 (65-110) mg/dL Calcium 8.8 (8.4-10.2) mg/dL Total Bilirubin 0.4 (0.2-1.3) mg/dL AST 26 (14-36) U/L ALT 21 (6-35) U/L Alkaline Phosphatase 74 (38-126) U/L Total Protein 7.9 (6.3-8.2) g/dL Albumin 4.4 (3.5-5.1) g/dL Lipase 126 (23-300) U/L Urine Color Yellow (Yellow) Urine Appearance Cloudy H (Clear) Urine pH 5.5 (5.0-9.0) Ur Specific [place] 1.026 (1.001-1.035) Urine Protein 2+ H (Negative) mg/dL Urine Glucose (UA) Negative (Negative) mg/dL Urine Ketones Trace H (Negative) mg/dL Ur Blood (Man) 2+ H (Negative) Urine Nitrate Negative (Negative) Urine Bilirubin Negative (Negative) Urine Urobilinogen 1.0 (<2.0) mg/dL Leukocyte Esterase Rfl 1+ H (Negative) JINA/UL Urine RBC 21-50 H (0-2) /hpf Urine WBC 21-50 H (0-3) /hpf Ur Squamous Epith Cells Few (Few) /hpf Urine Bacteria None seen /hpf Urine Casts 0-2 POC Urine HCG, Qual Negative (Negative) Urine Test Negative 08/21/25 Range/Units 18:26 WBC (4.5-10.0) K/mm3 RBC (4.2-5.4) M/mm3 Hgb (12.0-15.0) g/dL Hct (37.0-47.0) % MCV (80-100) fl MCH (26-34) pg MCHC (32-36) g/dl RDW (11.5-14.5) % Plt Count (150-375) k/mm3 MPV (7.4-10.4) fl Immature Gran % (Auto) (0-0.5) % Neut % (Auto) (45.5-73.1) % Lymph % (Auto) (18.3-44.2) % [place] % (Auto) (2.6-8.5) % Eos % (Auto) (0-4.4) % Baso % (Auto) (0.2-1.2) % Lymph # (Auto) (0.9-3.2) K/mm3 [place] # (Auto) (0.1-0.6) K/mm3 Eos # (Auto) (0-0.3) K/mm3 Baso # (Auto) (0.0-0.1) K/mm3 Abs Immat Gran (auto) (0.00-0.031) K/mm3 Absolute Neuts (auto) (1.3-6.7) K/mm3 Absolute Nucleated RBC (0.0-0.012) K/mm3 Nucleated RBC % (0.0-0.2) % Sodium (137-145) mmol/L Potassium (3.4-5.0) mmol/L Chloride (98-107) mmol/L Carbon Dioxide (22-30) mmol/L Anion Gap (4-12) mmol/L BUN (7-17) mg/dL Creatinine (0.7-1.0) mg/dL Estim Creat Clear Calc ml/min Estimated GFR (59 - ) Glucose (65-110) mg/dL Calcium (8.4-10.2) mg/dL Total Bilirubin (0.2-1.3) mg/dL AST (14-36) U/L ALT (6-35) U/L Alkaline Phosphatase (38-126) U/L Total Protein (6.3-8.2) g/dL Albumin (3.5-5.1) g/dL Lipase (23-300) U/L Urine Color (Yellow) Urine Appearance (Clear) Urine pH (5.0-9.0) Ur Specific [place] (1.001-1.035) Urine Protein (Negative) mg/dL Urine Glucose (UA) (Negative) mg/dL Urine Ketones (Negative) mg/dL Ur Blood (Man) (Negative) Urine Nitrate (Negative) Urine Bilirubin (Negative) Urine Urobilinogen (<2.0) mg/dL Leukocyte Esterase Rfl (Negative) JINA/UL Urine RBC (0-2) /hpf Urine WBC (0-3) /hpf Ur Squamous Epith Cells (Few) /hpf Urine Bacteria /hpf Urine Casts POC Urine HCG, Qual Negative (Negative) Urine Test Imaging Data Radiologist's impression: ITS Impressions Abdomen/Pelvis CT 08/21/25 18:46 IMPRESSION: 1. No acute intra-abdominal process. Incidental findings detailed above Critical Care Time Critical Care Time Critical Care Time: No Discharge Plan Discharge Clinical Impression: Acute UTI, Retained ureteral stent Patient Disposition: Home Condition: Stable Instructions: Antibiotic Form, Kidney Stones (ED), Urinary Tract Infection in Women (ED) Additional Instructions: Return to the ER if you experience fever, abdominal pain with nausea and vomiting, you are unable to keep down liquids or solids, or any other symptoms that are concerning to you Remain well hydrated. Pain medication as needed. Take oral antibiotic as prescribed Follow up with urology Patient Language: Faroese Prescriptions: New hydrocodone-acetaminophen 5-325 mg tablet 1 tablet PO Q6H PRN (Reason: pain) Qty: 20 0RF cefdinir 300 mg capsule 300 mg PO Q12H 5 Days Qty: 10 0RF No Action tamsulosin 0.4 mg capsule 0.4 mg PO DAILY Qty: 3 0RF hydrocodone-acetaminophen 5-325 mg tablet 1 tablet PO Q4H PRN (Reason: pain) 2 Days Qty: 10 0RF Follow-up/Referrals: PHYSICIAN,DIESEL INSTRUCTOR [Primary Care Provider, Internal Medicine] Kermit Rosario MD [Physician, Urology]
[2025-08-21] MEDS: ONDANSETRON INJ 4 MG/2 ML VIAL IV PUSH (17:38)
[2025-08-21] MEDS: MORPHINE SULFATE (*CRX) 4 MG/ML INJ IV PUSH (17:38)
[2025-08-21 17:41] LABS: BEDSIDEPREGUCG Negative (Negative)
[2025-08-21 17:44] LABS: Hematocrit 45.6 % (37.0-47.0); Hemoglobin 14.8 g/dL (12.0-15.0); Immature Granulocyte Percent A 0.5 % (0-0.5); Lymphocytes Absolute Auto 3.49 K/mm3 (0.9-3.2); Mean Corpuscular HGB Conc 32.5 g/dl (32-36); Mean Corpuscular Hemoglobin 27.8 pg (26-34); Mean Corpuscular Volume 85.7 fl (80-100); Nucleated Red Blood Cells Absolute Auto 0.000 K/mm3 (0.0-0.012); Nucleated Red Blood Cells Perc 0.0 % (0.0-0.2); Platelet Count Result 324 k/mm3 (150-375); Red Blood Count 5.32 M/mm3 (4.2-5.4); White Blood Count 13.1 K/mm3 (4.5-10.0)
[2025-08-21 18:28] LABS: BEDSIDEPREGUCG Negative (Negative)
[2025-08-21] MEDS: KETOROLAC 15 MG/ML VIAL (*BKC) IV PUSH (20:02)
[2025-08-21] MEDS: cefTRIAXone 1 GM in SODIUM CHLORIDE 0.9% IV 50 ML 100 ML IVPB (20:04)
[2025-08-21 20:55] VITALS: BP 121/75; PULSE 90; RESP 19; TEMP 36.5; O2SAT 100
[2025-08-21 20:57] VITALS: BP 121/75; PULSE 90; RESP 19; TEMP 36.5; O2SAT 100
== END 2025-08-21 20:59 | disposition home or self-care (01) ==
PROVIDERS: Emergency Provider Physician Assistant
DX: N39.0 Urinary tract infection, site not specified (principal); Z96.0 Presence of urogenital implants; N20.1 Calculus of ureter; G40.909 Epilepsy, unspecified, not intractable, without status epilepticus; G93.2 Benign intracranial hypertension; F17.210 Nicotine dependence, cigarettes, uncomplicated; Z86.14 Personal history of Methicillin resistant Staphylococcus aureus infection; Z98.2 Presence of cerebrospinal fluid drainage device
CPT/HCPCS: 36415; 74177; 80053; 81001; 81025; 83690; 85025; 87086; 96365; 96375; 99284; J0696; J1885; J2270; J2405; Q9967

== ENCOUNTER 2025-09-04 17:52 | Emergency (ER) | payer SELFPAY ==
--- NOTE | ~2025-09-04 | CT_ITS ---
EXAMINATION: CT abdomen pelvis w con DATE: 09/04/2025 21:43 INDICATION: Ureteral stent movement. TECHNIQUE: Computed tomography (CT) of the abdomen and pelvis was performed with 100 mL Omnipaque 350 intravenous contrast. Automated exposure control and iterative reconstruction technique were employed. The dose-length product was 1340.39 mGy-cm. COMPARISON: CT abdomen and pelvis 08/21/2025, 11/19/24 FINDINGS: The visualized portions of the lung bases demonstrate mild atelectasis. No pleural effusion. The heart size is normal. No pericardial effusion. There is a 3.5 x 1.4 cm mass at the periphery of right hepatic lobe. The gallbladder, spleen, pancreas, adrenal glands, and right kidney are normal. There is a 7 mm cyst in left kidney. There is a left internal ureteral stent in expected position. There is mild left hydronephrosis. There is a 6 mm stone in proximal left ureter. There are changes of appendectomy. There are no dilated loops of bowel. There are no pathologically enlarged lymph nodes. There is physiologic fluid in the pelvis. A ventriculoperitoneal shunt is noted. There is moderate lumbar spondylosis. There is mild chronic anterior wedging of multiple thoracic vertebral bodies. IMPRESSION: 1. 6 mm stone in the proximal left ureter with left internal ureteral stent in expected position and mild left hydronephrosis. 2. 3.5 x 1.4 cm mass at the periphery of right hepatic lobe, stable from 11/19/2024. This finding may be a chronic hematoma or peritoneal inclusion cyst. Reviewed, dictated and finalized at location E. GENCY RESPONSE TECHNICIAN IMPRESSION: 1. 6 mm stone in the proximal left ureter with left internal ureteral stent in expected position and mild left hydronephrosis. 2. 3.5 x 1.4 cm mass at the periphery of right hepatic lobe, stable from 025. This finding may be a chronic hematoma or peritoneal inclusion cyst.
--- NOTE | ~2025-09-04 | XR_ITS ---
EXAMINATION: XR abdomen/kub 1V DATE: 09/04/2025 21:11 INDICATION: Per urology request TECHNIQUE: A supine view of the abdomen on 2 radiographs was obtained. COMPARISON: CT abdomen and pelvis 09/04/2025 FINDINGS: Moderate amount of stool and air in the nondilated large bowel. Double-J left- sided ureteral stent with the proximal loop projecting over the region of the renal pelvis and the distal loop projecting over the lower left pelvis. Leads in possible catheter project over the abdomen and pelvis. Correlate clinically. No radiographic evidence for renal, ureteral or bladder calculi. IMPRESSION: 1. Findings as above. Reviewed, dictated and finalized at location Q. [facility] [employer]CE [employer] IMPRESSION: 1. Findings as above.
[2025-09-04 17:57] VITALS: BP 118/63; PULSE 96; RESP 16; TEMP 36.6; O2SAT 99
[2025-09-04 19:37] VITALS: BP 116/71; PULSE 85; RESP 12; O2SAT 99
[2025-09-04 20:31] VITALS: BP 117/73; PULSE 85; RESP 20; O2SAT 96
--- NOTE | 2025-09-04 20:39 | ED_ITS ---
HPI - Female Genitourinary General Chief complaint: Urogenital-Female Stated complaint: kidney stone, stent pain Time Seen by Provider: 09/04/25 19:57 History of Present Illness HPI Narrative: Patient is a 39-year-old female who presents to the ER with complaints of a left flank and abdominal pain. She reports she has stents in her left ureter and has had increased pain and hematuria. Patient reports she spoke to her urologist today who advised her to come in for further evaluation. She reports her urologist told her the stent may need to be removed. Patient endorses burning and urgency she denies any recent fevers, chest pain, urinary retention, or vaginal bleeding. She reports her last menstrual period was last week. Related Data Allergies Allergy/AdvReac Type Severity Reaction Status Date / Time levofloxacin Allergy Intermediate Hives Verified 08/21/25 15:25 tetracycline Allergy Intermediate Hives Verified 08/21/25 15:25 cefaclor (From Ceclor) Allergy Swelling Verified 08/21/25 15:25 prochlorperazine (From Allergy Swelling Verified 08/21/25 15:25 Compazine) Sulfa (Sulfonamide Allergy Swelling Verified 08/21/25 15:25 Antibiotics) sulfamethoxazole (From Allergy Swelling Verified 08/21/25 15:25 Bactrim) trimethoprim (From Bactrim) Allergy Swelling Verified 08/21/25 15:25 Review of Systems 2 Review of Systems: All systems reviewed & are unremarkable except as noted in HPI and below PMFSH Past Medical History Medical History Tobacco dependence due to cigarettes History of MRSA infection Pseudotumor cerebri Seizure disorder History of idiopathic intracranial hypertension Surgical History Surgical History S/P ventriculoperitoneal shunt History of appendectomy 2009 S/P CUT ORDER HAND shunt Hx of ventricular shunt CUT ORDER HAND shunt placed 2001, revised multiple times, last in 2019 Family History Family History Mother No problems noted. 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 . Lives with and 60-year-old daughter. She has smoked as much as a half a pack of cigarettes per day his started smoking at age 16. She drinks alcohol about once a month in moderation. Surrogate decision maker: . Code Status: Full. Smoking packs per day: 0.5 Smoking cigarettes per day: 10.0 Years smoked: 23 Smoking pack-years: 11.50 Smoking status: Current every day smoker Second hand tobacco smoke exposure: No Alcohol intake: current Drinks per week: 1 Substance use: never Substance use type: marijuana Other substance usage details: uses for seizure control; medical card - uses edibles Last use: 11/18/24 Do You Feel Safe in your Home?: Yes Lack of Transportation: No Lack of Food: Never True Current Housing: I Have Housing Concerned About Future Housing: No Difficulty Paying Gas/Electric Bills: No Difficulty Paying for Meds: No Currently Unemployed: No Education: Master's Degree or Higher Difficulty w/ Childcare or Family Care: No Living arrangements: with family Occupation/Education: occupation Gender identity (if verbalized by the patient): Female Spiritual care concerns: No Exam 2 Narrative: GENERAL: Ill appearing, well-nourished, non-toxic, in acute distress due to pain. HEAD: Normocephalic, atraumatic. NECK: Supple. No adenopathy, no masses. RESPIRATORY: Airway patent, respirations nonlabored. Clear to auscultation bilaterally, no rales, rhonchi, wheezing. CARDIOVASCULAR: Regular rate and rhythm without murmurs, rubs, or gallops. Peripheral pulses 2+ and equal bilaterally. ABDOMINAL: Soft, left lower quadrant tender, nondistended, no hepatosplenomegaly. Normoactive BS. MUSCULOSKELETAL: Moves all extremities. Strength/ROM intact without gross deformities. + left CVA tenderness SKIN: Warm, dry, normal color. No rashes. NEURO: A&O X3. Speech clear. Cranial nerves II-XII intact. No ataxic movements. PSYCHIATRIC: Tearful Course Vital Signs Vital signs: Vital Signs Temperature 36.6 C 09/04/25 17:57 Pulse Rate 96 09/04/25 17:57 Respiratory Rate 16 09/04/25 17:57 Blood Pressure 118/63 09/04/25 17:57 Pulse Oximetry 99 09/04/25 17:57 Oxygen Delivery Room Air 09/04/25 17:57 Temperature 36.6 C 09/04/25 17:57 Pulse Rate 64 09/04/25 23:27 Respiratory Rate 12 09/04/25 23:27 Blood Pressure 124/72 09/04/25 23:27 Pulse Oximetry 98 09/04/25 23:27 Oxygen Delivery Room Air 09/04/25 17:57 MDM - Female Genitourinary MDM Narrative Medical decision making narrative: Patient is a 39-year-old female who presents to the ER with complaints of a left flank and abdominal pain. She reports she has stents in her left ureter and has had increased pain and hematuria. Patient reports she spoke to her urologist today who advised her to come in for further evaluation. She reports her urologist told her the stent may need to be removed. Patient endorses burning and urgency she denies any recent fevers, chest pain, urinary retention, or vaginal bleeding. She reports her last menstrual period was last week. Labs Ordered: CBC, CMP, UA, lipase Imaging Ordered: CT abdomen pelvis with contrast, KUB Medications Ordered: 1 L normal saline IV bolus, morphine 4 mg IV, Zofran 4 mg IV, Dilaudid 0.5 mg IV Results: Patient's CT abdomen pelvis indicates left nephroureteral stent adequately position, no hydroureteronephrosis. Possible UTI verses reactive changes due to stent with ureteral adjacent hazy attenuation. Left proximal ureter nonobstructing stone. Otherwise no acute finding. Diagnosis: hematuria, UTI Risks: HEART score, PECARN score, CURB-65 score Consults: urology, Dr. Rosario, who reports pt does not need to be admitted to the hospital. She can follow-up with him as an outpatient. Patient Education/Shared MDM: Results of lab work and imaging shared with patient. She endorses improvement of symptoms following medication administration. Patient strongly advised to maintain hydration status upon discharge and follow-up with her urologist as soon as possible. She will not be discharged home with any new prescriptions besides Zofran, as she reports she is already on ciprofloxacin and her urinary tract infection was treated with ceftriaxone 1 g IV here in the ER. Strict return precautions provided. Patient verbalized understanding and is in agreement with plan. Vital signs stable at time of discharge. All questions answered. Differential Diagnosis Differential diagnosis: Likely urinary tract infection, dysmenorrhea and other (Kidney stone, dislodged ureteral stent) Lab Data Attestation: I reviewed the patient's lab results. 09/04/25 20:41 09/04/25 20:41 Labs: Lab Results 09/04/25 09/04/25 09/04/25 Range/Units 19:52 20:40 20:41 WBC 12.9 H (4.5-10.0) K/mm3 RBC 4.77 (4.2-5.4) M/mm3 Hgb 13.1 (12.0-15.0) g/dL Hct 41.5 (37.0-47.0) % MCV 87.0 (80-100) fl MCH 27.5 (26-34) pg MCHC 31.6 L (32-36) g/dl RDW 13.5 (11.5-14.5) % Plt Count 333 (150-375) k/mm3 MPV 10.6 H (7.4-10.4) fl Immature Gran % (Auto) 0.5 (0-0.5) % Neut % (Auto) 64.4 (45.5-73.1) % Lymph % (Auto) 23.8 (18.3-44.2) % [place] % (Auto) 5.4 (2.6-8.5) % Eos % (Auto) 5.3 H (0-4.4) % Baso % (Auto) 0.6 (0.2-1.2) % Lymph # (Auto) 3.06 (0.9-3.2) K/mm3 [place] # (Auto) 0.7 H (0.1-0.6) K/mm3 Eos # (Auto) 0.7 H (0-0.3) K/mm3 Baso # (Auto) 0.1 (0.0-0.1) K/mm3 Abs Immat Gran (auto) 0.07 H (0.00-0.031) K/mm3 Absolute Neuts (auto) 8.3 H (1.3-6.7) K/mm3 Absolute Nucleated RBC 0.000 (0.0-0.012) K/mm3 Nucleated RBC % 0.0 (0.0-0.2) % Sodium 137 (137-145) mmol/L Potassium 4.0 (3.4-5.0) mmol/L Chloride 106 (98-107) mmol/L Carbon Dioxide 23 (22-30) mmol/L Anion Gap 8 (4-12) mmol/L BUN 14 (7-17) mg/dL Creatinine 0.73 (0.7-1.0) mg/dL Estim Creat Clear Calc 121 ml/min Estimated GFR > 60 (59 - ) Glucose 87 (65-110) mg/dL Calcium 8.9 (8.4-10.2) mg/dL Total Bilirubin 0.2 (0.2-1.3) mg/dL AST 20 (14-36) U/L ALT 18 (6-35) U/L Alkaline Phosphatase 63 (38-126) U/L Total Protein 7.2 (6.3-8.2) g/dL Albumin 4.2 (3.5-5.1) g/dL Lipase 86 (23-300) U/L Urine Color Yellow (Yellow) Urine Appearance Cloudy H (Clear) Urine pH 6.5 (5.0-9.0) Ur Specific [place] 1.013 (1.001-1.035) Urine Protein 1+ H (Negative) mg/dL Urine Glucose (UA) Negative (Negative) mg/dL Urine Ketones Negative (Negative) mg/dL Ur Blood (Man) 3+ H (Negative) Urine Nitrate Negative (Negative) Urine Bilirubin Negative (Negative) Urine Urobilinogen 0.2 (<2.0) mg/dL Leukocyte Esterase Rfl 1+ H (Negative) JINA/UL Urine RBC >100 H (0-2) /hpf Urine WBC 11-20 H (0-3) /hpf Ur Squamous Epith Cells Few (Few) /hpf Urine Bacteria Rare /hpf Urine Casts 3-5 POC Urine HCG, Qual Negative Negative (Negative) Imaging Data Attestation: I personally reviewed and interpreted this imaging study as follows: Radiologist's impression: Patient's CT abdomen pelvis indicates left nephroureteral stent adequately position, no hydroureteronephrosis. Possible UTI verses reactive changes due to stent with ureteral adjacent hazy attenuation. Left proximal ureter nonobstructing stone. Otherwise no acute finding. Discharge Plan Discharge Clinical Impression: Hematuria, UTI (urinary tract infection), S/P ventriculoperitoneal shunt Patient Disposition: Home Condition: Stable Instructions: Antibiotic Form, Urinary Tract Infection in Women (ED) Additional Instructions: Please return to the ER with any worsening symptoms. Follow-up with your urologist as soon as possible. Take all medications as prescribed, including regularly scheduled medications. You may take the [employer] that was previously prescribed to you and Ibuprofen for pain control. Please complete your prescription of ciprofloxacin. Remember to drink lots of water. Patient Language: Tamazight Prescriptions: New ondansetron 4 mg tablet,disintegrating 4 mg PO Q8H Qty: 30 0RF No Action tamsulosin 0.4 mg capsule 0.4 mg PO DAILY Qty: 3 0RF hydrocodone-acetaminophen 5-325 mg tablet 1 tablet PO Q4H PRN (Reason: pain) 2 Days Qty: 10 0RF hydrocodone-acetaminophen 5-325 mg tablet 1 tablet PO Q6H PRN (Reason: pain) Qty: 20 0RF cefdinir 300 mg capsule 300 mg PO Q12H 5 Days Qty: 10 0RF nitrofurantoin monohyd/m-cryst [Macrobid] 100 mg capsule 100 mg PO Q12H 7 Days Qty: 14 0RF Rx Instructions: must administer with a meal/food Follow-up/Referrals: PHYSICIAN,SHOE TRIMMER [Primary Care Provider, Internal Medicine] Kermit Rosario MD [Physician, Urology] Stand Alone Forms: Work/School Release IP Time of Disposition: 01:32
[2025-09-04 20:40] LABS: BEDSIDEPREGUCG Negative (Negative)
[2025-09-04 20:42] LABS: BEDSIDEPREGUCG Negative (Negative)
[2025-09-04 20:46] LABS: Hematocrit 41.5 % (37.0-47.0); Hemoglobin 13.1 g/dL (12.0-15.0); Immature Granulocyte Percent A 0.5 % (0-0.5); Lymphocytes Absolute Auto 3.06 K/mm3 (0.9-3.2); Mean Corpuscular HGB Conc 31.6 g/dl (32-36); Mean Corpuscular Hemoglobin 27.5 pg (26-34); Mean Corpuscular Volume 87.0 fl (80-100); Nucleated Red Blood Cells Absolute Auto 0.000 K/mm3 (0.0-0.012); Nucleated Red Blood Cells Perc 0.0 % (0.0-0.2); Platelet Count Result 333 k/mm3 (150-375); Red Blood Count 4.77 M/mm3 (4.2-5.4); White Blood Count 12.9 K/mm3 (4.5-10.0)
[2025-09-04] MEDS: MORPHINE SULFATE (*CRX) 4 MG/ML INJ IV PUSH (20:52)
[2025-09-04 20:53] LABS: Add Urine Microscopic? YES; Appearance Urine Cloudy (Clear); Glucose Urine UA Negative (Negative); Leukocyte Esterase Ur 1+ LEU/UL (Negative); Nitrate Urine Negative (Negative); Specific Grav Ur 1.013 (1.001-1.035)
[2025-09-04] MEDS: ONDANSETRON INJ 4 MG/2 ML VIAL IV PUSH (20:53)
[2025-09-04] MEDS: SODIUM CHLORIDE 0.9% IV 1,000 ML 999 ML IV CONT (20:53)
[2025-09-04 21:01] LABS: Alanine Aminotransferase 18 U/L (6-35); Albumin Level 4.2 g/dL (3.5-5.1); Alkaline Phosphatase 63 U/L (38-126); Anion Gap 8 mmol/L (4-12); Aspartate Amino Transferase 20 U/L (14-36); Bilirubin,Total 0.2 mg/dL (0.2-1.3); Blood Urea Nitrogen 14 mg/dL (7-17); Calcium 8.9 mg/dL (8.4-10.2); Carbon Dioxide 23 mmol/L (22-30); Chloride 106 mmol/L (98-107); Estimated CRCL calculation 121 ml/min; Estimated Glomerular Filt Rate > 60; Glucose 87 mg/dL (65-110); Lipase 86 U/L (23-300); Potassium 4.0 mmol/L (3.4-5.0); Sodium 137 mmol/L (137-145); Total Protein 7.2 g/dL (6.3-8.2)
--- NOTE | 2025-09-04 21:58 | PC.NURSE ---
Pt called out saying that she had x1 emesis and is still in a lot of pain. ED BI TECHNICAL LEAD notified.
[2025-09-04] MEDS: HYDROmorphone HCL INJ (*CRX) 1 MG/ML SYR 0.5 MG IV PUSH (22:32)
[2025-09-04] MEDS: cefTRIAXone 1 GM in SODIUM CHLORIDE 0.9% IV 50 ML 100 ML IVPB (23:22)
[2025-09-04] MEDS: KETOROLAC 15 MG/ML VIAL (*BKC) IV PUSH (23:22)
[2025-09-04 23:27] VITALS: BP 124/72; PULSE 64; RESP 12; O2SAT 98
[2025-09-05] MEDS: HYDROmorphone HCL INJ (*CRX) 1 MG/ML SYR 0.5 MG IV PUSH (01:46)
[2025-09-05 02:00] VITALS: BP 108/78; PULSE 84; RESP 18; O2SAT 98
== END 2025-09-05 01:50 | disposition home or self-care (01) ==
PROVIDERS: Emergency Provider Registered Nurse
DX: N39.0 Urinary tract infection, site not specified (principal); R31.9 Hematuria, unspecified; G40.909 Epilepsy, unspecified, not intractable, without status epilepticus; G93.2 Benign intracranial hypertension; F17.210 Nicotine dependence, cigarettes, uncomplicated; Z98.2 Presence of cerebrospinal fluid drainage device; Z86.14 Personal history of Methicillin resistant Staphylococcus aureus infection; Z96.0 Presence of urogenital implants; R16.0 Hepatomegaly, not elsewhere classified
CPT/HCPCS: 36415; 74018; 74177; 80053; 81001; 81025; 83690; 85025; 87086; 96361; 96365; 96374; 96375; 99284; J0696; J1171; J1885; J2270; J2405; J7030; Q9967